=== PATIENT | male | born 1940 | race Caucasian/White ===

== ENCOUNTER → 2016-06-18 | Outpatient (CLI) | payer OTHER, BC ==
[~2016-06-18] MED LIST: ABIR1TAB PO; ASPI81TA28 PO; BUTO10SO; CALC-459 PO; CHOL200010 PO; DENOINJ SC; ENZA1CAP PO; LEUP30IN3 IM; MISCCAP80 PO; MULT-506 PO; OMEG10007 PO; OPTIRAY 320 IV PRN; PARO10TA PO; PRAV20TA PO; Prednisone PO; TRMCR515 TOP; VITA400C15 PO
--- NOTE | 2016-06-18 15:18 | DIAGNOSTIC IMAGING REPORT ---
CHEST CT WITH CONTRAST CT DOSE: HISTORY: Prostate cancer. TECHNIQUE: Multiaxial CT images of the chest were performed following the intravenous administration of contrast. COMPARISON: Chest CT 09/09/2015. FINDINGS: Motion artifact. The central airways are patent. No pneumothorax. No pleural effusions. A few punctate calcified granulomas within the left lower lobe. Calcified left hilar lymph node. No focal lung consolidations or suspicious pulmonary nodules. Significant increase in size in the T2 osteoblastic lesion which now occupies the majority vertebral body. No new osteoblastic metastatic lesions. No mediastinal or hilar lymphadenopathy. The mediastinal vascular structures are within normal limits. IMPRESSION: Increase in size in the T2 osteoblastic metastatic lesion. No new areas of metastatic disease identified within the chest. Electronically signed by: Karan August M.D. 06/18/2016 3:16 PM Dictated Date/Time: 06/18/2016 3:11 PM
--- NOTE | 2016-06-18 15:33 | DIAGNOSTIC IMAGING REPORT ---
ABDOMEN AND PELVIS CT WITH IV AND ORAL CONTRAST CT DOSE: 882.67 mGy.cm HISTORY: Prostate carcinoma CT TECHNIQUE: Multiaxial CT images of the abdomen and pelvis were performed following the use of intravenous and oral contrast. COMPARISON STUDY: 09/09/2015 FINDINGS: Lung bases remain clear. Liver spleen and pancreas are uniform. Gallbladder is negative for distention. Kidneys enhance uniformly. There is minimal cortical scarring of both kidneys. The adrenal glands are normal. Pancreas is uniform throughout. There is atelectatic change of the abdominal and pelvic arterial vasculature. Minimal vince change in the periaortic and iliac regions is stable to slightly improved. Previous maximum vince dimension of 12 mm is now 8 mm. Several additional nodes not appears to measure remains stable. There is no evidence for new interval or progressive adenopathy. Bowel pattern is nonobstructive. Bladder is midline. There has been a prosthetic resection. Inguinal regions appear unremarkable. Osseous structures show mild scattered degenerative change. IMPRESSION: 1. Stable to slightly improved exam. 2. No evidence for new interval or progressive disease. 3. The minimal adenopathy previously described is stable to slightly diminished with a node previously measured 12 mm now 8 mm. Electronically signed by: Pepito Freitas M.D. 06/18/2016 3:32 PM Dictated Date/Time: 06/18/2016 3:23 PM
== END | disposition home or self-care (01) ==
LOC: C.CTS 14:30
PROVIDERS: ATTEND Internal Medicine Hematology & Oncology
DX: C61 Malignant neoplasm of prostate (principal)

== ENCOUNTER → 2016-06-23 | Outpatient (CLI) | payer OTHER, BC ==
[~2016-06-23] MED LIST changes: -OPTIRAY 320 IV PRN
--- NOTE | 2016-06-23 14:53 | DIAGNOSTIC IMAGING REPORT ---
NUCLEAR MEDICINE WHOLE-BODY BONE SCAN CLINICAL HISTORY: PROSTATE CA COMPARISON STUDY: 12/18/2015, CT scan dated 06/18/2016 FINDINGS: The patient was injected with 26.1 mCi of technetium 99m MDP. Three-hour delayed whole body images were acquired. There is increased intensity of the focus of increased activity to T2 level. This corresponds to a blastic lesion on the recent CT scan and is consistent with a blastic metastasis. There is a new focus of increased activity involving the left superior acetabular region. This corresponds to a blastic lesion on the recent CT scan. This is consistent with a metastatic deposit. Increased activity within the right knee is felt to be degenerative IMPRESSION: 1. Evidence of progressive skeletal metastasis. Increased intensity of the T2 lesion. New focus of increased activity involving the left superior acetabular region, corresponding to a blastic lesion on the CT scan dated 06/18/2016 Electronically signed by: Tyson Tabor M.D. 06/23/2016 2:51 PM Dictated Date/Time: 06/23/2016 2:48 PM
== END | disposition home or self-care (01) ==
LOC: C.NUCL 10:23
PROVIDERS: ATTEND Internal Medicine Hematology & Oncology
DX: C61 Malignant neoplasm of prostate (principal); R93.7 Abnormal findings on diagnostic imaging of other parts of musculoskeletal system

== ENCOUNTER → 2016-07-06 | Outpatient (CLI) | payer OTHER, BC ==
[~2016-07-06] MED LIST changes: +GADAVIST IV PRN
--- NOTE | 2016-07-06 13:57 | DIAGNOSTIC IMAGING REPORT ---
THORACIC SPINE MRI WITH AND WITHOUT CONTRAST HISTORY: Prostate carcinoma PROSTATE CA TECHNIQUE: Multiplanar multisequence MRI of the thoracic spine was performed both before and after the intravenous administration of contrast. COMPARISON: None. FINDINGS: Signal characteristics the vertebral bodies indicate persistent decrease in signal of the T2 vertebral body. This consistent with patient's known metastatic positive at that site. No additional areas of bone marrow replacement are identified. Signal characteristics of the thoracic cord are unremarkable. Postcontrast images demonstrated at least a moderate postcontrast enhancement of the T2 vertebral body. There is no evidence for an associated soft tissue component. Transaxial images throughout the entire thoracic region show no evidence of disc herniation or spinal stenosis. There is no associated soft tissue component at T2. There is no evidence for compromise of the spinal canal. Neural foramina are patent bilaterally at all levels. There is a small synovial cyst on the right at the T11-T12 level. Study is negative for disc herniation or spinal stenosis. IMPRESSION: 1. Known blastic metastatic deposit at T2. 2. No evidence for an associated soft tissue component. 3. Moderate degenerative intervertebral disc change with the remainder of the thoracic region unremarkable. Electronically signed by: Pepito Freitas M.D. 07/06/2016 1:56 PM Dictated Date/Time: 07/06/2016 1:51 PM
== END | disposition home or self-care (01) ==
LOC: C.MRI 12:45
PROVIDERS: ATTEND Internal Medicine Hematology & Oncology
DX: C61 Malignant neoplasm of prostate (principal); M51.34 Other intervertebral disc degeneration, thoracic region

== ENCOUNTER → 2016-07-12 | Outpatient (CLI) | payer OTHER, BC ==
[~2016-07-12] MED LIST changes: -GADAVIST IV PRN
--- NOTE | 2016-07-12 09:11 | DIAGNOSTIC IMAGING REPORT ---
RIGHT KNEE 4 OR MORE CLINICAL HISTORY: RIGHT KNEE PAIN Right pain COMPARISON: None. DISCUSSION: Considerable degenerative change medial joint compartment right knee. Moderate degenerative change medial joint compartment left knee. Mild degenerative change patellofemoral joint. Mild reactive osteophytic change throughout. There is no evidence for soft tissue swelling. IMPRESSION: Significant degenerative change primarily the medial joint compartment right knee. Electronically signed by: Pepito Freitas M.D. 07/12/2016 9:10 AM Dictated Date/Time: 07/12/2016 9:09 AM
== END | disposition home or self-care (01) ==
LOC: C.RDSM 14:24
PROVIDERS: ATTEND Internal Medicine
DX: M25.561 Pain in right knee (principal)

== ENCOUNTER → 2016-09-14 | Outpatient (CLI) | payer OTHER, BC ==
[~2016-09-14] MED LIST changes: -ABIR1TAB PO; -Prednisone PO; +TRAM-10 PO
[2016-09-14 13:12] VITALS: BP 110/78; PULSE 71; TEMP 36.9; O2SAT 96
--- NOTE | 2016-09-14 17:11 | Radiation Oncology Follow-Up ---
Radiation Oncology Follow-Up Date of Visit September 14, 2016. 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 Stage: IV Permanent Comment: Rising PSA to 7.5 Status post ultrasound-guided biopsies, clinical stage TIc Biopsy stage TIIc Alden grade 3+3, 4+3, 4+4 and 4+5 initiation of Casodex status post robotic-assisted laparoscopic radical prostatectomy with bilateral lymph node dissection completed 02/01/2013 Stage [id number] Ronal 4+5 Initiation of hormonal suppression with reaction to medication Status post completion of radiation therapy as salvage 07/18/2013 received 7000 cGy Continuous Lupron therapy as well as bicaludimide Continued rise in PSA Bicalutimide stopped Initiation of Xtandi plus bisphosphonate Current regimen of treatment as of 03/13/2016 Zytiga, Lupron, Xgeva, and prednisone 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 Agosto. The patient was treated with salvage radiation to the prostate bed completing on 07/18/2013. He had an initial response with decreasing prostate-specific antigens. However more recently his prostate-specific antigen has been rising. Patient has continued on Lupron therapy as well as Casodex. Recently the Casodex has been stopped and patient was started on Xtandi and Xgeva. Initially his prostate-specific antigen responded melanie at 6.31. It however has continued to rise reaching 14 in February 2016 and again in May and June 2016. Dr. Agosto has indicated he was going to stop the Xtandi and will start Zytiga. The patient has had recent restaging studies. On 06/18/[address] scan of the abdomen and pelvis was performed. This showed minimal vince change in the periaortic and iliac region which was stable or slightly improved. A previously maximal vince dimension of 12 mm had decreased to 8 mm. There was no evidence of interval or progressive adenopathy. There was evidence of a blastic lesion seen in the left supra-acetabular region. CT scan of the chest on 06/18/2016 showed an increase in the size of a T2 osteoblastic metastatic lesion with no new areas identified. This was first identified on a bone scan from 12/18/2015 and based sclerotic bony lesion seen on a CT scan from 2015. A repeat bone scan performed on 06/23/2016 showed evidence of progressive skeletal metastasis. There is increased intensity of a T2 lesion. A new focus of increased activity was noted involving the left superior acetabular region which corresponded to a blastic lesion seen on CT scan from 06/18/2016. A thoracic MRI was performed on 07/06/2016. This showed moderate post contrast enhancement of the T2 vertebral body without evidence of associated soft tissue component. The signal changes were consistent with metastatic disease. The signal characteristics of the thoracic cord were unremarkable with no evidence of spinal stenosis or compression. There were no other thoracic areas of metastatic disease appreciated. In follow-up of the scans with Dr. Agosto and with a specialist in [place] the possibility of radiation to the thoracic spine was discussed with the patient. This was also impacted by the fact that the patients father was diagnosed with and from metastatic prostate cancer developed evidence of metastatic thoracic spine disease to involve the spinal cord. We met with the patient and his to discuss the option of treating the thoracic spine. I indicated that if we were to treat it would be reasonable to consider more aggressive local treatment despite the fact of a second additional site in the left supra-acetabular region. I discussed her for the possibility of a stereotactic treatment consisting of 5 fractions to the T2 vertebral body. We discussed in great detail the use of stereotactic radiation to the thoracic vertebral body. This included a discussion of the potential risks and side effects from this treatment. This discussion included the possibility of irritation or damage to spinal cord based on unknown predisposition that could lead to the possibility of numbness or even in extremely rare situations paralysis. We also talked about potential irritation or damage to the esophagus. A consent form was presented to the patient. These risks as noted above were discussed in detail with the patient. Also noted was the possibility of secondary malignancies in the future. The risks were read by the patient and initialed and the consent form was read signed and witnessed. With the patient s consent we will proceed with CT simulation next week. After treatment planning we will then schedule the patient to start his course of stereotactic treatment. This will happen at the patient and his wifes request after August 06 when she returns from a visit to her daughter who is having medical issues of her own. Patient did complete the EPIC-CP form and received an overall prostate cancer quality of life score of 26 out of 60. He also completed the AUA symptom score receiving a score of 4. Patient is having no pain in either of the 2 sites but does wish to proceed with radiation to the T-spine at this time. (Geovanna Krause PA-C) Interim History He is been doing well over the past month. He did not develop any area of skin irritation over the anterior posterior thorax. We did discuss possibility of developing dysphagia. He did not develop any difficulty with swallowing. He is not developed any discomfort in the thoracic spine or the area of the acetabulum. He noticed some dryness of the throat. He did complete an AUA score sheet and gave a score of 2. He completed expanded prostate cancer index composite and gave a score of one of 12 urinary incontinent symptoms. He gave a score of 0 of 12 in urinary irritation symptoms. He gave a score of 0 of 12 bowel symptoms. He gave a score of 8 of 12 in sexual symptoms. He gave a score of 4 of 12 and hormonal vitality symptoms. His total was 15 of 60. (Geovanna Krause PA-C) Allergies Coded Allergies: Oxycodone (Verified Adverse Reaction, Severe, confusion, 02/01/13) PER DR CARMICHAEL, Per his conversation with patient, reaction to Percocet was confusion, not difficulty breathing. Home Medications Scheduled Aspirin (Aspirin Ec), 81 MG PO DAILY Calcium Carbonate-Cholecalcife (Calcium 600+D 600-800 mg-Unit), 1 TAB PO BID Cholecalciferol (Vitamin D), 1 CAP PO DAILY Denosumab (Xgeva), 120 MG SC MONTHLY Enzalutamide (Xtandi), 160 MG PO DAILY Fish Oil ([place]-3), 1 CAP PO DAILY Leuprolide Acetate (Lupron Depot), 30 MG IM UD Multivitamin (Multivitamin), 1 TAB PO DAILY Paroxetine Hcl (Paxil), 1 TAB PO DAILY Pravastatin (Pravachol ), 20 MG PO DAILY Probiotic Product (Probiotic), 1 CAP PO DAILY Tocopheryl Acet,Dl-Alpha (Vitamin E), 400 INTER.UNIT PO DAILY Scheduled PRN Butorphanol Tartrate Nasal [place] (Stadol Nasal [place]), 1 SPRAY NA DAILY PRN for Pain Triamcinolone Acet (Triamcinolone Acetonide), 1 APPLN TOP BID PRN for Itching Review of Systems Gastrointestinal: Symptoms: WNL Oral: Symptoms: No Problems Respiratory: Symptoms: WNL Urinary: Symptoms: Nocturia Comments: nocturia times 2 Skin: Symptoms: No Problems Additional Notes: He completed a distress management report and answered "no" to all questions. (Geovanna Krause PA-C) Physical Exam Vital Signs Date Time Temp Pulse Resp B/P Pulse Ox O2 Delivery O2 Flow Rate FiO2 09/14/16 13:12 36.9 71 18 110/78 96 Pain: Side: Bilateral Patient Pain Scale: 0 - 10 Initial Pain Intensity: 0.0 Fatigue: None General Appearance: no apparent distress Eyes: normal inspection, EOMI ENT: normal ENT inspection, hearing grossly normal Neck: no adenopathy, thyroid normal Respiratory/Chest: lungs clear, no respiratory distress, no accessory muscle use Cardiovascular: regular rate, rhythm, no gallop, no murmur Skin: warm/dry Lymphatic: no adenopathy (Geovanna Krause PA-C) Laboratory Studies Test 07/29/16 09:34 08/26/16 09:29 White Blood Count 5.11 K/uL (4.8-10.8) 5.32 K/uL (4.8-10.8) Red Blood Count 4.75 M/uL (4.7-6.1) 4.87 M/uL (4.7-6.1) Hemoglobin 14.6 g/dL (14.0-18.0) 15.4 g/dL (14.0-18.0) Hematocrit 41.6 % (42-52) 43.5 % (42-52) Mean Corpuscular Volume 87.6 fL (80-100) 89.3 fL (80-100) Mean Corpuscular Hemoglobin 30.7 pg (25-34) 31.6 pg (25-34) Mean Corpuscular Hemoglobin Concent 35.1 g/dl (32-36) 35.4 g/dl (32-36) Platelet Count 178 K/uL (130-400) 167 K/uL (130-400) Mean Platelet Volume 11.5 fL (7.4-10.4) 11.5 fL (7.4-10.4) Neutrophils (%) (Auto) 54.6 % 49.5 % Lymphocytes (%) (Auto) 32.1 % 30.1 % Monocytes (%) (Auto) 10.2 % 17.7 % Eosinophils (%) (Auto) 2.3 % 1.9 % Basophils (%) (Auto) 0.6 % 0.6 % Neutrophils # (Auto) 2.79 K/uL (1.4-6.5) 2.64 K/uL (1.4-6.5) Lymphocytes # (Auto) 1.64 K/uL (1.2-3.4) 1.60 K/uL (1.2-3.4) Monocytes # (Auto) 0.52 K/uL (0.11-0.59) 0.94 K/uL (0.11-0.59) Eosinophils # (Auto) 0.12 K/uL (0-0.5) 0.10 K/uL (0-0.5) Basophils # (Auto) 0.03 K/uL (0-0.2) 0.03 K/uL (0-0.2) RDW Standard Deviation 41.6 fL (36.4-46.3) 41.3 fL (36.4-46.3) RDW Coefficient of Variation 13.0 % (11.5-14.5) 12.8 % (11.5-14.5) Immature Granulocyte % (Auto) 0.2 % 0.2 % Immature Granulocyte # (Auto) 0.01 K/uL (0.00-0.02) 0.01 K/uL (0.00-0.02) Sodium Level 142 mmol/L (136-145) 140 mmol/L (136-145) Potassium Level 4.1 mmol/L (3.5-5.1) 3.9 mmol/L (3.5-5.1) Chloride Level 109 mmol/L (98-107) 106 mmol/L (98-107) Carbon Dioxide Level 25 mmol/L (21-32) 29 mmol/L (21-32) Anion Gap 8.0 mmol/L (3-11) 5.0 mmol/L (3-11) Blood Urea Nitrogen 14 mg/dl (7-18) 16 mg/dl (7-18) Creatinine 0.84 mg/dl (0.60-1.40) 0.75 mg/dl (0.60-1.40) Est Creatinine Clear Calc Drug Dose 86.0 ml/min 96.3 ml/min Estimated GFR () 100.7 105.5 Estimated GFR (Non- 86.9 91.0 BUN/Creatinine Ratio 16.5 (10-20) 21.7 (10-20) Random Glucose 108 mg/dl (70-99) 94 mg/dl (70-99) Calcium Level 9.0 mg/dl (8.5-10.1) 9.4 mg/dl (8.5-10.1) Total Bilirubin 0.5 mg/dl (0.2-1) 0.7 mg/dl (0.2-1) Aspartate Amino Transferase (AST) 17 U/L (15-37) 15 U/L (15-37) Alanine Aminotransferase (ALT) 28 U/L (12-78) 25 U/L (12-78) Alkaline Phosphatase 37 U/L (45-117) 36 U/L (45-117) Lactate Dehydrogenase 179 U/L (87-241) 176 U/L (87-241) Total Protein 6.7 gm/dl (6.4-8.2) 7.0 gm/dl (6.4-8.2) Albumin 3.7 gm/dl (3.4-5.0) 3.9 gm/dl (3.4-5.0) Globulin 3.0 gm/dl (2.5-4.0) 3.1 gm/dl (2.5-4.0) Albumin/Globulin Ratio 1.2 (0.9-2) 1.3 (0.9-2) Prostate Specific Antigen 12.800 ng/ml (0.000-4.000) 14.400 ng/ml (0.000-4.000) (Geovanna Krause PA-C) Assessment & Plan Plan: He has a follow-up appointment with Dr. Oconnor at [facility] next week. Continue regular follow-up with Dr. Agosto. (Geovanna Krause PA-C) Mr. Sherman is seen today following stereotactic treatment to a metastatic deposit to the T2 vertebral body. He has tolerated that treatment extremely well. He has no side effects related to the treatment. He asked about the possibility of treating the other lesion in the left supra-acetabular region. I reminded the patient that we treated his prostate bed in 2013 which could inhibit our ability to treat the left supra-acetabular region especially in the setting with no pain. I did tell him that if he were to develop symptoms we would certainly review his plan and likely could retreat this area with more complicated treatment planning. I also spoke with them about the possibility of treatment with Xofigo. I explained the rationale and technique of utilizing this treatment. I suggested that he discuss this if interested with Dr. Oconnor at [place] and with Dr. Agosto. Since the patient is being followed closely by his other referring physicians no follow-up appointment was suggested. However the patient understands that we would be happy to see him at any time in the future if requested either by the patient or by his referring physicians. Thank you for allowing us to participate in the care of this patient. This chart was completed in part utilizing [employer] Voice Recognition software. Attempts were made to minimize the grammatical errors, random word insertions, pronoun errors and incomplete sentences. Any formal questions or concerns about the content, text or information contained within the body of this dictation should be directly addressed to the provider for clarification. Otto Garcia MD Department of Radiation Oncology [facility] (Tomas Garcia M.D.) Total Time In Follow-Up I spent 20 minutes speaking to the patient and performed an examination. I spent 15 minutes reviewing information and completing this note. (Geovanna Krause PA-C) Copy To Fabricio Agosto D.O.; Anusha Oconnor M.D.; Rafa Carmichael
== END | disposition home or self-care (01) ==
LOC: C.ONC 13:10
PROVIDERS: ATTEND Physician Assistant Medical
DX: Z08 Encounter for follow-up examination after completed treatment for malignant neoplasm (principal); Z92.3 Personal history of irradiation; Z85.46 Personal history of malignant neoplasm of prostate

== ENCOUNTER → 2016-11-03 | Outpatient (CLI) | payer OTHER, BC ==
[~2016-11-03] MED LIST changes: -TRAM-10 PO
== END | disposition home or self-care (01) ==
LOC: C.MAMM 15:40
PROVIDERS: ATTEND Nurse Practitioner Family
DX: M85.851 Other specified disorders of bone density and structure, right thigh (principal)

== ENCOUNTER → 2016-12-21 | Outpatient (CLI) | payer OTHER, BC ==
--- NOTE | 2016-12-21 13:38 | DIAGNOSTIC IMAGING REPORT ---
BONE SCAN WHOLE BODY CLINICAL HISTORY: Prostate cancer. COMPARISON STUDY: Whole-body bone scan June 23, 2016. TECHNIQUE: 26.445 mCi of technetium 90 9M MDP was injected IV at 9:50 AM on December 21, 2016. 3 hours following injection, flow body imaging was performed in the anterior and posterior projections. FINDINGS: Expected soft tissue and renal activity is present. Uptake within the superior left acetabular lesion has increased since prior exam of June 23, 2016. There has been interval development of marked focal uptake within the lower thoracic spine at approximately the T10 level. This is new since prior exam. Uptake within the T2 vertebral lesion has diminished. There has also been interval development of a small focus of mild uptake within the left upper aspect of the sacrum or lower lumbar spine. Uptake adjacent to the right knee is degenerative. IMPRESSION: Findings consistent with a mixed treatment response. Significant interval decrease in radiotracer uptake within the T2 lesion with interval development of two spinal lesions and slight increase in the left acetabular lesion, as described above. Electronically signed by: Bertin Eisenberg M.D. 12/21/2016 1:37 PM Dictated Date/Time: 12/21/2016 1:32 PM
== END | disposition home or self-care (01) ==
LOC: C.NUCL 09:39
PROVIDERS: ATTEND Nurse Practitioner Family
DX: C61 Malignant neoplasm of prostate (principal)

== ENCOUNTER → 2017-01-19 | Outpatient (CLI) | payer OTHER, BC ==
--- NOTE | 2017-01-19 16:07 | DIAGNOSTIC IMAGING REPORT ---
L HAND MIN 3 VIEWS ROUTINE CLINICAL HISTORY: BILATERAL HAND PAIN M79.89 COMPARISON: None. DISCUSSION: The bones and joint spaces appear intact. There is no evidence of fracture, dislocation or bony disease. There is no evidence for soft tissue swelling. IMPRESSION: Negative study. The above report was generated using voice recognition software. It may contain grammatical, syntax or spelling errors. Electronically signed by: Pepito Freitas M.D. 01/19/2017 4:05 PM Dictated Date/Time: 01/19/2017 4:05 PM
--- NOTE | 2017-01-19 16:08 | DIAGNOSTIC IMAGING REPORT ---
R HAND MIN 3 VIEWS ROUTINE CLINICAL HISTORY: BILATERAL HAND PAIN M79.89 COMPARISON: None. DISCUSSION: The bones and joint spaces appear intact. There is no evidence of fracture, dislocation or bony disease. There is no evidence for soft tissue swelling. IMPRESSION: Negative study. The above report was generated using voice recognition software. It may contain grammatical, syntax or spelling errors. Electronically signed by: Pepito Freitas M.D. 01/19/2017 4:06 PM Dictated Date/Time: 01/19/2017 4:06 PM
== END | disposition home or self-care (01) ==
LOC: C.RAD 15:46
PROVIDERS: ATTEND Family Medicine
DX: M79.89 Other specified soft tissue disorders (principal)

== ENCOUNTER → 2017-01-20 | Outpatient (CLI) | payer OTHER, BC ==
[~2017-01-20] MED LIST changes: +OPTIRAY 320 IV PRN
--- NOTE | 2017-01-20 16:10 | DIAGNOSTIC IMAGING REPORT ---
(CHEST) THORAX WITH CT DOSE: 1161.91 mGycm HISTORY: Prostate carcinoma PROSTATE CANCER TECHNIQUE: Multiaxial CT images of the chest were performed following the intravenous administration of contrast. A dose lowering technique was utilized adhering to the principles of ALARA. COMPARISON: 06/18/2016 FINDINGS: Lungs remain clear. Stable to slightly metastatic deposit right pedicle T10. Evaluation of chest otherwise remains negative. Osteoblastic metastatic deposit right pedicle of T10. No significant hilar or mediastinal adenopathy. Lungs remain clear. IMPRESSION: 1. Slightly progressive bony metastatic change now with an osteoblastic metastatic deposit involving the right pedicle at T10 in addition to the findings previously seen at T2. 2. The chest is otherwise negative. The above report was generated using voice recognition software. It may contain grammatical, syntax or spelling errors. Electronically signed by: Pepito Freitas M.D. 01/20/2017 4:09 PM Dictated Date/Time: 01/20/2017 4:00 PM
--- NOTE | 2017-01-20 16:21 | DIAGNOSTIC IMAGING REPORT ---
ABDOMEN AND PELVIS CT WITH IV AND ORAL CONTRAST CT DOSE: HISTORY: PROSTATE CANCER TECHNIQUE: Multiaxial CT images of the abdomen and pelvis were performed following the use of intravenous and oral contrast. A dose lowering technique was utilized adhering to the principles of ALARA. COMPARISON STUDY: Abdomen and pelvis CT 06/18/2016. FINDINGS: The lung bases are clear. Increase in size in the osteoblastic metastatic lesion within the left acetabulum which now measures 2.9 cm, previous measuring 2.2 cm. The L5 and T10 osteoblastic lesions have also increased in size. No new osteoblastic lesions identified. The liver, gallbladder, adrenal glands, pancreas, and kidneys are unremarkable. Mild fullness within the bilateral renal collecting system without cesar hydronephrosis. Mild urothelial thickening within the bilateral ureters. Subcentimeter retroperitoneal lymph nodes remain stable. Interval development of mild periaortic fat stranding. The bladder is unremarkable. No pelvic lymphadenopathy. Moderate stool within the colon. No bowel wall thickening or obstruction. Normal appendix. IMPRESSION: 1. Slight increase in size in the osteoblastic metastatic lesions as described above. However, no new osteoblastic metastatic lesions identified. 2. Subcentimeter retroperitoneal lymph nodes remain stable. 3. Interval development of mild periaortic fat stranding and mild ureteral wall thickening. This could be due to posttreatment/post radiation changes. An inflammatory process is considered less likely. Electronically signed by: Karan August M.D. 01/20/2017 4:20 PM Dictated Date/Time: 01/20/2017 4:13 PM
== END | disposition home or self-care (01) ==
LOC: C.CTS 14:20
PROVIDERS: ATTEND Internal Medicine Hematology & Oncology
DX: C61 Malignant neoplasm of prostate (principal); C79.51 Secondary malignant neoplasm of bone

== ENCOUNTER → 2017-02-03 | Outpatient (CLI) | payer OTHER, BC ==
[~2017-02-03] MED LIST changes: -OPTIRAY 320 IV PRN
== END | disposition home or self-care (01) ==
LOC: C.NUCL 12:24
PROVIDERS: ATTEND Radiology Radiation Oncology
DX: C61 Malignant neoplasm of prostate (principal); C79.51 Secondary malignant neoplasm of bone

== ENCOUNTER → 2017-03-22 | Outpatient (CLI) | payer OTHER, BC ==
[~2017-03-22] MED LIST changes: +TRAM-10 PO
== END | disposition home or self-care (01) ==
LOC: C.NUCL 12:57
PROVIDERS: ATTEND Radiology Radiation Oncology
DX: C61 Malignant neoplasm of prostate (principal)

== ENCOUNTER → 2017-06-22 | Outpatient (CLI) | payer OTHER, BC | END | disposition home or self-care (01) | LOC: C.NUCL 13:02 | PROVIDERS: ATTEND Radiology Radiation Oncology | DX: C61 Malignant neoplasm of prostate (principal); C79.51 Secondary malignant neoplasm of bone ==

== ENCOUNTER 2017-07-26 08:57 | Inpatient (IN) | payer OTHER, BC ==
[2017-07-26] VITALS (11 sets, daily range): BP systolic 98–117; BP diastolic 52–69; PULSE 51–72; TEMP 36.8–39; O2SAT 94–100; Ht 175.3 cm; Wt 82.8 kg
[~2017-07-26] VITALS: Ht 175.3 cm; Wt 82.8 kg
[2017-07-26] MEDS ORDERED: SODIUM CHLORIDE 0.9% 1000ML 1,000 ML IV ONE (09:17)
[2017-07-26] MEDS ORDERED: VITACAP37 PO (09:34)
[2017-07-26 09:47] LABS: HEMATOCRIT 23.6 % (42-52); HEMOGLOBIN 7.8 g/dL (14.0-18.0); MEAN CELL VOLUME 81.7 fL (80-100); MEAN CORPUSCULAR HGB CONC 33.1 g/dl (32-36); NUCLEATED RED BLOOD CELL ABS 0.04 K/uL (0-0); PLATELET COUNT 152 K/uL (130-400); RED CELL DISTRIBUTION WIDTH CV 21.6 % (11.5-14.5); RED CELL DISTRIBUTION WIDTH SD 62.6 fL (36.4-46.3)
[2017-07-26 09:56] LABS: INR 1.2 (0.9-1.1)
[2017-07-26 10:01] LABS: ALBUMIN 3.2 gm/dl (3.4-5.0); ALT/SGPT 23 U/L (12-78); BLOOD UREA NITROGEN 13 mg/dl (7-18); CARBON DIOXIDE 23 mmol/L (21-32); CREATININE 0.81 mg/dl (0.60-1.40); GLUCOSE 116 mg/dl (70-99); POTASSIUM 3.9 mmol/L (3.5-5.1); SODIUM 131 mmol/L (136-145)
--- NOTE | 2017-07-26 10:03 | EMERGENCY ROOM VISIT NOTE ---
History Report prepared by Angi: Bing Dickson Under the Supervision of: Dr. Nick Howe M.D. First contact with patient: 09:05 Chief Complaint: LETHARGIC Stated Complaint: NO APPETITE, LETHARGIC, DARK URING, STRANGE SMELL Nursing Triage Summary: pt to the ED with c/o no energy and lethargy decreased po intake for several days has been neutropenic has prostate CA takes chemo pills and radiation feels nausea and strange smells History of Present Illness The patient is a 76 year old male who presents to the Emergency Room with complaints of worsening lethargy for the past few days. The patient is currently being treated for prostate cancer with mets to the bone. He is receiving radiation infusions monthly for his cancer. He did not get any radiation this month because he was neutropenic. The patient states that he is not currently undergoing any chemotherapy. Over the past few days he has felt very lethargic. He reports having no energy and no appetite. He has been feeling short of breath. He reports dark urine. states that the patient appears yellowish and pale to her. They called the patient's oncologist this morning and were advised to come to the ED for further evaluation. The patient denies any nausea, vomiting, or diarrhea. Source of History: patient, spouse/significant other Onset: a few days ago Position: other (global) Quality: other (lethargy) Timing: worsening Associated Symptoms: + SOB, + urinary symptoms, No nausea, No vomiting, No diarrhea Note: Pt notes no energy and no appetite. Pt appears pale and yellow per . Review of Systems See HPI for pertinent positives & negatives. A total of 10 systems reviewed and were otherwise negative. Past Medical & Surgical Medical Problems: (1) Anemia (2) Hyperlipidemia (3) Lethargy (4) Prostate cancer (5) Third degree heart block (6) Weakness Family History Cancer Social History Smoking Status: Light Tobacco Smoker Marital Status: Housing Status: lives with significant other Occupation Status: retired Current/Historical Medications Scheduled Aspirin (Aspirin Ec), 81 MG PO DAILY Calcium Carbonate-Cholecalcife (Calcium 600+D 600-800 mg-Unit), 1 TAB PO BID Cholecalciferol (Vitamin D), 2,000 UNITS PO DAILY Denosumab (Xgeva), 120 MG SC MONTHLY Enzalutamide (Xtandi), 120 MG PO DAILY Fish Oil ([place]-3), 1 CAP PO DAILY Leuprolide Acetate (Lupron Depot), 30 MG IM UD Multivitamin (Multivitamin), 1 TAB PO DAILY Paroxetine Hcl (Paxil), 10 MG PO DAILY Pravastatin (Pravachol ), 20 MG PO DAILY Probiotic Product (Probiotic), 1 CAP PO DAILY Vitamin E (E-400), 400 UNITS PO DAILY Scheduled PRN Tramadol (Ultram), 50 MG PO TID PRN for Pain Triamcinolone Acet (Triamcinolone Acetonide), 1 APPLN TOP BID PRN for Itching Allergies Coded Allergies: Oxycodone (Verified Adverse Reaction, Intermediate, confusion, 07/26/17) PER DR CARMICHAEL, Per his conversation with patient, reaction to Percocet was confusion, not difficulty breathing. Physical Exam Vital Signs Date Time Temp Pulse Resp B/P (MAP) Pulse Ox O2 Delivery O2 Flow Rate FiO2 07/26/17 10:10 97 Room Air 07/26/17 09:00 37.2 63 22 122/74 97 Physical Exam GENERAL: Awake, alert, pale-appearing, in no acute distress HENT: Normocephalic, atraumatic. Oropharynx unremarkable. EYES: Normal conjunctiva. Sclera non-icteric. NECK: Supple. No nuchal rigidity. FROM. No JVD. RESPIRATORY: Clear to auscultation. CARDIAC: Regular rate, normal rhythm. Extremities warm and well perfused. Pulses equal. ABDOMEN: Soft, non-distended. No tenderness to palpation. No rebound or guarding. No masses. RECTAL: No masses or blood noted. Heme negative. MUSCULOSKELETAL: Chest examination reveals no tenderness. The back is symmetrical on inspection without obvious abnormality. There is no CVA tenderness to palpation. No joint edema. LOWER EXTREMITIES: Calves are equal size bilaterally and non-tender. No edema. No discoloration. NEURO: Normal sensorium. No sensory or motor deficits noted. SKIN: No rash or jaundice noted. Medical Decision & Procedures ER Provider Diagnostic Interpretation: Radiology results as stated below per my review and radiologist interpretation: CHEST ONE VIEW PORTABLE CLINICAL HISTORY: Sepsis COMPARISON STUDY: 01/02/2013 FINDINGS: The heart is enlarged. There is elevation interstitium consistent with mild congestive failure/fluid overload. There is no focal pulmonary consolidation. There are no pleural effusions.[ IMPRESSION: Cardiomegaly and radiographic evidence of mild congestive failure/fluid overload. Clinical and radiographic follow-up is recommended. Electronically signed by: Tyson Tabor M.D. 07/26/2017 10:20 AM Dictated Date/Time: 07/26/2017 10:20 AM Laboratory Results Test 07/26/17 09:30 07/26/17 09:32 07/26/17 09:37 Schistocytes 1+ Absolute Reticulocyte Count 0.06 10^6/uL (0.02-0.10) Percent Reticulocyte Count 2.0 % (0.5-2.0) Prothrombin Time 12.4 SECONDS (9.0-12.0) Prothromb Time International Ratio 1.2 (0.9-1.1) Activated Partial Thromboplast Time 32.0 SECONDS (21.0-31.0) Partial Thromboplastin Ratio 1.2 Total Creatine Kinase 27 U/L (39-308) Creatine Kinase MB < 0.5 ng/ml (0.5-3.6) Creatine Kinase MB Ratio (0-3.0) Prostate Specific Antigen 32.600 ng/ml (0.000-4.000) Influenza Type A Antigen Neg for Influ A (NEG) Influenza Type B Antigen Neg for Influ B (NEG) Bedside Lactic Acid Venous 2.18 mmol/L (0.90-1.70) Labs reviewed by ED physician. Medications Administered Medications (Trade) Dose Ordered Sig/Bunny Route Start Time Stop Time Status Last Admin Dose Admin Sodium Chloride 1,000 ml @ 999 mls/hr Q1H1M ONCE IV 07/26/17 09:17 07/26/17 10:17 DC 07/26/17 09:40 999 MLS/HR ECG Per My Interpretation Indication: weakness Rate (beats per minute): 54 Rhythm: sinus bradycardia Findings: no ectopy, other (no ST elevations or depressions) ED Course 09: Past medical records reviewed. The patient was evaluated in room B12B. A complete history and physical examination was performed. 0917: NSS 1000 ml @ 999 mls/hr IV 0951: At this time I performed a rectal examination. Please see above for my findings. I discussed the results so far with the patient. I obtained consent for blood at this time. 1007: I reassessed the patient at this time. He is resting comfortably. I discussed the results and treatment plan with the patient and his . I answered all pertaining questions that they had. They expressed understanding and verbalized agreement. 1011: I spoke with KATHRIN Newsome. We discussed the patient's case. The patient will be evaluated by the [facility] for further management. Medical Decision Differential diagnosis: Etiologies such as metabolic, infection, hypo/hyperglycemia, electrolyte abnormalities, cardiac sources, intracerebral event, toxicologic, neurologic, as well as others were entertained. This is a 76-year-old male who presents the emergency department complaining of generalized weakness. Patient is on radiation therapy for his prostate cancer and he was sent in by his oncologist. The patient is anemic and I suspect this is what causing his weakness. He was typed and screened for 2 units of packed red blood cells. I did discuss his case with the hospitalist service who agreed to admit the patient. Patient and are in agreement with the treatment plan. Medication Reconcilliation Current Medication List: was personally reviewed by me Blood Pressure Screening Patient's blood pressure: Normal blood pressure Consults Time Called: 1009 Consulting Physician: Bc Ponce Returned Call: 1011 I spoke with KATHRIN Newsome. We discussed the patient's case. The patient will be evaluated by the [facility] for further management. Impression Primary Impression: Weakness Additional Impression: Anemia Scribe Attestation The scribe's documentation has been prepared under my direction and personally reviewed by me in its entirety. I confirm that the note above accurately reflects all work, treatment, procedures, and medical decision making performed by me. Departure Information Dispostion Being Evaluated By Hospitalist Referrals Julia Terrell D.O. (PCP) Patient Instructions My [facility] Problem Qualifiers Additional Impression: Anemia Anemia type: unspecified type Qualified Codes: D64.9 - Anemia, unspecified
[2017-07-26 10:08] LABS: ALKALINE PHOSPHATASE 55 U/L (45-117); AST/SGOT 20 U/L (15-37); CKMB < 0.5 ng/ml (0.5-3.6); TOTAL PROTEIN 6.5 gm/dl (6.4-8.2)
--- NOTE | 2017-07-26 10:22 | DIAGNOSTIC IMAGING REPORT ---
CHEST ONE VIEW PORTABLE CLINICAL HISTORY: Sepsis COMPARISON STUDY: 01/02/2013 FINDINGS: The heart is enlarged. There is elevation interstitium consistent with mild congestive failure/fluid overload. There is no focal pulmonary consolidation. There are no pleural effusions.[ IMPRESSION: Cardiomegaly and radiographic evidence of mild congestive failure/fluid overload. Clinical and radiographic follow-up is recommended. Electronically signed by: Tyson Tabor M.D. 07/26/2017 10:20 AM Dictated Date/Time: 07/26/2017 10:20 AM
[2017-07-26 10:27] LABS: INFLUENZA B ANTIGEN Neg for Influ B (NEG)
[2017-07-26] MEDS ORDERED: MAGNESIUM HYDROXIDE SUSP 30 ML UDC PO PRN (10:45)
[2017-07-26] MEDS ORDERED: POLYETHYLENE (MIRALAX) 17 GM PACK PO PRN (10:45)
[2017-07-26] MEDS ORDERED: ALUMINUM/MAGNESIUM/SIMETH (MAALOX MAX) 30 ML UDC PO PRN (10:45)
[2017-07-26] MEDS ORDERED: ONDANSETRON INJ 2 MG/ML 2 ML VIAL IV PRN (10:45)
[2017-07-26] MEDS ORDERED: ACETAMINOPHEN 325 MG TAB PO PRN ×2 (10:45→13:00)
--- NOTE | 2017-07-26 11:06 | History and Physical ---
History & Physical Date & Time of Service: Jul 26, 2017 at 10:49 Chief Complaint: No Appetite, Lethargic, Dark Uring, Strange Smell Primary Care Physician: Julia Terrell D.O. History of Present Illness Source: patient, spouse 76 year old gentleman with a history of prostate CA with metastasis to the lumbar spine. He is currently undergoing oral treatment with Lupron, Xtandi, and Xgeva. He is followed by Dr. Romeo and has also been undergoing infusion radiation. He notes he has been neutropenic in the past, but never has required a blood transfusion. Over the last month he has become progressively weaker which really worsened over the last week. He has less energy and feels lethargic. His appetite is poor. He has lost around 25 lbs, but notes he has been trying to lose weight to a goal of 170 lbs. His HGB in February was over 13 and over the last few months it has been gradually dropping. Last week his HGB was 9.5. He called his oncologist today about the weakness and lethargy and was instructed to come to the ED. Routine labs were obtained and his HGB was found to be 7.8. EKG and CXR were with no acute findings. He was given a litter of fluid. Typed for 2 units of PRBC and the hospitalist were consulted for observation. His troponin was also elevated at 0.049 which will need trended. Past Medical/Surgical History Medical Problems: 1. Hyperlipidemia 2. Prostate cancer with metastasis to the lumbar spine 3. Neutropenia 4. Anemia Past Surgical History 1. Prostatectomy 2. Hernia Repair Family History Cancer Social History Smoking Status: Former Smoker Smokeless Tobacco Use: No Alcohol Use: none Drug Use: none Marital Status: Housing status: lives with significant other Occupational Status: retired Immunizations History of Influenza Vaccine: Yes History of Tetanus Vaccine?: Yes History of Pneumococcal: Yes History of Hepatitis B Vaccine: Yes Allergies Coded Allergies: Oxycodone (Verified Adverse Reaction, Intermediate, confusion, 07/26/17) PER DR CARMICHAEL, Per his conversation with patient, reaction to Percocet was confusion, not difficulty breathing. Home Medications Scheduled Aspirin (Aspirin Ec), 81 MG PO DAILY Calcium Carbonate-Cholecalcife (Calcium 600+D 600-800 mg-Unit), 1 TAB PO BID Cholecalciferol (Vitamin D), 2,000 UNITS PO DAILY Denosumab (Xgeva), 120 MG SC MONTHLY Enzalutamide (Xtandi), 120 MG PO DAILY Fish Oil ([place]-3), 1 CAP PO DAILY Leuprolide Acetate (Lupron Depot), 30 MG IM UD Multivitamin (Multivitamin), 1 TAB PO DAILY Paroxetine Hcl (Paxil), 10 MG PO DAILY Pravastatin (Pravachol ), 20 MG PO DAILY Probiotic Product (Probiotic), 1 CAP PO DAILY Vitamin E (E-400), 400 UNITS PO DAILY Scheduled PRN Tramadol (Ultram), 50 MG PO TID PRN for Pain Triamcinolone Acet (Triamcinolone Acetonide), 1 APPLN TOP BID PRN for Itching Review of Systems Constitutional: + weakness, + fatigue Eyes: No worsening of vision, No eye pain, No redness, No discharge, No diplopia, No problem reported ENT: + problem reported (unusual smells) Respiratory: + shortness of breath Cardiovascular: No chest pain, No orthopnea, No PND, No edema, No claudication , No palpitations, No problem reported Abdomen: No pain, No nausea, No vomiting, No diarrhea, No constipation, No GI bleeding, No problem reported Musculoskeletal: + problem reported (general weakness) Genitourinary - Male: No hematuria, No dysuria, No urinary frequency, No urinary urgency, No urinary hesitancy, No urinary retention, No urinary incontinence, No penile discharge, No lesions, No impotence, No problem reported Neurologic: + weakness Psychiatric: + depression symptoms Endocrine: + fatigue, No excessive thirst, No excessive urination, No problem reported Hematologic / Lymphatic: No abnormal bleeding/bruising, No clotting problems, No swollen lymph nodes, No night sweats, No problem reported Integumentary: No rash, No itch, No new/changing skin lesions, No color change , No bleeding, No problem reported Physical Exam Vital Signs Date Time Temp Pulse Resp B/P (MAP) Pulse Ox O2 Delivery O2 Flow Rate FiO2 07/26/17 10:10 97 Room Air 07/26/17 09:00 37.2 63 22 122/74 97 General Appearance: WD/WN, no apparent distress Head: normocephalic, atraumatic Eyes: normal inspection, sclerae normal ENT: hearing grossly normal, pharynx normal Neck: supple, no JVD Respiratory/Chest: chest non-tender, no respiratory distress, no accessory muscle use, + crackles (few faint crackles bibasilarly) Cardiovascular: regular rate, rhythm, no edema, no gallop, no JVD, no murmur Abdomen/GI: normal bowel sounds, non tender, soft, no organomegaly Back: normal inspection, no CVA tenderness, no muscle spasm Extremities/Musculoskelatal: normal inspection, no calf tenderness, normal capillary refill, no pedal edema Neurologic/Psych: no motor/sensory deficits, alert, normal mood/affect, oriented x 3 Skin: normal color, warm/dry, no rash Lymphatic: no adenopathy Diagnostics Laboratory Results Results Past 24 Hours Test 07/26/17 09:30 07/26/17 09:32 07/26/17 09:37 Range/Units White Blood Count 2.80 4.8-10.8 K/uL Red Blood Count 2.89 4.7-6.1 M/uL Hemoglobin 7.8 14.0-18.0 g/dL Hematocrit 23.6 42-52 % Mean Corpuscular Volume 81.7 80-100 fL Mean Corpuscular Hemoglobin 27.0 25-34 pg Mean Corpuscular Hemoglobin Concent 33.1 32-36 g/dl Platelet Count 152 130-400 K/uL RDW Standard Deviation 62.6 36.4-46.3 fL RDW Coefficient of Variation 21.6 11.5-14.5 % Nucleated RBC Absolute Count (auto) 0.04 0-0 K/uL Neutrophils % (Manual) 60.2 % Lymphocytes % (Manual) 13.3 % Monocytes % (Manual) 13.3 % Eosinophils % (Manual) 3.5 % Basophils % (Manual) 0.9 0-2 % Metamyelocytes % 3.5 % Myelocytes % 3.5 % Blast Cells % 1.8 % Nucleated Red Blood Cells % 1.4 % Neutrophils # (Manual) 1.69 1.4-6.5 K/uL Total Absolute Neutrophils 1.69 1.4-6.5 K/uL Lymphocytes # (Manual) 0.37 1.2-3.4 K/uL Total Absolute Lymphocytes 0.37 1.2-3.4 K/uL Monocytes # (Manual) 0.37 0.11-0.59 K/uL Eosinophils # (Manual) 0.10 0-0.5 K/uL Basophils # (Manual) 0.03 0-0.2 K/uL Metamyelocytes # 0.10 0-0 K/uL Myelocytes # 0.10 0-0 K/uL Blast Cells # 0.05 0-0 K/uL Giant Platelets 2+ Poikilocytosis PRESENT Anisocytosis PRESENT Ovalocytes 1+ Schistocytes 1+ Absolute Reticulocyte Count 0.06 0.02-0.10 10^6/uL Percent Reticulocyte Count 2.0 0.5-2.0 % Prothrombin Time 12.4 9.0-12.0 SECONDS Prothromb Time International Ratio 1.2 0.9-1.1 Activated Partial Thromboplast Time 32.0 21.0-31.0 SECONDS Partial Thromboplastin Ratio 1.2 Sodium Level 131 136-145 mmol/L Potassium Level 3.9 3.5-5.1 mmol/L Chloride Level 99 98-107 mmol/L Carbon Dioxide Level 23 21-32 mmol/L Anion Gap 9.0 3-11 mmol/L Blood Urea Nitrogen 13 7-18 mg/dl Creatinine 0.81 0.60-1.40 mg/dl Est Creatinine Clear Calc Drug Dose 80.0 ml/min Estimated GFR () 101.5 Estimated GFR (Non- 87.6 BUN/Creatinine Ratio 16.0 10-20 Random Glucose 116 70-99 mg/dl Calcium Level 8.0 8.5-10.1 mg/dl Total Bilirubin 1.2 0.2-1 mg/dl Aspartate Amino Transf (AST/SGOT) 20 15-37 U/L Alanine Aminotransferase (ALT/SGPT) 23 12-78 U/L Alkaline Phosphatase 55 45-117 U/L Total Creatine Kinase 27 39-308 U/L Creatine Kinase MB < 0.5 0.5-3.6 ng/ml Creatine Kinase MB Ratio 0-3.0 Troponin I 0.049 0-0.045 ng/ml Total Protein 6.5 6.4-8.2 gm/dl Albumin 3.2 3.4-5.0 gm/dl Globulin 3.3 2.5-4.0 gm/dl Albumin/Globulin Ratio 1.0 0.9-2 Prostate Specific Antigen 32.600 0.000-4.000 ng/ml Influenza Type A Antigen Neg for Influ A NEG Influenza Type B Antigen Neg for Influ B NEG Bedside Lactic Acid Venous 2.18 0.90-1.70 mmol/L Microbiology Results 07/26/17 Blood Culture, Received Pending 07/26/17 Blood Culture, Received Pending Diagnostic Radiology CHEST ONE VIEW PORTABLE CLINICAL HISTORY: Sepsis COMPARISON STUDY: 01/02/2013 FINDINGS: The heart is enlarged. There is elevation interstitium consistent with mild congestive failure/fluid overload. There is no focal pulmonary consolidation. There are no pleural effusions.[ IMPRESSION: Cardiomegaly and radiographic evidence of mild congestive failure/fluid overload. Clinical and radiographic follow-up is recommended. EKG nsr with no ST elevations Normal EKG Impression Assessment and Plan 1. Anemia - normocytic, normochromic - likely secondary to cancer treatment. Transfuse two units of PRBC. Trend HH. Denies dark or bloody stools. 2. Prostate CA with mets to lumbar spine - continue Lupron, Xtandi, Xgeva - to bring in. 3. Elevated Troponin - question demand ischemia from anemia - EKG was NST with acute ST changes. Will cycle troponins. 4. General weakness - should improve with PRBC transfusion 5. DVT Prophylaxis - SCD, TEDS, Heparin 6. Full Code 7. ELS one midnight. Advanced Directives Existing Living Will: Yes Existing Power of Vp Platforms: Yes () Resuscitation Status VTE Prophylaxis Will order VTE Prophylaxis: Yes
[2017-07-26] MEDS ORDERED: IV FLUIDS COMPLETED PRN (11:30)
[2017-07-26] MEDS ORDERED: ACETAMINOPHEN 325 MG TAB PO STA (12:49)
[2017-07-26] MEDS: SODIUM CHLORIDE 0.9% 1000ML 1,000 ML IV SCH (15:44)
[2017-07-26] MEDS: HEPARIN SOD 5000 UNIT/0.5 ML CARP SQ SCH (20:51)
[2017-07-27] VITALS (17 sets, daily range): BP systolic 104–129; BP diastolic 50–67; PULSE 43–56; TEMP 36.5–39.2; O2SAT 90–98
[2017-07-27] MEDS: ACETAMINOPHEN 500 MG TAB PO PRN ×2 (00:02→13:51)
[2017-07-27] MEDS: SODIUM CHLORIDE 0.9% 1000ML 1,000 ML IV SCH ×2 (04:18→17:27)
--- NOTE | 2017-07-27 05:40 | Progress Note ---
Progress Note Date of Service Jul 27, 2017. Progress Note Received a page from the nurse around 4am stating that the tele nurse reported that the patient was in 3rd degree heart block. Reviewed previous EKGs from earlier in the day. 3rd degree heart block was confirmed by Dr. Marin in two EKGs from earlier in the day. First EKG was hard to read for me but definitely pt was in 3rd degree heart block on the 2nd EKG done around 1:30pm. Pt has been doing well since admission. Was moved from 4E due to a suspected transfusion reaction. Still lethargic but no acute worsening of his symptoms. He is jaundiced appearing - he states that has been going on for a few days but it's not his baseline. He is conversing with me without difficulty and denies chest pain. When i first saw the patient he was standing to use a urinal without difficulty. Plan will be to move the patient to 2E from 2N, place pacer pads, I have put in a cardiology consult and have advised the nurses to place pacer pads. I have also ordered a magnesium and a repeat CMP for this AM. Resident Involvement: Resident Care Provided Care Provided: Adult Hospital Medicine
[2017-07-27 06:52] LABS: ALBUMIN 2.9 gm/dl (3.4-5.0); CALCIUM 7.9 mg/dl (8.5-10.1); CREATININE 0.67 mg/dl (0.60-1.40); POTASSIUM 3.8 mmol/L (3.5-5.1)
[2017-07-27 07:20] LABS: HEMATOCRIT 23.1 % (42-52); HEMOGLOBIN 7.5 g/dL (14.0-18.0); MEAN CELL VOLUME 81.9 fL (80-100); MEAN CORPUSCULAR HEMOGLOBIN 26.6 pg (25-34); MEAN CORPUSCULAR HGB CONC 32.5 g/dl (32-36); NUCLEATED RED BLOOD CELL ABS 0.02 K/uL (0-0); PLATELET COUNT 109 K/uL (130-400); RED CELL DISTRIBUTION WIDTH CV 21.9 % (11.5-14.5); RED CELL DISTRIBUTION WIDTH SD 64.3 fL (36.4-46.3); WHITE BLOOD COUNT 1.93 K/uL (4.8-10.8)
[2017-07-27] MEDS: HEPARIN SOD 5000 UNIT/0.5 ML CARP SQ SCH ×2 (09:00→20:52)
--- NOTE | 2017-07-27 13:05 | CARDIOLOGY CONSULTATION ---
DATE OF CONSULTATION: 07/27/2017 HISTORY OF PRESENT ILLNESS: The patient is a 76-year-old white male. He presented to the Emergency Department yesterday with complaints of lethargy, fatigue, weakness, decreased appetite, and dyspnea with activities. The patient's past medical history is significant for prostate cancer. He underwent radical prostatectomy at [facility] in 2012. He now has metastatic disease documented in his lumbar spine. He is receiving infusion radiation therapy. He states for the past 3-4 weeks, he began to develop decreased exercise tolerance, fatigue, and dyspnea with activities. These symptoms markedly progressed over the past week. In the Emergency Department, labs were performed and revealed a hemoglobin of 7.8 with hematocrit of 23.6. White blood cell count was 2.80. Platelet count was 152. He was admitted to the telemetry unit. His electrocardiogram in the Emergency Department yesterday revealed sinus rhythm with complete atrioventricular block. A repeat electrocardiogram in the afternoon revealed sinus rhythm with complete heart block. The second electrocardiogram also revealed premature ventricular beats. The patient was admitted to the telemetry unit. He was seen by me this morning in his telemetry unit room. He still complains of malaise, weakness, and fatigue. He has dyspnea while getting out of bed. Over the past few weeks, he has also noted postural lightheadedness. No syncope. He denies any dyspnea lying still in bed. No orthopnea. No PND. No chest pain or other anginal type pains. No palpitations. No abdominal pain or nausea. No peripheral edema. His appetite has been decreased over the past few weeks. He denies any prior history of any heart disease. However, electrocardiogram performed on 01/16/2013 revealed normal sinus rhythm with second-degree atrioventricular block. Type 1 AV block. The patient denies any history himself of any arrhythmias. No history of coronary artery disease, pericardial disease, or heart failure. No history of hypertension or diabetes mellitus. He does have a history of dyslipidemia, treated with pravastatin. The patient lives near the [facility]. He does walk outside in his yard. There are few deer in the area. However, there are large amount of squirrels and rabbits near his home. He denies any tick bites. He denies any skin rashes. No myalgias or arthralgias. At home, he was not experiencing any fevers or chills. He did have a temperature elevation yesterday after he received transfusion of 1 unit packed red blood cells. PAST MEDICAL HISTORY: 1. Metastatic prostate cancer. 2. Dyslipidemia. 3. Known neutropenia and anemia from his cancer treatments. PAST SURGICAL HISTORY: 1. Status post radical prostatectomy. 2. Status post inguinal hernia repair. SOCIAL HISTORY: The patient is and lives with his . He is a retired computer repair engineer. No alcohol use over the past few months. No significant cigarette smoking history. FAMILY HISTORY: He denies any family history of heart disease. MEDICATIONS: At time of admission were aspirin 81 mg daily, calcium carbonate 1 tab b.i.d., vitamin D 2000 units daily, Xgeva 120 mg subcutaneous monthly, Xtandi 120 mg p.o. daily, fish oil 1 capsule daily, Lupron injection 30 mg IM UD, multivitamin 1 daily, Paxil 10 mg daily, pravastatin 20 mg daily, probiotic 1 cap daily, vitamin E 400 units daily, tramadol 50 mg p.o. t.i.d. p.r.n. pain and triamcinolone cream as needed. ALLERGIES AND ADVERSE DRUG REACTIONS: OXYCODONE. THE REACTION WAS CONFUSION. REVIEW OF SYSTEMS: 1. As above. 2. No focal motor weakness. 3. No bleeding complaints. 4. Dark concentrated urine. 5. He denies any tick bites. No skin rashes suggestive of a tick bite. PHYSICAL EXAMINATION: GENERAL: The patient is lying in his bed. No distress. Monitor reviewed. It reveals underlying sinus rhythm. Complete heart block. HEAD: Normal. NECK: Jugular venous pressure approximately 6-7 cm. Carotids 2/2 bilaterally. Normal upstroke. No bruits. EYES: Conjunctivae pale. Anicteric. LUNGS: Normal respiratory effort. Clear. No rales or wheezes. HEART: PMI not palpable. No lifts or heaves. Underlying regular rhythm with occasional premature beat. No S3. No murmur or rub. ABDOMEN: Soft. Nontender. No palpable masses or organomegaly. No bruits. EXTREMITIES: No pretibial edema. No cyanosis or clubbing. SKIN: He does have a pale coloration. NEUROLOGIC: Alert and oriented x3. Motor grossly intact. PSYCHIATRIC: Affect is normal. PULSES: Distal pulses in all extremities palpable. Electrocardiogram July 26 performed at 10:16 revealed sinus rhythm with complete AV block. QRS duration [address] segments and T waves. Electrocardiogram from yesterday at 01:29 p.m. with sinus rhythm with complete heart block. Premature ventricular complexes. Normal ST segments and T waves. Electrocardiogram performed this morning at 05:43 a.m. shows sinus rhythm with high degree atrioventricular block. LABORATORY DATA: Labs today with WBC 1.93, hemoglobin 7.5, hematocrit 23.1, and platelet count 109. INR yesterday 1.2. Metabolic profile today with sodium 136, potassium 3.8, chloride 105, carbon dioxide 22, BUN 14, creatinine 0.67, and random glucose 112. AST 59 and ALT 64. Troponin I yesterday was 0.047. Repeat troponin I is 0.038. Initial troponin I yesterday morning was 0.049. Chest x-ray reviewed by me. Increased pulmonary vasculature. ASSESSMENT: 1. High degree atrioventricular block. In light of the electrocardiogram from 2012, he has intrinsic AV vince conduction disease. In 2013, he had second degree atrioventricular block, Mobitz type 1. Electrocardiogram now with sinus rhythm with high degree atrioventricular block. Cannot exclude occasional conduction of a P-wave. 2. He is hemodynamically stable with the AV block. 3. No anginal type symptoms. No ECG evidence of myocardial ischemia. Normal ST segments and T waves. Troponin I yesterday mildly elevated. He obviously has decreased oxygen supply secondary to his anemia. 4. Pancytopenia. 5. Normal potassium level. 6. He is on no AV vince blocking medications. 7. He does live in the area where he could be exposed to tick bite. Would then have to exclude Lyme disease. PLAN AND RECOMMENDATIONS: 1. Avoid any AV vince blocking medications. 2. Assess for Lyme disease. Lyme titers were ordered by me. 3. Electrophysiology consultation in regards to placement of a dual chamber pacemaker. 4. There was no urgency or emergency to insertion of a pacemaker. He is hemodynamically stable. Also, the patient has neutropenia and thrombocytopenia. Would hold off on a pacemaker placement until his hematologic status is stable. 5. I discussed the patient's case with Dr. Gus Parikh of the [facility]. Thank you for asking us to see this patient in cardiology consultation.
[2017-07-27] MEDS: ENZALUTAMIDE 40 MG CAP PO SCH (13:51)
[2017-07-27] MEDS: PRAVASTATIN SOD 20 MG TAB PO SCH (13:51)
[2017-07-27] MEDS: ASPIRIN 81 MG ECTAB PO SCH (13:52)
[2017-07-27] MEDS: LACTOBACILLUS ACIDOPHILUS (FLORANEX) TAB PO SCH (13:52)
[2017-07-27] MEDS: PAROXETINE 20 MG TAB PO SCH (13:52)
[2017-07-27] MEDS ORDERED: CEFEPIME IV 1,000 MG in SYRINGE 0 ML IV ONE (14:00)
[2017-07-27] MEDS ORDERED: DiphenhydrAMINE HCL 50 MG/ML VIAL IV STA (15:29)
[2017-07-27] MEDS ORDERED: NURSING VERBAL MED ORDER ONE ×2 (15:30)
--- NOTE | 2017-07-27 15:43 | Progress Note ---
Subjective Date of Service: Jul 27, 2017. Subjective Pt evaluation today including: conversation w/ patient, conversation w/ family (), physical exam, lab review, conversation w/ contaminated land consultant, review of inpatient medication list Pain: no pain PO Intake: poor appetite Voiding: no voiding problems patient still very fatigued, febrile in the afternoon reviewed labs, Hb down further to 7.5, now he is neutropenic with fevers still not eating well, no appetite, cannot taste anything appreciate cardiology consult for 3rd degree AV block, will need pacer Lyme screen negative given the fact that he has fevers and neutropenia, doubt true transfusion reaction yesterday discussed that we would give leuko-reduced PRBC Review of Systems Constitutional: + fever, + chills, + weakness, + fatigue Respiratory: + shortness of breath Abdomen: + problem reported (no appetite, no taste) All Other Systems: Reviewed and Negative Medications Current Inpatient Medications Medications (Trade) Dose Ordered Sig/Bunny Route Start Time Stop Time Status Last Admin Dose Admin Al Hydrox/Mg Hydrox/Simethicone (Maalox Max Susp) 15 ml Q4H PRN PO 07/26/17 10:45 08/25/17 10:44 Magnesium Hydroxide (Milk Of Magnesia Susp) 30 ml Q6H PRN PO 07/26/17 10:45 08/25/17 10:44 Polyethylene (Miralax Powder Packet) 17 gm DAILY PRN PO 07/26/17 10:45 08/25/17 10:44 Ondansetron HCl (Zofran Inj) 4 mg Q6H PRN IV 07/26/17 10:45 08/25/17 10:44 Heparin Sodium (Porcine) (Heparin Sq 5000 Unit/0.5ml) 5,000 unit Q12H SQ 07/26/17 21:00 08/25/17 10:44 07/26/17 20:51 5,000 UNIT Aspirin (Ecotrin Tab) 81 mg DAILY PO 07/27/17 08:00 08/26/17 08:59 07/27/17 13:52 81 MG Paroxetine HCl (pAXil TAB) 10 mg DAILY PO 07/27/17 08:00 08/26/17 08:59 07/27/17 13:52 10 MG Pravastatin Sodium (Pravachol Tab) 20 mg DAILY PO 07/27/17 08:00 08/26/17 08:59 07/27/17 13:51 20 MG Tramadol HCl (Ultram Tab) 50 mg TID PRN PO 07/26/17 10:45 08/25/17 10:44 Miscellaneous Information (Order Awaiting Action) 1 ea QS N/A 07/26/17 16:00 08/25/17 15:59 Miscellaneous Information (Order Awaiting Action) 1 ea QS N/A 07/26/17 16:00 08/25/17 15:59 Lactobacillus Acidophilus (Floranex Tab) 1 tab DAILY PO 07/27/17 08:00 08/26/17 08:59 07/27/17 13:52 1 TAB Miscellaneous (Iv Fluids Completed) 1 ea PRN PRN N/A 07/26/17 11:30 07/26/18 11:29 Acetaminophen (Tylenol Tab) 650 mg Q4H PRN PO 07/26/17 13:00 08/25/17 12:59 Sodium Chloride 1,000 ml @ 80 mls/hr [id number] IV 07/26/17 15:15 08/25/17 15:14 07/27/17 04:18 80 MLS/HR Acetaminophen (Tylenol Tab) 1,000 mg Q8 PRN PO 07/26/17 15:15 08/25/17 15:14 07/27/17 13:51 1,000 MG Objective Vital Signs Date Time Temp Pulse Resp B/P (MAP) Pulse Ox O2 Delivery O2 Flow Rate FiO2 07/27/17 15:30 38.0 07/27/17 13:30 39.2 07/27/17 12:00 Room Air 07/27/17 11:49 36.5 52 18 120/64 (82) 96 07/27/17 08:13 36.9 51 18 129/63 (85) 97 07/27/17 08:00 Room Air 07/27/17 05:37 36.5 43 20 95 07/27/17 05:15 36.9 46 20 104/56 (72) 98 Room Air 07/27/17 04:00 Room Air 07/27/17 03:39 36.5 43 20 105/66 (79) 95 Room Air 07/27/17 02:07 37.4 07/27/17 01:48 37.8 07/27/17 00:54 38.2 07/27/17 00:00 Room Air 07/26/17 23:59 39.0 51 20 99/62 (74) 94 Room Air 07/26/17 20:00 Room Air 07/26/17 19:24 37.0 55 16 98/52 (67) 94 Room Air 07/26/17 16:29 37.2 52 14 105/62 (76) 95 Room Air 07/26/17 16:00 Room Air Physical Exam General Appearance: WD/WN, no apparent distress Eyes: normal inspection, EOMI, sclerae normal ENT: normal ENT inspection, hearing grossly normal, pharynx normal Neck: supple, no adenopathy, no JVD, trachea midline Respiratory/Chest: chest non-tender, lungs clear, normal breath sounds, no respiratory distress, no accessory muscle use Cardiovascular: no edema, no gallop, no JVD, no murmur, + bradycardia Abdomen: normal bowel sounds, non tender, soft, no organomegaly Extremities: normal range of motion, non-tender, normal inspection, no pedal edema, no calf tenderness Neurologic/Psychiatric: coal washer II-XII nml as tested, alert, normal mood/affect, oriented x 3, + motor weakness Skin: + jaundice Lymphatic: no adenopathy Laboratory Results Last 24 Hours Test 07/26/17 22:01 07/27/17 05:50 07/27/17 09:43 Troponin I 0.038 ng/ml White Blood Count 1.93 K/uL Red Blood Count 2.82 M/uL Hemoglobin 7.5 g/dL Hematocrit 23.1 % Mean Corpuscular Volume 81.9 fL Mean Corpuscular Hemoglobin 26.6 pg Mean Corpuscular Hemoglobin Concent 32.5 g/dl Platelet Count 109 K/uL RDW Standard Deviation 64.3 fL RDW Coefficient of Variation 21.9 % Nucleated RBC Absolute Count (auto) 0.02 K/uL Neutrophils % (Manual) 47.0 % Lymphocytes % (Manual) 22.0 % Monocytes % (Manual) 16.0 % Eosinophils % (Manual) 3.0 % Basophils % (Manual) 1.0 % Metamyelocytes % 4.0 % Myelocytes % 3.0 % Blast Cells % 4.0 % Nucleated Red Blood Cells % 1.2 % Neutrophils # (Manual) 0.91 K/uL Total Absolute Neutrophils 0.91 K/uL Lymphocytes # (Manual) 0.42 K/uL Total Absolute Lymphocytes 0.42 K/uL Monocytes # (Manual) 0.31 K/uL Eosinophils # (Manual) 0.06 K/uL Basophils # (Manual) 0.02 K/uL Metamyelocytes # 0.08 K/uL Myelocytes # 0.06 K/uL Hyposegmented Neutrophils OCCASIONAL Hypogranular Neutrophils 3+ Blast Cells # 0.08 K/uL Platelet Estimate DECREASED Giant Platelets 2+ Poikilocytosis PRESENT Anisocytosis PRESENT Ovalocytes 1+ Acanthocytes 3+ Sodium Level 136 mmol/L Potassium Level 3.8 mmol/L Chloride Level 105 mmol/L Carbon Dioxide Level 22 mmol/L Anion Gap 9.0 mmol/L Blood Urea Nitrogen 14 mg/dl Creatinine 0.67 mg/dl Est Creatinine Clear Calc Drug Dose 96.8 ml/min Estimated GFR () 109.7 Estimated GFR (Non- 94.7 BUN/Creatinine Ratio 20.1 Random Glucose 112 mg/dl Calcium Level 7.9 mg/dl Magnesium Level 2.4 mg/dl Total Bilirubin 1.3 mg/dl Aspartate Amino Transf (AST/SGOT) 59 U/L Alanine Aminotransferase (ALT/SGPT) 64 U/L Alkaline Phosphatase 92 U/L Total Protein 6.0 gm/dl Albumin 2.9 gm/dl Globulin 3.1 gm/dl Albumin/Globulin Ratio 0.9 Lyme Disease IgG Antibody NEG Lyme Disease IgM Antibody NEG Assessment and Plan 76 yo male with h/o prostate cancer on Lupron, Xtandi and Xgeva, presents with fatigue, dyspnea, weakness - Worsening fatigue and dyspnea likely multifactorial with anemia, effects from chemotherapy, poor nutrition will check echo to r/o heart failure (still pending at this time), examines euvolemic again today (no JVD, no edema, lungs clear) will try again to transfuse today to see if it will improve fatigue - Possible Transfusion reaction: low grade fever after starting PRBC on 07/26 stopped infusion, Tylenol ordered, no clinical signs of anaphylactic reaction sent blood sample to pathology for analysis Hb is 7.5 today, will try again with leuko-reduced PRBC doubt transfusion reaction because he has continued with fevers today, more likely neutropenic fever - Neutropenic fever: start Cefepime empirically blood cultures and urine culture ordered, no pneumonia on CXR yesterday consult Dr. Menon who he sees in the office precautions ordered - 3rd degree AV block, junctional rhythm Lyme negative cardiology consulted for possible pacemaker patient agrees to getting pacer if needed - Prostate cancer with bone mets holding on current treatment for now as we work up fatigue and dyspnea consult Dr. Menon continue tele, transfuse one unit, follow vitals closely
--- NOTE | 2017-07-27 17:03 | Oncology Consultation ---
Oncology/Heme Consultation Date of Consultation: Jul 27, 2017. Attending Physician: Mitul Colby D.O. 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 He is currently receiving Lupron and Xtandi and has received 3 cycles of Xofigo ( [place]-223) over the last 6 months. His treatments keep being delayed by prolonged count recovery, however (each cycle is only supposed to be a month). Over the last few months, and especially in the last week or two, he has felt progressively weaker and more tired. He came to the ER yesterday with these and other complaints, like poor appetite and foul-smelling urine. He was found to be anemic to 7.8 and leukopenic, though labs today are consistent with neutropenia. During a transfusion yesterday, he had a fever to 39C, though he had no other symptoms suggestive of a transfusion reaction. Regardless, his transfusion was stopped. However, since that time, he has spiked multiple subsequent fevers. He has no particular localizing symptoms, aside from urine discoloration. He has no pain but just generally feels weak. Overnight, he was found to be bradycardic and in complete heart block, so he was transferred to the ICU for transcutaneous pacing. He denies any chest pain or palpitations. Family History Cancer Social History Smoking Status: Former Smoker Smokeless Tobacco Use: No Alcohol Use: none Drug Use: none Marital Status: Housing Status: lives with significant other Occupation Status: retired Allergies Coded Allergies: Oxycodone (Verified Adverse Reaction, Intermediate, confusion, 07/26/17) PER DR CARMICHAEL, Per his conversation with patient, reaction to Percocet was confusion, not difficulty breathing. Home Medications Scheduled Aspirin (Aspirin Ec), 81 MG PO DAILY Calcium Carbonate-Cholecalcife (Calcium 600+D 600-800 mg-Unit), 1 TAB PO BID Cholecalciferol (Vitamin D), 2,000 UNITS PO DAILY Denosumab (Xgeva), 120 MG SC MONTHLY Enzalutamide (Xtandi), 120 MG PO DAILY Fish Oil ([place]-3), 1 CAP PO DAILY Leuprolide Acetate (Lupron Depot), 30 MG IM UD Multivitamin (Multivitamin), 1 TAB PO DAILY Paroxetine Hcl (Paxil), 10 MG PO DAILY Pravastatin (Pravachol ), 20 MG PO DAILY Probiotic Product (Probiotic), 1 CAP PO DAILY Vitamin E (E-400), 400 UNITS PO DAILY Scheduled PRN Tramadol (Ultram), 50 MG PO TID PRN for Pain Triamcinolone Acet (Triamcinolone Acetonide), 1 APPLN TOP BID PRN for Itching Current Inpatient Medications Current Inpatient Medications Medications (Trade) Dose Ordered Sig/Bunny Route Start Time Stop Time Status Last Admin Dose Admin Al Hydrox/Mg Hydrox/Simethicone (Maalox Max Susp) 15 ml Q4H PRN PO 07/26/17 10:45 08/25/17 10:44 Magnesium Hydroxide (Milk Of Magnesia Susp) 30 ml Q6H PRN PO 07/26/17 10:45 08/25/17 10:44 Polyethylene (Miralax Powder Packet) 17 gm DAILY PRN PO 07/26/17 10:45 08/25/17 10:44 Ondansetron HCl (Zofran Inj) 4 mg Q6H PRN IV 07/26/17 10:45 08/25/17 10:44 Heparin Sodium (Porcine) (Heparin Sq 5000 Unit/0.5ml) 5,000 unit Q12H SQ 07/26/17 21:00 08/25/17 10:44 07/26/17 20:51 5,000 UNIT Aspirin (Ecotrin Tab) 81 mg DAILY PO 07/27/17 08:00 08/26/17 08:59 07/27/17 13:52 81 MG Paroxetine HCl (pAXil TAB) 10 mg DAILY PO 07/27/17 08:00 08/26/17 08:59 07/27/17 13:52 10 MG Pravastatin Sodium (Pravachol Tab) 20 mg DAILY PO 07/27/17 08:00 08/26/17 08:59 07/27/17 13:51 20 MG Tramadol HCl (Ultram Tab) 50 mg TID PRN PO 07/26/17 10:45 08/25/17 10:44 Miscellaneous Information (Order Awaiting Action) 1 ea QS N/A 07/26/17 16:00 08/25/17 15:59 Miscellaneous Information (Order Awaiting Action) 1 ea QS N/A 07/26/17 16:00 08/25/17 15:59 Lactobacillus Acidophilus (Floranex Tab) 1 tab DAILY PO 07/27/17 08:00 08/26/17 08:59 07/27/17 13:52 1 TAB Miscellaneous (Iv Fluids Completed) 1 ea PRN PRN N/A 07/26/17 11:30 07/26/18 11:29 Acetaminophen (Tylenol Tab) 650 mg Q4H PRN PO 07/26/17 13:00 08/25/17 12:59 Sodium Chloride 1,000 ml @ 80 mls/hr [id number] IV 07/26/17 15:15 08/25/17 15:14 07/27/17 04:18 80 MLS/HR Acetaminophen (Tylenol Tab) 1,000 mg Q8 PRN PO 07/26/17 15:15 08/25/17 15:14 07/27/17 13:51 1,000 MG Cefepime HCl 1000 mg/Syringe 11 ml @ 5.5 mls/min Q12H IV 07/27/17 21:00 07/29/17 20:59 Review of Systems Constitutional: + fever, + weakness, + fatigue ENT: + nasal symptoms (nasal congestion) Respiratory: No cough, No sputum, No shortness of breath Cardiovascular: No chest pain Abdomen: No pain, No diarrhea, No GI bleeding Genitourinary - Male: No hematuria, No dysuria Hematologic / Lymphatic: No abnormal bleeding/bruising Integumentary: No rash Physical Exam Date Time Temp Pulse Resp B/P (MAP) Pulse Ox O2 Delivery O2 Flow Rate FiO2 07/27/17 16:23 36.9 50 26 110/60 98 3.0 07/27/17 16:15 37.1 51 112/58 96 2.0 07/27/17 16:05 37.2 54 26 110/57 90 07/27/17 15:51 37.3 56 30 116/60 93 07/27/17 15:40 38.0 56 22 115/50 07/27/17 15:30 38.0 07/27/17 13:30 39.2 07/27/17 12:00 Room Air 07/27/17 11:49 36.5 52 18 120/64 (82) 96 07/27/17 08:13 36.9 51 18 129/63 (85) 97 07/27/17 08:00 Room Air 07/27/17 05:37 36.5 43 20 95 07/27/17 05:15 36.9 46 20 104/56 (72) 98 Room Air 07/27/17 04:00 Room Air 07/27/17 03:39 36.5 43 20 105/66 (79) 95 Room Air 07/27/17 02:07 37.4 07/27/17 01:48 37.8 07/27/17 00:54 38.2 07/27/17 00:00 Room Air 07/26/17 23:59 39.0 51 20 99/62 (74) 94 Room Air 07/26/17 20:00 Room Air 07/26/17 19:24 37.0 55 16 98/52 (67) 94 Room Air General Appearance: no apparent distress, + pertinent finding (chronically ill- appearing) ENT: pharynx normal Respiratory/Chest: lungs clear Cardiovascular: regular rate, rhythm Abdomen/GI: non tender, soft Extremities/Musculoskelatal: no pedal edema Neurologic/Psych: alert, oriented x 3 Skin: no rash Lymphatic: no adenopathy Laboratory Results Last 24 Hours Test 07/26/17 22:01 07/27/17 05:50 07/27/17 09:43 Troponin I 0.038 ng/ml White Blood Count 1.93 K/uL Red Blood Count 2.82 M/uL Hemoglobin 7.5 g/dL Hematocrit 23.1 % Mean Corpuscular Volume 81.9 fL Mean Corpuscular Hemoglobin 26.6 pg Mean Corpuscular Hemoglobin Concent 32.5 g/dl Platelet Count 109 K/uL RDW Standard Deviation 64.3 fL RDW Coefficient of Variation 21.9 % Nucleated RBC Absolute Count (auto) 0.02 K/uL Neutrophils % (Manual) 47.0 % Lymphocytes % (Manual) 22.0 % Monocytes % (Manual) 16.0 % Eosinophils % (Manual) 3.0 % Basophils % (Manual) 1.0 % Metamyelocytes % 4.0 % Myelocytes % 3.0 % Blast Cells % 4.0 % Nucleated Red Blood Cells % 1.2 % Neutrophils # (Manual) 0.91 K/uL Total Absolute Neutrophils 0.91 K/uL Lymphocytes # (Manual) 0.42 K/uL Total Absolute Lymphocytes 0.42 K/uL Monocytes # (Manual) 0.31 K/uL Eosinophils # (Manual) 0.06 K/uL Basophils # (Manual) 0.02 K/uL Metamyelocytes # 0.08 K/uL Myelocytes # 0.06 K/uL Hyposegmented Neutrophils OCCASIONAL Hypogranular Neutrophils 3+ Blast Cells # 0.08 K/uL Platelet Estimate DECREASED Giant Platelets 2+ Poikilocytosis PRESENT Anisocytosis PRESENT Ovalocytes 1+ Acanthocytes 3+ Sodium Level 136 mmol/L Potassium Level 3.8 mmol/L Chloride Level 105 mmol/L Carbon Dioxide Level 22 mmol/L Anion Gap 9.0 mmol/L Blood Urea Nitrogen 14 mg/dl Creatinine 0.67 mg/dl Est Creatinine Clear Calc Drug Dose 96.8 ml/min Estimated GFR () 109.7 Estimated GFR (Non- 94.7 BUN/Creatinine Ratio 20.1 Random Glucose 112 mg/dl Calcium Level 7.9 mg/dl Magnesium Level 2.4 mg/dl Total Bilirubin 1.3 mg/dl Aspartate Amino Transf (AST/SGOT) 59 U/L Alanine Aminotransferase (ALT/SGPT) 64 U/L Alkaline Phosphatase 92 U/L Total Protein 6.0 gm/dl Albumin 2.9 gm/dl Globulin 3.1 gm/dl Albumin/Globulin Ratio 0.9 Lyme Disease IgG Antibody NEG Lyme Disease IgM Antibody NEG Assessment & Plan Mr. Sherman has febrile neutropenia. He should be started on cefepime and an infectious workup should be performed. His cytopenias are attributable to the Xofigo, which radiates the marrow leading to low counts. I reviewed his case with Dr. Romeo in radiation oncology and we agreed he's done with the Xofigo. For now, aside from the infectious workup, I would recommend supportive care. The fever he had yesterday was most likely not a transfusion reaction, but rather a coincidence. His DANIELE is negative and the rest of the transfusion reaction panel was also negative. He was due to receive a unit of blood today and I suggested they proceed. Our goal would be a hemoglobin above 8.
--- NOTE | 2017-07-27 17:06 | ECHOCARDIOGRAM REPORT ---
*NOTICE TO RECEIVING [employer] This information is strictly Confidential and protected under [place] law. [place] law prohibits you from making any further disclosure of this information unless further disclosure is expressly permitted by the written consent of the person to whom it pertains or is authorized by law. A general authorization for the release of medical or other information is not sufficient for this purpose. Hospital accepts no responsibility if the information is made available to any other person, INCLUDING THE PATIENT. Interpretation Summary * Name: REX GARCIA Study Date: 07/27/2017 06:38 AM BP: 129/63 mmHg * Patient Location: C.2E\S\E210\S\1 HR: 51 * : 1940 (M/d/yyyy) Gender: Male Height: 69 in * Age: 76 yrs Ethnicity: CA Weight: 178 lb * Ordering Physician: Mitul Colby * Referring Physician: Self, Referred * Performed By: Destiny Decker RDCS * * Reason For Study: CHF * BSA: 2.0 m2 * -- Conclusions -- * 1. Normal LV size. Normal LV wall thickness. * 2. Normal LV systolic function. LVEF 55-60 %. No regional wall motion abnormalities. * 3. Mild to moderately dilated RV with normal function. * 4. Mild mitral regurgitation. Mild mitral stenosis. * 5. Mild tricuspid regurgitation. [id number] pulmonary hypertension. Estimated PASP 45-50 mmHg. Dilated IVC estimated RA 15 mmHg. * 6. No prior studies for comparison. Procedure Details * A complete two-dimensional transthoracic echocardiogram was performed (2D, M-mode, Doppler and color flow Doppler). Left Ventricle * The left ventricle is grossly normal size. * There is normal left ventricular wall thickness. * Ejection Fraction = 55-60%. * No regional wall motion abnormalities noted. Right Ventricle * The right ventricle is mild to moderately dilated. * The right ventricular systolic function is normal as assessed by tricuspid annular plane systolic excursion (TAPSE) (normal >1.5 cm). Atria * The left atrium is mildly dilated. * The right atrium is mild to moderately dilated. * No ASD detected; PFO is not assessed. Mitral Valve * The mitral valve is grossly normal. * There is mild mitral stenosis. * There is mild mitral regurgitation. Tricuspid Valve * There is mild tricuspid regurgitation. Aortic Valve * The aortic valve opens well. * The aortic valve is trileaflet. * No hemodynamically significant valvular aortic stenosis. * There is no significant aortic regurgitation. Pulmonic Valve * The pulmonary valve is inadequately visualized, but the Doppler data is adequate for interpretation. * There is no significant pulmonary regurgitation. Great Vessels * The aortic root and proximal ascending aorta are normal sized. Pericardium/Pleural * There is no pericardial effusion. Great Vessels * Dilated inferior vena cava with reduced collapsability with sniff indicates an elevated right atrial pressure of 15 mmHg MMode 2D Measurements and Calculations IVSd 1.4 cm IVSs 1.7 cm LVIDd 5.3 cm LVIDs 3.7 cm LVPWd 1.5 cm LVPWs 1.9 cm IVS/LVPW 0.92 FS 30.0 % EDV(Teich) 133.0 ml ESV(Teich) 57.4 ml EF(Teich) 56.8 % EDV(cubed) 145.6 ml ESV(cubed) 49.9 ml EF(cubed) 65.7 % % IVS thick 22.9 % % LVPW thick 28.8 % LV mass(C)d 321.2 grams LV mass(C)dI 163.4 grams/m\S\2 LV mass(C)s 276.7 grams LV mass(C)sI 140.8 grams/m\S\2 SV(Teich) 75.6 ml SI(Teich) 38.5 ml/m\S\2 SV(cubed) 95.7 ml SI(cubed) 48.7 ml/m\S\2 Ao root diam 3.3 cm Ao root area 8.4 cm\S\2 LA dimension 4.7 cm LA/Ao 1.4 LVAd ap4 33.2 cm\S\2 LVLd ap4 8.9 cm EDV(MOD-sp4) 105.8 ml EDV(sp4-el) 105.4 ml LVAs ap4 18.6 cm\S\2 LVLs ap4 7.2 cm ESV(MOD-sp4) 41.0 ml ESV(sp4-el) 40.9 ml EF(MOD-sp4) 61.2 % EF(sp4-el) 61.2 % LVAd ap2 38.6 cm\S\2 LVLd ap2 9.0 cm EDV(MOD-sp2) 138.0 ml EDV(sp2-el) 140.4 ml LVAs ap2 21.1 cm\S\2 LVLs ap2 7.4 cm ESV(MOD-sp2) 49.2 ml ESV(sp2-el) 51.0 ml EF(MOD-sp2) 64.3 % EF(sp2-el) 63.7 % LVLd %diff 1.5 % EDV(MOD-bp) 120.6 ml LVLs %diff 3.3 % ESV(MOD-bp) 45.5 ml EF(MOD-bp) 62.3 % SV(MOD-sp4) 64.8 ml SI(MOD-sp4) 33.0 ml/m\S\2 SV(MOD-sp2) 88.8 ml SI(MOD-sp2) 45.2 ml/m\S\2 SV(MOD-bp) 75.1 ml SI(MOD-bp) 38.2 ml/m\S\2 SV(sp4-el) 64.5 ml SI(sp4-el) 32.8 ml/m\S\2 SV(sp2-el) 89.4 ml SI(sp2-el) 45.5 ml/m\S\2 Doppler Measurements and Calculations MV E max mehul 114.3 cm/sec MV A max mehul 48.0 cm/sec MV E/A 2.4 MV dec time 0.25 sec Ao V2 max 130.5 cm/sec Ao max PG 6.8 mmHg Ao max PG (full) 2.9 mmHg LV V1 max PG 3.9 mmHg LV V1 max 98.8 cm/sec TR max mehul 260.8 cm/sec
--- NOTE | 2017-07-27 17:50 | Cardiology Consultation ---
Cardiology Consultation Date of Consultation: Jul 27, 2017. Requesting Physician: Tania Reason for Consultation: Heart Block Pt evaluation today including: conversation w/ patient, conversation w/ family , physical exam, chart review, lab review, conversation w/ senior clinical consultant, review of inpatient medication list History of Present Illness The patient is a 76 year old gentleman without a known history of cardiac disease who presented to [facility] with significant fatigue, dyspnea, anorexia and activity intolerance. He has been receiving therapy for metastatic prostate cancer and is known to be anemic. He was being transfused and was noted to have a fever. He was also noted to have complete heart block on an EKG ad transferred to the medical ICU. He has not been aware of any palpitations. He has not had dizziness or pre-syncope. He has not had syncope. His symptoms have been progressive recently. Last year he was much more active and did not have the presenting sx. He has not had chest pain. Past Medical/Surgical History Prostate cancer. Family History Cancer NOn-contributory. Social History Smoking Status: Former Smoker History of Alcohol Use: Yes (OCC) Review of Systems Respiratory: + shortness of breath No recent fevers or chills. All Other Systems: Reviewed and Negative Allergies Coded Allergies: Oxycodone (Verified Adverse Reaction, Intermediate, confusion, 07/26/17) PER DR CARMICHAEL, Per his conversation with patient, reaction to Percocet was confusion, not difficulty breathing. Medications Current Inpatient Medications Medications (Trade) Dose Ordered Sig/Bunny Route Start Time Stop Time Status Last Admin Dose Admin Al Hydrox/Mg Hydrox/Simethicone (Maalox Max Susp) 15 ml Q4H PRN PO 07/26/17 10:45 08/25/17 10:44 Magnesium Hydroxide (Milk Of Magnesia Susp) 30 ml Q6H PRN PO 07/26/17 10:45 08/25/17 10:44 Polyethylene (Miralax Powder Packet) 17 gm DAILY PRN PO 07/26/17 10:45 08/25/17 10:44 Ondansetron HCl (Zofran Inj) 4 mg Q6H PRN IV 07/26/17 10:45 08/25/17 10:44 Heparin Sodium (Porcine) (Heparin Sq 5000 Unit/0.5ml) 5,000 unit Q12H SQ 07/26/17 21:00 08/25/17 10:44 07/26/17 20:51 5,000 UNIT Aspirin (Ecotrin Tab) 81 mg DAILY PO 07/27/17 08:00 08/26/17 08:59 07/27/17 13:52 81 MG Paroxetine HCl (pAXil TAB) 10 mg DAILY PO 07/27/17 08:00 08/26/17 08:59 07/27/17 13:52 10 MG Pravastatin Sodium (Pravachol Tab) 20 mg DAILY PO 07/27/17 08:00 08/26/17 08:59 07/27/17 13:51 20 MG Tramadol HCl (Ultram Tab) 50 mg TID PRN PO 07/26/17 10:45 08/25/17 10:44 Miscellaneous Information (Order Awaiting Action) 1 ea QS N/A 07/26/17 16:00 08/25/17 15:59 Miscellaneous Information (Order Awaiting Action) 1 ea QS N/A 07/26/17 16:00 08/25/17 15:59 Lactobacillus Acidophilus (Floranex Tab) 1 tab DAILY PO 07/27/17 08:00 08/26/17 08:59 07/27/17 13:52 1 TAB Miscellaneous (Iv Fluids Completed) 1 ea PRN PRN N/A 07/26/17 11:30 07/26/18 11:29 Acetaminophen (Tylenol Tab) 650 mg Q4H PRN PO 07/26/17 13:00 08/25/17 12:59 Sodium Chloride 1,000 ml @ 80 mls/hr [id number] IV 07/26/17 15:15 08/25/17 15:14 07/27/17 17:27 80 MLS/HR Acetaminophen (Tylenol Tab) 1,000 mg Q8 PRN PO 07/26/17 15:15 08/25/17 15:14 07/27/17 13:51 1,000 MG Cefepime HCl 1000 mg/Syringe 11 ml @ 5.5 mls/min Q12H IV 07/27/17 21:00 07/29/17 20:59 Physical Exam Vital Signs Past 12 Hours Date Time Temp Pulse Resp B/P (MAP) Pulse Ox O2 Delivery O2 Flow Rate FiO2 07/27/17 16:59 36.9 49 24 105/65 98 2.0 07/27/17 16:23 36.9 50 26 110/60 98 3.0 07/27/17 16:15 37.1 51 112/58 96 2.0 07/27/17 16:05 37.2 54 26 110/57 90 07/27/17 16:00 Room Air 07/27/17 15:51 37.3 56 30 116/60 93 07/27/17 15:40 38.0 56 22 115/50 07/27/17 15:30 38.0 07/27/17 13:30 39.2 07/27/17 12:00 Room Air 07/27/17 11:49 36.5 52 18 120/64 (82) 96 07/27/17 08:13 36.9 51 18 129/63 (85) 97 07/27/17 08:00 Room Air 07/27/17 05:37 36.5 43 20 95 Data Laboratory Results: Last 24 Hours Test 07/26/17 22:01 07/27/17 05:50 07/27/17 09:43 Troponin I 0.038 ng/ml White Blood Count 1.93 K/uL Red Blood Count 2.82 M/uL Hemoglobin 7.5 g/dL Hematocrit 23.1 % Mean Corpuscular Volume 81.9 fL Mean Corpuscular Hemoglobin 26.6 pg Mean Corpuscular Hemoglobin Concent 32.5 g/dl Platelet Count 109 K/uL RDW Standard Deviation 64.3 fL RDW Coefficient of Variation 21.9 % Nucleated RBC Absolute Count (auto) 0.02 K/uL Neutrophils % (Manual) 47.0 % Lymphocytes % (Manual) 22.0 % Monocytes % (Manual) 16.0 % Eosinophils % (Manual) 3.0 % Basophils % (Manual) 1.0 % Metamyelocytes % 4.0 % Myelocytes % 3.0 % Blast Cells % 4.0 % Nucleated Red Blood Cells % 1.2 % Neutrophils # (Manual) 0.91 K/uL Total Absolute Neutrophils 0.91 K/uL Lymphocytes # (Manual) 0.42 K/uL Total Absolute Lymphocytes 0.42 K/uL Monocytes # (Manual) 0.31 K/uL Eosinophils # (Manual) 0.06 K/uL Basophils # (Manual) 0.02 K/uL Metamyelocytes # 0.08 K/uL Myelocytes # 0.06 K/uL Hyposegmented Neutrophils OCCASIONAL Hypogranular Neutrophils 3+ Blast Cells # 0.08 K/uL Platelet Estimate DECREASED Giant Platelets 2+ Poikilocytosis PRESENT Anisocytosis PRESENT Ovalocytes 1+ Acanthocytes 3+ Sodium Level 136 mmol/L Potassium Level 3.8 mmol/L Chloride Level 105 mmol/L Carbon Dioxide Level 22 mmol/L Anion Gap 9.0 mmol/L Blood Urea Nitrogen 14 mg/dl Creatinine 0.67 mg/dl Est Creatinine Clear Calc Drug Dose 96.8 ml/min Estimated GFR () 109.7 Estimated GFR (Non- 94.7 BUN/Creatinine Ratio 20.1 Random Glucose 112 mg/dl Calcium Level 7.9 mg/dl Magnesium Level 2.4 mg/dl Total Bilirubin 1.3 mg/dl Aspartate Amino Transf (AST/SGOT) 59 U/L Alanine Aminotransferase (ALT/SGPT) 64 U/L Alkaline Phosphatase 92 U/L Total Protein 6.0 gm/dl Albumin 2.9 gm/dl Globulin 3.1 gm/dl Albumin/Globulin Ratio 0.9 Lyme Disease IgG Antibody NEG Lyme Disease IgM Antibody NEG Imaging: Echocardiogram reveals preserved LV systolic function. SOme valvular heart disease and pulmonary hypertension with RV enlargement. EKG:Sinus rhythm with 2:1 conduction, complete heart block. Narrow complex rhythm Telemetry reviewed: some conduction with long CT interval Assessment & Plan 1. Complete heart block. This is of unknown duration. Likely weeks to months. He had evidence of significant AV vince disease dating back several years. Lyme titers negative. Not on BB. Unclear if he has any symptoms related to the conduction disease as his condition is complicated by other co-morbidities. In any event, a pacemaker is indicated. I discussed the procedure with the patient and his . He has neutropenia and a possible infection. This will need to be resolved prior to implant unless he has some form of decompensation in which case we would likely place a temporary pacemaker until his neutropenia resolves and any infection is treated. Right know he has a very stable, narrow complex rhythm which can simply be monitored (again, this has likely been present for weeks if not months).
[2017-07-27] MEDS: CEFEPIME IV 1,000 MG in SYRINGE 0 ML IV SCH (20:53)
[2017-07-27] MEDS ORDERED: CEFEPIME IV 1,000 MG in DEXTROSE 5% 100ML 100 ML IV SCH (21:00)
[2017-07-28] VITALS (10 sets, daily range): BP systolic 100–122; BP diastolic 47–63; PULSE 47–58; TEMP 36.9–37.6; O2SAT 90–98
[2017-07-28] MEDS: SODIUM CHLORIDE 0.9% 1000ML 1,000 ML IV SCH ×2 (06:06→15:35)
[2017-07-28 08:07] LABS: HEMATOCRIT 25.3 % (42-52); HEMOGLOBIN 8.3 g/dL (14.0-18.0); MEAN CELL VOLUME 81.6 fL (80-100); MEAN CORPUSCULAR HEMOGLOBIN 26.8 pg (25-34); MEAN CORPUSCULAR HGB CONC 32.8 g/dl (32-36); NUCLEATED RED BLOOD CELL ABS 0.06 K/uL (0-0); PLATELET COUNT 104 K/uL (130-400); RED CELL DISTRIBUTION WIDTH CV 20.9 % (11.5-14.5); RED CELL DISTRIBUTION WIDTH SD 60.7 fL (36.4-46.3); WHITE BLOOD COUNT 2.09 K/uL (4.8-10.8)
[2017-07-28] MEDS: CEFEPIME IV 1,000 MG in SYRINGE 0 ML IV SCH ×2 (08:24→20:42)
[2017-07-28 08:25] LABS: CALCIUM 7.3 mg/dl (8.5-10.1); CREATININE 0.59 mg/dl (0.60-1.40); POTASSIUM 4.1 mmol/L (3.5-5.1)
[2017-07-28] MEDS: PAROXETINE 20 MG TAB PO SCH (08:25)
[2017-07-28] MEDS: ENZALUTAMIDE 40 MG CAP PO SCH (08:26)
[2017-07-28] MEDS: PRAVASTATIN SOD 20 MG TAB PO SCH (08:26)
[2017-07-28] MEDS: ASPIRIN 81 MG ECTAB PO SCH (08:26)
[2017-07-28] MEDS: LACTOBACILLUS ACIDOPHILUS (FLORANEX) TAB PO SCH (08:26)
[2017-07-28] MEDS: HEPARIN SOD 5000 UNIT/0.5 ML CARP SQ SCH ×2 (08:29→20:43)
--- NOTE | 2017-07-28 15:20 | Progress Note ---
Subjective Date of Service: Jul 28, 2017. Subjective Pt evaluation today including: conversation w/ patient, conversation w/ family , physical exam, lab review, conversation w/ informatics consultant, review of inpatient medication list Pain: no pain PO Intake: improved Voiding: no voiding problems patient breathing better today, slightly more energy OOB to a chair today, felt well reviewed labs, Hb up to 8.3, WBC trending up, ANC 1.[address] Parikh, plan for tomorrow Review of Systems Constitutional: + weakness, + fatigue Respiratory: + cough, + dyspnea on exertion Neurologic: + weakness, + balance problems All Other Systems: Reviewed and Negative Medications Current Inpatient Medications Medications (Trade) Dose Ordered Sig/Bunny Route Start Time Stop Time Status Last Admin Dose Admin Al Hydrox/Mg Hydrox/Simethicone (Maalox Max Susp) 15 ml Q4H PRN PO 07/26/17 10:45 08/25/17 10:44 Magnesium Hydroxide (Milk Of Magnesia Susp) 30 ml Q6H PRN PO 07/26/17 10:45 08/25/17 10:44 Polyethylene (Miralax Powder Packet) 17 gm DAILY PRN PO 07/26/17 10:45 08/25/17 10:44 Ondansetron HCl (Zofran Inj) 4 mg Q6H PRN IV 07/26/17 10:45 08/25/17 10:44 Heparin Sodium (Porcine) (Heparin Sq 5000 Unit/0.5ml) 5,000 unit Q12H SQ 07/26/17 21:00 08/25/17 10:44 07/28/17 08:29 5,000 UNIT Aspirin (Ecotrin Tab) 81 mg DAILY PO 07/27/17 08:00 08/26/17 08:59 07/28/17 08:26 81 MG Paroxetine HCl (pAXil TAB) 10 mg DAILY PO 07/27/17 08:00 08/26/17 08:59 07/28/17 08:25 10 MG Pravastatin Sodium (Pravachol Tab) 20 mg DAILY PO 07/27/17 08:00 08/26/17 08:59 07/28/17 08:26 20 MG Tramadol HCl (Ultram Tab) 50 mg TID PRN PO 07/26/17 10:45 08/25/17 10:44 Miscellaneous Information (Order Awaiting Action) 1 ea QS N/A 07/26/17 16:00 08/25/17 15:59 Miscellaneous Information (Order Awaiting Action) 1 ea QS N/A 07/26/17 16:00 08/25/17 15:59 Lactobacillus Acidophilus (Floranex Tab) 1 tab DAILY PO 07/27/17 08:00 08/26/17 08:59 07/28/17 08:26 1 TAB Miscellaneous (Iv Fluids Completed) 1 ea PRN PRN N/A 07/26/17 11:30 07/26/18 11:29 Acetaminophen (Tylenol Tab) 650 mg Q4H PRN PO 07/26/17 13:00 08/25/17 12:59 Sodium Chloride 1,000 ml @ 80 mls/hr [id number] IV 07/26/17 15:15 08/25/17 15:14 07/28/17 06:06 80 MLS/HR Acetaminophen (Tylenol Tab) 1,000 mg Q8 PRN PO 07/26/17 15:15 08/25/17 15:14 07/27/17 13:51 1,000 MG Cefepime HCl 1000 mg/Syringe 11 ml @ 5.5 mls/min Q12H IV 07/27/17 21:00 07/29/17 20:59 07/28/17 08:24 5.5 MLS/MIN Objective Vital Signs Date Time Temp Pulse Resp B/P (MAP) Pulse Ox O2 Delivery O2 Flow Rate FiO2 07/28/17 12:00 92 Room Air 07/28/17 11:59 36.9 58 18 100/58 (72) 96 07/28/17 08:09 37.1 52 18 113/63 (80) 95 07/28/17 08:00 92 Room Air 07/28/17 04:46 37.1 50 24 115/57 (76) 91 Room Air 07/28/17 04:00 91 Room Air 07/28/17 00:00 37.2 47 22 122/47 (72) 92 Room Air 07/28/17 00:00 92 Room Air 07/27/17 20:00 Room Air 07/27/17 19:58 37.7 51 25 114/67 (83) 93 Room Air 07/27/17 16:59 36.9 49 24 105/65 98 2.0 4/4/18 16:23 36.9 50 26 110/60 98 3.0 07/27/17 16:15 37.1 51 112/58 96 2.0 07/27/17 16:05 37.2 54 26 110/57 90 07/27/17 16:00 Room Air 07/27/17 15:51 37.3 56 30 116/60 93 07/27/17 15:40 38.0 56 22 115/50 07/27/17 15:30 38.0 Physical Exam General Appearance: WD/WN, no apparent distress Eyes: normal inspection, EOMI, sclerae normal ENT: normal ENT inspection, hearing grossly normal, pharynx normal Neck: supple, no adenopathy, no JVD, trachea midline Respiratory/Chest: chest non-tender, lungs clear, normal breath sounds, no respiratory distress, no accessory muscle use Cardiovascular: regular rate, rhythm, no edema, no gallop, no JVD, no murmur Abdomen: normal bowel sounds, non tender, soft, no organomegaly Extremities: normal range of motion, non-tender, normal inspection, no pedal edema, no calf tenderness, pelvis stable Neurologic/Psychiatric: size painter II-XII nml as tested, no motor/sensory deficits, alert, normal mood/affect, oriented x 3 Laboratory Results Last 24 Hours Test 07/28/17 07:43 White Blood Count 2.09 K/uL Red Blood Count 3.10 M/uL Hemoglobin 8.3 g/dL Hematocrit 25.3 % Mean Corpuscular Volume 81.6 fL Mean Corpuscular Hemoglobin 26.8 pg Mean Corpuscular Hemoglobin Concent 32.8 g/dl Platelet Count 104 K/uL RDW Standard Deviation 60.7 fL RDW Coefficient of Variation 20.9 % Nucleated RBC Absolute Count (auto) 0.06 K/uL Neutrophils % (Manual) 49.4 % Lymphocytes % (Manual) 20.4 % Monocytes % (Manual) 16.8 % Eosinophils % (Manual) 6.2 % Basophils % (Manual) 0.9 % Metamyelocytes % 2.7 % Myelocytes % 2.7 % Blast Cells % 0.9 % Nucleated Red Blood Cells % 3.0 % Neutrophils # (Manual) 1.03 K/uL Total Absolute Neutrophils 1.03 K/uL Lymphocytes # (Manual) 0.43 K/uL Total Absolute Lymphocytes 0.43 K/uL Monocytes # (Manual) 0.35 K/uL Eosinophils # (Manual) 0.13 K/uL Basophils # (Manual) 0.02 K/uL Metamyelocytes # 0.06 K/uL Myelocytes # 0.06 K/uL Hyposegmented Neutrophils 1+ Hypogranular Neutrophils 2+ Blast Cells # 0.02 K/uL Platelet Estimate DECREASED Large Platelets 2+ Giant Platelets 1+ Poikilocytosis PRESENT Anisocytosis PRESENT Ovalocytes 1+ Echinocytes 2+ Sodium Level 139 mmol/L Potassium Level 4.1 mmol/L Chloride Level 109 mmol/L Carbon Dioxide Level 21 mmol/L Anion Gap 8.0 mmol/L Blood Urea Nitrogen 13 mg/dl Creatinine 0.59 mg/dl Est Creatinine Clear Calc Drug Dose 109.9 ml/min Estimated GFR () 115.6 Estimated GFR (Non- 99.7 BUN/Creatinine Ratio 22.7 Random Glucose 98 mg/dl Calcium Level 7.3 mg/dl Assessment and Plan 76 yo male with h/o prostate cancer on Lupron, Xtandi and Xgeva, presents with fatigue, dyspnea, weakness - Worsening fatigue and dyspnea likely multifactorial with anemia, effects from chemotherapy, poor nutrition echo shows normal EF, examines euvolemic again today (no JVD, no edema, lungs clear) transfused one unit, up to 8.3, feels a little better today - Possible Transfusion reaction: low grade fever after starting PRBC on 07/26 stopped infusion, Tylenol ordered, no clinical signs of anaphylactic reaction sent blood sample to pathology for analysis Hb is 8.3 today after transfusion doubt transfusion reaction, no further fevers - Neutropenic fever: started Cefepime empirically blood cultures - no growth to date Dr. Menon following, appreciate recommendations - 3rd degree AV block, junctional rhythm Lyme negative cardiology consulted for possible pacemaker plan tentatively for tomorrow, NPO after midnight - Prostate cancer with bone mets holding on current treatment for now as we work up fatigue and dyspnea consult Dr. Menon, he says patient is done with Xfigo which causes bone marrow suppression continue tele, attempt pacemaker tomorrow if afebrile and cultures remain negative
--- NOTE | 2017-07-28 15:48 | Cardiology Follow-Up ---
Subjective Date of Service: Jul 28, 2017. Pt evaluation today including: conversation w/ patient, conversation w/ family , physical exam, chart review, lab review, review of studies, review of inpatient medication list, conversation w/ attending History of Present Illness The patient reports feeling well today. He has more energy. He has been ambulatory around the room. He denies significant pain. His appetite is a little better. He denies significant breathing trouble or coughing. Social History Smoking Status: Former Smoker History of Alcohol Use: Yes (OCC) Review of Systems Respiratory: + cough, + dyspnea on exertion No recent fevers or chills. Objective Vital Signs Past 12 Hours Date Time Temp Pulse Resp B/P (MAP) Pulse Ox O2 Delivery O2 Flow Rate FiO2 07/28/17 12:00 92 Room Air 07/28/17 11:59 36.9 58 18 100/58 (72) 96 07/28/17 08:09 37.1 52 18 113/63 (80) 95 07/28/17 08:00 92 Room Air 07/28/17 04:46 37.1 50 24 115/57 (76) 91 Room Air 07/28/17 04:00 91 Room Air Last Recorded Weight-Kilograms: 81.100 Intake & Output 8-Hour Column 07/28/17 07/28/17 07/29/17 15:59 23:59 07:59 Intake Total 1175 ml Output Total 300 ml Balance 875 ml 24-Hour Column 07/29/17 07:59 Intake Total 1175 ml Output Total 300 ml Balance 875 ml Data Laboratory Results: Last 24 Hours Test 07/28/17 07:43 White Blood Count 2.09 K/uL Red Blood Count 3.10 M/uL Hemoglobin 8.3 g/dL Hematocrit 25.3 % Mean Corpuscular Volume 81.6 fL Mean Corpuscular Hemoglobin 26.8 pg Mean Corpuscular Hemoglobin Concent 32.8 g/dl Platelet Count 104 K/uL RDW Standard Deviation 60.7 fL RDW Coefficient of Variation 20.9 % Nucleated RBC Absolute Count (auto) 0.06 K/uL Neutrophils % (Manual) 49.4 % Lymphocytes % (Manual) 20.4 % Monocytes % (Manual) 16.8 % Eosinophils % (Manual) 6.2 % Basophils % (Manual) 0.9 % Metamyelocytes % 2.7 % Myelocytes % 2.7 % Blast Cells % 0.9 % Nucleated Red Blood Cells % 3.0 % Neutrophils # (Manual) 1.03 K/uL Total Absolute Neutrophils 1.03 K/uL Lymphocytes # (Manual) 0.43 K/uL Total Absolute Lymphocytes 0.43 K/uL Monocytes # (Manual) 0.35 K/uL Eosinophils # (Manual) 0.13 K/uL Basophils # (Manual) 0.02 K/uL Metamyelocytes # 0.06 K/uL Myelocytes # 0.06 K/uL Hyposegmented Neutrophils 1+ Hypogranular Neutrophils 2+ Blast Cells # 0.02 K/uL Platelet Estimate DECREASED Large Platelets 2+ Giant Platelets 1+ Poikilocytosis PRESENT Anisocytosis PRESENT Ovalocytes 1+ Echinocytes 2+ Sodium Level 139 mmol/L Potassium Level 4.1 mmol/L Chloride Level 109 mmol/L Carbon Dioxide Level 21 mmol/L Anion Gap 8.0 mmol/L Blood Urea Nitrogen 13 mg/dl Creatinine 0.59 mg/dl Est Creatinine Clear Calc Drug Dose 109.9 ml/min Estimated GFR () 115.6 Estimated GFR (Non- 99.7 BUN/Creatinine Ratio 22.7 Random Glucose 98 mg/dl Calcium Level 7.3 mg/dl Telemetry reviewed: Some very brief runs of an idiopathic ventricular rhythm. Continued heart block Assessment and Plan 1. Complete heart block. Patient continues to have poor conduction. I think a pacemaker is indicated due to the potential for significant bradycardia and asystole. He also likely has some symptoms related to heart block and would feel better. We deferred implant today due to his neutropenia and recent fevers. Will reassess his status tomorrow and plan on implantation if he continues to improve.
[2017-07-29] VITALS (14 sets, daily range): BP systolic 99–138; BP diastolic 57–88; PULSE 48–125; TEMP 36.2–37; O2SAT 92–98
[2017-07-29] MEDS: SODIUM CHLORIDE 0.9% 1000ML 1,000 ML IV SCH (04:07)
[2017-07-29 06:47] LABS: CALCIUM 7.4 mg/dl (8.5-10.1); CREATININE 0.61 mg/dl (0.60-1.40); HEMOGLOBIN 8.7 g/dL (14.0-18.0); MEAN CELL VOLUME 81.5 fL (80-100); MEAN CORPUSCULAR HEMOGLOBIN 27.3 pg (25-34); MEAN CORPUSCULAR HGB CONC 33.5 g/dl (32-36); NUCLEATED RED BLOOD CELL ABS 0.06 K/uL (0-0); PLATELET COUNT 105 K/uL (130-400); POTASSIUM 3.7 mmol/L (3.5-5.1); RED CELL DISTRIBUTION WIDTH SD 61.9 fL (36.4-46.3)
[2017-07-29] MEDS: PAROXETINE 20 MG TAB PO SCH (08:01)
[2017-07-29] MEDS: PRAVASTATIN SOD 20 MG TAB PO SCH (08:01)
[2017-07-29] MEDS: ENZALUTAMIDE 40 MG CAP PO SCH (08:01)
[2017-07-29] MEDS: LACTOBACILLUS ACIDOPHILUS (FLORANEX) TAB PO SCH (08:01)
[2017-07-29] MEDS: HEPARIN SOD 5000 UNIT/0.5 ML CARP SQ SCH ×2 (08:01→20:51)
[2017-07-29] MEDS: ASPIRIN 81 MG ECTAB PO SCH (08:02)
[2017-07-29] MEDS: CEFEPIME IV 1,000 MG in SYRINGE 0 ML IV SCH (08:04)
[2017-07-29] MEDS ORDERED: FENTANYL CITRATE INJ 50 MCG/1 ML 2 ML VIAL ONE (08:27)
[2017-07-29] MEDS ORDERED: BUPIVACAINE 0.5 % 5 MG/1 ML MPF 30ML VIAL ONE (08:27)
[2017-07-29] MEDS ORDERED: LIDOCAINE HCL 1% 20 ML VIAL ONE (08:27)
[2017-07-29] MEDS ORDERED: BACITRACIN 50000 UNIT VIAL ONE (08:27)
[2017-07-29] MEDS ORDERED: MIDAZOLAM HCL 5 MG/ML 1 ML VIAL ONE (08:27)
--- NOTE | 2017-07-29 08:30 | Pre Sedation Assessment ---
Pre Sedation Assessment General Date of Sedation: Jul 29, 2017. Vital Signs Past 12 Hours Date Time Temp Pulse Resp B/P (MAP) Pulse Ox O2 Delivery O2 Flow Rate FiO2 07/29/17 08:21 36.9 48 16 116/57 (76) 98 07/29/17 04:18 37.0 48 17 99/64 (76) 92 Room Air 07/29/17 04:05 92 Room Air 07/29/17 00:12 37.0 56 19 120/74 (89) 94 Room Air 07/29/17 00:10 94 Room Air Pre-Sedation Airway Assessment Smoking Status: Former Smoker Hx of Sleep Apnea: No Hx of difficult intubation: No Short Thick Neck: No Thyro-mental Distance: > 3 Finger Breadths Oral Cavity: WNL Mallampati Classification: Class III ASA Classification: Class III NPO Status Date of Last Intake of Fluids: Jul 29, 2017 Time of Last Intake of Fluids: 0000 Date of Last Intake of Solids: Jul 29, 2017 Time of Last Intake of Solids: 0000 Procedure Planning Contraindications for Sedation: None Current Medications Reviewed: Yes Notes The planned sedation has been discussed with the patient. Informed Consent was obtained. I have identified the patient, determined the appropriateness of sedation and have assessed the patient immediately prior to the procedure. All medicine(s) and interventions are by my order.
--- NOTE | 2017-07-29 09:35 | Cardiology Procedure Brief Nt ---
Preliminary Cardiology Note Procedure Date Jul 29, 2017. Pre-Procedure Diagnosis Heart block Post-Procedure Diagnosis same Procedure(s) Performed implantation of dual chamber [employer]onic pacemaker. Family Coach Kati Admittance Attendant(s) Libbyt Estimated Blood Loss 10cc Medication(s) versed,fentanyl Preliminary Findings Normal function Recommendations Keep wound dry. continue abx Specimens none Complication(s) None Disposition PCU
[2017-07-29] MEDS ORDERED: ACETAMINOPHEN 325 MG TAB PO PRN (09:45)
[2017-07-29] MEDS ORDERED: SODIUM CHLORIDE 0.9% 500ML 500 ML IV SCH (10:30)
[2017-07-29] MEDS: METOPROLOL TARTRATE 1 MG/ML VIAL IV PRN ×2 (11:16→18:40)
[2017-07-29] MEDS: TRAMADOL HCL 50 MG TAB PO PRN (13:05)
[2017-07-29] MEDS ORDERED: NURSING VERBAL MED ORDER ONE (16:15)
--- NOTE | 2017-07-29 16:25 | Radiation Oncology Progress Nt ---
Radiation Oncology Progress Nt Date of Service Date of Service: Jul 29, 2017. Requesting Physician Mitul Colby DO Diagnosis (1) Prostate cancer Rising PSA to 7.5 Status post ultrasound-guided biopsies, clinical stage TIc Biopsy stage TIIc [place] grade 3+3, 4+3, 4+4 and 4+5 initiation of Casodex status post robotic-assisted laparoscopic radical prostatectomy with bilateral lymph node dissection completed 02/01/2013 Stage [id number] [place] 4+5 Initiation of hormonal suppression with reaction to medication Status post completion of radiation therapy as salvage 07/18/2013 received 7000 cGy Continuous Lupron therapy as well as bicaludimide Continued rise in PSA Bicalutimide stopped Initiation of Xtandi plus bisphosphonate Xofigo injection #1 02/03/2017 Current regimen of treatment as of 03/13/2016 Zytiga, Lupron, Xgeva, and prednisone 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 He received 3000 cGy Xofigo injection #2 03/22/2017 Xofigo injection #3 06/22/2017 Last Edited By: Kristopher Romeo on Jul 29, 2017 16: 24 Subjective Pt evaluation today including: conversation w/ patient, conversation w/ family , physical exam, conversation with hospitalist, conversation with inpatient team , chart review, lab review, review of studies, conversation w/ information services consultant (Dr. Ozzie Menon), review of inpatient medication list Mr. Sherman is admitted to the hospital due to cardiac issues and anemia. He remains in the ICU. He was scheduled in the outpatient setting to be seen for potential re-evaluation of Xofigo (Imogene-223) treatment. Objective Vital Signs Date Time Temp Pulse Resp B/P (MAP) Pulse Ox O2 Delivery O2 Flow Rate FiO2 07/29/17 16:00 Room Air 07/29/17 15:39 36.6 89 20 133/88 (103) 93 Room Air 07/29/17 13:43 75 132/87 (102) 07/29/17 12:25 78 20 107/58 (74) 95 07/29/17 12:00 Nasal Cannula 2.0 07/29/17 11:20 121 117/69 (85) 07/29/17 11:16 132 138/83 07/29/17 10:45 70 20 132/81 (98) 96 Nasal Cannula 2.0 07/29/17 10:10 123 124/82 (96) 07/29/17 09:53 36.4 125 20 138/87 (104) 96 Nasal Cannula 2.0 07/29/17 09:40 58 22 140/78 (98) 97 Mask 07/29/17 09:25 57 22 148/76 (100) 97 Mask 07/29/17 08:21 36.9 48 16 116/57 (76) 98 07/29/17 08:00 Room Air 07/29/17 04:18 37.0 48 17 99/64 (76) 92 Room Air 07/29/17 04:05 92 Room Air 07/29/17 00:12 37.0 56 19 120/74 (89) 94 Room Air 07/29/17 00:10 94 Room Air 07/28/17 20:15 Room Air 07/28/17 19:39 37.6 47 27 108/61 (77) 90 Room Air Physical Exam General Appearance: + mild distress, + cachetic Eyes: normal inspection ENT: normal ENT inspection Neck: supple, no adenopathy Respiratory/Chest: chest non-tender Cardiovascular: regular rate, rhythm, no edema, no gallop, no JVD Abdomen: normal bowel sounds, non tender, soft, no organomegaly Neurologic/Psychiatric: alert, oriented x 3 Skin: normal color, warm/dry, no rash Laboratory Results Last 24 Hours Test 07/29/17 06:06 White Blood Count 2.40 K/uL Red Blood Count 3.19 M/uL Hemoglobin 8.7 g/dL Hematocrit 26.0 % Mean Corpuscular Volume 81.5 fL Mean Corpuscular Hemoglobin 27.3 pg Mean Corpuscular Hemoglobin Concent 33.5 g/dl Platelet Count 105 K/uL RDW Standard Deviation 61.9 fL RDW Coefficient of Variation 21.0 % Nucleated RBC Absolute Count (auto) 0.06 K/uL Neutrophils % (Manual) 47.3 % Lymphocytes % (Manual) 14.9 % Monocytes % (Manual) 14.9 % Eosinophils % (Manual) 5.3 % Basophils % (Manual) 2.6 % Metamyelocytes % 1.8 % Myelocytes % 11.4 % Blast Cells % 1.8 % Nucleated Red Blood Cells % 2.4 % Neutrophils # (Manual) 1.14 K/uL Total Absolute Neutrophils 1.14 K/uL Lymphocytes # (Manual) 0.36 K/uL Total Absolute Lymphocytes 0.36 K/uL Monocytes # (Manual) 0.36 K/uL Eosinophils # (Manual) 0.13 K/uL Basophils # (Manual) 0.06 K/uL Metamyelocytes # 0.04 K/uL Myelocytes # 0.27 K/uL Hypogranular Neutrophils 3+ Blast Cells # 0.04 K/uL Platelet Estimate DECREASED Poikilocytosis PRESENT Anisocytosis PRESENT Acanthocytes 3+ Sodium Level 140 mmol/L Potassium Level 3.7 mmol/L Chloride Level 111 mmol/L Carbon Dioxide Level 23 mmol/L Anion Gap 6.0 mmol/L Blood Urea Nitrogen 15 mg/dl Creatinine 0.61 mg/dl Est Creatinine Clear Calc Drug Dose 106.3 ml/min Estimated GFR () 114.0 Estimated GFR (Non- 98.4 BUN/Creatinine Ratio 24.1 Random Glucose 106 mg/dl Calcium Level 7.4 mg/dl Magnesium Level 2.4 mg/dl Assessment and Plan I have spoken to the patient and his . Additionally, I reviewed the case with Dr. Ozzie Menon regarding the further use of Imogene-223 for treatment of his metastatic prostate cancer. We have advised against further treatment with radium 223 given the patient's anemia and persistent issues with blood counts in general. Dr. Menon will continue with systemic management for the patient's castrate resistant metastatic prostate cancer. The patient and his were agreeable to this plan. The patient will follow up with us in the outpatient setting and can be scheduled for an appointment within 1 month after discharge. Please call us with any further questions or concerns.
--- NOTE | 2017-07-29 17:42 | [facility] Operative Report ---
Operative Report Date of Service Jul 29, 2017. Operative Report Procedure performed: Implantation of dual-chamber permanent pacemaker Staff weigher operator: Gus Parikh MD Indication: The patient is a 76-year-old gentleman who presented to [facility] in complete heart block. Patient has been feeling poorly and has exertional symptoms of dyspnea and fatigue. Based on the nature of his conduction disease is felt to be a good candidate for a permanent pacemaker due to symptomatic non reversible AV node dysfunction. Dual-chamber device was selected as the patient is currently in sinus rhythm which to maintain AV synchrony Procedure in detail: The patient was informed of the risks benefits and alternatives to the intended procedure and he wished to proceed. He was taken to the electrophysiology suite in a fasting state. A preoperative antibiotic had been administered. The patient was monitored electrocardiographically throughout today's procedure and conscious sedation was administered per protocol. The left upper pectoral area is prepped and draped in usual sterile fashion. This area was anesthetized using subcutaneous menstruation of a xylocaine solution. An incision was made at this site and carried down to the prepectoralis fascia using sharp dissection. Electrocautery was also employed for dissection as well as for hemostasis. A device pocket was fashioned tissues above the pectoralis muscle. Subsequent to this maneuver the left axillary vein was accessed using modified Seldinger technique. Sheaths were placed over guidewires at this site and used to facilitate passage of the pacing leads to the respective chambers under fluoroscopic guidance. This included right atrial and right ventricular leads. Adequate sensing and threshold parameters were obtained prior to Active fixation of the leads to the endocardial surface. The proximal portion leads were then sutured the prepectoral fascia using nonabsorbable suture. The device pocket was irrigated with antibiotic solution. The leads were then attached to the device. The device and leads were then placed in the pocket and pocket was closed in 3 layers of absorbable suture. Steri-Strips and sterile dressing were applied. The device was tested noninvasively prior to conclusion the procedure. The patient tolerated procedure well there no immediate complications. Equipment used: New pulse generator: Export Manager [employer]. Model number: W 1 DR0 1 serial number [id number] Right atrial lead: Export Manager [employer]. Model number: 4076 serial number [id number] Right ventricular lead: Export Manager [employer]. Model number: 4076 serial number [id number] Measured data: Right atrial lead: P-waves measured 4.9 mV. Pacing threshold was 0.5 volts at 0.1 milliseconds with a pacing impedance of 448 Ohms Right ventricular lead: R-waves measured 4.4 mV pacing threshold was 0.6 volts at 0.4 milliseconds with a pacing impedance of 573 Ohms Impression: Successful implantation of dual-chamber permanent pacemaker I attest to the content of the Intraoperative Record and any orders documented therein. Any exceptions are noted below.
[2017-07-29] MEDS: ACETAMINOPHEN 500 MG TAB PO PRN (18:06)
[2017-07-29] MEDS ORDERED: FUROSEMIDE 40 MG/4 ML VIAL IV STA (18:46)
[2017-07-29] MEDS ORDERED: LORAZEPAM 2 MG/ML 1 ML VIAL IV PRN (19:00)
[2017-07-29 19:33] LABS: NUCLEATED RED BLOOD CELL ABS 0.14 K/uL (0-0)
--- NOTE | 2017-07-29 19:49 | DIAGNOSTIC IMAGING REPORT ---
CHEST ONE VIEW PORTABLE CLINICAL HISTORY: Dyspnea, hypoxia COMPARISON STUDY: 07/26/2017 FINDINGS: The heart is enlarged. There is a left subclavian dual-chamber central venous pacemaker. There is worsening congestive failure. There are moderate bilateral pleural effusions. There are bibasal airspace opacities likely representing compressive atelectasis.[ IMPRESSION: Worsening congestive failure with mild pulmonary edema. Interval development of moderate bilateral pleural effusions. Bibasilar opacities, statistically representing compressive atelectasis Electronically signed by: Tyson Tabor M.D. 07/29/2017 7:47 PM Dictated Date/Time: 07/29/2017 7:46 PM
[2017-07-29 20:12] LABS: HEMATOCRIT 30.3 % (42-52); HEMOGLOBIN 9.8 g/dL (14.0-18.0); MEAN CELL VOLUME 82.1 fL (80-100); MEAN CORPUSCULAR HEMOGLOBIN 26.6 pg (25-34); MEAN CORPUSCULAR HGB CONC 32.3 g/dl (32-36); PLATELET COUNT 152 K/uL (130-400); RED CELL DISTRIBUTION WIDTH SD 62.1 fL (36.4-46.3); WHITE BLOOD COUNT 3.71 K/uL (4.8-10.8)
[2017-07-29 20:22] LABS: CALCIUM 7.9 mg/dl (8.5-10.1); CREATININE 0.77 mg/dl (0.60-1.40); POTASSIUM 4.1 mmol/L (3.5-5.1)
[2017-07-29] MEDS: METOPROLOL TARTRATE 25 MG TAB PO SCH (20:49)
--- NOTE | 2017-07-29 21:09 | Progress Note ---
Subjective Date of Service: Jul 29, 2017. Subjective Pt evaluation today including: conversation w/ patient, physical exam, lab review, conversation w/ treasury consultant, review of inpatient medication list Pain: no pain PO Intake: adequate Voiding: no voiding problems patient feeling better, eating well, had pacer this morning on tele, was having tachycardia in 120's and 130's, was a paced rhythm discussed with Dr. Parikh, he said it was an atrial arrhythmia, recommended beta jose manuel reviewed labs, Hb trending up at 8.7, WBC up to 2.4 later in the evening patient experienced dyspnea, diaphoresis, anxiety reviewed intake, was positive several liters for the admission CXR with pulmonary edema he was tachycardic and hypertensive ordered Lasix 40mg IV now Review of Systems Constitutional: + sweats, + weakness, + fatigue Respiratory: + shortness of breath Neurologic: + weakness Psychiatric: + anxiety All Other Systems: Reviewed and Negative Medications Current Inpatient Medications Medications (Trade) Dose Ordered Sig/Bunny Route Start Time Stop Time Status Last Admin Dose Admin Al Hydrox/Mg Hydrox/Simethicone (Maalox Max Susp) 15 ml Q4H PRN PO 07/26/17 10:45 08/25/17 10:44 Magnesium Hydroxide (Milk Of Magnesia Susp) 30 ml Q6H PRN PO 07/26/17 10:45 08/25/17 10:44 Polyethylene (Miralax Powder Packet) 17 gm DAILY PRN PO 07/26/17 10:45 08/25/17 10:44 Ondansetron HCl (Zofran Inj) 4 mg Q6H PRN IV 07/26/17 10:45 08/25/17 10:44 Heparin Sodium (Porcine) (Heparin Sq 5000 Unit/0.5ml) 5,000 unit Q12H SQ 07/26/17 21:00 08/25/17 10:44 07/29/17 20:51 5,000 UNIT Aspirin (Ecotrin Tab) 81 mg DAILY PO 07/27/17 08:00 08/26/17 08:59 07/28/17 08:26 81 MG Paroxetine HCl (pAXil TAB) 10 mg DAILY PO 07/27/17 08:00 08/26/17 08:59 07/28/17 08:25 10 MG Pravastatin Sodium (Pravachol Tab) 20 mg DAILY PO 07/27/17 08:00 08/26/17 08:59 07/28/17 08:26 20 MG Tramadol HCl (Ultram Tab) 50 mg TID PRN PO 07/26/17 10:45 08/25/17 10:44 07/29/17 13:05 50 MG Miscellaneous Information (Order Awaiting Action) 1 ea QS N/A 07/26/17 16:00 08/25/17 15:59 Miscellaneous Information (Order Awaiting Action) 1 ea QS N/A 07/26/17 16:00 08/25/17 15:59 Lactobacillus Acidophilus (Floranex Tab) 1 tab DAILY PO 07/27/17 08:00 08/26/17 08:59 07/28/17 08:26 1 TAB Miscellaneous (Iv Fluids Completed) 1 ea PRN PRN N/A 07/26/17 11:30 07/26/18 11:29 Acetaminophen (Tylenol Tab) 1,000 mg Q8 PRN PO 07/26/17 15:15 08/25/17 15:14 07/29/17 18:06 1,000 MG Acetaminophen (Tylenol Tab) 650 mg Q4H PRN PO 07/29/17 09:45 08/28/17 09:44 Metoprolol Tartrate (Lopressor Iv) 5 mg Q6H PRN IV 07/29/17 10:45 08/28/17 10:44 07/29/17 18:40 5 MG Metoprolol Tartrate (Lopressor Tab) 25 mg BID PO 07/29/17 21:00 08/28/17 20:59 07/29/17 20:49 25 MG Lorazepam (Ativan Inj) 0.5 mg Q12 PRN IV 07/29/17 19:00 08/28/17 18:59 07/29/17 19:52 0.5 MG Objective Vital Signs Date Time Temp Pulse Resp B/P (MAP) Pulse Ox O2 Delivery O2 Flow Rate FiO2 07/29/17 13:43 75 132/87 (102) 07/29/17 12:25 78 20 107/58 (74) 95 07/29/17 12:00 Nasal Cannula 2.0 07/29/17 11:20 121 117/69 (85) 07/29/17 11:16 132 138/83 07/29/17 10:45 70 20 132/81 (98) 96 Nasal Cannula 2.0 07/29/17 10:10 123 124/82 (96) 07/29/17 09:53 36.4 125 20 138/87 (104) 96 Nasal Cannula 2.0 07/29/17 09:40 58 22 140/78 (98) 97 Mask 07/29/17 09:25 57 22 148/76 (100) 97 Mask 07/29/17 08:21 36.9 48 16 116/57 (76) 98 07/29/17 08:00 Room Air 07/29/17 04:18 37.0 48 17 99/64 (76) 92 Room Air 07/29/17 04:05 92 Room Air 07/29/17 00:12 37.0 56 19 120/74 (89) 94 Room Air 07/29/17 00:10 94 Room Air 07/28/17 20:15 Room Air 07/28/17 19:39 37.6 47 27 108/61 (77) 90 Room Air 07/28/17 16:01 37.0 53 21 110/56 (74) 98 Room Air 07/28/17 16:00 92 Room Air Physical Exam General Appearance: WD/WN, no apparent distress Eyes: normal inspection, EOMI, sclerae normal ENT: normal ENT inspection, hearing grossly normal, pharynx normal Neck: supple, no adenopathy, no JVD, trachea midline Respiratory/Chest: chest non-tender, no respiratory distress, no accessory muscle use, + decreased breath sounds (bases), + rales (bibasilar) Cardiovascular: no edema, no gallop, no JVD, no murmur, + tachycardia Abdomen: normal bowel sounds, non tender, soft, no organomegaly Extremities: normal range of motion, non-tender, normal inspection, no pedal edema, no calf tenderness, pelvis stable Neurologic/Psychiatric: flue tile press operator II-XII nml as tested, no motor/sensory deficits, alert, normal mood/affect, oriented x 3 Skin: normal color, warm/dry, no rash Laboratory Results Last 24 Hours Test 07/29/17 06:06 White Blood Count 2.40 K/uL Red Blood Count 3.19 M/uL Hemoglobin 8.7 g/dL Hematocrit 26.0 % Mean Corpuscular Volume 81.5 fL Mean Corpuscular Hemoglobin 27.3 pg Mean Corpuscular Hemoglobin Concent 33.5 g/dl Platelet Count 105 K/uL RDW Standard Deviation 61.9 fL RDW Coefficient of Variation 21.0 % Nucleated RBC Absolute Count (auto) 0.06 K/uL Neutrophils % (Manual) 47.3 % Lymphocytes % (Manual) 14.9 % Monocytes % (Manual) 14.9 % Eosinophils % (Manual) 5.3 % Basophils % (Manual) 2.6 % Metamyelocytes % 1.8 % Myelocytes % 11.4 % Blast Cells % 1.8 % Nucleated Red Blood Cells % 2.4 % Neutrophils # (Manual) 1.14 K/uL Total Absolute Neutrophils 1.14 K/uL Lymphocytes # (Manual) 0.36 K/uL Total Absolute Lymphocytes 0.36 K/uL Monocytes # (Manual) 0.36 K/uL Eosinophils # (Manual) 0.13 K/uL Basophils # (Manual) 0.06 K/uL Metamyelocytes # 0.04 K/uL Myelocytes # 0.27 K/uL Hypogranular Neutrophils 3+ Blast Cells # 0.04 K/uL Platelet Estimate DECREASED Poikilocytosis PRESENT Anisocytosis PRESENT Acanthocytes 3+ Sodium Level 140 mmol/L Potassium Level 3.7 mmol/L Chloride Level 111 mmol/L Carbon Dioxide Level 23 mmol/L Anion Gap 6.0 mmol/L Blood Urea Nitrogen 15 mg/dl Creatinine 0.61 mg/dl Est Creatinine Clear Calc Drug Dose 106.3 ml/min Estimated GFR () 114.0 Estimated GFR (Non- 98.4 BUN/Creatinine Ratio 24.1 Random Glucose 106 mg/dl Calcium Level 7.4 mg/dl Magnesium Level 2.4 mg/dl Assessment and Plan 76 yo male with h/o prostate cancer on Lupron, Xtandi and Xgeva, presents with fatigue, dyspnea, weakness - Acute hypoxic respiratory failure: hypoxia and increased work of breathing, mild distress CXR with pulmonary edema due to volume overload Lasix 40mg IV x 1, repeat tomorrow AM follow I/Os - Acute diastolic heart failure due to aggressive IV fluids, fluids stopped earlier today will diurese with Lasix and monitor volume status had echo earlier in admission that showed preserved EF - Anemia due to chemotherapy, bone marrow suppression improving after transfusion of one unit up to 8.7 this morning and then 9.8 this afternoon - Neutropenic fever, neutropenia due to chemotherapy: started Cefepime empirically blood cultures - no growth to date WBC up to 3.7, neutropenia resolved no further Xfigo planned - 3rd degree AV block, junctional rhythm Lyme negative pacer placed today - Atrial tachycardia, ectopic rhythm occurred after pacer today, rates in 120-130's did not respond to fluids Lopressor 5mg IV q6 added, responded well with rates in the 70's - Prostate cancer with bone mets holding on current treatment for now as we work up fatigue and dyspnea consult Dr. Menon, he says patient is done with Xfigo which causes bone marrow suppression continue tele, continue diuresis tomorrow, PT/OT consults
[2017-07-30 00:39] VITALS: BP 113/82; PULSE 116; TEMP 36.8; O2SAT 99
[2017-07-30] MEDS: TRAMADOL HCL 50 MG TAB PO PRN (00:53)
[2017-07-30 04:00] VITALS: BP 106/70; PULSE 124; TEMP 37.2; O2SAT 94
[2017-07-30 06:25] LABS: MEAN CORPUSCULAR HGB CONC 33.6 g/dl (32-36); NUCLEATED RED BLOOD CELL ABS 0.06 K/uL (0-0)
[2017-07-30] MEDS: METOPROLOL TARTRATE 1 MG/ML VIAL IV PRN (06:30)
[2017-07-30 06:41] LABS: HEMATOCRIT 28.3 % (42-52); HEMOGLOBIN 9.5 g/dL (14.0-18.0); MEAN CELL VOLUME 80.4 fL (80-100); RED CELL DISTRIBUTION WIDTH CV 21.4 % (11.5-14.5); RED CELL DISTRIBUTION WIDTH SD 61.1 fL (36.4-46.3); WHITE BLOOD COUNT 4.22 K/uL (4.8-10.8)
[2017-07-30 07:05] LABS: PLATELET COUNT 133 K/uL (130-400)
[2017-07-30 07:09] LABS: CALCIUM 7.6 mg/dl (8.5-10.1); CREATININE 0.53 mg/dl (0.60-1.40); POTASSIUM 3.7 mmol/L (3.5-5.1)
--- NOTE | 2017-07-30 07:15 | DIAGNOSTIC IMAGING REPORT ---
CHEST 2 VIEWS ROUTINE CLINICAL HISTORY: 76 years-old Male presenting with EXACT TIME ORDERED Evaluate for pneumothorax and lead placement. TECHNIQUE: PA and lateral views of the chest were obtained. COMPARISON: 07/29/2017. FINDINGS: Left subclavian pacer with leads to the right atrium and right ventricular apex. Atherosclerosis of the aortic arch. Cardiac silhouette moderately enlarged, stable to worsened from prior. Central and bibasilar hazy opacities are slightly decreased from prior. Persistent small moderate bilateral pleural effusions. No pneumothorax. Degenerative changes of the thoracic spine. Upper abdomen normal. IMPRESSION: 1. Slight interval improvement of pulmonary edema in the setting of cardiomegaly and bilateral pleural effusions. Electronically signed by: Kristian Wilkinson M.D. 07/30/2017 7:14 AM Dictated Date/Time: 07/30/2017 7:13 AM
--- NOTE | 2017-07-30 07:47 | Cardiology Follow-Up ---
Subjective Date of Service: Jul 30, 2017. Pt evaluation today including: conversation w/ patient, conversation w/ family , physical exam, chart review, lab review, review of studies, review of inpatient medication list History of Present Illness Patient claims to be breathing better this morning. Over the course of the afternoon the patient became progressively more dyspneic. Evaluation last evening suggested new development of pleural effusions and pulmonary edema. He was given some Lasix with improvement in his breathing. He also had some discomfort at the implant site yesterday afternoon which is now resolved. He is anxious to be more mobile today. Social History Smoking Status: Former Smoker History of Alcohol Use: Yes ([facility]) Review of Systems Respiratory: + shortness of breath No recent fevers or chills. Objective Vital Signs Past 12 Hours Date Time Temp Pulse Resp B/P (MAP) Pulse Ox O2 Delivery O2 Flow Rate FiO2 07/30/17 06:30 135 103/76 07/30/17 04:00 Nasal Cannula 2.0 07/30/17 04:00 37.2 124 31 106/70 (82) 94 07/30/17 00:39 36.8 116 32 113/82 (92) 99 07/30/17 00:00 Nasal Cannula 2.0 07/29/17 20:00 36.2 111 33 130/88 (102) 96 Nasal Cannula 2.0 07/29/17 20:00 96 Nasal Cannula 2.0 Last Recorded Weight-Kilograms: 83.500 Physical Exam The patient is alert and oriented. Mood and affect appeared normal. He answered all questions appropriately. HEENT: Pupils are equal and reactive to light and accommodation. Extraocular movements are intact. The sclerae are anicteric. Neuro: Cranial nerves intact Neck: Patient's neck is supple. He has palpable carotid pulses bilaterally without bruits on auscultation. There is no evidence of jugular venous distention. The thyroid is not enlarged. Lungs: Reduced breath sounds at the bases bilaterally with occasional crackles in the upper [place]. No expiratory wheezing. Chest: No significant ecchymosis at the implant site. No hematoma. Cardiac: Tachycardic. Normal S1 and S2. No murmurs on examination. Pulses: The patient has palpable radial pulses bilaterally that are equal in intensity Extremities: There was no evidence of hypoperfusion. There is no cyanosis or clubbing. Some persistent edema in the left form Skin: I did not appreciate any rashes on examination today. Data Laboratory Results: Last 24 Hours Test 07/29/17 19:15 07/29/17 22:03 07/30/17 06:13 White Blood Count 3.71 K/uL 4.22 K/uL Red Blood Count 3.69 M/uL 3.52 M/uL Hemoglobin 9.8 g/dL 9.5 g/dL Hematocrit 30.3 % 28.3 % Mean Corpuscular Volume 82.1 fL 80.4 fL Mean Corpuscular Hemoglobin 26.6 pg 27.0 pg Mean Corpuscular Hemoglobin Concent 32.3 g/dl 33.6 g/dl Platelet Count 152 K/uL 133 K/uL RDW Standard Deviation 62.1 fL 61.1 fL RDW Coefficient of Variation 21.0 % 21.4 % Nucleated RBC Absolute Count (auto) 0.14 K/uL 0.06 K/uL Neutrophils % (Manual) 53.0 % 62.9 % Lymphocytes % (Manual) 8.7 % 8.8 % Variant Lymphocytes % (manual) 2.6 % Monocytes % (Manual) 20.0 % 16.8 % Eosinophils % (Manual) 1.7 % 0.9 % Basophils % (Manual) 0.9 % 0.9 % Metamyelocytes % 3.5 % 4.4 % Myelocytes % 7.0 % 3.5 % Blast Cells % 2.6 % 1.8 % Nucleated Red Blood Cells % 3.6 % 1.5 % Neutrophils # (Manual) 1.97 K/uL 2.65 K/uL Total Absolute Neutrophils 1.97 K/uL 2.65 K/uL Lymphocytes # (Manual) 0.32 K/uL 0.37 K/uL Absolute Variant Lymphocytes 0.10 K/uL Total Absolute Lymphocytes 0.42 K/uL 0.37 K/uL Monocytes # (Manual) 0.74 K/uL 0.71 K/uL Eosinophils # (Manual) 0.06 K/uL 0.04 K/uL Basophils # (Manual) 0.03 K/uL 0.04 K/uL Metamyelocytes # 0.13 K/uL 0.19 K/uL Myelocytes # 0.26 K/uL 0.15 K/uL Hypogranular Neutrophils 3+ 2+ Blast Cells # 0.10 K/uL 0.08 K/uL Poikilocytosis PRESENT Anisocytosis PRESENT PRESENT Ovalocytes 2+ 2+ Acanthocytes 3+ 3+ Schistocytes 2+ Sodium Level 137 mmol/L 137 mmol/L Potassium Level 4.1 mmol/L 3.7 mmol/L Chloride Level 108 mmol/L 106 mmol/L Carbon Dioxide Level 23 mmol/L 23 mmol/L Anion Gap 6.0 mmol/L 8.0 mmol/L Blood Urea Nitrogen 15 mg/dl 14 mg/dl Creatinine 0.77 mg/dl 0.53 mg/dl Est Creatinine Clear Calc Drug Dose 84.2 ml/min 122.3 ml/min Estimated GFR () 103.6 120.8 Estimated GFR (Non- 89.4 104.2 BUN/Creatinine Ratio 19.3 27.0 Random Glucose 167 mg/dl 124 mg/dl Calcium Level 7.9 mg/dl 7.6 mg/dl Troponin I 0.076 ng/ml 0.493 ng/ml Urine Color YELLOW Urine Appearance CLEAR Urine pH 5.0 Urine Specific [place] 1.011 Urine Protein NEG Urine Glucose (UA) NEG Urine Ketones NEG Urine Occult Blood NEG Urine Nitrite NEG Urine Bilirubin NEG Urine Urobilinogen NEG Urine Leukocyte Esterase NEG Platelet Estimate DECREASED Imaging: Chest x-ray obtained this morning reveals bilateral pleural effusions an element of pulmonary vascular congestion. Normal lead position. No pneumothorax. Telemetry reviewed: Patient cycling between normal sinus rhythm and what appears to be an ectopic atrial tachycardia Device interrogation: I performed a full pacemaker interrogation which revealed normal function of both the atrial and ventricular leads. Assessment and Plan 1. Complete heart block. Resolved. Status post dual-chamber pacemaker implant yesterday. 2. Tachycardia: Initially was unclear whether the patient had a sinus tachycardia. However throughout the course of the afternoon it was obvious on telemetry that he cycles between 2 different atrial rhythms. The fast rhythm appears to be an ectopic atrial tachycardia. Less likely an atypical flutter. Beta-blockade was initiated last night in the hopes of controlling this arrhythmia. If that is unsuccessful we could consider antiarrhythmic medications or even reprogramming his device so that the ventricular rate never exceeded a certain level. 3. Acute decompensated diastolic heart failure: Think this is the most likely explanation for the patient's pulmonary vascular congestion. This may be related to several factors including judicious volume administration over the course of the last few days, his tachycardia and hypertension. He appeared to have good effect from his diuretics yesterday and is scheduled for more today. 4. Elevated troponin: Patient has mildly elevated cardiac biomarkers in the setting of acute diastolic heart failure. I doubt that this represents an acute coronary event. Would not pursue any ischemic evaluation at this point given his current situation and comorbidities.
[2017-07-30] MEDS: FUROSEMIDE INJ 40 MG in SYRINGE 0 ML IV SCH (07:54)
[2017-07-30 07:55] VITALS: BP 93/69; PULSE 123; TEMP 36.6; O2SAT 95
[2017-07-30] MEDS: LACTOBACILLUS ACIDOPHILUS (FLORANEX) TAB PO SCH (07:55)
[2017-07-30] MEDS: METOPROLOL TARTRATE 25 MG TAB PO SCH ×2 (07:55→19:22)
[2017-07-30] MEDS: PRAVASTATIN SOD 20 MG TAB PO SCH (07:55)
[2017-07-30] MEDS: PAROXETINE 20 MG TAB PO SCH (07:56)
[2017-07-30] MEDS: ASPIRIN 81 MG ECTAB PO SCH (07:57)
[2017-07-30] MEDS: HEPARIN SOD 5000 UNIT/0.5 ML CARP SQ SCH ×2 (07:57→19:24)
[2017-07-30] MEDS: ENZALUTAMIDE 40 MG CAP PO SCH (07:58)
[2017-07-30] MEDS ORDERED: OPTIRAY 320 IV PRN (08:45)
--- NOTE | 2017-07-30 09:17 | DIAGNOSTIC IMAGING REPORT ---
(CHEST FOR PE) ANGIO WITH CLINICAL HISTORY: 76 years-old Male presenting with ^Tachycardia, dyspnea, clinical concern for pulmonary embolus. TECHNIQUE: Multidetector CT angiography of the chest was performed after administration of intravenous contrast. 3-D volumetric and/or maximum intensity projection (MIP) images were subsequently reconstructed for review. IV contrast: 81 mL of Optiray 320. A dose lowering technique was used consistent with the principles of ALARA (as low as reasonably achievable). COMPARISON: 01/20/2017. CT DOSE (mGy.cm): The estimated cumulative dose is 465.76 mGy.cm. FINDINGS: Fitting Room Operator topogram: Left subclavian 2-lead pacer. Cardiomegaly. Bilateral pleural effusions. Pulmonary vasculature: The study is adequate for assessment of the pulmonary vascular tree. No filling defect within the pulmonary arteries to suggest embolus. Main pulmonary artery is not enlarged. No flattening of the interventricular septum. No intracardiac filling defect. Reflux of contrast into the IVC and hepatic veins. Remaining chest: On soft tissue windows, subcutaneous and soft tissue emphysema noted at the left subclavian pacer site consistent with recent placement. Surrounding mild edema, likely expected postprocedural findings. Normal thyroid. Mild body wall edema. No axillary, supraclavicular, hilar, or mediastinal lymphadenopathy. Atherosclerosis of the aorta. Normal heart size. Coronary artery calcification. Pacer leads to the right atrial appendage and right ventricular apex. Small pericardial effusion. Moderate to large bilateral pleural effusions Upper abdomen normal. On lung windows, extensive bibasilar dependent consolidation and volume loss. No other focal infiltrate or nodule. Mild interlobular septal thickening. Central airways patent. On bone windows, degenerative changes of the spine. Exaggerated thoracic kyphosis without a focal compression deformity. Multifocal levels of abnormal sclerosis consistent with known metastatic disease. IMPRESSION: 1. No evidence of pulmonary embolus. 2. Moderate bilateral pleural effusions with extensive passive atelectasis. 3. No cesar pulmonary edema. Mild volume overload. 4. Small pericardial effusion. 5. Postprocedural findings of left subclavian 2-lead pacer. Electronically signed by: Kristian Wilkinson M.D. 07/30/2017 9:16 AM Dictated Date/Time: 07/30/2017 9:08 AM
[2017-07-30] MEDS: FLUTICASONE PROPIONATE NA SPR 16 GM BTL SCH ×2 (10:02→19:23)
[2017-07-30 11:46] VITALS: BP 91/62; PULSE 120; TEMP 36.9; O2SAT 94
[2017-07-30] MEDS ORDERED: FUROSEMIDE INJ 40 MG in SYRINGE 0 ML IV ONE (12:45)
--- NOTE | 2017-07-30 12:50 | Progress Note ---
Subjective Date of Service: Jul 30, 2017. Subjective Pt evaluation today including: conversation w/ patient, conversation w/ family , physical exam, lab review, conversation w/ library sales consultant, review of inpatient medication list Pain: no pain PO Intake: poor appetite this morning Voiding: no voiding problems discussed dyspnea last night, said he got better with the Lasix, made a lot of urine still short of breath this morning, not as bad sitting up in chair, says he does not want to be in bed again, glad to have mobility no cough, no fever reviewed labs, hb 9.5, WBC normal, troponin 0.49 never had chest pain CXR this AM shows pulmonary edema, moderate effusions discussed importance of ruling out PE given his tachyarrhythmia CTA chest negative for PE, again, showed effusions and pulmonary edema Review of Systems Constitutional: + weakness, + fatigue Respiratory: + shortness of breath, + dyspnea on exertion Cardiac: + edema Abdomen: + nausea, + problem reported (poor appetite) Psychiatric: + depression symptoms, + anxiety All Other Systems: Reviewed and Negative Medications Current Inpatient Medications Medications (Trade) Dose Ordered Sig/Bunny Route Start Time Stop Time Status Last Admin Dose Admin Al Hydrox/Mg Hydrox/Simethicone (Maalox Max Susp) 15 ml Q4H PRN PO 07/26/17 10:45 08/25/17 10:44 Magnesium Hydroxide (Milk Of Magnesia Susp) 30 ml Q6H PRN PO 07/26/17 10:45 08/25/17 10:44 Polyethylene (Miralax Powder Packet) 17 gm DAILY PRN PO 07/26/17 10:45 08/25/17 10:44 Ondansetron HCl (Zofran Inj) 4 mg Q6H PRN IV 07/26/17 10:45 08/25/17 10:44 07/30/17 07:40 4 MG Heparin Sodium (Porcine) (Heparin Sq 5000 Unit/0.5ml) 5,000 unit Q12H SQ 07/26/17 21:00 08/25/17 10:44 07/30/17 07:57 5,000 UNIT Aspirin (Ecotrin Tab) 81 mg DAILY PO 07/27/17 08:00 08/26/17 08:59 07/30/17 07:57 81 MG Paroxetine HCl (pAXil TAB) 10 mg DAILY PO 07/27/17 08:00 08/26/17 08:59 07/30/17 07:56 10 MG Pravastatin Sodium (Pravachol Tab) 20 mg DAILY PO 07/27/17 08:00 08/26/17 08:59 07/30/17 07:55 20 MG Tramadol HCl (Ultram Tab) 50 mg TID PRN PO 07/26/17 10:45 08/25/17 10:44 07/30/17 00:53 50 MG Miscellaneous Information (Order Awaiting Action) 1 ea QS N/A 07/26/17 16:00 08/25/17 15:59 Miscellaneous Information (Order Awaiting Action) 1 ea QS N/A 07/26/17 16:00 08/25/17 15:59 Lactobacillus Acidophilus (Floranex Tab) 1 tab DAILY PO 07/27/17 08:00 08/26/17 08:59 07/30/17 07:55 1 TAB Miscellaneous (Iv Fluids Completed) 1 ea PRN PRN N/A 07/26/17 11:30 07/26/18 11:29 Acetaminophen (Tylenol Tab) 1,000 mg Q8 PRN PO 07/26/17 15:15 08/25/17 15:14 07/29/17 18:06 1,000 MG Acetaminophen (Tylenol Tab) 650 mg Q4H PRN PO 07/29/17 09:45 08/28/17 09:44 Metoprolol Tartrate (Lopressor Iv) 5 mg Q6H PRN IV 07/29/17 10:45 08/28/17 10:44 07/30/17 06:30 5 MG Metoprolol Tartrate (Lopressor Tab) 25 mg BID PO 07/29/17 21:00 08/28/17 20:59 07/30/17 07:55 25 MG Lorazepam (Ativan Inj) 0.5 mg Q12 PRN IV 07/29/17 19:00 08/28/17 18:59 07/29/17 19:52 0.5 MG Furosemide 40 mg/ Syringe 4 ml @ 4 mls/min QAM IV 07/30/17 09:00 08/29/17 08:59 07/30/17 07:54 4 MLS/MIN Fluticasone Propionate (Flonase Nasal [place]) 2 sprays BID NA 07/30/17 09:00 08/29/17 08:59 07/30/17 10:02 2 SPRAYS Ioversol (Optiray 320) 100 ml UD PRN IV 07/30/17 08:45 08/03/17 08:44 Objective Vital Signs Date Time Temp Pulse Resp B/P (MAP) Pulse Ox O2 Delivery O2 Flow Rate FiO2 07/30/17 12:00 Room Air 07/30/17 11:46 36.9 120 23 91/62 (72) 94 Room Air 07/30/17 08:00 Room Air 07/30/17 07:55 36.6 123 20 93/69 (77) 95 Room Air 07/30/17 06:30 135 103/76 07/30/17 04:00 Nasal Cannula 2.0 07/30/17 04:00 37.2 124 31 106/70 (82) 94 07/30/17 00:39 36.8 116 32 113/82 (92) 99 07/30/17 00:00 Nasal Cannula 2.0 07/29/17 20:00 36.2 111 33 130/88 (102) 96 Nasal Cannula 2.0 07/29/17 20:00 96 Nasal Cannula 2.0 07/29/17 18:40 36.8 31 92 Room Air 07/29/17 18:40 130 171/105 07/29/17 16:00 Room Air 07/29/17 15:39 36.6 89 20 133/88 (103) 93 Room Air 07/29/17 13:43 75 132/87 (102) Physical Exam General Appearance: WD/WN, + mild distress Eyes: normal inspection, EOMI, sclerae normal ENT: normal ENT inspection, hearing grossly normal, pharynx normal Neck: supple, no adenopathy, no JVD, trachea midline Respiratory/Chest: chest non-tender, no respiratory distress, no accessory muscle use, + decreased breath sounds (bases), + rales (bibasilar) Cardiovascular: no gallop, no JVD, no murmur, + tachycardia Abdomen: normal bowel sounds, non tender, soft, no organomegaly Extremities: normal range of motion, non-tender, normal inspection, no calf tenderness, pelvis stable, + pedal edema (1+ bilaterally) Neurologic/Psychiatric: security escort II-XII nml as tested, no motor/sensory deficits, alert, oriented x 3, + depressed affect Skin: normal color, warm/dry, no rash Laboratory Results Last 24 Hours Test 07/29/17 19:15 07/29/17 22:03 07/30/17 06:13 White Blood Count 3.71 K/uL 4.22 K/uL Red Blood Count 3.69 M/uL 3.52 M/uL Hemoglobin 9.8 g/dL 9.5 g/dL Hematocrit 30.3 % 28.3 % Mean Corpuscular Volume 82.1 fL 80.4 fL Mean Corpuscular Hemoglobin 26.6 pg 27.0 pg Mean Corpuscular Hemoglobin Concent 32.3 g/dl 33.6 g/dl Platelet Count 152 K/uL 133 K/uL RDW Standard Deviation 62.1 fL 61.1 fL RDW Coefficient of Variation 21.0 % 21.4 % Nucleated RBC Absolute Count (auto) 0.14 K/uL 0.06 K/uL Neutrophils % (Manual) 53.0 % 62.9 % Lymphocytes % (Manual) 8.7 % 8.8 % Variant Lymphocytes % (manual) 2.6 % Monocytes % (Manual) 20.0 % 16.8 % Eosinophils % (Manual) 1.7 % 0.9 % Basophils % (Manual) 0.9 % 0.9 % Metamyelocytes % 3.5 % 4.4 % Myelocytes % 7.0 % 3.5 % Blast Cells % 2.6 % 1.8 % Nucleated Red Blood Cells % 3.6 % 1.5 % Neutrophils # (Manual) 1.97 K/uL 2.65 K/uL Total Absolute Neutrophils 1.97 K/uL 2.65 K/uL Lymphocytes # (Manual) 0.32 K/uL 0.37 K/uL Absolute Variant Lymphocytes 0.10 K/uL Total Absolute Lymphocytes 0.42 K/uL 0.37 K/uL Monocytes # (Manual) 0.74 K/uL 0.71 K/uL Eosinophils # (Manual) 0.06 K/uL 0.04 K/uL Basophils # (Manual) 0.03 K/uL 0.04 K/uL Metamyelocytes # 0.13 K/uL 0.19 K/uL Myelocytes # 0.26 K/uL 0.15 K/uL Hypogranular Neutrophils 3+ 2+ Blast Cells # 0.10 K/uL 0.08 K/uL Poikilocytosis PRESENT Anisocytosis PRESENT PRESENT Ovalocytes 2+ 2+ Acanthocytes 3+ 3+ Schistocytes 2+ Sodium Level 137 mmol/L 137 mmol/L Potassium Level 4.1 mmol/L 3.7 mmol/L Chloride Level 108 mmol/L 106 mmol/L Carbon Dioxide Level 23 mmol/L 23 mmol/L Anion Gap 6.0 mmol/L 8.0 mmol/L Blood Urea Nitrogen 15 mg/dl 14 mg/dl Creatinine 0.77 mg/dl 0.53 mg/dl Est Creatinine Clear Calc Drug Dose 84.2 ml/min 122.3 ml/min Estimated GFR () 103.6 120.8 Estimated GFR (Non- 89.4 104.2 BUN/Creatinine Ratio 19.3 27.0 Random Glucose 167 mg/dl 124 mg/dl Calcium Level 7.9 mg/dl 7.6 mg/dl Troponin I 0.076 ng/ml 0.493 ng/ml Urine Color YELLOW Urine Appearance CLEAR Urine pH 5.0 Urine Specific [place] 1.011 Urine Protein NEG Urine Glucose (UA) NEG Urine Ketones NEG Urine Occult Blood NEG Urine Nitrite NEG Urine Bilirubin NEG Urine Urobilinogen NEG Urine Leukocyte Esterase NEG Platelet Estimate DECREASED Assessment and Plan 76 yo male with h/o prostate cancer on Lupron, Xtandi and Xgeva, presents with fatigue, dyspnea, weakness - Acute hypoxic respiratory failure: hypoxia and increased work of breathing, mild distress CXR with pulmonary edema due to volume overload responding well to Lasix, received 40mg this AM, will give another dose at 1400 follow I/Os CTA chest today, ruled out PE, showed effusions and edema only - Acute diastolic heart failure due to aggressive IV fluids, fluids stopped on 07/29 in the afternoon diurese with Lasix and monitor volume status, improving had echo earlier in admission that showed preserved EF - Anemia due to chemotherapy, bone marrow suppression improving after transfusion of one unit Hb up to 9.5 - Neutropenic fever, neutropenia due to chemotherapy: started Cefepime empirically blood cultures - no growth to date WBC up to 4.2, neutropenia resolved no further Xfigo planned will stop Cefepime as cultures negative - 3rd degree AV block, junctional rhythm Lyme negative pacer placed 07/29 - Atrial tachycardia, ectopic rhythm occurred after pacer today, rates in 120-130's metoprolol 25mg BID started, Lopressor 5mg IV as needed, still not responding Dr. Parikh considering anti-arrhythmic medications - Prostate cancer with bone mets holding on current treatment for now as we work up fatigue and dyspnea consult Dr. Menon, he says patient is done with Xfigo which causes bone marrow suppression continue tele, continue diuresis, PT/OT consults
[2017-07-30 15:40] VITALS: BP 88/63; PULSE 125; TEMP 36.8; O2SAT 96
[2017-07-30 19:18] VITALS: BP 82/55; PULSE 123; TEMP 37.5; O2SAT 90
[2017-07-31] VITALS (7 sets, daily range): BP systolic 92–119; BP diastolic 53–76; PULSE 75–125; TEMP 36.7–37.3; O2SAT 91–97
[2017-07-31] MEDS: FLUTICASONE PROPIONATE NA SPR 16 GM BTL SCH ×2 (07:57→21:17)
[2017-07-31] MEDS: FUROSEMIDE INJ 40 MG in SYRINGE 0 ML IV SCH (07:57)
[2017-07-31] MEDS: PAROXETINE 20 MG TAB PO SCH (07:57)
[2017-07-31] MEDS: PRAVASTATIN SOD 20 MG TAB PO SCH (07:57)
[2017-07-31] MEDS: ENZALUTAMIDE 40 MG CAP PO SCH (07:58)
[2017-07-31] MEDS: LACTOBACILLUS ACIDOPHILUS (FLORANEX) TAB PO SCH (07:58)
[2017-07-31] MEDS: ASPIRIN 81 MG ECTAB PO SCH (07:58)
[2017-07-31] MEDS: METOPROLOL TARTRATE 25 MG TAB PO SCH (08:00)
[2017-07-31] MEDS: HEPARIN SOD 5000 UNIT/0.5 ML CARP SQ SCH ×2 (08:02→21:20)
[2017-07-31 09:23] LABS: MEAN CORPUSCULAR HGB CONC 32.8 g/dl (32-36); NUCLEATED RED BLOOD CELL ABS 0.06 K/uL (0-0)
[2017-07-31 09:48] LABS: CALCIUM 7.8 mg/dl (8.5-10.1); CREATININE 0.79 mg/dl (0.60-1.40); POTASSIUM 3.3 mmol/L (3.5-5.1)
[2017-07-31 09:50] LABS: HEMATOCRIT 29.3 % (42-52); HEMOGLOBIN 9.6 g/dL (14.0-18.0); MEAN CELL VOLUME 81.8 fL (80-100); MEAN CORPUSCULAR HEMOGLOBIN 26.8 pg (25-34); RED CELL DISTRIBUTION WIDTH CV 21.2 % (11.5-14.5); RED CELL DISTRIBUTION WIDTH SD 62.5 fL (36.4-46.3); WHITE BLOOD COUNT 3.34 K/uL (4.8-10.8)
[2017-07-31 10:00] LABS: PLATELET COUNT 115 K/uL (130-400)
[2017-07-31] MEDS ORDERED: AMIODARONE IV BOLUS / DRIP IV STA (11:36)
[2017-07-31] MEDS ORDERED: 0.2 MICRON FILTER SET 1 EA IV SCH (12:00)
[2017-07-31] MEDS ORDERED: AMIODARONE / D5W 100 ML IV ONE (12:00)
[2017-07-31] MEDS ORDERED: AMIODARONE / D5W 200 ML IV SCH (12:15)
--- NOTE | 2017-07-31 15:45 | Progress Note ---
Subjective Date of Service: Jul 31, 2017. Subjective Pt evaluation today including: conversation w/ patient, conversation w/ family , physical exam, lab review, conversation w/ database consultant, review of inpatient medication list Pain: no pain PO Intake: adequate Voiding: no voiding problems patient feeling light headed this AM, BP low at one point at 85 systolic, came up later in the morning, patient stayed in bed left arm with infiltrate, looks same as yesterday still with tachycardia on the monitor, overnight had a few episodes of bradycardia, was in flutter discussed with Dr. Parikh over the phone, he recommended Amiodarone drip, stop Lopressor he will interrogate pacer tomorrow, come up with plan reviewed labs, WBC 3.3, Hb 9.6, Cr is 0.79, K low at 3.4 updated at the bedside Review of Systems Constitutional: + weakness, + fatigue Respiratory: + shortness of breath, + dyspnea on exertion All Other Systems: Reviewed and Negative Medications Current Inpatient Medications Medications (Trade) Dose Ordered Sig/Bunny Route Start Time Stop Time Status Last Admin Dose Admin Al Hydrox/Mg Hydrox/Simethicone (Maalox Max Susp) 15 ml Q4H PRN PO 07/26/17 10:45 08/25/17 10:44 Magnesium Hydroxide (Milk Of Magnesia Susp) 30 ml Q6H PRN PO 07/26/17 10:45 08/25/17 10:44 Polyethylene (Miralax Powder Packet) 17 gm DAILY PRN PO 07/26/17 10:45 08/25/17 10:44 Ondansetron HCl (Zofran Inj) 4 mg Q6H PRN IV 07/26/17 10:45 08/25/17 10:44 07/30/17 07:40 4 MG Heparin Sodium (Porcine) (Heparin Sq 5000 Unit/0.5ml) 5,000 unit Q12H SQ 07/26/17 21:00 08/25/17 10:44 07/31/17 08:02 5,000 UNIT Aspirin (Ecotrin Tab) 81 mg DAILY PO 07/27/17 08:00 08/26/17 08:59 07/31/17 07:58 81 MG Paroxetine HCl (pAXil TAB) 10 mg DAILY PO 07/27/17 08:00 08/26/17 08:59 07/31/17 07:57 10 MG Pravastatin Sodium (Pravachol Tab) 20 mg DAILY PO 07/27/17 08:00 08/26/17 08:59 07/31/17 07:57 20 MG Tramadol HCl (Ultram Tab) 50 mg TID PRN PO 07/26/17 10:45 08/25/17 10:44 07/30/17 00:53 50 MG Miscellaneous Information (Order Awaiting Action) 1 ea QS N/A 07/26/17 16:00 08/25/17 15:59 Miscellaneous Information (Order Awaiting Action) 1 ea QS N/A 07/26/17 16:00 08/25/17 15:59 Lactobacillus Acidophilus (Floranex Tab) 1 tab DAILY PO 07/27/17 08:00 08/26/17 08:59 07/31/17 07:58 1 TAB Miscellaneous (Iv Fluids Completed) 1 ea PRN PRN N/A 07/26/17 11:30 07/26/18 11:29 Acetaminophen (Tylenol Tab) 1,000 mg Q8 PRN PO 07/26/17 15:15 08/25/17 15:14 07/29/17 18:06 1,000 MG Acetaminophen (Tylenol Tab) 650 mg Q4H PRN PO 07/29/17 09:45 08/28/17 09:44 07/31/17 08:34 650 MG Lorazepam (Ativan Inj) 0.5 mg Q12 PRN IV 07/29/17 19:00 08/28/17 18:59 07/29/17 19:52 0.5 MG Furosemide 40 mg/ Syringe 4 ml @ 4 mls/min QAM IV 07/30/17 09:00 08/29/17 08:59 07/31/17 07:57 4 MLS/MIN Fluticasone Propionate (Flonase Nasal [place]) 2 sprays BID NA 07/30/17 09:00 08/29/17 08:59 07/31/17 07:57 2 SPRAYS Ioversol (Optiray 320) 100 ml UD PRN IV 07/30/17 08:45 08/03/17 08:44 Potassium Chloride (Klor-Con Tab) 20 meq BID PO 07/31/17 21:00 08/30/17 20:59 Amiodarone HCL/ Dextrose 200 ml @ 33.3 mls/hr Q6H1M IV 07/31/17 12:15 07/31/17 18:15 07/31/17 11:53 33.3 MLS/HR Amiodarone HCL/ Dextrose 200 ml @ 16.7 mls/hr [id number] IV 07/31/17 18:15 08/30/17 18:14 Objective Vital Signs Date Time Temp Pulse Resp B/P (MAP) Pulse Ox O2 Delivery O2 Flow Rate FiO2 07/31/17 12:00 Room Air 07/31/17 11:43 37.2 119 25 94/66 (75) 93 Room Air 07/31/17 08:00 119/76 (90) 07/31/17 08:00 Room Air 07/31/17 07:52 37.3 112 21 92/63 (73) 91 07/31/17 04:18 36.8 124 21 93/69 (77) 92 Nasal Cannula 2.0 07/31/17 04:00 Room Air 07/31/17 00:14 36.7 125 22 93/56 (68) 92 Room Air 07/31/17 00:00 Room Air 07/30/17 20:00 Room Air 07/30/17 19:18 37.5 123 24 82/55 (64) 90 Room Air 07/30/17 16:00 Room Air 07/30/17 15:40 36.8 125 27 88/63 (71) 96 Room Air Physical Exam General Appearance: WD/WN, no apparent distress Eyes: normal inspection, EOMI, sclerae normal ENT: normal ENT inspection, hearing grossly normal, pharynx normal Neck: supple, no adenopathy, no JVD, trachea midline Respiratory/Chest: chest non-tender, no respiratory distress, no accessory muscle use, + decreased breath sounds (bases), + rales (bibasilar) Cardiovascular: no gallop, no JVD, no murmur, + tachycardia Abdomen: normal bowel sounds, non tender, soft, no organomegaly Extremities: normal range of motion, non-tender, normal inspection, no calf tenderness, + pedal edema (trace) Neurologic/Psychiatric: associate professor of musicology II-XII nml as tested, alert, normal mood/affect, oriented x 3, + motor weakness Skin: normal color, warm/dry, no rash, + pertinent finding (left arm infiltrate at previous IV site, no erythema, not painful) Laboratory Results Last 24 Hours Test 07/31/17 09:11 White Blood Count 3.34 K/uL Red Blood Count 3.58 M/uL Hemoglobin 9.6 g/dL Hematocrit 29.3 % Mean Corpuscular Volume 81.8 fL Mean Corpuscular Hemoglobin 26.8 pg Mean Corpuscular Hemoglobin Concent 32.8 g/dl Platelet Count 115 K/uL RDW Standard Deviation 62.5 fL RDW Coefficient of Variation 21.2 % Nucleated RBC Absolute Count (auto) 0.06 K/uL Neutrophils % (Manual) 61.3 % Lymphocytes % (Manual) 10.3 % Monocytes % (Manual) 11.2 % Eosinophils % (Manual) 3.4 % Basophils % (Manual) 1.7 % Metamyelocytes % 0.9 % Myelocytes % 10.3 % Blast Cells % 0.9 % Nucleated Red Blood Cells % 1.7 % Neutrophils # (Manual) 2.05 K/uL Total Absolute Neutrophils 2.05 K/uL Lymphocytes # (Manual) 0.34 K/uL Total Absolute Lymphocytes 0.34 K/uL Monocytes # (Manual) 0.37 K/uL Eosinophils # (Manual) 0.11 K/uL Basophils # (Manual) 0.06 K/uL Metamyelocytes # 0.03 K/uL Myelocytes # 0.34 K/uL Hypogranular Neutrophils 2+ Blast Cells # 0.03 K/uL Platelet Estimate DECREASED Ovalocytes 2+ Acanthocytes 2+ Sodium Level 133 mmol/L Potassium Level 3.3 mmol/L Chloride Level 99 mmol/L Carbon Dioxide Level 25 mmol/L Anion Gap 10.0 mmol/L Blood Urea Nitrogen 18 mg/dl Creatinine 0.79 mg/dl Est Creatinine Clear Calc Drug Dose 82.1 ml/min Estimated GFR () 102.5 Estimated GFR (Non- 88.5 BUN/Creatinine Ratio 22.1 Random Glucose 167 mg/dl Calcium Level 7.8 mg/dl Assessment and Plan 76 yo male with h/o prostate cancer on Lupron, Xtandi and Xgeva, presents with fatigue, dyspnea, weakness - Acute hypoxic respiratory failure: hypoxia and increased work of breathing, mild distress CXR with pulmonary edema on 07/29 due to volume overload responding well to Lasix, will continue 40mg IV qAM follow I/Os, -1300cc past two days CTA chest, ruled out PE, showed effusions and edema only - Acute diastolic heart failure due to aggressive IV fluids, fluids stopped on 07/29 in the afternoon diurese with Lasix and monitor volume status, improving had echo earlier in admission that showed preserved EF - Anemia due to chemotherapy, bone marrow suppression improving after transfusion of one unit Hb up to 9.6 - Neutropenic fever, neutropenia due to chemotherapy: started Cefepime empirically, stopped after 48 hours blood cultures - no growth to date WBC up to 3.3, neutropenia resolved no further Xfigo planned will stop Cefepime as cultures negative - 3rd degree AV block, junctional rhythm Lyme negative pacer placed 07/29 - Atrial tachycardia, ectopic rhythm occurred after pacer today, rates in 120-130's metoprolol 25mg BID started, Lopressor 5mg IV as needed BP low and still with tachycardia will start amiodarone drip today Dr. Parikh will see tomorrow and give further instructions, interrogate pacer - Prostate cancer with bone mets consult Dr. Menon, he says patient is done with Xfigo which causes bone marrow suppression continue tele, continue diuresis, PT/OT consults follow up Dr. Parikh recommendations
[2017-07-31] MEDS: AMIODARONE / D5W 200 ML IV SCH (17:53)
[2017-07-31] MEDS: POTASSIUM CHLORIDE 20 MEQ TABCR PO SCH (21:17)
[2017-08-01] VITALS (8 sets, daily range): BP systolic 101–128; BP diastolic 51–76; PULSE 78–119; TEMP 36.4–37.5; O2SAT 92–98
[2017-08-01] MEDS: AMIODARONE / D5W 200 ML IV SCH (05:35)
[2017-08-01 06:33] LABS: NUCLEATED RED BLOOD CELL ABS 0.02 K/uL (0-0)
[2017-08-01 06:43] LABS: HEMATOCRIT 29.4 % (42-52); HEMOGLOBIN 9.7 g/dL (14.0-18.0); MEAN CELL VOLUME 81.4 fL (80-100); MEAN CORPUSCULAR HEMOGLOBIN 26.9 pg (25-34); RED CELL DISTRIBUTION WIDTH CV 21.4 % (11.5-14.5); RED CELL DISTRIBUTION WIDTH SD 62.1 fL (36.4-46.3); WHITE BLOOD COUNT 3.37 K/uL (4.8-10.8)
[2017-08-01 07:00] LABS: BASO % 0.3 %; BASO ABS # 0.01 K/uL (0-0.2); EOS % 3.6 %; EOS ABS # 0.12 K/uL (0-0.5); IG# 0.18 K/uL (0.00-0.02); LYMPH % 30.6 %; LYMPH ABS # 1.03 K/uL (1.2-3.4); MONO % 7.1 %; MONO ABS # 0.24 K/uL (0.11-0.59); NEUT % 53.1 %; NEUT ABS # 1.79 K/uL (1.4-6.5); PLATELET COUNT 98 K/uL (130-400)
[2017-08-01 07:04] LABS: CREATININE 0.6 mg/dl (0.60-1.40)
[2017-08-01 07:05] LABS: CALCIUM 8.1 mg/dl (8.5-10.1); POTASSIUM 3.7 mmol/L (3.5-5.1)
[2017-08-01] MEDS: LACTOBACILLUS ACIDOPHILUS (FLORANEX) TAB PO SCH (08:35)
[2017-08-01] MEDS: FUROSEMIDE INJ 40 MG in SYRINGE 0 ML IV SCH (08:35)
[2017-08-01] MEDS: ASPIRIN 81 MG ECTAB PO SCH (08:35)
[2017-08-01] MEDS: FLUTICASONE PROPIONATE NA SPR 16 GM BTL SCH (08:38)
[2017-08-01] MEDS: PRAVASTATIN SOD 20 MG TAB PO SCH (08:40)
[2017-08-01] MEDS: POTASSIUM CHLORIDE 20 MEQ TABCR PO SCH (08:40)
[2017-08-01] MEDS: ENZALUTAMIDE 40 MG CAP PO SCH (08:40)
[2017-08-01] MEDS: PAROXETINE 20 MG TAB PO SCH (08:41)
[2017-08-01] MEDS: HEPARIN SOD 5000 UNIT/0.5 ML CARP SQ SCH (08:44)
--- NOTE | 2017-08-01 09:40 | Cardiology Follow-Up ---
Subjective Date of Service: Aug 01, 2017. Pt evaluation today including: conversation w/ patient, conversation w/ family , physical exam, chart review, lab review, review of studies, review of inpatient medication list History of Present Illness Patient claims to be breathing better this morning. Over the course of the afternoon the patient became progressively more dyspneic. Evaluation last evening suggested new development of pleural effusions and pulmonary edema. He was given some Lasix with improvement in his breathing. He also had some discomfort at the implant site yesterday afternoon which is now resolved. He is anxious to be more mobile today. Social History Smoking Status: Former Smoker History of Alcohol Use: Yes (OCC) Review of Systems Respiratory: + shortness of breath, + dyspnea on exertion Cardiac: + edema No recent fevers or chills. Objective Vital Signs Past 12 Hours Date Time Temp Pulse Resp B/P (MAP) Pulse Ox O2 Delivery O2 Flow Rate FiO2 08/01/17 08:30 Room Air 08/01/17 07:57 36.5 119 20 106/74 (85) 97 Room Air 08/01/17 04:01 37.2 86 18 110/64 (79) 92 Room Air 08/01/17 04:00 92 Room Air 08/01/17 00:10 37.5 78 18 101/51 (68) 92 08/01/17 00:00 92 Room Air Last Recorded Weight-Kilograms: 82.800 Physical Exam The patient is alert and oriented. Mood and affect appeared normal. He answered all questions appropriately. HEENT: Pupils are equal and reactive to light and accommodation. Extraocular movements are intact. The sclerae are anicteric. Neuro: Cranial nerves intact Neck: Patient's neck is supple. He has palpable carotid pulses bilaterally without bruits on auscultation. There is no evidence of jugular venous distention. The thyroid is not enlarged. Lungs: Reduced breath sounds at the bases bilaterally with occasional crackles in the upper [place]. No expiratory wheezing. Chest: No significant ecchymosis at the implant site. No hematoma. Cardiac: Tachycardic. Normal S1 and S2. No murmurs on examination. Pulses: The patient has palpable radial pulses bilaterally that are equal in intensity Extremities: There was no evidence of hypoperfusion. There is no cyanosis or clubbing. Some persistent edema in the left form Skin: I did not appreciate any rashes on examination today. Data Laboratory Results: Last 24 Hours Test 08/01/17 06:11 White Blood Count 3.37 K/uL Red Blood Count 3.61 M/uL Hemoglobin 9.7 g/dL Hematocrit 29.4 % Mean Corpuscular Volume 81.4 fL Mean Corpuscular Hemoglobin 26.9 pg Mean Corpuscular Hemoglobin Concent 33.0 g/dl Platelet Count 98 K/uL Neutrophils (%) (Auto) 53.1 % Lymphocytes (%) (Auto) 30.6 % Monocytes (%) (Auto) 7.1 % Eosinophils (%) (Auto) 3.6 % Basophils (%) (Auto) 0.3 % Neutrophils # (Auto) 1.79 K/uL Lymphocytes # (Auto) 1.03 K/uL Monocytes # (Auto) 0.24 K/uL Eosinophils # (Auto) 0.12 K/uL Basophils # (Auto) 0.01 K/uL RDW Standard Deviation 62.1 fL RDW Coefficient of Variation 21.4 % Immature Granulocyte % (Auto) 5.3 % Immature Granulocyte # (Auto) 0.18 K/uL Nucleated RBC Absolute Count (auto) 0.02 K/uL Nucleated Red Blood Cells % 0.7 % Hypogranular Neutrophils 3+ Platelet Estimate DECREASED Large Platelets 2+ Giant Platelets 1+ Polychromasia 1+ Ovalocytes 2+ Acanthocytes 3+ Sodium Level 134 mmol/L Potassium Level 3.7 mmol/L Chloride Level 100 mmol/L Carbon Dioxide Level 26 mmol/L Anion Gap 8.0 mmol/L Blood Urea Nitrogen 16 mg/dl Creatinine 0.60 mg/dl Est Creatinine Clear Calc Drug Dose 108.0 ml/min Estimated GFR () 114.8 Estimated GFR (Non- 99.1 BUN/Creatinine Ratio 25.9 Random Glucose 119 mg/dl Calcium Level 8.1 mg/dl Imaging: EKG: Telemetry reviewed: Assessment and Plan 1. Complete heart block. Resolved. Status post dual-chamber pacemaker implant Tuesday. 2. Tachycardia: Continue cycle between what appears to be a sinus rhythm and an atrial tachycardia. There was also an episode of atrial flutter 2 nights ago. Beta-blockers did not seem to have any immediate affecting the was an element of hypotension yesterday. This medication was stopped in favor of amiodarone. Most of the yesterday his heart rate was normal. This morning he does oscillating again. I think we can transition him to oral amiodarone. I would advocate 400 mg twice daily for 1 week and then 200 mg daily afterward.. 3. Acute decompensated diastolic heart failure: Symptomatic Mili improved. He has affected a mild diuresis. He still likely requires some more diuresis. Hopefully will be more ambulatory today and we can evaluate his breathing. 4. Atrial flutter: His telemetry did suggests atrial flutter 2 nights ago. The episode itself was fairly extended. He has not been symptomatic. I think we can continue to monitor for more flutter on his pacemaker. Hopefully with initiation of amiodarone we will not have a recurrence.
[2017-08-01] MEDS ORDERED: AMIODARONE 200 MG TAB PO ONE (12:30)
--- NOTE | 2017-08-01 16:10 | Discharge Summary ---
Discharge Summary Date of Service Aug 01, 2017. Discharge Summary Admission Date: Jul 27, 2017 at 08:55 Immunizations: Have You Had Influenza Vaccine: Yes History of Tetanus Vaccine?: Yes History of Pneumococcal: Yes History of Hepatitis B Vaccine: Yes Hospital Course 1. Complete heart block. Resolved. Status post dual-chamber pacemaker implant Tuesday. 2. Tachycardia: Continue cycle between what appears to be a sinus rhythm and an atrial tachycardia. There was also an episode of atrial flutter 2 nights ago. Beta-blockers did not seem to have any immediate affecting the was an element of hypotension yesterday. This medication was stopped in favor of amiodarone. Most of the yesterday his heart rate was normal. This morning he does oscillating again. I think we can transition him to oral amiodarone. I would advocate 400 mg twice daily for 1 week and then 200 mg daily afterward.. 3. Acute decompensated diastolic heart failure: Symptomatic Mili improved. He has affected a mild diuresis. He still likely requires some more diuresis. Hopefully will be more ambulatory today and we can evaluate his breathing. 4. Atrial flutter: His telemetry did suggests atrial flutter 2 nights ago. The episode itself was fairly extended. He has not been symptomatic. I think we can continue to monitor for more flutter on his pacemaker. Hopefully with initiation of amiodarone we will not have a recurrence. This includes examination of the patient, discharge planning, medication reconciliation, and communication with other providers. Discharge Instructions Please refer to the electronic Patient Visit Report (Discharge Instructions) for additional information.
[2017-08-01] MEDS ORDERED: CRD200 PO ×2 (16:17)
[2017-08-01] MEDS ORDERED: POTA1CAP2 PO (16:17)
[2017-08-01] MEDS ORDERED: BUME1TAB PO (16:17)
--- NOTE | 2017-08-01 16:20 | Discharge Instructions ---
Discharge Instructions Date of Service Aug 01, 2017. Admission Reason for Admission: Anemia, Lethargy, Weakness Discharge Discharge Diagnosis / Problem: Congestive heart failure Discharge Goals Goal(s): Decrease discomfort, Improve function Activity Recommendations Activity Limitations: resume your previous activity . Instructions / Follow-Up Instructions / Follow-Up Followup with PCP in 1-2 weeks Recheck BMP in about one week to assess potassium level Follow up with cardiology in 1-2 weeks. Current Hospital Diet Patient's current hospital diet: Regular Diet Discharge Diet Recommended Diet: Regular Diet Pending Studies Studies pending at discharge: no Medical Emergencies . Who to Call and When: Medical Emergencies: If at any time you feel your situation is an emergency, please call 911 immediately. . Non-Emergent Contact Non-Emergency issues call your: Primary Care Provider Call Non-Emergent contact if: you have any medication questions (if you become short of breath) . . "Provider Documentation" section prepared by Hong Madera. .
[2017-08-01] MEDS ORDERED: AMIODARONE 200 MG TAB PO SCH (21:00)
== END 2017-08-01 17:17 | disposition home or self-care (01) | DRG 242 ==
LOC: C.EDB 08:59 → C.4E 10:44 → ENRESERV 11:01 → CANBEDREQ 12:06 → ENRESERV 12:32 → C.MED 13:01 → C.2E 07-27 05:32 → OBSVTOIN 07-27 08:55
PROVIDERS: ADMIT Internal Medicine; ATTEND Internal Medicine Sports Medicine
PROC: 0JH606Z Insertion of Pacemaker, Dual Chamber into Chest Subcutaneous Tissue and Fascia, Open Approach (ICD-10-PCS; principal; 2017-07-29 07:47)
PROC: 02HK3JZ Insertion of Pacemaker Lead into Right Ventricle, Percutaneous Approach (ICD-10-PCS; principal; 2017-07-29 07:47)
PROC: 02H63JZ Insertion of Pacemaker Lead into Right Atrium, Percutaneous Approach (ICD-10-PCS; principal; 2017-07-29 07:47)
DX: I44.2 Atrioventricular block, complete (principal); D61.810 Antineoplastic chemotherapy induced pancytopenia; J96.01 Acute respiratory failure with hypoxia; I50.31 Acute diastolic (congestive) heart failure; C79.51 Secondary malignant neoplasm of bone; R17 Unspecified jaundice; C61 Malignant neoplasm of prostate; D64.81 Anemia due to antineoplastic chemotherapy; D70.1 Agranulocytosis secondary to cancer chemotherapy; T45.1X5A Adverse effect of antineoplastic and immunosuppressive drugs, initial encounter; R79.89 Other specified abnormal findings of blood chemistry; I47.1 Supraventricular tachycardia; I49.8 Other specified cardiac arrhythmias; E78.5 Hyperlipidemia, unspecified; Z87.891 Personal history of nicotine dependence; Z79.82 Long term (current) use of aspirin; Z79.899 Other long term (current) drug therapy; Z88.5 Allergy status to narcotic agent

== ENCOUNTER 2017-08-03 06:58 | Inpatient (IN) | payer OTHER, BC ==
[~2017-08-03] VITALS: Ht 175.3 cm; Wt 76.5 kg
[~2017-08-03 06:58] MED LIST changes: +BUME1TAB PO; -BUTO10SO; +CRD200 PO; +POTA1CAP2 PO; -VITA400C15 PO; +VITACAP37 PO
[2017-08-03] MEDS ORDERED: SODIUM CHLORIDE 0.9% 500ML 500 ML IV STA (07:19)
[2017-08-03 07:40] LABS: MEAN CORPUSCULAR HGB CONC 32.7 g/dl (32-36); NUCLEATED RED BLOOD CELL ABS 0.04 K/uL (0-0)
--- NOTE | 2017-08-03 07:42 | DIAGNOSTIC IMAGING REPORT ---
CHEST ONE VIEW PORTABLE CLINICAL HISTORY: 76 years-old Male presenting with EVALUATE RESPIRATORY DISTRESS.DYSPNEA. TECHNIQUE: Portable upright AP view of the chest was obtained. COMPARISON: 07/30/2017. FINDINGS: Left subclavian pacer with leads to the right atrium and right ventricular apex. Cardiac silhouette moderately enlarged, unchanged. Pulmonary vascular prominence unchanged. Hazy bibasilar opacities fairly stable from prior exam. Dense left retrocardiac opacity persists. Small bilateral pleural effusions. Degenerative changes of the thoracic spine. Upper abdomen normal. IMPRESSION: 1. Findings are not significantly changed from the prior exam. 2. Dense retrocardiac consolidation may represent significant left lower lobe atelectasis. 3. Cardiomegaly with evidence of volume overload. 4. Suspected mild pulmonary edema versus aspiration. 5. Persistent bilateral small pleural effusions. Electronically signed by: Kristian Wilkinson M.D. 08/03/2017 7:41 AM Dictated Date/Time: 08/03/2017 7:38 AM
[2017-08-03 07:48] LABS: HEMATOCRIT 30.9 % (42-52); HEMOGLOBIN 10.1 g/dL (14.0-18.0); MEAN CELL VOLUME 80.5 fL (80-100); MEAN CORPUSCULAR HEMOGLOBIN 26.3 pg (25-34); RED CELL DISTRIBUTION WIDTH CV 21.7 % (11.5-14.5); RED CELL DISTRIBUTION WIDTH SD 62.4 fL (36.4-46.3); WHITE BLOOD COUNT 4.71 K/uL (4.8-10.8)
[2017-08-03 07:50] LABS: INR 1.1 (0.9-1.1); PTT PATIENT 29.4 SECONDS (21.0-31.0)
[2017-08-03] MEDS ORDERED: OPTIRAY 320 IV PRN (08:00)
[2017-08-03 08:05] LABS: PLATELET COUNT 123 K/uL (130-400)
[2017-08-03 08:06] LABS: BASO % 0.2 %; BASO ABS # 0.01 K/uL (0-0.2); EOS % 1.1 %; EOS ABS # 0.05 K/uL (0-0.5); IG# 0.37 K/uL (0.00-0.02); LYMPH % 20.2 %; LYMPH ABS # 0.95 K/uL (1.2-3.4); MONO % 7.9 %; MONO ABS # 0.37 K/uL (0.11-0.59); NEUT % 62.7 %; NEUT ABS # 2.96 K/uL (1.4-6.5)
[2017-08-03 08:11] LABS: ALBUMIN 2.5 gm/dl (3.4-5.0); ALKALINE PHOSPHATASE 73 U/L (45-117); ALT/SGPT 30 U/L (12-78); BLOOD UREA NITROGEN 15 mg/dl (7-18); CARBON DIOXIDE 25 mmol/L (21-32); GLUCOSE 133 mg/dl (70-99); SODIUM 130 mmol/L (136-145); TOTAL PROTEIN 6.4 gm/dl (6.4-8.2)
[2017-08-03 08:52] LABS: POTASSIUM 3.2 mmol/L (3.5-5.1)
--- NOTE | 2017-08-03 09:00 | DIAGNOSTIC IMAGING REPORT ---
CT ANGIOGRAM OF THE CHEST CLINICAL HISTORY: Dyspnea. Reported history of recent pacemaker implantation. COMPARISON STUDY: Chest CT scans dated 07/30/2017 and 09/09/2015. Chest x-ray dated 08/03/2017. TECHNIQUE: Following the IV administration of 93 cc of Optiray 320, CT angiogram of the chest was performed from the upper abdomen to the thoracic inlet utilizing the pulmonary embolus protocol. Images are reviewed in the axial, sagittal, and coronal planes. 3-D MIPS images are created and assessed. IV contrast was administered without complication. A dose lowering technique was utilized adhering to the principles of ALARA. CT DOSE: 623.05 mGy.cm FINDINGS: Thyroid: Imaged portions of the thyroid gland are normal in size and attenuation. Thoracic aorta: The thoracic aorta is normal in caliber and demonstrates standard 3-vessel arch anatomy. No dissection is seen. Pulmonary vasculature: The main pulmonary arteries are dilated suggesting pulmonary artery hypertension. There are no filling defects identified in main, lobar, or segmental pulmonary branches to suggest pulmonary embolus. Heart: A 2-lead cardiac pacemaker is present in the left chest wall. Leads terminate in the right atrial appendage and the right ventricle. The heart is enlarged and there is a small pericardial effusion. Lungs and pleural spaces: There are moderate pleural effusions with associated atelectasis. Mild intralobular septal thickening is noted. No airspace consolidation is seen typical for pneumonia. Mediastinum: There is no mediastinal lymphadenopathy. Katie: Clear. Axillae: There is no axillary lymphadenopathy. Upper abdomen: Reflux of contrast into the IVC and hepatic veins suggests cardiac dysfunction. The liver appears enlarged and steatotic. Numerous calcified splenic granulomas are identified. Skeletal structures: The skeletal structures are osteopenic. There is a large sclerotic lesion is identified involving the posterior body and right pedicle of T10. There is near complete sclerosis of the T2 vertebral body, with sclerotic lesions also seen involving the superior body and posterior elements of T3. Soft tissues: There is significant soft tissue edema and subcutaneous fluid identified within the left anterior chest wall. This extends from the lower neck to the upper abdomen. Small foci subcutaneous gas are noted. No organized fluid collection is suggested. IMPRESSION: 1. There is no evidence of pulmonary embolus in the main, lobar, or segmental pulmonary arteries. 2. Cardiomegaly and cardiac pacemaker as above. Findings suggest congestive failure. This was better characterized by x-ray. 3. Moderate pleural effusions with associated atelectasis. 4. There is significant soft tissue edema and fluid seen involving the left chest wall as above. This is likely related to pacemaker implantation. Correlate clinically for evidence of superimposed cellulitis. 5. 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 6. Additional findings as above. Electronically signed by: Xander Knott M.D. 08/03/2017 8:58 AM Dictated Date/Time: 08/03/2017 8:47 AM
[2017-08-03] MEDS ORDERED: CEFTRIAXONE SOD INJ 1 GM ADDVIAL IV STA (09:04)
[2017-08-03] MEDS ORDERED: FUROSEMIDE INJ 40 MG in SYRINGE 0 ML IV ONE (10:33)
[2017-08-03] MEDS ORDERED: MAGNESIUM HYDROXIDE SUSP 30 ML UDC PO PRN (10:45)
[2017-08-03] MEDS ORDERED: ALUMINUM/MAGNESIUM/SIMETH (MAALOX MAX) 30 ML UDC PO PRN (10:45)
[2017-08-03] MEDS ORDERED: TRAMADOL HCL 50 MG TAB PO PRN (10:45)
[2017-08-03] MEDS ORDERED: POTASSIUM CHLORIDE 20 MEQ TABCR PO ONE (10:45)
[2017-08-03] MEDS ORDERED: ONDANSETRON INJ 2 MG/ML 2 ML VIAL IV PRN (10:45)
[2017-08-03] MEDS ORDERED: VANCOMYCIN CONSULT ACTIVE PRN (11:15)
--- NOTE | 2017-08-03 11:19 | History and Physical ---
History & Physical Date & Time of Service: Aug 03, 2017 at 10:48 Chief Complaint: Difficulty Breathing Primary Care Physician: Julia Terrell D.O. History of Present Illness Source: patient, spouse, clinic records, hospital records This is a 76 y/o male with a history of metastatic prostate cancer, pancytopenia due to chemo, HLD, and anxiety/depression who was admitted to [facility] last week with complete heart block s/p pacemaker who presented to the ED on with shortness of breath, dyspnea on exertion and weight gain. The patient was just discharged from [facility] 2 days ago following placement of a pacemaker due to complete heart block. During this visit he had developed acute diastolic CHF as well as atrial flutter and atrial tachycardia. He was discharged on amiodarone and Bumex. The patient presents today with worsening shortness of breath and dyspnea on exertion. He also notes that his normal weight is 172 lb and he was at 175 lb this morning. He does not report much significant diuresis with his home Bumex. The patient also admits to PND and orthopnea. He notes intermittent palpitations. Yesterday he was initially feel better, but today he is more weak and fatigued. The patient reports a non-productive cough but denies wheezing. The patient denies fevers, chills, sweats, chest pain, claudication, wheezing, nausea, vomiting, abdominal pain, dysuria, hematuria, urinary retention, paralysis, weakness, numbness and tingling. Past Medical/Surgical History Medical Problems: (1) Anemia (2) Congestive heart failure (3) Hyperlipidemia (4) Lethargy (5) Pleural effusion (6) Prostate cancer (7) Third degree heart block s/p pacemaker (8) Weakness Anxiety/depression Family History Cancer (prostate) FATHER Stroke Social History Smoking Status: Former Smoker (quit 1984) Smokeless Tobacco Use: No Alcohol Use: occasionally (rare, no ETOH in last several months) Drug Use: none Marital Status: Housing status: lives with significant other Occupational Status: retired Immunizations History of Influenza Vaccine: Yes History of Tetanus Vaccine?: Yes History of Pneumococcal: Yes History of Hepatitis B Vaccine: Yes Allergies Coded Allergies: Oxycodone (Verified Adverse Reaction, Intermediate, confusion, 08/03/17) PER DR CARMICHAEL, Per his conversation with patient, reaction to Percocet was confusion, not difficulty breathing. Home Medications Scheduled Amiodarone HCl (Amiodarone HCl), 400 MG PO BID Amiodarone HCl (Amiodarone HCl), 200 MG PO DAILY Aspirin (Aspirin Ec), 81 MG PO DAILY Bumetanide (Bumex), 1 TAB PO DAILY Calcium Carbonate-Cholecalcife (Calcium 600+D 600-800 mg-Unit), 1 TAB PO BID Cholecalciferol (Vitamin D), 2,000 UNITS PO DAILY Enzalutamide (Xtandi), 120 MG PO DAILY Fish Oil ([place]-3), 1 CAP PO DAILY Leuprolide Acetate (Lupron Depot), 30 MG IM UD Multivitamin (Multivitamin), 1 TAB PO DAILY Paroxetine Hcl (Paxil), 10 MG PO DAILY Potassium Chloride (Potassium Chloride Er), 1 CAP PO DAILY Pravastatin (Pravachol ), 20 MG PO DAILY Probiotic Product (Probiotic), 1 CAP PO DAILY Vitamin E (E-400), 400 UNITS PO DAILY Scheduled PRN Tramadol (Ultram), 50 MG PO TID PRN for Pain Triamcinolone Acet (Triamcinolone Acetonide), 1 APPLN TOP BID PRN for Itching Review of Systems Constitutional: +Weak and fatigued. No fever, No chills, No sweats Eyes: No worsening of vision, No eye pain, No diplopia ENT: No hearing loss, No nasal symptoms, No trouble swallowing Respiratory: +SOB, MONZON, non-productive cough. No wheezing Cardiovascular: +Orthopnea, PND, palpitations. Weight gain. No chest pain, No claudication Abdomen: No pain, No nausea, No vomiting Musculoskeletal: No joint pain, No muscle pain, No swelling Genitourinary - Male: No dysuria, No urinary retention, No hematuria Neurologic: No paralysis, No weakness, No numbness/tingling Integumentary: No rash, No itch, No color change Physical Exam Vital Signs Date Time Temp Pulse Resp B/P (MAP) Pulse Ox O2 Delivery O2 Flow Rate FiO2 08/03/17 09:03 97 28 91 08/03/17 09:01 85/65 08/03/17 08:58 99 26 96 08/03/17 08:53 98 24 96 08/03/17 08:48 109 30 95 08/03/17 08:33 91 24 08/03/17 08:31 113/75 08/03/17 08:28 101 27 96 08/03/17 08:23 119 22 90 08/03/17 08:18 103 23 95 08/03/17 08:13 105 24 94 08/03/17 08:08 102 29 96 08/03/17 08:03 97 25 97 08/03/17 08:01 104/64 08/03/17 07:58 95 24 97 08/03/17 07:54 92 Room Air 08/03/17 07:53 101 25 96 08/03/17 07:48 121 26 96 08/03/17 07:43 123 23 96 08/03/17 07:38 121 21 106/78 97 08/03/17 07:33 104 25 96 08/03/17 07:32 92 Room Air 08/03/17 07:32 96 Nasal Cannula 2.0 08/03/17 07:28 121 23 08/03/17 07:23 121 24 96 08/03/17 07:18 121 25 97 08/03/17 07:16 121 08/03/17 06:59 36.5 123 18 143/80 92 Room Air General appearance: Well-developed, well-nourished, no apparent distress Head: Normocephalic, atraumatic Eyes: Normal inspection, PERRL, EOMI ENT: Normal ENT inspection, hearing grossly normal, pharynx normal Neck: Supple, no JVD, trachea midline Respiratory/Chest: +Incision from pacemaker implantation healing, covered in Steri Strips. Absent lung sounds in bases bilaterally. Lungs clear to auscultation, no respiratory distress Cardiovascular: +Tachycardic. Regular rhythm, no gallop, no murmur Abdomen/GI: Normal bowel sounds, non-tender, soft Extremities/Musculoskeletal: +2+ pitting edema in ankles b/l. Erythema and palpable cord in left forearm where IV site had infiltrated, erythema/edema in right hand where another IV site had infiltrated. No calf tenderness Neurological/Psych: Alert, normal mood/affect, oriented x 3 Skin: Normal color, warm/dry, no rash Diagnostics Laboratory Results Results Past 24 Hours Test 08/03/17 07:30 08/03/17 08:21 08/03/17 08:30 Range/Units White Blood Count 4.71 4.8-10.8 K/uL Red Blood Count 3.84 4.7-6.1 M/uL Hemoglobin 10.1 14.0-18.0 g/dL Hematocrit 30.9 42-52 % Mean Corpuscular Volume 80.5 80-100 fL Mean Corpuscular Hemoglobin 26.3 25-34 pg Mean Corpuscular Hemoglobin Concent 32.7 32-36 g/dl Platelet Count 123 130-400 K/uL Neutrophils (%) (Auto) 62.7 % Lymphocytes (%) (Auto) 20.2 % Monocytes (%) (Auto) 7.9 % Eosinophils (%) (Auto) 1.1 % Basophils (%) (Auto) 0.2 % Neutrophils # (Auto) 2.96 1.4-6.5 K/uL Lymphocytes # (Auto) 0.95 1.2-3.4 K/uL Monocytes # (Auto) 0.37 0.11-0.59 K/uL Eosinophils # (Auto) 0.05 0-0.5 K/uL Basophils # (Auto) 0.01 0-0.2 K/uL RDW Standard Deviation 62.4 36.4-46.3 fL RDW Coefficient of Variation 21.7 11.5-14.5 % Immature Granulocyte % (Auto) 7.9 % Immature Granulocyte # (Auto) 0.37 0.00-0.02 K/uL Nucleated RBC Absolute Count (auto) 0.04 0-0 K/uL Nucleated Red Blood Cells % 0.9 % Hypogranular Neutrophils 1+ Platelet Estimate NORMAL Ovalocytes 1+ Echinocytes 2+ Acanthocytes 2+ Schistocytes 1+ Prothrombin Time 12.0 9.0-12.0 SECONDS Prothromb Time International Ratio 1.1 0.9-1.1 Activated Partial Thromboplast Time 29.4 21.0-31.0 SECONDS Partial Thromboplastin Ratio 1.1 Sodium Level 130 136-145 mmol/L Potassium Level 3.2 3.5-5.1 mmol/L Chloride Level 96 98-107 mmol/L Carbon Dioxide Level 25 21-32 mmol/L Anion Gap 9.0 3-11 mmol/L Blood Urea Nitrogen 15 7-18 mg/dl Creatinine 0.80 0.60-1.40 mg/dl Est Creatinine Clear Calc Drug Dose 81.0 ml/min Estimated GFR () 102.0 Estimated GFR (Non- 88.0 BUN/Creatinine Ratio 18.3 10-20 Random Glucose 133 70-99 mg/dl Calcium Level 8.0 8.5-10.1 mg/dl Total Bilirubin 1.7 0.2-1 mg/dl Aspartate Amino Transf (AST/SGOT) 16 15-37 U/L Alanine Aminotransferase (ALT/SGPT) 30 12-78 U/L Alkaline Phosphatase 73 45-117 U/L Troponin I < 0.015 0-0.045 ng/ml Pro-B-Type Natriuretic Peptide 7942 0-900 pg/ml Total Protein 6.4 6.4-8.2 gm/dl Albumin 2.5 3.4-5.0 gm/dl Globulin 3.9 2.5-4.0 gm/dl Albumin/Globulin Ratio 0.6 0.9-2 Chemistry Specimen Hemolysis Urine Color ORANGE Urine Appearance CLEAR CLEAR Urine pH 5.5 4.5-7.5 Urine Specific [place] 1.010 1.000-1.030 Urine Protein NEG NEG Urine Glucose (UA) NEG NEG Urine Ketones NEG NEG Urine Occult Blood NEG NEG Urine Nitrite NEG NEG Urine Bilirubin NEG NEG Urine Urobilinogen NEG NEG Urine Leukocyte Esterase NEG NEG Diagnostic Radiology Reviewed the following studies and agree with interpretation as follows: CHEST ONE VIEW PORTABLE CLINICAL HISTORY: 76 years-old Male presenting with EVALUATE RESPIRATORY DISTRESS.DYSPNEA. TECHNIQUE: Portable upright AP view of the chest was obtained. COMPARISON: 07/30/2017. FINDINGS: Left subclavian pacer with leads to the right atrium and right ventricular apex. Cardiac silhouette moderately enlarged, unchanged. Pulmonary vascular prominence unchanged. Hazy bibasilar opacities fairly stable from prior exam. Dense left retrocardiac opacity persists. Small bilateral pleural effusions. Degenerative changes of the thoracic spine. Upper abdomen normal. IMPRESSION: 1. Findings are not significantly changed from the prior exam. 2. Dense retrocardiac consolidation may represent significant left lower lobe atelectasis. 3. Cardiomegaly with evidence of volume overload. 4. Suspected mild pulmonary edema versus aspiration. 5. Persistent bilateral small pleural effusions. CT ANGIOGRAM OF THE CHEST CLINICAL HISTORY: Dyspnea. Reported history of recent pacemaker implantation. COMPARISON STUDY: Chest CT scans dated 07/30/2017 and 09/09/2015. Chest x-ray dated 08/03/2017. TECHNIQUE: Following the IV administration of 93 cc of Optiray 320, CT angiogram of the chest was performed from the upper abdomen to the thoracic inlet utilizing the pulmonary embolus protocol. Images are reviewed in the axial, sagittal, and coronal planes. 3-D MIPS images are created and assessed. IV contrast was administered without complication. A dose lowering technique was utilized adhering to the principles of ALARA. CT DOSE: 623.05 mGy.cm FINDINGS: Thyroid: Imaged portions of the thyroid gland are normal in size and attenuation. Thoracic aorta: The thoracic aorta is normal in caliber and demonstrates standard 3-vessel arch anatomy. No dissection is seen. Pulmonary vasculature: The main pulmonary arteries are dilated suggesting pulmonary artery hypertension. There are no filling defects identified in main, lobar, or segmental pulmonary branches to suggest pulmonary embolus. Heart: A 2-lead cardiac pacemaker is present in the left chest wall. Leads terminate in the right atrial appendage and the right ventricle. The heart is enlarged and there is a small pericardial effusion. Lungs and pleural spaces: There are moderate pleural effusions with associated atelectasis. Mild intralobular septal thickening is noted. No airspace consolidation is seen typical for pneumonia. Mediastinum: There is no mediastinal lymphadenopathy. Katie: Clear. Axillae: There is no axillary lymphadenopathy. Upper abdomen: Reflux of contrast into the IVC and hepatic veins suggests cardiac dysfunction. The liver appears enlarged and steatotic. Numerous calcified splenic granulomas are identified. Skeletal structures: The skeletal structures are osteopenic. There is a large sclerotic lesion is identified involving the posterior body and right pedicle of T10. There is near complete sclerosis of the T2 vertebral body, with sclerotic lesions also seen involving the superior body and posterior elements of T3. Soft tissues: There is significant soft tissue edema and subcutaneous fluid identified within the left anterior chest wall. This extends from the lower neck to the upper abdomen. Small foci subcutaneous gas are noted. No organized fluid collection is suggested. IMPRESSION: 1. There is no evidence of pulmonary embolus in the main, lobar, or segmental pulmonary arteries. 2. Cardiomegaly and cardiac pacemaker as above. Findings suggest congestive failure. This was better characterized by x-ray. 3. Moderate pleural effusions with associated atelectasis. 4. There is significant soft tissue edema and fluid seen involving the left chest wall as above. This is likely related to pacemaker implantation. Correlate clinically for evidence of superimposed cellulitis. 5. 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 6. Additional findings as above. EKG Reviewed EKG and agree with interpretation as follows: 121 bpm, ventricular paced rhythm, prolonged QTc 593 110 bpm, ventricular paced rhythm, prolonged QTc 603 Impression Assessment and Plan 76 y/o male with a history of metastatic prostate cancer, pancytopenia due to chemo, HLD, and anxiety/depression who was admitted to [facility] last week with complete heart block s/p pacemaker who presented to the ED on 08/03 with shortness of breath, dyspnea on exertion and weight gain. Pt tachycardic on arrival, otherwise VSS. CXR with evidence fluid overload and bilateral pleural effusions. CTA chest negative fro PE, does show moderate bilateral pleural effusions. Osteoblastic metastasis stable from previous. Potassium 3.2. BNP 7942. Acute on chronic diastolic heart failure -Admit to telemetry -Daily weights, strict I's & O's -Lasix 40 mg IV qd -Hold home Bumex -Low sodium diet -Echocardiogram 07/27/17 showed EF 55-60%. No WMA. Mild to moderate dilated RV. Mild mitral and tricuspid regurg. Mild to moderate pulmonary HTN with PASP 45 -50 mmHg. -Consult cardiology, appreciate recs Moderate bilateral pleural effusions secondary to CHF vs malignancy -Consult thoracic surgery for possible diagnostic/therapeutic thoracentesis Complete heart block s/p pacemaker, atrial tachycardia, recent a-flutter -Pacemaker interrogated, periods of atrial tach -Continue ASA, amiodarone 400 mg PO BID for now. Pt was to decrease to 200 mg PO qd on 08/05 -Prolonged QTc noted, caution with amiodarone. Ok to continue for now per cardio Superficial thrombosis LUE, possible cellulitis right hand--received 1 dose Rocephin in ED -Venous Doppler ultrasound LUE to r/u DVT -Vancomycin IV and cefazolin 1 gm IV q8h -Warm compresses to LUE Hypokalemia -Potassium 3.2 on admission -KCl 40 mEq PO x 1, check magnesium -Continue home KCl 10 mEq PO qd Metastatic prostate cancer with h/o radiation--stable -Continue Xtandi 120 mg PO qd, will bring in -Lupron injections q 4 months -Xgeva stopped per Pancytopenia due to chemo drugs--improving HLD -Continue pravastatin 20 mg PO qd Anxiety/depression -Continue Paxil 10 mg PO qd DVT prophylaxis -Enoxaparin 40 mg SC q24h -KALIE Guidry Code Status -Level I, FULL RESUSCITATION STATUS I personally interviewed and examined the patient. I agree with history of present illness and physical exam mentioned above, I also performed my own history taking and examination. Past medical history and review of system has been obtained by myself I reviewed all pertinent labs and studies Reviewed current medications I discussed and formulated of the assessment and plan mentioned above. Please refer to the Summary mentioned below. 76-year-old man with history of metastatic prostate cancer, chemotherapy complicated by pancytopenia, dyslipidemia and anxiety. Patient was found to have a complete heart block about 1 week ago status post pacemaker placement.. Patient was discharged home and noticed that he is gaining weight slowly and getting progressively short of breath. Presented to the ED with severe shortness of breath found to have large pleural effusion. Status post thoracocentesis 1 L was removed appears to be transudate has a protein of 1.9, serum protein 6.4 , fluid protein/serum protein ratio is less than 0.5 LDH and fluid is 63, ordered LDH and serum to confirm. PH was more than 7.4 which is an indication that it is a transudate and not empyema and also glucose was elevated. Patient received 40 mg of Lasix IV, will check labs in a.m. and continue diuresis as needed, will check I and O's. [employer]dn[employer] consult appreciated. Pacemaker was recalibrated to maximum heart rate of 150. General Appearance: Appears to be in mild distress Eyes: normal Sclerae, extraocular muscle intact ENT: hearing grossly normal Neck: supple Respiratory/Chest: Decreased air entry bilaterally especially on the right side with decreased chest wall expansion. Cardiovascular: regular rate, tachycardia rhythm, no murmur Abdomen: non tender, soft, no masses Extremities: no edema musculoskeletal: no significant swelling or inflammation in any joint Neurologic/Psychiatric: Awake alert oriented times place and person moves all extremities sensation intact cranial nerves II-12 appear to be intact Skin: normal color, warm/dry, no rash Brittney Acosta MD, [facility] Res[facility] Status VTE Prophylaxis Will order VTE Prophylaxis: Yes
[2017-08-03 11:26] VITALS: O2SAT 97; Ht 175.3 cm; Wt 76.5 kg
[2017-08-03] MEDS ORDERED: IV FLUIDS COMPLETED PRN (11:30)
[2017-08-03] MEDS ORDERED: FUROSEMIDE 40 MG/4 ML VIAL ONE (12:36)
[2017-08-03] MEDS ORDERED: POTASSIUM CHLORIDE 10 MEQ TABCR ONE (12:36)
[2017-08-03 13:15] VITALS: BP 131/83; PULSE 115; TEMP 36.5; O2SAT 93
[2017-08-03] MEDS ORDERED: VANCOMYCIN IV 2,000 MG in SODIUM CHLORIDE 0.9% 500ML 500 ML IV ONE (14:00)
[2017-08-03] MEDS ORDERED: LIDOCAINE HCL 1% 20 ML VIAL ONE (14:11)
--- NOTE | 2017-08-03 14:18 | Pharmacy Progress Note ---
Pharmacy Abx Initial Consult Date of Service Aug 03, 2017. Pharmacy Dosing Scope Date of Consult: 08/03/17 Consultation requested by: HANG Bonilla [facility]acy is consulted to initiate vancomycin IV dosing therapy, order appropriate labs and adjust drug dose/frequency. Subjective The patient is a 76 year old male admitted on Aug 03, 2017 at 10:57. Objective Height (Feet): 5 Height (Inches): 9.00 Weight (Kilograms): 83.600 Vital Signs (Past 12Hrs) Vital Signs Past 12 Hours Date Time Temp Pulse Resp B/P (MAP) Pulse Ox O2 Delivery O2 Flow Rate FiO2 08/03/17 13:15 36.5 115 22 131/83 (99) 93 Oxymask 3.0 08/03/17 13:15 93 Oxymask 3.0 08/03/17 12:44 36.3 115 25 115/70 96 08/03/17 12:18 115 25 96 08/03/17 11:48 101 22 97 08/03/17 11:43 116 20 92 08/03/17 11:31 115/70 08/03/17 11:26 97 Partial Rebreather 2.0 08/03/17 11:13 107 28 95 08/03/17 11:08 115 29 97 08/03/17 11:01 123/94 08/03/17 10:54 91 08/03/17 10:39 112/72 08/03/17 10:38 94 25 95 08/03/17 10:31 94/73 08/03/17 10:08 100 19 95 08/03/17 10:01 109/76 08/03/17 09:38 115 26 95 08/03/17 09:32 116/77 08/03/17 09:14 111/66 08/03/17 09:08 110 27 96 08/03/17 09:03 97 28 91 08/03/17 09:01 85/65 08/03/17 08:58 99 26 96 08/03/17 08:53 98 24 96 08/03/17 08:48 109 30 95 08/03/17 08:33 91 24 08/03/17 08:31 113/75 08/03/17 08:28 101 27 96 08/03/17 08:23 119 22 90 08/03/17 08:18 103 23 95 08/03/17 08:13 105 24 94 08/03/17 08:08 102 29 96 08/03/17 08:03 97 25 97 08/03/17 08:01 104/64 08/03/17 07:58 95 24 97 08/03/17 07:54 92 Room Air 08/03/17 07:53 101 25 96 08/03/17 07:48 121 26 96 08/03/17 07:43 123 23 96 08/03/17 07:38 121 21 106/78 97 08/03/17 07:33 104 25 96 08/03/17 07:32 92 Room Air 08/03/17 07:32 96 Nasal Cannula 2.0 08/03/17 07:28 121 23 08/03/17 07:23 121 24 96 08/03/17 07:18 121 25 97 08/03/17 07:16 121 08/03/17 06:59 36.5 123 18 143/80 92 Room Air Lab Results (24Hrs) Laboratory Tests (24 Hours) Test 08/03/17 07:30 White Blood Count 4.71 K/uL (4.8-10.8) L Red Blood Count 3.84 M/uL (4.7-6.1) L Hemoglobin 10.1 g/dL (14.0-18.0) L Hematocrit 30.9 % (42-52) L Mean Corpuscular Volume 80.5 fL (80-100) Mean Corpuscular Hemoglobin 26.3 pg (25-34) Mean Corpuscular Hemoglobin Concent 32.7 g/dl (32-36) Platelet Count 123 K/uL (130-400) L Neutrophils (%) (Auto) 62.7 % Lymphocytes (%) (Auto) 20.2 % Monocytes (%) (Auto) 7.9 % Eosinophils (%) (Auto) 1.1 % Basophils (%) (Auto) 0.2 % Neutrophils # (Auto) 2.96 K/uL (1.4-6.5) Lymphocytes # (Auto) 0.95 K/uL (1.2-3.4) L Monocytes # (Auto) 0.37 K/uL (0.11-0.59) Eosinophils # (Auto) 0.05 K/uL (0-0.5) Basophils # (Auto) 0.01 K/uL (0-0.2) Risk Factors for Resistance * Hospitalization for 48 hours or more within the past 90 days * Immunocompromised (chemotherapy) Assessment & Plan Assessment 76 year old male admitted for acute on chronic diastolic heart failure and possible R hand cellulitis. He does not have a documented history of MDROs but has risk factors, as noted above. Hospitalist service has ordered both Ancef and vancomycin for the R hand cellulitis. I checked with Rosita Ivy on this and they are both what the attending has requested to order. I'm not used to seeing Ancef ordered along w / vanc for this indication but it would provide some additional gram negative coverage, just not pseudomonas. Will plan to follow patient daily. Plan Vancomycin IV * Est PK parameters: Vd 0.7 L/kg, Reyes 0.072, t1/2 9.6 hrs * Loading dose: 2000 mg (25 mg/kg) * Maintenance dose: 1250 mg IV (15 mg/kg) every 12 hours * Goal trough level for cellulitis, with risk factors for MRSA : 15 to 20 mcg/mL * Trough level ordered for 08/05/17 prior to the 5th dose Ancef * Not dosed by pharmacy but appropriate Pharmacy will continue to follow and will adjust dose/frequency as necessary. Thank you.
--- NOTE | 2017-08-03 14:19 | EMERGENCY ROOM VISIT NOTE ---
History Report prepared by Angi: Jarad Armendariz Under the Supervision of: Dr. Jer Palomo D.O. First contact with patient: 07:06 Chief Complaint: RESPIRATORY PROBLEMS Stated Complaint: DIFFICULTY BREATHING History of Present Illness The patient is a 76 year old male who presents to the Emergency Room with complaints of constant shortness of breath beginning a few days ago. He also complains of a cough which began yesterday. The patient has a history prostate cancer for which he was previously receiving radiation treatments (stopped due to him becoming neutropenic with each treatment). He was admitted to the ICU earlier this week and was discharged two days ago. He had a ([employer]) pacemaker placed for heart block at this time. The patient does not use supplemental oxygen at home. He states that he has had some difficulty breathing ever since returning home. He states that he was on supplemental oxygen while in the ICU. The patient's breathing is worsened with exertion. His oxygen saturation was found to be 92% on room air today. He states that there was found to be questionable fluid on his lungs while in the ICU. Pt denies headache, runny nose, chest pain, nausea, vomiting, diarrhea, pain with urination, and melena. Source of History: patient Onset: A few days ago Quality: other (shortness of breath) Timing: constant Modifying Factors (Worsening): exertion Associated Symptoms: + cough, No fevers, No headache, No chest pain, No nausea, No vomiting, No melena, No diarrhea, No urinary symptoms Review of Systems See HPI for pertinent positives & negatives. A total of 10 systems reviewed and were otherwise negative. Past Medical & Surgical Medical Problems: (1) Anemia (2) Congestive heart failure (3) Hyperlipidemia (4) Lethargy (5) Pleural effusion (6) Prostate cancer (7) Third degree heart block (8) Weakness Family History Cancer Social History Smoking Status: Former Smoker Drug Use: none Marital Status: Housing Status: lives with significant other Occupation Status: retired Current/Historical Medications Scheduled Amiodarone HCl (Amiodarone HCl), 400 MG PO BID Amiodarone HCl (Amiodarone HCl), 200 MG PO DAILY Aspirin (Aspirin Ec), 81 MG PO DAILY Bumetanide (Bumex), 1 TAB PO DAILY Calcium Carbonate-Cholecalcife (Calcium 600+D 600-800 mg-Unit), 1 TAB PO BID Cholecalciferol (Vitamin D), 2,000 UNITS PO DAILY Enzalutamide (Xtandi), 120 MG PO DAILY Fish Oil ([place]-3), 1 CAP PO DAILY Leuprolide Acetate (Lupron Depot), 30 MG IM UD Multivitamin (Multivitamin), 1 TAB PO DAILY Paroxetine Hcl (Paxil), 10 MG PO DAILY Potassium Chloride (Potassium Chloride Er), 1 CAP PO DAILY Pravastatin (Pravachol ), 20 MG PO DAILY Probiotic Product (Probiotic), 1 CAP PO DAILY Vitamin E (E-400), 400 UNITS PO DAILY Scheduled PRN Tramadol (Ultram), 50 MG PO TID PRN for Pain Triamcinolone Acet (Triamcinolone Acetonide), 1 APPLN TOP BID PRN for Itching Allergies Coded Allergies: Oxycodone (Verified Adverse Reaction, Intermediate, confusion, 08/03/17) PER DR CARMICHAEL, Per his conversation with patient, reaction to Percocet was confusion, not difficulty breathing. Physical Exam Vital Signs Date Time Temp Pulse Resp B/P (MAP) Pulse Ox O2 Delivery O2 Flow Rate FiO2 08/03/17 10:54 91 08/03/17 10:39 112/72 08/03/17 10:38 94 25 95 08/03/17 10:31 94/73 08/03/17 10:08 100 19 95 08/03/17 10:01 109/76 08/03/17 09:38 115 26 95 08/03/17 09:32 116/77 08/03/17 09:14 111/66 08/03/17 09:08 110 27 96 08/03/17 09:03 97 28 91 08/03/17 09:01 85/65 08/03/17 08:58 99 26 96 08/03/17 08:53 98 24 96 08/03/17 08:48 109 30 95 08/03/17 08:33 91 24 08/03/17 08:31 113/75 08/03/17 08:28 101 27 96 08/03/17 08:23 119 22 90 08/03/17 08:18 103 23 95 08/03/17 08:13 105 24 94 08/03/17 08:08 102 29 96 08/03/17 08:03 97 25 97 08/03/17 08:01 104/64 08/03/17 07:58 95 24 97 08/03/17 07:54 92 Room Air 08/03/17 07:53 101 25 96 08/03/17 07:48 121 26 96 08/03/17 07:43 123 23 96 08/03/17 07:38 121 21 106/78 97 08/03/17 07:33 104 25 96 08/03/17 07:32 92 Room Air 08/03/17 07:32 96 Nasal Cannula 2.0 08/03/17 07:28 121 23 08/03/17 07:23 121 24 96 08/03/17 07:18 121 25 97 08/03/17 07:16 121 08/03/17 06:59 36.5 123 18 143/80 92 Room Air Physical Exam GENERAL: Sitting up in bed, ill-appearing, moderate distress, talking in full sentences, on nasal canula. EYE EXAM: normal conjunctiva. OROPHARYNX: no exudate, no erythema, lips, buccal mucosa, and tongue normal and mucous membranes are moist NECK: supple, no nuchal rigidity, no adenopathy, non-tender. No JVD. LUNGS: Course at the bilateral bases. HEART: Tachycardic rate. No murmurs, S1 normal and S2 normal CHEST: Pacemaker pocket in left upper chest wall with bruising. Steri-strips in place. No surrounding induration/drainage/discharge. ABDOMEN: abdomen soft, non-tender, normo-active bowel sounds, no masses, no rebound or guarding. SKIN: no rashes and no bruising UPPER EXTREMITIES: Left forearm on the palmar surface with small amount of erythema and tenderness to palpation. Appears to have old IV sticks with bruising. LOWER EXTREMITIES: Calves are equal bilaterally. NEURO EXAM: Normal sensorium, cranial nerves II-XII grossly intact, normal speech, no gross weakness of arms, no gross weakness of legs. Medical Decision & Procedures ER Provider Diagnostic Interpretation: Radiology results as stated below per my review and the radiologist's interpretation: CT ANGIOGRAM OF THE CHEST FINDINGS: Thyroid: Imaged portions of the thyroid gland are normal in size and attenuation. Thoracic aorta: The thoracic aorta is normal in caliber and demonstrates standard 3-vessel arch anatomy. No dissection is seen. Pulmonary vasculature: The main pulmonary arteries are dilated suggesting pulmonary artery hypertension. There are no filling defects identified in main, lobar, or segmental pulmonary branches to suggest pulmonary embolus. Heart: A 2-lead cardiac pacemaker is present in the left chest wall. Leads terminate in the right atrial appendage and the right ventricle. The heart is enlarged and there is a small pericardial effusion. Lungs and pleural spaces: There are moderate pleural effusions with associated atelectasis. Mild intralobular septal thickening is noted. No airspace consolidation is seen typical for pneumonia. Mediastinum: There is no mediastinal lymphadenopathy. Katie: Clear. Axillae: There is no axillary lymphadenopathy. Upper abdomen: Reflux of contrast into the IVC and hepatic veins suggests cardiac dysfunction. The liver appears enlarged and steatotic. Numerous calcified splenic granulomas are identified. Skeletal structures: The skeletal structures are osteopenic. There is a large sclerotic lesion is identified involving the posterior body and right pedicle of T10. There is near complete sclerosis of the T2 vertebral body, with sclerotic lesions also seen involving the superior body and posterior elements of T3. Soft tissues: There is significant soft tissue edema and subcutaneous fluid identified within the left anterior chest wall. This extends from the lower neck to the upper abdomen. Small foci subcutaneous gas are noted. No organized fluid collection is suggested. IMPRESSION: 1. There is no evidence of pulmonary embolus in the main, lobar, or segmental pulmonary arteries. 2. Cardiomegaly and cardiac pacemaker as above. Findings suggest congestive failure. This was better characterized by x-ray. 3. Moderate pleural effusions with associated atelectasis. 4. There is significant soft tissue edema and fluid seen involving the left chest wall as above. This is likely related to pacemaker implantation. Correlate clinically for evidence of superimposed cellulitis. 5. 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 6. Additional findings as above. Electronically signed by: Xander Knott M.D. 08/03/2017 8:58 AM CHEST ONE VIEW PORTABLE FINDINGS: Left subclavian pacer with leads to the right atrium and right ventricular apex. Cardiac silhouette moderately enlarged, unchanged. Pulmonary vascular prominence unchanged. Hazy bibasilar opacities fairly stable from prior exam. Dense left retrocardiac opacity persists. Small bilateral pleural effusions. Degenerative changes of the thoracic spine. Upper abdomen normal. IMPRESSION: 1. Findings are not significantly changed from the prior exam. 2. Dense retrocardiac consolidation may represent significant left lower lobe atelectasis. 3. Cardiomegaly with evidence of volume overload. 4. Suspected mild pulmonary edema versus aspiration. 5. Persistent bilateral small pleural effusions. Electronically signed by: Kristian Wilkinson M.D. 08/03/2017 7:41 AM Laboratory Results 08/03/17 07:30 Red Blood Count 3.84, Mean Corpuscular Volume 80.5, Mean Corpuscular Hemoglobin 26.3, Mean Corpuscular Hemoglobin Concent 32.7, Neutrophils (%) (Auto) 62.7, Lymphocytes (%) (Auto) 20.2, Monocytes (%) (Auto) 7.9, Eosinophils (%) (Auto) 1.1, Basophils (%) (Auto) 0.2, Neutrophils # (Auto) 2.96, Lymphocytes # (Auto) 0.95, Monocytes # (Auto) 0.37, Eosinophils # (Auto) 0.05, Basophils # (Auto) 0.01 08/03/17 07:30 08/03/17 08:21 Test 08/03/17 07:30 08/03/17 08:21 08/03/17 08:30 White Blood Count 4.71 K/uL (4.8-10.8) Red Blood Count 3.84 M/uL (4.7-6.1) Hemoglobin 10.1 g/dL (14.0-18.0) Hematocrit 30.9 % (42-52) Mean Corpuscular Volume 80.5 fL (80-100) Mean Corpuscular Hemoglobin 26.3 pg (25-34) Mean Corpuscular Hemoglobin Concent 32.7 g/dl (32-36) Platelet Count 123 K/uL (130-400) Neutrophils (%) (Auto) 62.7 % Lymphocytes (%) (Auto) 20.2 % Monocytes (%) (Auto) 7.9 % Eosinophils (%) (Auto) 1.1 % Basophils (%) (Auto) 0.2 % Neutrophils # (Auto) 2.96 K/uL (1.4-6.5) Lymphocytes # (Auto) 0.95 K/uL (1.2-3.4) Monocytes # (Auto) 0.37 K/uL (0.11-0.59) Eosinophils # (Auto) 0.05 K/uL (0-0.5) Basophils # (Auto) 0.01 K/uL (0-0.2) RDW Standard Deviation 62.4 fL (36.4-46.3) RDW Coefficient of Variation 21.7 % (11.5-14.5) Immature Granulocyte % (Auto) 7.9 % Immature Granulocyte # (Auto) 0.37 K/uL (0.00-0.02) Nucleated RBC Absolute Count (auto) 0.04 K/uL (0-0) Nucleated Red Blood Cells % 0.9 % Hypogranular Neutrophils 1+ Platelet Estimate NORMAL Ovalocytes 1+ Echinocytes 2+ Acanthocytes 2+ Schistocytes 1+ Prothrombin Time 12.0 SECONDS (9.0-12.0) Prothromb Time International Ratio 1.1 (0.9-1.1) Activated Partial Thromboplast Time 29.4 SECONDS (21.0-31.0) Partial Thromboplastin Ratio 1.1 Anion Gap 9.0 mmol/L (3-11) Est Creatinine Clear Calc Drug Dose 81.0 ml/min Estimated GFR () 102.0 Estimated GFR (Non- 88.0 BUN/Creatinine Ratio 18.3 (10-20) Calcium Level 8.0 mg/dl (8.5-10.1) Total Bilirubin 1.7 mg/dl (0.2-1) Alanine Aminotransferase (ALT/SGPT) 30 U/L (12-78) Alkaline Phosphatase 73 U/L (45-117) Troponin I < 0.015 ng/ml (0-0.045) Pro-B-Type Natriuretic Peptide 7942 pg/ml (0-900) Total Protein 6.4 gm/dl (6.4-8.2) Albumin 2.5 gm/dl (3.4-5.0) Globulin 3.9 gm/dl (2.5-4.0) Albumin/Globulin Ratio 0.6 (0.9-2) Magnesium Level 2.1 mg/dl (1.8-2.4) Aspartate Amino Transf (AST/SGOT) 16 U/L (15-37) Chemistry Specimen Hemolysis Urine Color ORANGE Urine Appearance CLEAR (CLEAR) Urine pH 5.5 (4.5-7.5) Urine Specific [place] 1.010 (1.000-1.030) Urine Protein NEG (NEG) Urine Glucose (UA) NEG (NEG) Urine Ketones NEG (NEG) Urine Occult Blood NEG (NEG) Urine Nitrite NEG (NEG) Urine Bilirubin NEG (NEG) Urine Urobilinogen NEG (NEG) Urine Leukocyte Esterase NEG (NEG) Laboratory results per my review. Medications Administered Medications (Trade) Dose Ordered Sig/Bunny Route Start Time Stop Time Status Last Admin Dose Admin Sodium Chloride 500 ml @ 999 mls/hr Q31M STAT IV 08/03/17 07:19 08/03/17 07:49 DC 08/03/17 07:49 999 MLS/HR Ceftriaxone Sodium (Rocephin Inj) 1 gm NOW STAT IV 08/03/17 09:04 08/03/17 09:06 DC 08/03/17 09:57 1 GM ECG Per My Interpretation Indication: SOB/dyspnea Rate (beats per minute): 110 Rhythm: other (Ventricular paced) Findings: LBBB, left axis deviation Comparison ECG Date: July 29, 2017 Change: no significant change ED Course ED COURSE: Vital signs were reviewed and showed tachycardia. The patients medical record was reviewed The above diagnostic studies were performed and reviewed. ED treatments and interventions as stated above. 0710: The patient was evaluated in room A12B. A complete history and physical examination was performed. 0719: Ordered Sodium Chloride 500 ml @ 999 mls/hr IV. 0745: I checked in on the patient. He has had IV's established and is having his pacemaker interrogated. 0808: I reassessed the patient. His heart rate is fluctuating between 90's and 110's. He is doing well. 0901: Cardiology is evaluating the patient. 0904: Ordered Rocephin Inj 1 gm IV. 0913: Upon reevaluation, the patient is resting comfortably. Dr. Parikh has interrogated the patient's pacemaker. He states that the patient appears to have been in intermittent atrial tachycardia. I discussed my findings with the patient and he understands and agrees with the treatment plan. Based on the patients age, coexisting illnesses, exam and lab findings the decision to treat as an inpatient was made. The patient remained stable while under my care. The patient will be evaluated for further management. Medical Decision Differential diagnoses includes but is not limited to pneumonia, bronchitis, COPD/Asthma exacerbation, pneumothorax, pulmonary embolism, congestive heart failure, acute coronary syndrome. Patient is a 76-year-old male who presents the ER for shortness of breath and diffuse weakness. He was just recently discharged from the hospital with pacemaker as he was diagnosed with complete heart block. Labs were remarkable for a mild anemia. Sodium slightly low at 130. Creatinine normal. Troponin was negative. BNP was elevated at 8000. UA was negative. CT of the chest does show large bilateral pleural effusions. Pacemaker was interrogated and did show an atrial tachycardia which was intermittent but fairly persistent. He was evaluated by cardiology at bedside. They did decrease the rate to 115 of the pacemaker. I did give him a dose of Rocephin as he does have erythema on bilateral hands which I favor is likely secondary to recent IVs. With his shortness of breath and need for diuresis both myself and cardiology preferred observation overnight. We discussed with the patient internal medicine. Medication Reconcilliation Current Medication List: was personally reviewed by me Blood Pressure Screening Patient's blood pressure: Normal blood pressure Blood pressure disposition: Did not require urgent referral Consults Time Called: 08 Consulting Physician: Dr. Parikh - Cardiology Returned Call: [phone] I reviewed the patient's case with Dr. Parikh. He will come see the patient in the ED. Additional Consults: Time Called: 904 Consulted Physician: Dr. Farfan - [facility] [place] Hospitalist Returned Call: [phone] Additional Comments: I reviewed the patient's case with Dr. Farfan. [facility] will evaluate the patient for further management. Impression Primary Impression: Atrial tachycardia Additional Impressions: CHF (congestive heart failure) Hypokalemia Anemia Scribe Attestation The scribe's documentation has been prepared under my direction and personally reviewed by me in its entirety. I confirm that the note above accurately reflects all work, treatment, procedures, and medical decision making performed by me. Departure Information Dispostion Being Evaluated By Hospitalist Referrals Julia Terrell D.O. (PCP) Patient Instructions My [facility] Problem Qualifiers Additional Impressions: CHF (congestive heart failure) Heart failure type: unspecified Heart failure chronicity: unspecified Qualified Codes: I50.9 - Heart failure, unspecified
[2017-08-03] MEDS: ENOXAPARIN 40 MG/0.4 ML SYR SC SCH (14:35)
[2017-08-03] MEDS: CEFAZOLIN IV 1,000 MG in SYRINGE 0 ML IV SCH ×2 (14:35→21:21)
--- NOTE | 2017-08-03 14:52 | DIAGNOSTIC IMAGING REPORT ---
CHEST ONE VIEW PORTABLE CLINICAL HISTORY: 76 years-old Male presenting with thoracentesis. TECHNIQUE: Portable upright AP view of the chest was obtained. COMPARISON: 08/03/2017 at 7:22 AM. FINDINGS: The patient is [place] rotated. Left subclavian pacer with leads to the right atrium and right ventricular apex. Atherosclerosis of aortic arch. Cardiac silhouette enlarged, unchanged. Improved aeration of the right lung base with resolution of right pleural effusion. However, decreased aeration of the left lung base noted. Moderate layering left pleural effusion suspected. No large pneumothorax. Degenerative changes of the thoracic spine. IMPRESSION: 1. Improved aeration of the right lung base with resolution of pleural fluid. No pneumothorax. 2. Moderate left pleural effusion and basilar consolidation, possibly atelectasis. Electronically signed by: Kristian Wilkinson M.D. 08/03/2017 2:50 PM Dictated Date/Time: 08/03/2017 2:49 PM
--- NOTE | 2017-08-03 15:07 | Cardiology Consultation ---
Cardiology Consultation Date of Consultation: Aug 03, 2017. Requesting Physician: Dewey Reason for Consultation: dyspnea Pt evaluation today including: conversation w/ patient, conversation w/ family , physical exam, chart review, lab review, review of studies, review of inpatient medication list, conversation w/ attending History of Present Illness The patient is a 76 year old gentleman who was recently discharged from [facility] with heart block and pulmonary edema. He was feeling well at home for a day but began experiencing progressive dyspnea over the last 12 hours. This morning he was very short of breath and came to the ER. He has been compliant with his medications. No over chest pain. No dizziness. No syncope. Some exertional intolerance this morning. He has not noticed any palpitations or tachycardia. He has had a poor appetite. Past Medical/Surgical History Prostate cancer, metastatic complete heart block atrial tachycardia Nephrolithiasis HLP Past surgical history: Prostatectomy inguinal hernia repair Dual chamber [employer] pacemaker Family History Cancer (prostate) FATHER Stroke NOn-contributory Social History Smoking Status: Former Smoker History of Alcohol Use: Yes (OCC WINE ) Retired /senior infrastructure engineer. Lives with his locally Review of Systems Respiratory: + shortness of breath, + dyspnea on exertion Cardiac: + edema Per HPI. No recent fevers. All Other Systems: Reviewed and Negative Allergies Coded Allergies: Oxycodone (Verified Adverse Reaction, Intermediate, confusion, 08/03/17) PER DR CARMICHAEL, Per his conversation with patient, reaction to Percocet was confusion, not difficulty breathing. Medications Current Inpatient Medications Medications (Trade) Dose Ordered Sig/Bunny Route Start Time Stop Time Status Last Admin Dose Admin Ioversol (Optiray 320) 100 ml UD PRN IV 08/03/17 08:00 08/07/17 07:59 Enoxaparin Sodium (Lovenox Inj) 40 mg Q24H SC 08/03/17 14:00 09/02/17 13:59 08/03/17 14:35 40 MG Acetaminophen (Tylenol Tab) 650 mg Q4H PRN PO 08/03/17 10:45 09/02/17 10:44 Al Hydrox/Mg Hydrox/Simethicone (Maalox Max Susp) 15 ml Q4H PRN PO 08/03/17 10:45 09/02/17 10:44 Magnesium Hydroxide (Milk Of Magnesia Susp) 30 ml Q12H PRN PO 08/03/17 10:45 09/02/17 10:44 Ondansetron HCl (Zofran Inj) 4 mg Q6H PRN IV 08/03/17 10:45 09/02/17 10:44 08/03/17 14:54 4 MG Polyethylene (Miralax Powder Packet) 17 gm DAILY PRN PO 08/03/17 10:45 09/02/17 10:44 Amiodarone HCl (Cordarone Tab) 400 mg BID PO 08/03/17 21:00 09/02/17 20:59 Aspirin (Ecotrin Tab) 81 mg DAILY PO 08/04/17 09:00 09/03/17 08:59 Paroxetine HCl (pAXil TAB) 10 mg DAILY PO 08/04/17 09:00 09/03/17 08:59 Pravastatin Sodium (Pravachol Tab) 20 mg DAILY PO 08/04/17 09:00 09/03/17 08:59 Tramadol HCl (Ultram Tab) 50 mg TID PRN PO 08/03/17 10:45 09/02/17 10:44 Miscellaneous Information (Order Awaiting Action) 1 ea QS N/A 08/03/17 14:00 09/02/17 13:59 Potassium Chloride (Klor-Con M10) 10 meq DAILY PO 08/04/17 09:00 09/03/17 08:59 Furosemide 40 mg/ Syringe 4 ml @ 4 mls/min DAILY IV 08/04/17 09:00 09/03/17 08:59 Vancomycin HCl 2000 mg/Sodium Chloride 540 ml @ 200 mls/hr 1400 ONCE IV 08/03/17 14:00 08/03/17 16:41 08/03/17 14:34 200 MLS/HR Miscellaneous Information (Consult) 1 ea UD PRN N/A 08/03/17 11:15 09/02/17 11:14 Cefazolin Sodium 1000 mg/Syringe 7.5 ml @ 2.5 mls/min Q8H IV 08/03/17 14:00 08/13/17 13:59 08/03/17 14:35 2.5 MLS/MIN Miscellaneous (Iv Fluids Completed) 1 ea PRN PRN N/A 08/03/17 11:30 08/03/18 11:29 Vancomycin HCl 1250 mg/Sodium Chloride 275 ml @ 125 mls/hr Q12H IV 08/04/17 02:00 08/13/17 23:59 Physical Exam Vital Signs Past 12 Hours Date Time Temp Pulse Resp B/P (MAP) Pulse Ox O2 Delivery O2 Flow Rate FiO2 08/03/17 13:15 36.5 115 22 131/83 (99) 93 Oxymask 3.0 08/03/17 13:15 93 Oxymask 3.0 08/03/17 12:44 36.3 115 25 115/70 96 08/03/17 12:18 115 25 96 08/03/17 11:48 101 22 97 08/03/17 11:43 116 20 92 08/03/17 11:31 115/70 08/03/17 11:26 97 Partial Rebreather 2.0 08/03/17 11:13 107 28 95 08/03/17 11:08 115 29 97 08/03/17 11:01 123/94 08/03/17 10:54 91 08/03/17 10:39 112/72 08/03/17 10:38 94 25 95 08/03/17 10:31 94/73 08/03/17 10:08 100 19 95 08/03/17 10:01 109/76 08/03/17 09:38 115 26 95 08/03/17 09:32 116/77 08/03/17 09:14 111/66 08/03/17 09:08 110 27 96 08/03/17 09:03 97 28 91 08/03/17 09:01 85/65 08/03/17 08:58 99 26 96 08/03/17 08:53 98 24 96 08/03/17 08:48 109 30 95 08/03/17 08:33 91 24 08/03/17 08:31 113/75 08/03/17 08:28 101 27 96 08/03/17 08:23 119 22 90 08/03/17 08:18 103 23 95 08/03/17 08:13 105 24 94 08/03/17 08:08 102 29 96 08/03/17 08:03 97 25 97 08/03/17 08:01 104/64 08/03/17 07:58 95 24 97 08/03/17 07:54 92 Room Air 08/03/17 07:53 101 25 96 08/03/17 07:48 121 26 96 08/03/17 07:43 123 23 96 08/03/17 07:38 121 21 106/78 97 08/03/17 07:33 104 25 96 08/03/17 07:32 92 Room Air 08/03/17 07:32 96 Nasal Cannula 2.0 08/03/17 07:28 121 23 08/03/17 07:23 121 24 96 08/03/17 07:18 121 25 97 08/03/17 07:16 121 08/03/17 06:59 36.5 123 18 143/80 92 Room Air The patient is alert and oriented. Mood and affect appeared normal. He answered all questions appropriately. HEENT: Pupils are equal and reactive to light and accommodation. Extraocular movements are intact. The sclerae are anicteric. Neuro: Cranial nerves intact Neck: Patient's neck is supple. He has palpable carotid pulses bilaterally without bruits on auscultation. There is no evidence of jugular venous distention. The thyroid is not enlarged. Lungs: Clear to auscultation bilaterally. He has good air movement without use of accessory muscles. No rales wheezes or rhonchi. Cardiac: Heart demonstrates a regular rate and rhythm. Normal S1 and S2. No murmurs on examination. Chest: Pacemaker implant site healing well. No significant erythema. No ecchymosis or hematoma Pulses: The patient has palpable radial pulses bilaterally that are equal in intensity Extremities: There was no evidence of hypoperfusion. There is no cyanosis or clubbing. Some edema involving the left forearm. Skin: Erythema of the right hand Data Laboratory Results: Last 24 Hours Test 08/03/17 07:30 08/03/17 08:21 08/03/17 08:30 08/03/17 14:15 White Blood Count 4.71 K/uL Red Blood Count 3.84 M/uL Hemoglobin 10.1 g/dL Hematocrit 30.9 % Mean Corpuscular Volume 80.5 fL Mean Corpuscular Hemoglobin 26.3 pg Mean Corpuscular Hemoglobin Concent 32.7 g/dl Platelet Count 123 K/uL Neutrophils (%) (Auto) 62.7 % Lymphocytes (%) (Auto) 20.2 % Monocytes (%) (Auto) 7.9 % Eosinophils (%) (Auto) 1.1 % Basophils (%) (Auto) 0.2 % Neutrophils # (Auto) 2.96 K/uL Lymphocytes # (Auto) 0.95 K/uL Monocytes # (Auto) 0.37 K/uL Eosinophils # (Auto) 0.05 K/uL Basophils # (Auto) 0.01 K/uL RDW Standard Deviation 62.4 fL RDW Coefficient of Variation 21.7 % Immature Granulocyte % (Auto) 7.9 % Immature Granulocyte # (Auto) 0.37 K/uL Nucleated RBC Absolute Count (auto) 0.04 K/uL Nucleated Red Blood Cells % 0.9 % Hypogranular Neutrophils 1+ Platelet Estimate NORMAL Ovalocytes 1+ Echinocytes 2+ Acanthocytes 2+ Schistocytes 1+ Prothrombin Time 12.0 SECONDS Prothromb Time International Ratio 1.1 Activated Partial Thromboplast Time 29.4 SECONDS Partial Thromboplastin Ratio 1.1 Sodium Level 130 mmol/L Potassium Level mmol/L 3.2 mmol/L Chloride Level 96 mmol/L Carbon Dioxide Level 25 mmol/L Anion Gap 9.0 mmol/L Blood Urea Nitrogen 15 mg/dl Creatinine 0.80 mg/dl Est Creatinine Clear Calc Drug Dose 81.0 ml/min Estimated GFR () 102.0 Estimated GFR (Non- 88.0 BUN/Creatinine Ratio 18.3 Random Glucose 133 mg/dl Calcium Level 8.0 mg/dl Total Bilirubin 1.7 mg/dl Aspartate Amino Transf (AST/SGOT) U/L 16 U/L Alanine Aminotransferase (ALT/SGPT) 30 U/L Alkaline Phosphatase 73 U/L Troponin I < 0.015 ng/ml Pro-B-Type Natriuretic Peptide 7942 pg/ml Total Protein 6.4 gm/dl Albumin 2.5 gm/dl Globulin 3.9 gm/dl Albumin/Globulin Ratio 0.6 Magnesium Level 2.1 mg/dl Chemistry Specimen Hemolysis Urine Color ORANGE Urine Appearance CLEAR Urine pH 5.5 Urine Specific [place] 1.010 Urine Protein NEG Urine Glucose (UA) NEG Urine Ketones NEG Urine Occult Blood NEG Urine Nitrite NEG Urine Bilirubin NEG Urine Urobilinogen NEG Urine Leukocyte Esterase NEG Pleural Fluid pH 7.49 Imaging: Chest x ray demonstrated pleural effusions. CT chest demonstrated pleural effusions. No PE EKG:atrial tachycardia competing with sinus rhythm. Paced ventricular rhythm Device interrogation reveals normal device function. Mostly high atrial rates since implant. Assessment & Plan Acute decompensated diastolic heart failure: He had preserved LV function at the time of his last admission. He was sent home on a diuretic regimen which may have been inadequate. This may have been exacerbated by his persistent tachycardia. He will require additional diuresis. 2. Tachycardia: Atrial tachycardia. paroxysmal. Will continue amiodarone for now. Can monitor efficacy through his device. Maximum tracking rate changed to 115 BPM today. 3. Heart block. Normally-functioning dual chamber pacemaker.
[2017-08-03 15:35] LABS: PLEURAL FLUID TOTAL PROTEIN 1.9 g/dl
[2017-08-03 16:08] VITALS: BP 99/62; PULSE 82; TEMP 37.2; O2SAT 97
--- NOTE | 2017-08-03 16:30 | SURGICAL CONSULTATION ---
DATE OF CONSULTATION: 08/03/2017 REASON FOR CONSULTATION: Bilateral pleural effusions. 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 He did present this morning back to the Emergency Room with extreme shortness of breath, dyspnea on exertion, weight gain, and was found to have large pleural effusions. I was asked to see him as he has not responded well to diuretics alone. He is on amiodarone and Bumex for his atrial flutter and atrial tachycardia spur. He has also reported significant weight gain with significant lower extremity swelling. He is quite weak and "dizzy." I was asked to see him for these pleural effusions. He is on supplemental oxygen and is complaining of shortness of breath at rest. PAST MEDICAL HISTORY: 1. Metastatic prostate carcinoma. 2. Recent third-degree heart block. 3. Hyperlipidemia. 4. Anemia. 5. Episodes of congestive heart failure. 6. History of nephrolithiasis. PAST SURGICAL HISTORY: 1. Insertion of left infraclavicular pacemaker. 2. Robot-assisted laparoscopic radical prostatectomy with prior lymph node dissection in 2012. 3. Inguinal herniorrhaphy. MEDICATIONS: 1. Bumex: 2. Amiodarone. 3. Aspirin. 4. Xtandi. 5. Paxil. 6. Potassium supplements. 7. Pravachol. 8. Ultram. 9. Vitamin E. ALLERGIES: OXYCODONE. 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 Lived all over the [place] and went to primary school and college in [place], [place]. His parents are both of descent. He lives with his current and for 30 years. They retired here about 3-4 years ago from [facility] [facility] [employer]. He does not smoke cigarettes. He quit in 1984. Smoked for about 20 years. He does not really drink alcohol. FAMILY MEDICAL HISTORY: The patient's father from carcinoma of the prostate. His also suffered a stroke. His 2 children are healthy. He has no grandchildren. REVIEW OF SYSTEMS: The patient has become much more weakened and fatigued. He denies productive cough or fevers. He has had no chills or night sweats. He denies any worsening of his vision, but he does wear hearing aids and has very poor hearing. However, his states this is unchanged. He has had weight gain and with edema of his lower legs. He has had shortness of breath, dyspnea on exertion. His cough has not been productive of sputum. He has orthopnea. He has noted some palpitations. Denies chest pain per se. He has had no nausea or vomiting or diarrhea. He states his urinary output has not really gone up with the Bumex. He has had several areas on both upper extremities which are erythematous and tender, which he attributes to "I am putting my dose of IVs." It looks like he may have mild phlebitis. Neurologically, he has no obvious focal deficits other than his decreased hearing. He has trace to 1+ edema of his lower legs but no joint effusions now. PHYSICAL EXAMINATION: GENERAL: This is a 5 feet 9 inches, 184 pound male who is awake, alert, and oriented. HEENT: His sclerae appeared to be mildly icteric. Pupils are equally, round, reactive, and small. His oral mucosa is moist. Tongue is midline. He has no nasolabial flattening. NECK: He has no obvious supraclavicular or cervical lymphadenopathy but he does have some mild neck vein distention at 30 degrees. LUNGS: He has decreased breath sounds upon auscultation of both lungs. HEART: He has got some mild swelling under his left infraclavicular pacemaker; this would be extracted less than a week after its insertion. Incision appears to be intact. He has a regular rhythm of his heart about 110-115 beats per minute. He has no real rub. ABDOMEN: Soft, nontender. He has had trace edema of the lower legs with no joint effusions. NEUROLOGIC: He is awake, alert, and oriented. He has no skin breakdown. ASSESSMENT AND PLAN: I reviewed his bilateral large homogenous effusions. I had a long talk with the patient and his . I believe that a thoracentesis would be helpful from both a diagnostic and therapeutic standpoint. We will offer that to him under ultrasound guidance today. DARWIN
[2017-08-03 16:33] VITALS: O2SAT 97
--- NOTE | 2017-08-03 16:49 | OPERATIVE REPORT ---
DATE OF OPERATION: 08/03/2017 PREOPERATIVE DIAGNOSIS: Large bilateral homogenous effusions. POSTOPERATIVE DIAGNOSIS: Same. PROCEDURE PERFORMED: Right ultrasound-guided thoracentesis. SURGEON: Dex Cash MD CO-SURGEON: KAVYA Carrillo ANESTHESIA: Local. SPECIFICS OF PROCEDURE: The patient was seen at the bedside after a long discussion with the patient and his . They are agreeable. Appropriate consent had been signed. We used an ultrasound to find a window, it was a bit lateral to the midclavicular line posteriorly. The patient was prepped and draped in usual sterile fashion. After appropriate timeout had been called, a skin wheal was raised with a 25 gauge needle, 1% Xylocaine. A large bore needle was used to enter the pleural cavity. We had no bleeding whatsoever. He tolerated it well. We drained out 1100 mL of a serous yellow fluid. He tolerated it well. PROCEDURE: The patient was sat in the upright position. After the ultrasound had been used to find a spot, this was prepped and draped in usual sterile fashion. A 25-gauge needle, 1% Xylocaine were used to anesthetize the skin and subcutaneous tissues. A larger needle was used to anesthetize the intercostal muscles and pleura and then a guidewire was inserted through the needle and free flowing fluid was obtained. A dilator was slid over the guidewire to enlarge the insertion site and removed. Triple lumen catheter was slid into 17 cm and a total of 1100 mL of a yellowish fluid was drained. pH was 7.55 on the i-STAT. The patient tolerated it quite well. After draining off 1100 mL to a point where he had no more fluid, a chest x-ray showed no fluid on the right side. He tolerated it quite well. The fluid was sent to the lab. I attest to the content of the Intraoperative Record and any orders documented therein. Any exception s are noted below.
--- NOTE | 2017-08-03 18:40 | DIAGNOSTIC IMAGING REPORT ---
L VENOUS DOPPLER UPR EXT UNIL HISTORY: 76 years-old Male assess for DVT vs superficial thrombosis acute swelling of the left upper extremity COMPARISON: None available TECHNIQUE: Duplex venous Doppler of the left upper extremity was obtained assessing grayscale appearance, color and spectral flow FINDINGS: Limited view of the subclavian vein due to presence of pacer leads. Occlusive thrombus is noted within the cephalic vein extending from the proximal to distal forearm. No sonographic evidence of deep venous thrombosis within the left upper extremity. IMPRESSION: 1. No sonographic evidence of deep venous thrombosis. 2. Occlusive thrombus involves the cephalic vein. The above report was generated using voice recognition software. It may contain grammatical, syntax or spelling errors. Electronically signed by: Shadi Rondon M.D. 08/03/2017 6:39 PM Dictated Date/Time: 08/03/2017 6:36 PM
[2017-08-03 19:26] VITALS: BP 115/73; PULSE 87; TEMP 36.9; O2SAT 98
[2017-08-03] MEDS: AMIODARONE 200 MG TAB PO SCH (21:18)
[2017-08-03 23:54] VITALS: BP 101/60; PULSE 115; TEMP 36.8; O2SAT 94
[2017-08-04] VITALS (9 sets, daily range): BP systolic 94–114; BP diastolic 62–76; PULSE 83–115; TEMP 36.7–38.1; O2SAT 92–98
[2017-08-04] MEDS: VANCOMYCIN IV 1,250 MG in SODIUM CHLORIDE 0.9% 250ML 250 ML IV SCH ×2 (02:16→14:16)
[2017-08-04] MEDS: CEFAZOLIN IV 1,000 MG in SYRINGE 0 ML IV SCH ×3 (06:18→21:13)
[2017-08-04 06:40] LABS: MEAN CORPUSCULAR HGB CONC 32.5 g/dl (32-36); NUCLEATED RED BLOOD CELL ABS 0.04 K/uL (0-0)
[2017-08-04 06:47] LABS: HEMATOCRIT 26.5 % (42-52); HEMOGLOBIN 8.6 g/dL (14.0-18.0); MEAN CELL VOLUME 80.8 fL (80-100); MEAN CORPUSCULAR HEMOGLOBIN 26.2 pg (25-34); RED CELL DISTRIBUTION WIDTH CV 22.2 % (11.5-14.5); RED CELL DISTRIBUTION WIDTH SD 64.4 fL (36.4-46.3); WHITE BLOOD COUNT 3.93 K/uL (4.8-10.8)
--- NOTE | 2017-08-04 07:02 | DIAGNOSTIC IMAGING REPORT ---
CHEST ONE VIEW PORTABLE HISTORY: 76 years-old Male effusion follow-up study in a patient with pleural effusion COMPARISON: Chest radiograph 08/03/2017, CTA chest 08/03/2017 TECHNIQUE: Portable AP view of the chest FINDINGS: Cardiac silhouette is enlarged, unchanged. Left subclavian pacer appears stable. There is no pneumothorax. Small bilateral pleural effusions with bibasilar opacities redemonstrated, mildly worsened on the right. Pulmonary vascular congestion with interstitial coarsening. The degree of pulmonary edema appears slightly progressed from comparison chest radiograph. Bones of the chest appear grossly intact. 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 IMPRESSION: 1. Cardiomegaly with mild pulmonary edema. 2. Small bilateral pleural effusions with bibasilar opacities, progressive within the right lung base suggesting compressive atelectasis. The above report was generated using voice recognition software. It may contain grammatical, syntax or spelling errors. Electronically signed by: Shadi Rondon M.D. 08/04/2017 7:00 AM Dictated Date/Time: 08/04/2017 6:57 AM
[2017-08-04 07:10] LABS: CALCIUM 7.5 mg/dl (8.5-10.1); CREATININE 0.59 mg/dl (0.60-1.40); POTASSIUM 3.5 mmol/L (3.5-5.1)
[2017-08-04 07:29] LABS: PLATELET COUNT 115 K/uL (130-400)
--- NOTE | 2017-08-04 08:57 | DIAGNOSTIC IMAGING REPORT ---
SINGLE VIEW CHEST CLINICAL HISTORY: Status post thoracentesis. FINDINGS: An AP, portable, upright chest radiograph is compared to study performed earlier the same day 08/04/2017 and correlated with chest CT dated 08/03/2017. The examination is degraded by portable technique and patient rotation. A 2-lead cardiac pacemaker is unchanged in position. The heart is enlarged and there is atherosclerotic calcification of the thoracic aorta. There is pulmonary vascular congestion and mild interstitial edema. There are layering pleural effusions with bibasilar consolidation. No pneumothorax is seen. The skeletal structures are osteopenic. Degenerative changes noted throughout the thoracic spine. IMPRESSION: 1. No pneumothorax is identified post procedure 2. Cardiomegaly and cardiac pacemaker with evidence of congestive failure. 3. There are small pleural effusions with bibasilar consolidation. The left pleural effusion appears decreased in size from earlier today. Electronically signed by: Xander Knott M.D. 08/04/2017 8:56 AM Dictated Date/Time: 08/04/2017 8:54 AM
[2017-08-04] MEDS ORDERED: POTASSIUM CHLORIDE 10 MEQ TABCR PO SCH (09:00)
[2017-08-04] MEDS ORDERED: FUROSEMIDE INJ 40 MG in SYRINGE 0 ML IV SCH (09:00)
--- NOTE | 2017-08-04 09:25 | ECHOCARDIOGRAM REPORT ---
*NOTICE TO RECEIVING LIBERTARIAN AGENCY This information is strictly Confidential and protected under [place] law. [place] law prohibits you from making any further disclosure of this information unless further disclosure is expressly permitted by the written consent of the person to whom it pertains or is authorized by law. A general authorization for the release of medical or other information is not sufficient for this purpose. Hospital accepts no responsibility if the information is made available to any other person, INCLUDING THE PATIENT. Interpretation Summary * Name: REX GARCIA Study Date: 08/04/2017 07:13 AM BP: 100/68 mmHg * Patient Location: C.2T\S\E222\S\1 HR: 96 * : 1940 (M/d/yyy) Gender: Male Height: 69 in * Age: 76 yrs Ethnicity: CA Weight: 184 lb * Ordering Physician: Gus Parikh * Referring Physician: Self, Referred * Performed By: Anna Camargo, [facility] * * Reason For Study: LV FUNCTION * BSA: 2.0 m2 * -- Conclusions -- * Limited study to evaluate LV systolic function * Borderline normal LV systolic function * Ejection fraction 50% * Septal akinesis * Large pleural effusion * Trace pericardial effusion Procedure Details * Limited views were obtained. * Limited study to evaluate LV systolic function MMode 2D Measurements and Calculations IVSd 1.5 cm IVSs 2.0 cm LVIDd 4.9 cm LVIDs 3.6 cm LVPWd 1.2 cm LVPWs 1.3 cm IVS/LVPW 1.3 FS 27.2 % EDV(Teich) 114.2 ml ESV(Teich) 53.9 ml EF(Teich) 52.8 % EDV(cubed) 119.5 ml ESV(cubed) 46.1 ml EF(cubed) 61.4 % % IVS thick 33.0 % % LVPW thick 7.9 % LV mass(C)d 273.6 grams LV mass(C)dI 137.2 grams/m\S\2 LV mass(C)s 236.8 grams LV mass(C)sI 118.8 grams/m\S\2 SV(Teich) 60.3 ml SI(Teich) 30.3 ml/m\S\2 SV(cubed) 73.4 ml SI(cubed) 36.8 ml/m\S\2 Ao root diam 3.5 cm Ao root area 9.4 cm\S\2 LA dimension 3.8 cm LA/Ao 1.1 LVOT diam 2.0 cm LVOT area 3.2 cm\S\2
--- NOTE | 2017-08-04 09:40 | OPERATIVE REPORT ---
DATE OF OPERATION: 08/04/2017 PREOPERATIVE DIAGNOSIS: Left pleural effusion. POSTOPERATIVE DIAGNOSIS: Left pleural effusion. PROCEDURE: Left thoracentesis under ultrasound guidance. SURGEON: Dex Cash MD CUTTER OPERATOR TILE: KAVYA Coombs (MrMichelle Coombs was present for the entirety of the case.) ANESTHESIA: Local. SPECIFICS OF PROCEDURE: This is a 76-year-old male who has a few different issues, one being congestive heart failure. He underwent a thoracentesis for 1100 mL on the right yesterday and has been greatly improved. He had a pacemaker placed a week ago and Dr. Gus Parikh is still fine-tuning that. I had a long talk with the patient and his and explained to them that the x-ray today and yesterday looked much better after thoracentesis, although there is a little bit of fluid on the right which has been reaccumulating today. I told he still has significant amount of fluid on the left. After a long discussion, they tolerated it so well and he felt so much better. He asked if we would do a left thoracentesis. We agreed. I discussed this with Dr. Parikh. DESCRIPTION OF PROCEDURE: The patient was sitting upright. Ultrasound was used to sonya the space in the left chest a bit lateral to the midclavicular line. He was prepped and draped in usual sterile fashion. Appropriate timeout had been called. A 25-gauge needle and 1% Xylocaine used to raise a skin wheal and a large bore needle was used to anesthetize the deeper muscle layers and the pleura. When we got free-flowing fluid back, the syringe was removed, a guidewire was inserted through the needle, and the needle removed. A dilator was slid over the guidewire and then removed. Triple lumen catheter was slid over the guidewire and then the guidewire was removed. 1100 mL of a yellow-nassar fluid was drained. This looked similar in appearance to yesterday's fluid which was a transudate, probably related to his heart failure. He tolerated it well, had some mild coughing at the conclusion. It appeared we did drain him dry. Chest x-ray is pending. The catheter was removed. An antimicrobial dressing was placed. He tolerated it well. I attest to the content of the Intraoperative Record and any orders documented therein. Any exception s are noted below.
[2017-08-04] MEDS: AMIODARONE 200 MG TAB PO SCH ×2 (09:57→21:04)
[2017-08-04] MEDS: PRAVASTATIN SOD 20 MG TAB PO SCH (09:58)
[2017-08-04] MEDS: ASPIRIN 81 MG ECTAB PO SCH (09:58)
[2017-08-04] MEDS: PAROXETINE 20 MG TAB PO SCH (09:59)
[2017-08-04] MEDS: ENZALUTAMIDE 40 MG CAP PO SCH (09:59)
--- NOTE | 2017-08-04 13:34 | Hospitalist Progress Note ---
Hospitalist Progress Note Date of Service Aug 04, 2017. (Rosita Ivy ., AMADOUC) Subjective Pt evaluation today including: conversation w/ patient, physical exam, chart review, lab review, review of studies, review of inpatient medication list Pain: None PO Intake: Tolerating PO diet Voiding: no voiding problems The patient reports feeling fatigued and was sleeping on my arrival this afternoon. The patient otherwise reports feeling well. He denies any shortness of breath currently. He denies cough and wheezing and chest pain. He had a thoracentesis of the right side yesterday after admission and thoracentesis of the left side this morning. He tolerated these procedures well. The patient denies fevers, chills, sweats, chest pain, palpitations, claudication, cough, wheezing, shortness of breath, nausea, vomiting, abdominal pain, dysuria, hematuria, urinary retention, paralysis, weakness, numbness and tingling. Additional Comments: See HPI for pertinent positives and negatives. All other systems reviewed and negative. (Rosita Ivy ., AMADOUC) Objective Vital Signs Date Time Temp Pulse Resp B/P (MAP) Pulse Ox O2 Delivery O2 Flow Rate FiO2 08/04/17 12:00 94 Room Air 08/04/17 11:39 36.7 85 18 114/76 (89) 98 08/04/17 08:00 93 Room Air 08/04/17 07:29 37.2 115 22 94/62 (73) 92 Room Air 08/04/17 05:16 37.3 97 19 100/68 (79) 94 Room Air 08/04/17 04:02 Room Air 08/04/17 00:00 Room Air 08/03/17 23:54 36.8 115 20 101/60 (74) 94 Room Air 08/03/17 20:01 Oxymask 2.0 08/03/17 19:26 36.9 87 22 115/73 (87) 98 Oxymask 2.0 08/03/17 16:33 97 Oxymask 15.0 08/03/17 16:08 37.2 82 18 99/62 (74) 97 Oxymask 3.0 08/03/17 13:15 36.5 115 22 131/83 (99) 93 Oxymask 3.0 08/03/17 13:15 93 Oxymask 3.0 (Rosita Ivy .AMADOUC) Physical Exam Notes: General appearance: Well-developed, well-nourished, no apparent distress Head: Normocephalic, atraumatic Eyes: Normal inspection, PERRL, EOMI ENT: Normal ENT inspection, hearing grossly normal, pharynx normal Neck: Supple, no JVD, trachea midline Respiratory/Chest: +Incision from pacemaker implantation healing, covered in Steri Strips. Decreased lung sounds in bases bilaterally. Lungs clear to auscultation, no respiratory distress Cardiovascular: Regular rate and rhythm, no gallop, no murmur Abdomen/GI: Normal bowel sounds, non-tender, soft Extremities/Musculoskeletal: +1+ pitting edema in ankles b/l. Erythema and palpable cord in left forearm, improved. Erythema and edema right hand improved. No calf tenderness Neurological/Psych: Alert, normal mood/affect, oriented x 3 Skin: Normal color, warm/dry, no rash (Rosita Ivy .KAVYA-C) Laboratory Results Last 24 Hours Test 08/03/17 14:15 08/03/17 19:08 08/04/17 06:11 08/04/17 08:30 Pleural Fluid Source RIGHT LUNG LEFT LUNG Pleural Fluid Color PALE YELLOW PALE YELLOW Pleural Fluid Appearance CLEAR CLEAR Pleural Fluid WBC 27 /uL 57 /uL Pleural Fluid RBC < 3000 /uL < 3000 /uL Pleural Fluid pH 7.49 7.47 Pleural Fluid Polynuclear WBCs % 11.1 % 39.6 % Pleural Fluid Mononuclear WBCs % 88.9 % 60.4 % Pleural Fluid Total Protein 1.9 g/dl 2.0 g/dl Pleural Fluid LDH 63 IU 61 IU Pleural Fluid Glucose 123 mg/dl 111 mg/dl Pleural Fluid Amylase 8 U/L 7 U/L Lactate Dehydrogenase 166 U/L White Blood Count 3.93 K/uL Red Blood Count 3.28 M/uL Hemoglobin 8.6 g/dL Hematocrit 26.5 % Mean Corpuscular Volume 80.8 fL Mean Corpuscular Hemoglobin 26.2 pg Mean Corpuscular Hemoglobin Concent 32.5 g/dl RDW Standard Deviation 64.4 fL RDW Coefficient of Variation 22.2 % Platelet Count 115 K/uL Nucleated RBC Absolute Count (auto) 0.04 K/uL Nucleated Red Blood Cells % 1.0 % Sodium Level 134 mmol/L Potassium Level 3.5 mmol/L Chloride Level 102 mmol/L Carbon Dioxide Level 27 mmol/L Anion Gap 5.0 mmol/L Blood Urea Nitrogen 14 mg/dl Creatinine 0.59 mg/dl Est Creatinine Clear Calc Drug Dose 109.9 ml/min Estimated GFR () 115.6 Estimated GFR (Non- 99.7 BUN/Creatinine Ratio 24.4 Random Glucose 105 mg/dl Calcium Level 7.5 mg/dl Magnesium Level 2.4 mg/dl (Rosita Ivy, LYNN) Diagnostic Results Reviewed the following studies and agree with interpretation as follows: L VENOUS DOPPLER UPR EXT UNIL HISTORY: 76 years-old Male assess for DVT vs superficial thrombosis acute swelling of the left upper extremity COMPARISON: None available TECHNIQUE: Duplex venous Doppler of the left upper extremity was obtained assessing grayscale appearance, color and spectral flow FINDINGS: Limited view of the subclavian vein due to presence of pacer leads. Occlusive thrombus is noted within the cephalic vein extending from the proximal to distal forearm. No sonographic evidence of deep venous thrombosis within the left upper extremity. IMPRESSION: 1. No sonographic evidence of deep venous thrombosis. 2. Occlusive thrombus involves the cephalic vein. CHEST ONE VIEW PORTABLE HISTORY: 76 years-old Male effusion follow-up study in a patient with pleural effusion COMPARISON: Chest radiograph 08/03/2017, CTA chest 08/03/2017 TECHNIQUE: Portable AP view of the chest FINDINGS: Cardiac silhouette is enlarged, unchanged. Left subclavian pacer appears stable. There is no pneumothorax. Small bilateral pleural effusions with bibasilar opacities redemonstrated, mildly worsened on the right. Pulmonary vascular congestion with interstitial coarsening. The degree of pulmonary edema appears slightly progressed from comparison chest radiograph. Bones of the chest appear grossly intact. 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 IMPRESSION: 1. Cardiomegaly with mild pulmonary edema. 2. Small bilateral pleural effusions with bibasilar opacities, progressive within the right lung base suggesting compressive atelectasis. [~ rep ct add3]] SINGLE VIEW CHEST CLINICAL HISTORY: Status post thoracentesis. FINDINGS: An AP, portable, upright chest radiograph is compared to study performed earlier the same day 08/04/2017 and correlated with chest CT dated 08/03/2017. The examination is degraded by portable technique and patient rotation. A 2-lead cardiac pacemaker is unchanged in position. The heart is enlarged and there is atherosclerotic calcification of the thoracic aorta. There is pulmonary vascular congestion and mild interstitial edema. There are layering pleural effusions with bibasilar consolidation. No pneumothorax is seen. The skeletal structures are osteopenic. Degenerative changes noted throughout the thoracic spine. IMPRESSION: 1. No pneumothorax is identified post procedure 2. Cardiomegaly and cardiac pacemaker with evidence of congestive failure. 3. There are small pleural effusions with bibasilar consolidation. The left pleural effusion appears decreased in size from earlier today. Limited echocardiogram: Interpretation Summary * Name: REX GARCIA Study Date: 08/04/2017 07:13 AM BP: 100/68 mmHg * Patient Location: .2T\S\E222\S\1 HR: 96 * : 1940 (M/d/yyyy) Gender: Male Height: 69 in * Age: 76 yrs Ethnicity: [place] Weight: 184 lb * Ordering Physician: Gus Parikh * Referring Physician: Self, Referred * Performed By: Anna Camargo, [facility] * * Reason For Study: LV FUNCTION * BSA: 2.0 m2 * -- Conclusions -- * Limited study to evaluate LV systolic function * Borderline normal LV systolic function * Ejection fraction 50% * Septal akinesis * Large pleural effusion * Trace pericardial effusion Procedure Details * Limited views were obtained. * Limited study to evaluate LV systolic function (Rosita Ivy ., LYNN) Assessment and Plan 76 y/o male with a history of metastatic prostate cancer, pancytopenia due to chemo, HLD, and anxiety/depression who was admitted to [facility] last week with complete heart block s/p pacemaker who presented to the ED on 08/03 with shortness of breath, dyspnea on exertion and weight gain. Pt tachycardic on arrival, otherwise VSS. CXR with evidence fluid overload and bilateral pleural effusions. CTA chest negative fro PE, does show moderate bilateral pleural effusions. Osteoblastic metastasis stable from previous. Potassium 3.2. BNP 7942. Acute on chronic diastolic heart failure--ongoing -Admit to telemetry. No acute events overnight. Pt in paced rhythm with HR 80s -115 -Daily weights, strict I's & O's -UO 725 cc, net balance -425 cc on 08/03 -Lasix 40 mg IV qd. Hold off on more aggressive diuresis due to low normal BP -Hold home Bumex -Low sodium diet -Last echocardiogram 07/27/17 showed EF 55-60%. No WMA. Mild to moderate dilated RV. Mild mitral and tricuspid regurg. Mild to moderate pulmonary HTN with PASP 45-50 mmHg. -Repeat limited echo shows EF 50%. Septal akinesis. Large pleural effusion. Trace pericardial effusion. -Consult cardiology, appreciate recs: Continue diuresis. Repeat limited echo cardiogram. Continue amiodarone for now. Change maximum tracking rate of pacer to 115 bpm. Moderate bilateral pleural effusions secondary to CHF vs malignancy--improving -Consult thoracic surgery, appreciate recs: Thoracentesis of left side today, pleural fluid sent to lab -S/p thoracentesis of right side on 08/03, drained 1100 cc pale yellow fluid -S/p thoracentesis of left side 08/04, drained another 1100 cc, fluid appears similar to right side -Pleural fluid cultures, pathology pending. Appears to be transudative, likely due to CHF rather than malignancy -Repeat CXR after left thoracentesis consistent with CHF. Small pleural effusions w/bibasilar consolidation. The left pleural effusion appears decreased in size from earlier CXR today. Complete heart block s/p pacemaker, atrial tachycardia, recent a-flutter--stable -Pacemaker interrogated, periods of atrial tach -Continue ASA, amiodarone 400 mg PO BID for now. Pt was to decrease to 200 mg PO qd on 08/05 -Prolonged QTc improved, down to 569 Superficial thrombosis LUE, possible cellulitis right hand--improving -Venous Doppler ultrasound LUE negative for DVT, shows occlusive thrombus involving the cephalic vein -D/c vancomycin -Cefazolin 1 gm IV q8h -Warm compresses to LUE Hypokalemia--resolved -Potassium 3.5 on 08/04, up from 3.2 -Magnesium WNL -Continue home KCl 10 mEq PO qd Metastatic prostate cancer with h/o radiation--stable -Continue Xtandi 120 mg PO qd, will bring in -Lupron injections q 4 months -Xgeva stopped per Pancytopenia due to chemo drugs--stable HLD -Continue pravastatin 20 mg PO qd Anxiety/depression -Continue Paxil 10 mg PO qd DVT prophylaxis -Enoxaparin 40 mg SC q24h -KALIE muhammad and [place] Code Status -Level I, FULL RESUSCITATION STATUS (Rosita Ivy PA-C) I personally interviewed and examined the patient. I agree with history of present illness and physical exam mentioned above, I also performed my own history taking and examination. Past medical history and review of system has been obtained by myself I reviewed all pertinent labs and studies Reviewed current medications I discussed and formulated of the assessment and plan mentioned above. Please refer to the Summary mentioned below. 76-year-old man with history of metastatic prostate cancer, chemotherapy complicated by pancytopenia, dyslipidemia and anxiety. Patient was found to have a complete heart block about 1 week ago status post pacemaker placement.. Patient was discharged home and noticed that he is gaining weight slowly and getting progressively short of breath. Presented to the ED with severe shortness of breath found to have large pleural effusion. Status post thoracocentesis 1100cc was removed appears to be transudate has a protein of 1.9, serum protein 6.4 , fluid protein/serum protein ratio is less than 0.5 LDH and fluid is 63, ordered LDH and serum to confirm. PH was more than 7.4 which is an indication that it is a transudate and not empyema and also glucose was elevated. Patient received 40 mg of Lasix IV, will check labs in a.m. and continue diuresis as needed, will check I and O's. Restaurant Line Cook consult appreciated. Pacemaker was recalibrated to maximum heart rate of 115. Status post contralateral thoracocentesis with 1100 cc removed. Patient feels much better Currently not in acute distress General Appearance: Appears to be not in distress Eyes: normal Sclerae, extraocular muscle intact ENT: hearing grossly normal Neck: supple Respiratory/Chest: Better air entry bilaterally /scattered rhonchi Cardiovascular: regular rate, tachycardia rhythm, no murmur Abdomen: non tender, soft, no masses Extremities: no edema musculoskeletal: no significant swelling or inflammation in any joint Neurologic/Psychiatric: Awake alert oriented times place and person moves all extremities sensation intact cranial nerves II-12 appear to be intact Skin: normal color, warm/dry, no rash Brittney Acosta MD, [facility] (Brittney Elliott MD)
[2017-08-04] MEDS: ENOXAPARIN 40 MG/0.4 ML SYR SC SCH (14:17)
--- NOTE | 2017-08-04 15:09 | Surgery Consultation ---
Consultation Date of Service Aug 04, 2017. Chief Complaint Superficial phlebitis cephalic vein left arm History of Present Illness The patient is a 76 year old male who was found to have thrombosis of the left forearm cephalic vein. He is sleeping at present. states he had IV's in both arms and that his right hand is also warm to touch Vitals Vital Signs Past 12 Hours Date Time Temp Pulse Resp B/P (MAP) Pulse Ox O2 Delivery O2 Flow Rate FiO2 08/04/17 12:00 94 Room Air 08/04/17 11:39 36.7 85 18 114/76 (89) 98 08/04/17 08:00 93 Room Air 08/04/17 07:29 37.2 115 22 94/62 (73) 92 Room Air 08/04/17 05:16 37.3 97 19 100/68 (79) 94 Room Air 08/04/17 04:02 Room Air Allergies Coded Allergies: Oxycodone (Verified Adverse Reaction, Intermediate, confusion, 08/03/17) PER DR CARMICHAEL, Per his conversation with patient, reaction to Percocet was confusion, not difficulty breathing. Home Medications Scheduled Amiodarone HCl (Amiodarone HCl), 400 MG PO BID Amiodarone HCl (Amiodarone HCl), 200 MG PO DAILY Aspirin (Aspirin Ec), 81 MG PO DAILY Bumetanide (Bumex), 1 TAB PO DAILY Calcium Carbonate-Cholecalcife (Calcium 600+D 600-800 mg-Unit), 1 TAB PO BID Cholecalciferol (Vitamin D), 2,000 UNITS PO DAILY Enzalutamide (Xtandi), 120 MG PO DAILY Fish Oil (Partridge-3), 1 CAP PO DAILY Leuprolide Acetate (Lupron Depot), 30 MG IM UD Multivitamin (Multivitamin), 1 TAB PO DAILY Paroxetine Hcl (Paxil), 10 MG PO DAILY Potassium Chloride (Potassium Chloride Er), 1 CAP PO DAILY Pravastatin (Pravachol ), 20 MG PO DAILY Probiotic Product (Probiotic), 1 CAP PO DAILY Vitamin E (E-400), 400 UNITS PO DAILY Scheduled PRN Tramadol (Ultram), 50 MG PO TID PRN for Pain Triamcinolone Acet (Triamcinolone Acetonide), 1 APPLN TOP BID PRN for Itching Problem List Medical Problems: (1) Anemia (2) Congestive heart failure (3) Hyperlipidemia (4) Lethargy (5) Pleural effusion (6) Prostate cancer (7) Third degree heart block (8) Weakness Surgical / Medical History Hx Cardiac Surgery: Yes (PACEMAKER ) Hx Abdominal Surgery: Yes (HERNIA ) Hx Cancer Surgery: Yes (prostate) Hx Thoracic Surgery: No Hx Orthopedic: No Hx Urinary Tract Surgery: Yes (prostate romoved 2013) HX Other Surgery: No Family History Cancer (prostate) FATHER Stroke Social History Smoking Status: Former Smoker Hx Tobacco Use In Past Year?: Yes (Cigars) Hx Alcohol Use - Type & Amnt: Yes (OCC WINE ) Hx Substance Use -Type & Amnt: No Review of Systems Additional Comments: not obtainable Physical Exam Peripheral Pulses: Brachial Pulses: normal on the left, normal on the right Radial Pulse: normal on the left, normal on the right Extremities: Upper Right: no cyanosis, no edema, no varicosities, no palpable cord, no clubbing, no ulcers, no mottling, pertinent finding (erythema of right dorsum of hand) Upper Left: no cyanosis, no varicosities, no palpable cord, no clubbing, no ulcers, no mottling, edema, pertinent finding (left forearm edematous with erythema along the cephalic vein with warmth) Assessment and Plan Imp; Superficial phlebitis both upper extremities Plan: Would treat with warm compresses and anti inflammatories. Thank you very much for letting me participate in the care of this patient. Please call if needed.
--- NOTE | 2017-08-04 19:46 | Cardiology Follow-Up ---
Subjective Date of Service: Aug 04, 2017. Pt evaluation today including: conversation w/ patient, conversation w/ family , physical exam, chart review, lab review, review of studies, conversation w/ information security consultant, review of inpatient medication list History of Present Illness This afternoon he reports feeling better. His breathing is "good". He has been minimally ambulatory but mostly up in a chair. No chest pain. He is concerned about being tired and fatigued. Social History Smoking Status: Former Smoker History of Alcohol Use: Yes (OCC WINE ) Review of Systems Respiratory: + shortness of breath, + dyspnea on exertion Cardiac: + edema Per HPI. No recent fevers. Objective Vital Signs Past 12 Hours Date Time Temp Pulse Resp B/P (MAP) Pulse Ox O2 Delivery O2 Flow Rate FiO2 08/04/17 16:11 36.9 108 20 102/66 (78) 98 Room Air 08/04/17 16:08 94 Room Air 08/04/17 12:00 94 Room Air 08/04/17 11:39 36.7 85 18 114/76 (89) 98 08/04/17 08:00 93 Room Air Last Recorded Weight-Kilograms: 84.000 Intake & Output 8-Hour Column 08/04/17 08/05/17 08/05/17 16:00 00:00 08:00 Intake Total 370 ml Output Total 300 ml Balance 70 ml 24-Hour Column 08/05/17 08:00 Intake Total 370 ml Output Total 300 ml Balance 70 ml Physical Exam Peripheral Pulses: Radial Pulse: normal on the left, normal on the right Chest: Pacemaker site C/D/I. No erythema Lungs: Crackles in the bases bilaterally. Ext: Notable lower extremity edema. Rt hand with erythema and mild swelling. Ecchymosis of the left forearm. Data Laboratory Results: Last 24 Hours Test 08/04/17 06:11 08/04/17 08:30 White Blood Count 3.93 K/uL Red Blood Count 3.28 M/uL Hemoglobin 8.6 g/dL Hematocrit 26.5 % Mean Corpuscular Volume 80.8 fL Mean Corpuscular Hemoglobin 26.2 pg Mean Corpuscular Hemoglobin Concent 32.5 g/dl RDW Standard Deviation 64.4 fL RDW Coefficient of Variation 22.2 % Platelet Count 115 K/uL Nucleated RBC Absolute Count (auto) 0.04 K/uL Nucleated Red Blood Cells % 1.0 % Sodium Level 134 mmol/L Potassium Level 3.5 mmol/L Chloride Level 102 mmol/L Carbon Dioxide Level 27 mmol/L Anion Gap 5.0 mmol/L Blood Urea Nitrogen 14 mg/dl Creatinine 0.59 mg/dl Est Creatinine Clear Calc Drug Dose 109.9 ml/min Estimated GFR () 115.6 Estimated GFR (Non- 99.7 BUN/Creatinine Ratio 24.4 Random Glucose 105 mg/dl Calcium Level 7.5 mg/dl Magnesium Level 2.4 mg/dl Pleural Fluid Source LEFT LUNG Pleural Fluid Color PALE YELLOW Pleural Fluid Appearance CLEAR Pleural Fluid WBC 57 /uL Pleural Fluid RBC < 3000 /uL Pleural Fluid pH 7.47 Pleural Fluid Polynuclear WBCs % 39.6 % Pleural Fluid Mononuclear WBCs % 60.4 % Pleural Fluid Total Protein 2.0 g/dl Pleural Fluid LDH 61 IU Pleural Fluid Glucose 111 mg/dl Pleural Fluid Amylase 7 U/L Telemetry reviewed: Long periods of normal sinus with some sustained episodes of AT Limited echocardiogram revealed septal akinesis with some element of reduced LV function and dyssynchrony Assessment and Plan Acute decompensated diastolic heart failure: He feels much better after his thoracentesis. He had only a mild diuresis on his current lasix regimen. i think he will need a more aggressive diuresis. His LV function is likely compromised by his pacemaker and his tachycardia. 2. Tachycardia: Atrial tachycardia. paroxysmal. Will continue amiodarone for now. Can monitor efficacy through his device. Maximum tracking rate changed to 115 BPM today. If he has not had significant improvement in a couple of days I think we can stop the amiodarone and simply re-program his device. Another option would be catheter-based therapy (ie ablation) 3. Heart block. Normally-functioning dual chamber pacemaker.
[2017-08-04] MEDS: FUROSEMIDE INJ 40 MG in SYRINGE 0 ML IV SCH (21:03)
[2017-08-04] MEDS: POTASSIUM CHLORIDE 10 MEQ TABCR PO SCH (21:04)
[2017-08-05 04:37] VITALS: BP 105/63; PULSE 116; TEMP 36.9; O2SAT 93
[2017-08-05] MEDS: CEFAZOLIN IV 1,000 MG in SYRINGE 0 ML IV SCH ×3 (06:10→20:59)
--- NOTE | 2017-08-05 07:15 | DIAGNOSTIC IMAGING REPORT ---
CHEST ONE VIEW PORTABLE HISTORY: 76 years-old Male effusion follow-up study in a patient with pleural effusion COMPARISON: Chest radiograph 08/04/2017 TECHNIQUE: Portable AP view of the chest FINDINGS: Cardiac silhouette is again mildly enlarged. Left subclavian pacer appears unchanged. There is no pneumothorax. Small bilateral pleural effusions with bibasilar consolidative opacities are redemonstrated, slightly worsened on the left from comparison. Mild pulmonary vascular congestion with linear subsegmental right perihilar opacity compatible with atelectasis. Size of the pleural effusions appear unchanged. Bones of the chest appear grossly intact. Degenerative changes are seen within the spine. IMPRESSION: 1. Cardiomegaly with mild pulmonary vascular congestion. 2. Small bilateral pleural effusions persist with bibasilar consolidative opacities, slightly progressed on the left. The above report was generated using voice recognition software. It may contain grammatical, syntax or spelling errors. Electronically signed by: Shadi Rondon M.D. 08/05/2017 7:14 AM Dictated Date/Time: 08/05/2017 7:12 AM
[2017-08-05 07:29] VITALS: BP 102/70; PULSE 115; TEMP 36.7; O2SAT 98
[2017-08-05 07:31] LABS: MEAN CORPUSCULAR HGB CONC 32.3 g/dl (32-36); NUCLEATED RED BLOOD CELL ABS 0.03 K/uL (0-0)
[2017-08-05 08:00] LABS: HEMATOCRIT 26.9 % (42-52); HEMOGLOBIN 8.7 g/dL (14.0-18.0); MEAN CELL VOLUME 80.3 fL (80-100); RED CELL DISTRIBUTION WIDTH CV 21.8 % (11.5-14.5); RED CELL DISTRIBUTION WIDTH SD 63.2 fL (36.4-46.3); WHITE BLOOD COUNT 3.21 K/uL (4.8-10.8)
[2017-08-05 08:04] LABS: CALCIUM 7.5 mg/dl (8.5-10.1); CREATININE 0.74 mg/dl (0.60-1.40); POTASSIUM 3.5 mmol/L (3.5-5.1)
[2017-08-05 08:10] LABS: PLATELET COUNT 107 K/uL (130-400)
[2017-08-05] MEDS: ASPIRIN 81 MG ECTAB PO SCH (08:15)
[2017-08-05] MEDS: PRAVASTATIN SOD 20 MG TAB PO SCH (08:15)
[2017-08-05] MEDS: POTASSIUM CHLORIDE 10 MEQ TABCR PO SCH ×2 (08:16→20:59)
[2017-08-05] MEDS: PAROXETINE 20 MG TAB PO SCH (08:16)
[2017-08-05] MEDS: FUROSEMIDE INJ 40 MG in SYRINGE 0 ML IV SCH ×2 (08:16→16:46)
[2017-08-05] MEDS: ENZALUTAMIDE 40 MG CAP PO SCH (08:17)
--- NOTE | 2017-08-05 08:58 | Hospitalist Progress Note ---
Hospitalist Progress Note Date of Service Aug 05, 2017. (Mariajose Campos PA-C) Subjective Pt evaluation today including: conversation w/ patient, conversation w/ family , physical exam, chart review, lab review, review of studies Pain: None PO Intake: Good Voiding: no voiding problems The patient was seen and examined this morning. Pt reports doing well today. He denies any issues with breathing, cough, sputum production, or sob with exertion. He reports this is significantly improved compared to previously when he was readmitted only a day ago. He is reporting some shoulder pain with the recent pacemaker insertion, feeling mostly sore. He also notes his bowels have not moved in about 4 days, so is drinking some miralax. At home he usually uses metamucil on a daily basis. His is present at bedside. Together the patient and his tell the story of how he started injections for prostate cancer and how he became neutropenic. He essentially was "completely healthy" prior to prostate cancer diagnosis. They are also planning on going to [facility] on August 27, and are hoping that his medical issues are resolved so they can go on this trip. Constitutional: No fever, No chills, No sweats ENT: No nasal symptoms, No sore throat Respiratory: + see HPI, No cough, No sputum, No wheezing, No shortness of breath Cardiovascular: No chest pain, No palpitations Abdomen: + constipation, No pain, No nausea, No vomiting, No diarrhea Musculoskeletal: No muscle pain, No swelling Male : No dysuria Neurologic: No weakness, No numbness/tingling Psychiatric: No depression symptoms, No anxiety (Mariajose Campos PA -C) Objective Vital Signs Date Time Temp Pulse Resp B/P (MAP) Pulse Ox O2 Delivery O2 Flow Rate FiO2 08/05/17 07:29 36.7 115 20 102/70 (81) 98 Room Air 08/05/17 04:37 36.9 116 21 105/63 (77) 93 Room Air 08/05/17 04:01 Room Air 08/05/17 00:01 Room Air 08/04/17 23:57 38.1 114 20 102/65 (77) 95 Room Air 08/04/17 20:00 Room Air 08/04/17 19:30 37.5 83 20 108/69 (82) 96 Room Air 08/04/17 16:11 36.9 108 20 102/66 (78) 98 Room Air 08/04/17 16:08 94 Room Air 08/04/17 12:00 94 Room Air 08/04/17 11:39 36.7 85 18 114/76 (89) 98 (Mariajose Campos PA-C) Physical Exam General Appearance: WD/WN, no apparent distress Eyes: PERRL, EOMI ENT: hearing grossly normal, pharynx normal Neck: supple, no JVD Respiratory/Chest: no respiratory distress, no accessory muscle use, + crackles (Bilateral bases, worse on the LLL compared to the Right), + pertinent finding (incision points from bilateral thoracentesis healing well.) Cardiovascular: regular rate, rhythm, no murmur, + pertinent finding ( pacemaker insertion site left chest wall with minor surrounding ecchymosis. ) Abdomen: normal bowel sounds, non tender, soft Extremities: non-tender, no pedal edema, no calf tenderness Neurologic/Psychiatric: alert, normal mood/affect, oriented x 3 Skin: normal color, warm/dry (Mariajose Campos, KAVYA-C) Laboratory Results Last 24 Hours Test 08/05/17 07:00 White Blood Count 3.21 K/uL Red Blood Count 3.35 M/uL Hemoglobin 8.7 g/dL Hematocrit 26.9 % Mean Corpuscular Volume 80.3 fL Mean Corpuscular Hemoglobin 26.0 pg Mean Corpuscular Hemoglobin Concent 32.3 g/dl RDW Standard Deviation 63.2 fL RDW Coefficient of Variation 21.8 % Platelet Count 107 K/uL Nucleated RBC Absolute Count (auto) 0.03 K/uL Nucleated Red Blood Cells % 0.9 % Platelet Estimate DECREASED Sodium Level 133 mmol/L Potassium Level 3.5 mmol/L Chloride Level 100 mmol/L Carbon Dioxide Level 28 mmol/L Anion Gap 6.0 mmol/L Blood Urea Nitrogen 15 mg/dl Creatinine 0.74 mg/dl Est Creatinine Clear Calc Drug Dose 87.6 ml/min Estimated GFR () 105.3 Estimated GFR (Non- 90.9 BUN/Creatinine Ratio 20.8 Random Glucose 102 mg/dl Calcium Level 7.5 mg/dl Magnesium Level 2.3 mg/dl (Mariajose Campos PA-C) Assessment and Plan 76 y/o male with a history of metastatic prostate cancer, pancytopenia due to chemo, HLD, and anxiety/depression who was admitted to [facility] last week with complete heart block s/p pacemaker who presented to the ED on 08/03 with shortness of breath, dyspnea on exertion and weight gain. Pt tachycardic on arrival, otherwise VSS. CXR with evidence fluid overload and bilateral pleural effusions. CTA chest negative fro PE, does show moderate bilateral pleural effusions. Osteoblastic metastasis stable from previous. Potassium 3.2. BNP 7942. Acute on chronic diastolic heart failure--ongoing - Daily weights, strict I's & O's ( - 1.4 L at this point), heart healthy diet/ low na+ - Cardiology on board : Continue diuresis, hold home Bumex, limited Echo shows EF 50%. Septal akinesis. Large pleural effusion. Trace pericardial effusion. Continue amiodarone 200 mg QAM, lasix 40 mg IV daily - may need adjustments based on the HR in 110s consistently and borderline low BP Change maximum tracking rate of pacer to 115 bpm. Moderate bilateral pleural effusions secondary to CHF -improving - Thoracic surgery- on board, appreciate recs: s/p thoracentesis on 08/04: out 1.1 L transudative fluid on R &L - Follow fluid studies, repeat Cxr as needed Complete heart block s/p pacemaker, atrial tachycardia, recent a-flutter--stable -Pacemaker interrogated, periods of atrial tach -Continue ASA, amiodarone 200 mg PO daily (reduced starting today -08/05) -Prolonged QTc improved, down to 569 Superficial thrombosis LUE, -improving - erythema with question of initial cellulitis is greatly resolved, likely from repetitive IV site insertion attempts per pt. - Venous Doppler ultrasound LUE negative for DVT, shows occlusive thrombus involving the cephalic vein - Cefazolin 1 gm IV q8h - Warm compresses to LUE Hypokalemia--resolved - Follow prp, continue home KCl 10 mEq PO qd Metastatic prostate cancer with h/o radiation--stable -Continue Xtandi 120 mg PO qd (nonformulary so brought in from home) -Lupron injections q 4 months -Xgeva stopped per Pancytopenia due to chemo drugs--stable HLD -Continue pravastatin 20 mg PO qd Anxiety/depression -Continue Paxil 10 mg PO qd DVT ppx: lovenox, teds, scds Code Status: Full Disposition: From home, possible dc in 1-2 days Time spent including chart review, face to face w/ patient, discussion with consultants, involved 61 minutes. (Mariajose Campos PA-C) I personally interviewed and examined the patient. I agree with history of present illness and physical exam mentioned above, I also performed my own history taking and examination. Past medical history and review of system has been obtained by myself I reviewed all pertinent labs and studies Reviewed current medications I discussed and formulated of the assessment and plan mentioned above. Please refer to the Summary mentioned below. 76-year-old man with history of metastatic prostate cancer, chemotherapy complicated by pancytopenia, dyslipidemia and anxiety. Patient was found to have a complete heart block about 1 week ago status post pacemaker placement.. Patient was discharged home and noticed that he is gaining weight slowly and getting progressively short of breath. Presented to the ED with severe shortness of breath found to have large pleural effusion. Status post thoracocentesis 1100cc was removed appears to be transudate has a protein of 1.9, serum protein 6.4 , fluid protein/serum protein ratio is less than 0.5 LDH and fluid is 63, ordered LDH and serum to confirm. PH was more than 7.4 which is an indication that it is a transudate and not empyema and also glucose was elevated. Patient received 40 mg of Lasix IV, will check labs in a.m. and continue diuresis as needed, will check I and O's. [facility] consult appreciated. Pacemaker was recalibrated to maximum heart rate of 115. Status post contralateral thoracocentesis with 1100 cc removed. Patient feels much better Currently not in acute distress continue aggressive diuresis with lasix 40mg IV BID, eventually will switch to oral General Appearance: Appears to be not in distress Eyes: normal Sclerae, extraocular muscle intact ENT: hearing grossly normal Neck: supple Respiratory/Chest: Better air entry bilaterally /scattered rhonchi Cardiovascular: regular rate, tachycardia rhythm, no murmur Abdomen: non tender, soft, no masses Extremities: no edema musculoskeletal: no significant swelling or inflammation in any joint Neurologic/Psychiatric: Awake alert oriented times place and person moves all extremities sensation intact cranial nerves II-12 appear to be intact Skin: normal color, warm/dry, no rash Brittney Acosta MD, [facility] hospitalist group (Brittney Elliott MD)
[2017-08-05] MEDS ORDERED: AMIODARONE 200 MG TAB PO SCH (09:00)
[2017-08-05] MEDS: POLYETHYLENE (MIRALAX) 17 GM PACK PO PRN (09:53)
[2017-08-05 11:02] VITALS: BP 92/62; PULSE 115; TEMP 36.6; O2SAT 98
--- NOTE | 2017-08-05 12:13 | SURGERY PROGRESS NOTE ---
DATE: 08/05/2017 Mr. Sherman is up walking in his room today. He is much improved from a pulmonary standpoint since we performed thoracentesis yesterday. His x-ray shows a bit more fluid in the left than the right, but that is minor and I would not be offering him any type of intervention at this point for this transudative effusion, which is bilateral. Cytology on the right is negative for carcinoma, which is no surprise. The thoracentesis sites bilaterally are clean. I removed all dressings. His lungs sound very good without wheezing or rales. He does have mildly decreased breath sounds at both bases. I discussed this case with Dr. Parikh. There are still changes being made with the pacemaker as well as his medications. He "does not feel right." At any rate, I think that he looks good from a pleural effusion standpoint.
[2017-08-05] MEDS: ENOXAPARIN 40 MG/0.4 ML SYR SC SCH (13:04)
[2017-08-05] MEDS ORDERED: VANCOMYCIN TROUGH ONE (13:30)
[2017-08-05 15:50] VITALS: BP 108/72; PULSE 75; TEMP 36.9; O2SAT 98
[2017-08-05] MEDS: ACETAMINOPHEN 325 MG TAB PO PRN (16:45)
--- NOTE | 2017-08-05 17:49 | Cardiology Follow-Up ---
Subjective Date of Service: Aug 05, 2017. Pt evaluation today including: conversation w/ patient, conversation w/ family , physical exam, chart review, lab review, review of studies, review of inpatient medication list History of Present Illness He is feeling better. He still has some fatigue. He was ambulatory around the entire floor today with little dyspnea. Social History Smoking Status: Former Smoker History of Alcohol Use: Yes (OCC WINE ) Review of Systems Respiratory: + see HPI, No cough, No sputum, No wheezing, No shortness of breath Cardiac: No chest pain, No palpitations Per HPI. No recent fevers. Objective Vital Signs Past 12 Hours Date Time Temp Pulse Resp B/P (MAP) Pulse Ox O2 Delivery O2 Flow Rate FiO2 08/05/17 16:00 Room Air 08/05/17 15:50 36.9 75 20 108/72 (84) 98 Room Air 08/05/17 12:00 Room Air 08/05/17 11:02 36.6 115 20 92/62 (72) 98 Room Air 08/05/17 08:00 Room Air 08/05/17 08:00 Room Air 08/05/17 07:29 36.7 115 20 102/70 (81) 98 Room Air Last Recorded Weight-Kilograms: 82.600 Intake & Output 8-Hour Column 08/05/17 08/06/17 08/06/17 16:00 00:00 08:00 Intake Total 400 ml Output Total 650 ml Balance -250 ml 24-Hour Column 08/06/17 08:00 Intake Total 400 ml Output Total 650 ml Balance -250 ml Physical Exam Peripheral Pulses: Radial Pulse: normal on the left, normal on the right Chest: Pacemaker site C/D/I. No erythema Lungs: Crackles in the bases bilaterally. Ext: Notable lower extremity edema. Rt hand with erythema and mild swelling. Ecchymosis of the left forearm.Left hand and left arm are swollen. Data Laboratory Results: Last 24 Hours Test 08/05/17 07:00 White Blood Count 3.21 K/uL Red Blood Count 3.35 M/uL Hemoglobin 8.7 g/dL Hematocrit 26.9 % Mean Corpuscular Volume 80.3 fL Mean Corpuscular Hemoglobin 26.0 pg Mean Corpuscular Hemoglobin Concent 32.3 g/dl RDW Standard Deviation 63.2 fL RDW Coefficient of Variation 21.8 % Platelet Count 107 K/uL Nucleated RBC Absolute Count (auto) 0.03 K/uL Nucleated Red Blood Cells % 0.9 % Platelet Estimate DECREASED Sodium Level 133 mmol/L Potassium Level 3.5 mmol/L Chloride Level 100 mmol/L Carbon Dioxide Level 28 mmol/L Anion Gap 6.0 mmol/L Blood Urea Nitrogen 15 mg/dl Creatinine 0.74 mg/dl Est Creatinine Clear Calc Drug Dose 87.6 ml/min Estimated GFR () 105.3 Estimated GFR (Non- 90.9 BUN/Creatinine Ratio 20.8 Random Glucose 102 mg/dl Calcium Level 7.5 mg/dl Magnesium Level 2.3 mg/dl Imaging: CXR demonstrated some element of pulmonary vascular congestion. Telemetry reviewed: Alternated between sinus rhythm and EAT. Assessment and Plan Acute decompensated diastolic heart failure: Overall improving. He continues to diurese well. Will eventually need to switch to an oral regimen whcih will provide an element of diuresis when he goes home. 2. Tachycardia: Seems to be an ectopic atrial tachycardia, but reprogramming of his device makes me concerned that this is a form of PMT. I increased his PVARP with initial improvement in his rates. Will continue to monitor on telemetry. Stop amiodarone. 3. Heart block. Normally-functioning dual chamber pacemaker.
[2017-08-05 19:53] VITALS: BP 98/57; PULSE 86; TEMP 37; O2SAT 96
[2017-08-05 23:45] VITALS: BP 97/58; PULSE 71; TEMP 37.1; O2SAT 96
[2017-08-06 03:50] VITALS: BP 102/60; PULSE 75; TEMP 37.2; O2SAT 97
[2017-08-06] MEDS: CEFAZOLIN IV 1,000 MG in SYRINGE 0 ML IV SCH ×3 (06:37→21:30)
[2017-08-06 06:59] LABS: NUCLEATED RED BLOOD CELL ABS 0.02 K/uL (0-0)
[2017-08-06 07:31] LABS: CALCIUM 7.7 mg/dl (8.5-10.1); CREATININE 0.63 mg/dl (0.60-1.40); POTASSIUM 3.3 mmol/L (3.5-5.1)
[2017-08-06 07:41] VITALS: BP 102/69; PULSE 77; TEMP 37.1; O2SAT 98
[2017-08-06 08:06] LABS: HEMATOCRIT 26.6 % (42-52); HEMOGLOBIN 8.5 g/dL (14.0-18.0); MEAN CELL VOLUME 80.1 fL (80-100); MEAN CORPUSCULAR HEMOGLOBIN 25.6 pg (25-34); PLATELET COUNT 115 K/uL (130-400); RED CELL DISTRIBUTION WIDTH CV 21.8 % (11.5-14.5); RED CELL DISTRIBUTION WIDTH SD 62.2 fL (36.4-46.3); WHITE BLOOD COUNT 2.63 K/uL (4.8-10.8)
--- NOTE | 2017-08-06 08:24 | DIAGNOSTIC IMAGING REPORT ---
CHEST ONE VIEW PORTABLE CLINICAL HISTORY: pleural effusions COMPARISON STUDY: 08/05/2017 FINDINGS: The heart remains enlarged. There is a left subclavian dual-chamber central venous pacemaker present. There is a persistent small right pleural effusion with associated right basilar airspace opacities likely atelectatic. There is improving aeration of the left lower lobe. There is no overt failure.[ IMPRESSION: 1. Persistent cardiomegaly 2. Persistent small right pleural effusion with right basal airspace opacities likely atelectatic 3. Improving aeration of the left lung base Electronically signed by: Tyson Tabor M.D. 08/06/2017 8:22 AM Dictated Date/Time: 08/06/2017 8:20 AM
[2017-08-06] MEDS: ACETAMINOPHEN 325 MG TAB PO PRN (08:43)
[2017-08-06] MEDS: FUROSEMIDE INJ 40 MG in SYRINGE 0 ML IV SCH ×2 (08:44→17:41)
[2017-08-06] MEDS: ASPIRIN 81 MG ECTAB PO SCH (08:46)
[2017-08-06] MEDS: POTASSIUM CHLORIDE 10 MEQ TABCR PO SCH ×2 (08:47→21:28)
[2017-08-06] MEDS: PAROXETINE 20 MG TAB PO SCH (08:49)
[2017-08-06] MEDS: ENZALUTAMIDE 40 MG CAP PO SCH (08:51)
[2017-08-06] MEDS ORDERED: POTASSIUM CHLORIDE 20 MEQ TABCR PO ONE (09:36)
[2017-08-06] MEDS ORDERED: PAROXETINE 20 MG TAB PO ONE (09:45)
--- NOTE | 2017-08-06 09:50 | SURGERY PROGRESS NOTE ---
DATE: 08/06/2017 Mr. Sherman was seen with his today. He walked a great deal yesterday. He feels better today. He is on room air. His x-ray actually looks a bit better to me. He has less atelectasis. I see very little in the way of any fluid accumulation. We will continue to follow along and hopefully this fluid will not reaccumulate.
[2017-08-06] MEDS: PRAVASTATIN SOD 20 MG TAB PO SCH (10:17)
[2017-08-06] MEDS: POLYETHYLENE (MIRALAX) 17 GM PACK PO PRN (10:18)
[2017-08-06] MEDS ORDERED: PARO30TA6 PO (11:00)
[2017-08-06 12:31] VITALS: BP 121/74; PULSE 78; TEMP 36.6; O2SAT 98
--- NOTE | 2017-08-06 13:07 | Progress Note ---
Subjective Date of Service: Aug 06, 2017. Subjective Patient reports feeling well. He is ambulating with no discomfort. Problem List Medical Problems: (1) Anemia Status: Acute (2) Atrial tachycardia Status: Acute (3) CHF (congestive heart failure) Status: Acute (4) Hypokalemia Status: Acute Review of Systems Constitutional: No fever, No chills Eyes: No worsening of vision Respiratory: No cough Cardiac: No chest pain Abdomen: No pain Musculoskeletal: No joint pain Neurologic: No memory loss Psychiatric: No depression symptoms Endo: No fatigue Skin: No itch All Other Systems: Reviewed and Negative Objective Vital Signs Date Time Temp Pulse Resp B/P (MAP) Pulse Ox O2 Delivery O2 Flow Rate FiO2 08/06/17 12:31 36.6 78 20 121/74 (90) 98 Room Air 08/06/17 08:00 Room Air 08/06/17 08:00 Room Air 08/06/17 07:41 37.1 77 20 102/69 (80) 98 Room Air 08/06/17 04:00 Room Air 08/06/17 03:50 37.2 75 18 102/60 (74) 97 Room Air 08/06/17 00:00 Room Air 08/05/17 23:45 37.1 71 18 97/58 (71) 96 Room Air 08/05/17 20:00 Room Air 08/05/17 19:53 37.0 86 20 98/57 (71) 96 Room Air 08/05/17 16:00 Room Air 08/05/17 15:50 36.9 75 20 108/72 (84) 98 Room Air Physical Exam Comments: General Appearance: WD/WN, no apparent distress Eyes: PERRL, EOMI ENT: hearing grossly normal, pharynx normal Neck: supple, no JVD Respiratory/Chest: no respiratory distress, no accessory muscle use, + crackles (Bilateral bases, worse on the LLL compared to the Right), + pertinent finding (incision points from bilateral thoracentesis healing well.) Cardiovascular: regular rate, rhythm, no murmur, + pertinent finding ( pacemaker insertion site left chest wall with minor surrounding ecchymosis. ) Abdomen: normal bowel sounds, non tender, soft Extremities: non-tender, no pedal edema, no calf tenderness Neurologic/Psychiatric: alert, normal mood/affect, oriented x 3 Skin: normal color, warm/dry Laboratory Results Last 24 Hours Test 08/06/17 06:33 White Blood Count 2.63 K/uL Red Blood Count 3.32 M/uL Hemoglobin 8.5 g/dL Hematocrit 26.6 % Mean Corpuscular Volume 80.1 fL Mean Corpuscular Hemoglobin 25.6 pg Mean Corpuscular Hemoglobin Concent 33.0 g/dl RDW Standard Deviation 62.2 fL RDW Coefficient of Variation 21.8 % Platelet Count 115 K/uL Nucleated RBC Absolute Count (auto) 0.02 K/uL Nucleated Red Blood Cells % 0.8 % Platelet Estimate DECREASED Sodium Level 134 mmol/L Potassium Level 3.3 mmol/L Chloride Level 99 mmol/L Carbon Dioxide Level 28 mmol/L Anion Gap 7.0 mmol/L Blood Urea Nitrogen 14 mg/dl Creatinine 0.63 mg/dl Est Creatinine Clear Calc Drug Dose 102.9 ml/min Estimated GFR () 112.5 Estimated GFR (Non- 97.1 BUN/Creatinine Ratio 21.8 Random Glucose 98 mg/dl Calcium Level 7.7 mg/dl Magnesium Level 2.4 mg/dl Assessment and Plan 76 y/o male with a history of metastatic prostate cancer, pancytopenia due to chemo, HLD, and anxiety/depression who was admitted to [facility] last week with complete heart block s/p pacemaker who presented to the ED on 08/03 with shortness of breath, dyspnea on exertion and weight gain. Pt tachycardic on arrival, otherwise VSS. CXR with evidence fluid overload and bilateral pleural effusions. CTA chest negative fro PE, does show moderate bilateral pleural effusions. Osteoblastic metastasis stable from previous. Potassium 3.2. BNP 7942. Acute on chronic diastolic heart failure--ongoing Improved - Daily weights, strict I's & O's), heart healthy diet/low na+ - Cardiology on board : Continue diuresis, hold home Bumex, limited Echo shows EF 50%. Septal akinesis. Large pleural effusion. Trace pericardial effusion. Continue amiodarone 200 mg QAM, lasix 40 mg IV daily - may need adjustments based on the HR in 110s consistently and borderline low BP Change maximum tracking rate of pacer to 115 bpm. will contnue to IV diures as patient is tolerating this and no bump from creatinine. Also patient has some edema in lower extremities Moderate bilateral pleural effusions secondary to CHF -improving - Thoracic surgery- on board, appreciate recs: s/p thoracentesis on 08/04: out 1.1 L transudative fluid on R &L - Follow fluid studies, repeat Cxr as needed Complete heart block s/p pacemaker, atrial tachycardia, recent a-flutter--stable -Pacemaker interrogated, periods of atrial tach -Continue ASA, amiodarone 200 mg PO daily (reduced starting today -08/05) -Prolonged QTc improved, down to 569 Superficial thrombosis LUE, -improving - erythema with question of initial cellulitis is greatly resolved, likely from repetitive IV site insertion attempts per pt. - Venous Doppler ultrasound LUE negative for DVT, shows occlusive thrombus involving the cephalic vein - Cefazolin 1 gm IV q8h - Warm compresses to LUE Anemia: has been 8 for past 3 Days Likely from cancer tx Hypokalemia-- - Follow prp, replaced today. Metastatic prostate cancer with h/o radiation--stable -Continue Xtandi 120 mg PO qd (nonformulary so brought in from home) -Lupron injections q 4 months -Xgeva stopped per Pancytopenia due to chemo drugs--stable HLD -Continue pravastatin 20 mg PO qd Anxiety/depression -Continue Paxil 10 mg PO qd DVT ppx: lovenox, teds, scds Code Status: Full Disposition: From home, possible dc in 1-2 days
[2017-08-06] MEDS ORDERED: NURSING VERBAL MED ORDER ONE (14:45)
[2017-08-06] MEDS: ENOXAPARIN 40 MG/0.4 ML SYR SC SCH (14:54)
[2017-08-06 15:31] VITALS: BP 101/64; PULSE 78; TEMP 36.8; O2SAT 95
[2017-08-06 19:29] VITALS: BP 108/57; PULSE 84; TEMP 37.1; O2SAT 95
[2017-08-06] MEDS: POTASSIUM CHLORIDE 20 MEQ TABCR PO SCH (21:00)
[2017-08-07] VITALS (7 sets, daily range): BP systolic 101–129; BP diastolic 63–80; PULSE 74–99; TEMP 36.5–37.3; O2SAT 95–100
[2017-08-07] MEDS: CEFAZOLIN IV 1,000 MG in SYRINGE 0 ML IV SCH ×3 (06:06→21:07)
[2017-08-07 07:53] LABS: HEMATOCRIT 26.5 % (42-52); HEMOGLOBIN 8.8 g/dL (14.0-18.0); MEAN CORPUSCULAR HEMOGLOBIN 26.9 pg (25-34); MEAN CORPUSCULAR HGB CONC 33.2 g/dl (32-36); NUCLEATED RED BLOOD CELL ABS 0.03 K/uL (0-0); PLATELET COUNT 154 K/uL (130-400); RED CELL DISTRIBUTION WIDTH SD 63.4 fL (36.4-46.3); WHITE BLOOD COUNT 2.54 K/uL (4.8-10.8)
[2017-08-07 08:09] LABS: CALCIUM 8.1 mg/dl (8.5-10.1); CREATININE 0.68 mg/dl (0.60-1.40); POTASSIUM 4.2 mmol/L (3.5-5.1)
[2017-08-07] MEDS: POTASSIUM CHLORIDE 10 MEQ TABCR PO SCH ×2 (09:00→21:07)
[2017-08-07] MEDS: FUROSEMIDE INJ 40 MG in SYRINGE 0 ML IV SCH ×2 (09:27→17:36)
[2017-08-07] MEDS: POTASSIUM CHLORIDE 20 MEQ TABCR PO SCH ×2 (09:27→21:00)
[2017-08-07] MEDS: ASPIRIN 81 MG ECTAB PO SCH (09:28)
[2017-08-07] MEDS: PAROXETINE 20 MG TAB PO SCH (09:28)
[2017-08-07] MEDS: PRAVASTATIN SOD 20 MG TAB PO SCH (09:29)
[2017-08-07] MEDS: ENZALUTAMIDE 40 MG CAP PO SCH (09:29)
--- NOTE | 2017-08-07 11:21 | SURGERY PROGRESS NOTE ---
DATE: 08/07/2017 SUBJECTIVE: Mr. Sherman was seen today. He has been ambulating in the hallway. He feels better. His x-ray yesterday looked quite good. His aeration in both bases actually sounds good today. He has 100% saturation on room air. His heart rate has been down; it has been down in the 70s and 80s and I think this correlates with him feeling better. I will check chest x-rays in a week or so to make sure he is not reaccumulating fluid.
[2017-08-07] MEDS: ENOXAPARIN 40 MG/0.4 ML SYR SC SCH (15:12)
--- NOTE | 2017-08-07 22:13 | Progress Note ---
Subjective Date of Service: Aug 07, 2017. Subjective Pt evaluation today including: conversation w/ patient, physical exam Patient has no complaints today. Denies shortness of breath, chest pain. Problem List Medical Problems: (1) Anemia Status: Acute (2) Atrial tachycardia Status: Acute (3) CHF (congestive heart failure) Status: Acute (4) Hypokalemia Status: Acute Review of Systems Constitutional: No fever Eyes: No worsening of vision ENT: No hearing loss Respiratory: No cough Cardiac: No chest pain Abdomen: No pain Neurologic: No memory loss Psychiatric: No depression symptoms Endo: No fatigue Skin: No rash All Other Systems: Reviewed and Negative Medications Current Inpatient Medications Medications (Trade) Dose Ordered Sig/Bunny Route Start Time Stop Time Status Last Admin Dose Admin Enoxaparin Sodium (Lovenox Inj) 40 mg Q24H SC 08/03/17 14:00 09/02/17 13:59 08/07/17 15:12 40 MG Acetaminophen (Tylenol Tab) 650 mg Q4H PRN PO 08/03/17 10:45 09/02/17 10:44 08/06/17 08:43 650 MG Al Hydrox/Mg Hydrox/Simethicone (Maalox Max Susp) 15 ml Q4H PRN PO 08/03/17 10:45 09/02/17 10:44 Magnesium Hydroxide (Milk Of Magnesia Susp) 30 ml Q12H PRN PO 08/03/17 10:45 09/02/17 10:44 08/06/17 10:18 30 ML Ondansetron HCl (Zofran Inj) 4 mg Q6H PRN IV 08/03/17 10:45 09/02/17 10:44 08/03/17 14:54 4 MG Polyethylene (Miralax Powder Packet) 17 gm DAILY PRN PO 08/03/17 10:45 09/02/17 10:44 08/06/17 10:18 17 GM Aspirin (Ecotrin Tab) 81 mg DAILY PO 08/04/17 09:00 09/03/17 08:59 08/07/17 09:28 81 MG Pravastatin Sodium (Pravachol Tab) 20 mg DAILY PO 08/04/17 09:00 09/03/17 08:59 08/07/17 09:29 20 MG Tramadol HCl (Ultram Tab) 50 mg TID PRN PO 08/03/17 10:45 09/02/17 10:44 Cefazolin Sodium 1000 mg/Syringe 7.5 ml @ 2.5 mls/min Q8H IV 08/03/17 14:00 08/13/17 13:59 08/07/17 21:07 2.5 MLS/MIN Miscellaneous (Iv Fluids Completed) 1 ea PRN PRN N/A 08/03/17 11:30 08/03/18 11:29 Furosemide 40 mg/ Syringe 4 ml @ 4 mls/min BID17 IV 08/04/17 21:00 09/03/17 20:59 08/07/17 17:36 4 MLS/MIN Potassium Chloride (Klor-Con Tab) 40 meq BID PO 08/06/17 21:00 09/03/17 08:59 08/07/17 09:27 40 MEQ Paroxetine HCl (pAXil TAB) 30 mg DAILY PO 08/07/17 09:00 09/03/17 08:59 08/07/17 09:28 30 MG Potassium Chloride (Klor-Con M10) 40 meq BID PO 08/06/17 21:00 09/05/17 20:59 08/07/17 21:07 40 MEQ Objective Vital Signs Date Time Temp Pulse Resp B/P (MAP) Pulse Ox O2 Delivery O2 Flow Rate FiO2 08/07/17 20:00 Room Air 08/07/17 19:09 36.8 99 20 129/75 (93) 99 Room Air 08/07/17 16:00 36.9 78 20 127/75 (92) 98 Room Air 08/07/17 16:00 Room Air 08/07/17 12:00 Room Air 08/07/17 10:55 37.1 78 20 122/77 (92) 99 Room Air 08/07/17 08:15 36.5 82 20 126/80 (95) 100 Room Air 08/07/17 08:00 Room Air 08/07/17 04:00 Room Air 08/07/17 03:53 37.1 75 18 103/65 (78) 96 Room Air 08/07/17 00:04 37.3 79 18 101/63 (76) 95 Room Air 08/07/17 00:00 Room Air Physical Exam Comments: General Appearance: WD/WN, no apparent distress Eyes: PERRL, EOMI ENT: hearing grossly normal, pharynx normal Neck: supple, no JVD Respiratory/Chest: no respiratory distress, no accessory muscle use, lungs are clear, + pertinent finding (incision points from bilateral thoracentesis healing well.) Cardiovascular: regular rate, rhythm, no murmur, + pertinent finding ( pacemaker insertion site left chest wall with minor surrounding ecchymosis. ) Abdomen: normal bowel sounds, non tender, soft Extremities: non-tender, no pedal edema, no calf tenderness Neurologic/Psychiatric: alert, normal mood/affect, oriented x 3 Skin: normal color, warm/dry Laboratory Results Last 24 Hours Test 08/07/17 06:58 White Blood Count 2.54 K/uL Red Blood Count 3.27 M/uL Hemoglobin 8.8 g/dL Hematocrit 26.5 % Mean Corpuscular Volume 81.0 fL Mean Corpuscular Hemoglobin 26.9 pg Mean Corpuscular Hemoglobin Concent 33.2 g/dl RDW Standard Deviation 63.4 fL RDW Coefficient of Variation 22.0 % Platelet Count 154 K/uL Nucleated RBC Absolute Count (auto) 0.03 K/uL Nucleated Red Blood Cells % 1.3 % Sodium Level 135 mmol/L Potassium Level 4.2 mmol/L Chloride Level 101 mmol/L Carbon Dioxide Level 29 mmol/L Anion Gap 6.0 mmol/L Blood Urea Nitrogen 13 mg/dl Creatinine 0.68 mg/dl Est Creatinine Clear Calc Drug Dose 95.4 ml/min Estimated GFR () 109.0 Estimated GFR (Non- 94.1 BUN/Creatinine Ratio 18.6 Random Glucose 102 mg/dl Calcium Level 8.1 mg/dl Assessment and Plan 76 y/o male with a history of metastatic prostate cancer, pancytopenia due to chemo, HLD, and anxiety/depression who was admitted to [facility] last week with complete heart block s/p pacemaker who presented to the ED on 08/03 with shortness of breath, dyspnea on exertion and weight gain. Pt tachycardic on arrival, otherwise VSS. CXR with evidence fluid overload and bilateral pleural effusions. CTA chest negative fro PE, does show moderate bilateral pleural effusions. Osteoblastic metastasis stable from previous. Potassium 3.2. BNP 7942. Acute on chronic diastolic heart failure--ongoing Improved - Daily weights, strict I's & O's (Neg 5 liters), heart healthy diet/low na+ - Cardiology on board : Continue diuresis, hold home Bumex, limited Echo shows EF 50%. Septal akinesis. Large pleural effusion. Trace pericardial effusion. Continue amiodarone 200 mg QAM, lasix 40 mg IV daily - may need adjustments based on the HR in 110s consistently and borderline low BP Change maximum tracking rate of pacer to 115 bpm. will continue to IV diurese as patient is tolerating this and no bump from creatinine. Also patient has some edema in lower extremities May consider switching to PO once patient is close to discharge Moderate bilateral pleural effusions secondary to CHF -improving - Thoracic surgery- on board, appreciate recs: s/p thoracentesis on 08/04: out 1.1 L transudative fluid on R &L - C-X-RAY is clear. Complete heart block s/p pacemaker, atrial tachycardia, recent a-flutter--stable -Pacemaker interrogated, periods of atrial tach -Continue ASA, amiodarone 200 mg PO daily (reduced starting today -08/05) -Prolonged QTc improved, down to 569 Superficial thrombosis LUE, -improving - erythema with question of initial cellulitis is greatly resolved, likely from repetitive IV site insertion attempts per pt. - Venous Doppler ultrasound LUE negative for DVT, shows occlusive thrombus involving the cephalic vein - Cefazolin 1 gm IV q8h - Warm compresses to LUE Anemia: has been 8 for past 3 Days Likely from cancer tx Hypokalemia--resolved - Follow prp, continue home KCl 10 mEq PO qd Metastatic prostate cancer with h/o radiation--stable -Continue Xtandi 120 mg PO qd (nonformulary so brought in from home) -Lupron injections q 4 months -Xgeva stopped per Pancytopenia due to chemo drugs--stable HLD -Continue pravastatin 20 mg PO qd Anxiety/depression -Continue Paxil 10 mg PO qd DVT ppx: lovenox, teds, scds Code Status: Full Disposition: From home, possible dc in 1-2 days Continued [facility] stay due to: other (diuresing) Discharge planning: home
[2017-08-08 03:50] VITALS: BP 109/61; PULSE 72; TEMP 36.7; O2SAT 96
[2017-08-08] MEDS: CEFAZOLIN IV 1,000 MG in SYRINGE 0 ML IV SCH (05:51)
[2017-08-08 06:20] LABS: MEAN CORPUSCULAR HGB CONC 32.9 g/dl (32-36); NUCLEATED RED BLOOD CELL ABS 0.02 K/uL (0-0)
[2017-08-08 06:30] LABS: HEMATOCRIT 25.8 % (42-52); HEMOGLOBIN 8.5 g/dL (14.0-18.0); MEAN CELL VOLUME 79.6 fL (80-100); MEAN CORPUSCULAR HEMOGLOBIN 26.2 pg (25-34); RED CELL DISTRIBUTION WIDTH CV 22.6 % (11.5-14.5); RED CELL DISTRIBUTION WIDTH SD 64.4 fL (36.4-46.3); WHITE BLOOD COUNT 2.63 K/uL (4.8-10.8)
[2017-08-08 06:54] LABS: PLATELET COUNT 157 K/uL (130-400)
[2017-08-08 06:56] LABS: CALCIUM 8.5 mg/dl (8.5-10.1); CREATININE 0.68 mg/dl (0.60-1.40); POTASSIUM 4.5 mmol/L (3.5-5.1)
[2017-08-08] MEDS: POTASSIUM CHLORIDE 10 MEQ TABCR PO SCH (08:48)
[2017-08-08] MEDS: POTASSIUM CHLORIDE 20 MEQ TABCR PO SCH (08:48)
[2017-08-08] MEDS: ENZALUTAMIDE 40 MG CAP PO SCH (08:49)
[2017-08-08] MEDS: ASPIRIN 81 MG ECTAB PO SCH (08:49)
[2017-08-08] MEDS: PAROXETINE 20 MG TAB PO SCH (08:50)
[2017-08-08] MEDS: PRAVASTATIN SOD 20 MG TAB PO SCH (08:51)
[2017-08-08] MEDS ORDERED: BUMETANIDE 1 MG TAB PO SCH (09:00)
--- NOTE | 2017-08-08 09:08 | Cardiology Follow-Up ---
Subjective Date of Service: Aug 08, 2017. Pt evaluation today including: conversation w/ patient, physical exam, chart review, lab review, review of studies, review of inpatient medication list History of Present Illness This morning patient claims feeling well. He is somewhat fatigued and a little discourage did his prolonged hospitalization. However he has been ambulatory in report strength improving. He denies significant dyspnea. He had no orthopnea. Social History Smoking Status: Former Smoker History of Alcohol Use: Yes (OCC WINE ) Review of Systems Respiratory: No cough Cardiac: No chest pain Per HPI. No recent fevers. Objective Vital Signs Past 12 Hours Date Time Temp Pulse Resp B/P (MAP) Pulse Ox O2 Delivery O2 Flow Rate FiO2 08/08/17 04:00 Room Air 08/08/17 03:50 36.7 72 17 109/61 (77) 96 Room Air 08/08/17 00:00 Room Air 08/07/17 23:08 36.9 74 18 108/67 (81) 96 Room Air Last Recorded Weight-Kilograms: 76.500 Physical Exam Peripheral Pulses: Radial Pulse: normal on the left, normal on the right The patient is alert and oriented. Mood and affect appeared normal. He answered all questions appropriately. HEENT: Pupils are equal and reactive to light and accommodation. Extraocular movements are intact. The sclerae are anicteric. Neuro: Cranial nerves intact Neck: Patient's neck is supple. He has palpable carotid pulses bilaterally without bruits on auscultation. There is no evidence of jugular venous distention. The thyroid is not enlarged. Lungs: Clear to auscultation bilaterally. He has good air movement without use of accessory muscles. No rales wheezes or rhonchi. Chest: Pacemaker implant site well healed without erythema or hematoma. Steri- Strips intact Cardiac: Heart demonstrates a regular rate and rhythm with occasional ectopy. Normal S1 and S2. No murmurs on examination. Pulses: The patient has palpable radial pulses bilaterally that are equal in intensity Extremities: There was no evidence of hypoperfusion. Mild erythema on the left forearm. Swelling in the left extremity improved Data Laboratory Results: Last 24 Hours Test 08/08/17 05:32 White Blood Count 2.63 K/uL Red Blood Count 3.24 M/uL Hemoglobin 8.5 g/dL Hematocrit 25.8 % Mean Corpuscular Volume 79.6 fL Mean Corpuscular Hemoglobin 26.2 pg Mean Corpuscular Hemoglobin Concent 32.9 g/dl RDW Standard Deviation 64.4 fL RDW Coefficient of Variation 22.6 % Platelet Count 157 K/uL Nucleated RBC Absolute Count (auto) 0.02 K/uL Nucleated Red Blood Cells % 0.9 % Platelet Estimate NORMAL Sodium Level 134 mmol/L Potassium Level 4.5 mmol/L Chloride Level 101 mmol/L Carbon Dioxide Level 26 mmol/L Anion Gap 7.0 mmol/L Blood Urea Nitrogen 13 mg/dl Creatinine 0.68 mg/dl Est Creatinine Clear Calc Drug Dose 95.4 ml/min Estimated GFR () 109.0 Estimated GFR (Non- 94.1 BUN/Creatinine Ratio 19.3 Random Glucose 98 mg/dl Calcium Level 8.5 mg/dl Telemetry reviewed: Sinus rhythm with 100 percent ventricular paced Assessment and Plan 1.Acute decompensated diastolic heart failure: He has had good diuresis over the course of the weekend. I think it is reasonable to switch him to an oral regimen of 1 milligram Bumex daily. His electrolytes and renal function appeared to be stable. I think a lot of his decompensation was related to the high ventricular rates. 2. Tachycardia: In retrospect this may have been a lot of PMT. No indication for amiodarone. This was discontinued last week. His device was reprogrammed with a longer PVARP. This seems to have rectify the situation. 3. Heart block. Normally-functioning dual chamber pacemaker. At this point the patient can resume showering.
[2017-08-08 09:10] VITALS: BP 138/83; PULSE 82; TEMP 36.4; O2SAT 100
--- NOTE | 2017-08-08 09:56 | DIAGNOSTIC IMAGING REPORT ---
CHEST 2 VIEWS ROUTINE CLINICAL HISTORY: effusion dyspnea COMPARISON STUDY: 08/06/2017 FINDINGS: Slightly progressive right basilar atelectatic change possibly combined with a trace amount of right basilar pleural fluid. Left lung remains clear. Stable components of emphysematous change. No evidence for pneumothorax. IMPRESSION: Slightly progressive right basilar atelectatic and or pleural effusion-type change. Study is otherwise stable. The above report was generated using voice recognition software. It may contain grammatical, syntax or spelling errors. Electronically signed by: Pepito Freitas M.D. 08/08/2017 9:55 AM Dictated Date/Time: 08/08/2017 9:53 AM
[2017-08-08] MEDS ORDERED: CEPH500C PO (11:13)
[2017-08-08 11:14] VITALS: BP 108/67; PULSE 79; TEMP 37.3; O2SAT 94
--- NOTE | 2017-08-08 11:21 | Discharge Instructions ---
Discharge Instructions Date of Service Aug 08, 2017. Admission Reason for Admission: Acute diastolic Heart Failure,Pleural Effusion Discharge Discharge Diagnosis / Problem: Acute diastolic heart failure, Pleural effusions Discharge Goals Goal(s): Decrease discomfort, Improve function Activity Recommendations Activity Limitations: per Instructions/Follow-up section Lifting Limitations: none Exercise/Sports Limitations: as tolerated May Resume Sexual Activity: when tolerated Shower/Bathe: no limitations Driving or Machine Use: no limitations refer to discharge instructions from last visit about pacemaker, no reaching above head or reaching behind back with left arm until cleared by cardiology . Instructions / Follow-Up Instructions / Follow-Up Medications - BUMEX: continue 1mg daily - KEFLEX: take for 7 more days for mild cellulitis, sites of infiltration from IV sites - AMIODARONE: stop this medications, Dr. Parikh feels it is no longer indicated Acute diastolic heart failure and pleural effusions removed nearly 6 liters of fluid during hospitalization will continue to control volume status with Bumex please follow up closely with Dr. Parikh at the end of the month please weigh yourself daily in the morning after you urinate, prior to eating breakfast if you gain more than 3 pounds from today's weight (weigh yourself when you get home) then you should call Dr. Terrell or Dr. Parikh's office for instructions FOLLOW UP - call for appointment with Dr. Terrell in 5-7 days from today, need to be seen for hospital follow up - keep appointments with Dr. Menon and Dr. Parikh for the end of the month Call your Primary Care doctor if any of the following symptoms or problems start or get worse: * Shortness of breath or difficulty breathing * Wake up at night short of breath * Chest pain * Cough * Swelling of your hands, feet, or legs * More fatigued or tired with your normal activity * Palpitations - sudden fast heart beats WEIGHT * Weigh yourself every morning after using the bathroom. * Use the same scale. * Wear the same amount of clothing. * Write your weight down on a chart. * Call your Primary Care doctor if you gain more than 2-3 pounds in 1-2 days. MEDICATIONS * Use this discharge instruction sheet for medication instructions. * Take your medications at the time your doctor ordered. * Do not skip a dose of your medicines. * If you miss a dose of medicine, take it as soon as possible, but DO NOT DOUBLE A DOSE. * Read your medicine information when you get home. * Know all of the side effects of your medicine. If in doubt, ask your pharmacist * Call your Primary Care doctor's office if you have any side effects. * Be sure all of your doctors know what medicine and herbs you take (including cold, flu, and herbal medicine). Take the following with you to your follow-up doctor appointments: * Weight Chart * Medication List * List of questions Do not drink excessive alcohol, beer or wine. Current Hospital Diet Patient's current hospital diet: AHA Diet (Heart Healthy), Low Sodium Diet (2gm Na) Discharge Diet Recommended Diet: Low Sodium Diet (2gm Na) Pending Studies Studies pending at discharge: no Medical Emergencies . Who to Call and When: Call 911 or go to the Emergency Room if: * If at any time you feel your situation is an emergency * You have tightness or pain in your chest that does not go away with rest or Nitroglycerin * You are very short of breath even with rest . Non-Emergent Contact Non-Emergency issues call your: Primary Care Provider, [employer] Call Non-Emergent contact if: you have any medication questions . . "Provider Documentation" section prepared by Mitul Colby. .
[2017-08-08 11:38] VITALS: BP 138/83; PULSE 82; TEMP 36.4; O2SAT 100
--- NOTE | 2017-08-09 07:40 | Discharge Summary ---
Discharge Summary Date of Service Aug 10, 2017. 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 Pancytopenia Immunizations: Have You Had Influenza Vaccine: Yes History of Tetanus Vaccine?: Yes History of Pneumococcal: Yes History of Hepatitis B Vaccine: Yes Procedures: Right US guided thoracentesis, 08/03 Left US guided thoracentesis, 08/04 Consultations: Thoracic surgery Cardiology Medication Reconciliation New Medications: Cephalexin Monohydrate (Keflex) 500 Mg Cap 1 CAP PO BID for 7 Days, #14 CAP Continued Medications: Aspirin (Aspirin Ec) 81 Mg Tab 81 MG PO DAILY Bumetanide (Bumex) 1 Mg Tab 1 TAB PO DAILY for 90 Days, #90 TAB 1 Refill Calcium Carbonate-Cholecalcife (Calcium 600+D 600-800 mg-Unit) 1 Tab Tab 1 TAB PO BID Cholecalciferol (Vitamin D) 2,000 Unit Cap 2000 UNITS PO DAILY Enzalutamide (Xtandi) 40 Mg Cap 120 MG PO DAILY Fish Oil (Enterprise-3) 1 Ea Cap 1 CAP PO DAILY, CAP Leuprolide Acetate (Lupron Depot) 30 Mg Kit 30 MG IM UD Next dose will be given on 09/2016 per pt Multivitamin (Multivitamin) Tab 1 TAB PO DAILY, TAB Paroxetine Hcl (Paroxetine Hcl) 30 Mg Tab 30 MG PO DAILY Potassium Chloride (Potassium Chloride Er) 10 Meq Cap 1 CAP PO DAILY for 90 Days, #90 CAP 1 Refill Pravastatin (Pravachol ) 20 Mg Tab 20 MG PO DAILY, 0 Refills Probiotic Product (Probiotic) 1 Cap Cap 1 CAP PO DAILY Tramadol (Ultram) 50 Mg Tab 50 MG PO TID PRN for Pain Triamcinolone Acet (Triamcinolone Acetonide) 45 Appln/15 Gm Cr 1 APPLN TOP BID PRN for Itching for 30 Days, #30 GM Vitamin E (E-400) 400 Unit Cap 400 UNITS PO DAILY Discontinued Medications: Amiodarone HCl (Amiodarone HCl) 200 Mg Tab 400 MG PO BID, #13 TAB 0 Refills Take twice a day at 9 pm and 9 am. Amiodarone HCl (Amiodarone HCl) 200 Mg Tab 200 MG PO DAILY for 30 Days, #30 TAB 0 Refills Take after completng 400 mg dose Discharge Exam Patient feeling great on the day of discharge, breathing well, ambulating in the halls, diuresing well. Rates stable on tele monitor, paced. Discussed with holly Lim for discharge from his perspective. Discussed followed up with Dr. Menon and Dr. Parikh. Reviewed importance of daily weights, contacting PCP or Dr. Parikh if gaining more than 3 pounds. All questions answered, updated patient's at the bedside. Review of Systems: Constitutional: + weakness, + fatigue, No fever, No chills, No sweats, No weight loss, No problem reported Eyes: No worsening of vision, No eye pain, No redness, No discharge, No diplopia, No problem reported ENT: No hearing loss, No unusual epistaxis, No nasal symptoms, No sore throat, No tinnitus, No dental problems, No trouble swallowing, No problem reported Respiratory: + dyspnea on exertion (mild), No cough, No sputum, No wheezing , No shortness of breath, No dyspnea at rest, No hemoptysis, No problem reported Cardiovascular: No chest pain, No orthopnea, No PND, No edema, No claudication, No palpitations, No problem reported Abdomen: No pain, No nausea, No vomiting, No diarrhea, No constipation, No GI bleeding, No problem reported Musculoskeletal: No joint pain, No muscle pain, No swelling, No calf pain, No problem reported Genitourinary - Male: No hematuria, No dysuria, No urinary frequency, No urinary urgency Neurologic: + weakness, No memory loss, No paralysis, No numbness/tingling, No vertigo, No balance problems, No problem reported Psychiatric: No depression symptoms, No anhedonism, No anxiety, No insomnia , No substance abuse, No problem reported Endocrine: No fatigue, No excessive thirst, No excessive urination, No problem reported Hematologic / Lymphatic: No abnormal bleeding/bruising, No clotting problems , No swollen lymph nodes, No night sweats, No problem reported Integumentary: No rash, No itch, No new/changing skin lesions, No color change, No bleeding, No problem reported Physical Exam: General Appearance: WD/WN, no apparent distress Eyes: normal inspection, EOMI, sclerae normal ENT: normal ENT inspection, hearing grossly normal, pharynx normal Neck: supple, no adenopathy, no JVD, trachea midline Respiratory/Chest: chest non-tender, lungs clear, no respiratory distress, no accessory muscle use, + decreased breath sounds (bases) Cardiovascular: regular rate, rhythm, no edema, no gallop, no JVD, no murmur , normal peripheral pulses Abdomen / GI: normal bowel sounds, non tender, soft, no organomegaly Extremities: normal inspection, no calf tenderness, normal capillary refill , no pedal edema, normal range of motion, pelvis stable Neurologic/Psychiatric: neon electrician II-XII nml as tested, no motor/sensory deficits , alert, normal mood/affect, normal reflexes, oriented x 3 Skin: normal color, warm/dry, no rash Hospital Course a76 y/o male with a history of metastatic prostate cancer, pancytopenia due to chemo, HLD, and anxiety/depression who was admitted to [facility] last week with complete heart block s/p pacemaker who presented to the ED on 08/03 with shortness of breath, dyspnea on exertion and weight gain. Pt tachycardic on arrival, otherwise VSS. CXR with evidence fluid overload and bilateral pleural effusions. CTA chest negative fro PE, does show moderate bilateral pleural effusions. Osteoblastic metastasis stable from previous. Potassium 3.2. BNP 7942. Acute on chronic diastolic heart failure-- resolved on day of discharge negative 5.5 liters on the admission including diuresis and thoracentesis continue to monitor weights every morning at home will continue on Bumex 1mg daily, potassium supplementation breathing room air, 100% saturations, no edema in lower extremities no pulmonary edema on CXR, still with small pleural effusions Moderate bilateral pleural effusions secondary to CHF -improving - Thoracic surgery- on board, appreciate recs: s/p thoracentesis on 08/04: out 1.1 L transudative fluid on R &L - again, CXR shows small effusions, significantly reduced since discharge Complete heart block s/p pacemaker, atrial tachycardia, thought to be due to PMT - per cardiology, the tachycardia was fixed with a longer PVARP - rates in 70's -Continue ASA - amiodarone discontinued per cardiology Superficial thrombosis LUE, -improving - erythema with question of initial cellulitis is greatly resolved, likely from repetitive IV site insertion attempts per pt. - Venous Doppler ultrasound LUE negative for DVT, shows occlusive thrombus involving the cephalic vein - Cefazolin 1 gm IV q8h, will d/c on Keflex for 7 more days as skin is still erythematous - Warm compresses to LUE Anemia: has been 8 for several days Likely from cancer tx Hypokalemia--resolved - continue home KCl 10 mEq PO qd Metastatic prostate cancer with h/o radiation--stable -Continue Xtandi 120 mg PO qd (nonformulary so brought in from home) -Lupron injections q 4 months -Xgeva stopped per - will follow up with Dr. Menon at the end of the month Pancytopenia due to chemo drugs--stable HLD -Continue pravastatin 20 mg PO qd Anxiety/depression -Continue Paxil 10 mg PO qd DVT ppx: lovenox, teds, scds Code Status: Full Total Time Spent: Greater than 30 minutes This includes examination of the patient, discharge planning, medication reconciliation, and communication with other providers. Discharge Instructions Please refer to the electronic Patient Visit Report (Discharge Instructions) for additional information. Follow-Up Dr. Terrell in one week Dr. Menon in two weeks Dr. Parikh in two weeks Additional Copies To Julia Terrell D.O.; Gus Parikh MD; Ozzie Menon MD
== END 2017-08-08 13:50 | disposition home or self-care (01) | DRG 291 ==
LOC: C.EDB 06:59 → C.2T 10:57 → EDBEDREQ 11:08 → ENRESERV 11:58 → OBSVTOIN 08-04 12:56
PROVIDERS: ADMIT Internal Medicine; ATTEND Internal Medicine
PROC: 0B9N3ZZ Drainage of Right Pleura, Percutaneous Approach (ICD-10-PCS; principal; 2017-08-03)
PROC: 0B9P3ZZ Drainage of Left Pleura, Percutaneous Approach (ICD-10-PCS; principal; 2017-08-03)
PROC: 0B9P3ZZ Drainage of Left Pleura, Percutaneous Approach (ICD-10-PCS; 2017-08-04)
DX: I50.33 Acute on chronic diastolic (congestive) heart failure (principal); D61.810 Antineoplastic chemotherapy induced pancytopenia; I44.2 Atrioventricular block, complete; J91.0 Malignant pleural effusion; I82.612 Acute embolism and thrombosis of superficial veins of left upper extremity; L03.114 Cellulitis of left upper limb; I47.1 Supraventricular tachycardia; I48.92 Unspecified atrial flutter; C79.51 Secondary malignant neoplasm of bone; C61 Malignant neoplasm of prostate; E78.5 Hyperlipidemia, unspecified; F41.9 Anxiety disorder, unspecified; F32.9 Major depressive disorder, single episode, unspecified; Z80.42 Family history of malignant neoplasm of prostate; Z82.3 Family history of stroke; Z88.5 Allergy status to narcotic agent; Z79.82 Long term (current) use of aspirin; E87.6 Hypokalemia; Z87.891 Personal history of nicotine dependence

== ENCOUNTER → 2017-08-16 | Outpatient (CLI) | payer OTHER, BC ==
[~2017-08-16] MED LIST changes: +CEPH500C PO; -CRD200 PO; -DENOINJ SC; -PARO10TA PO; +PARO30TA6 PO
--- NOTE | 2017-08-16 08:41 | DIAGNOSTIC IMAGING REPORT ---
CHEST 2 VIEWS ROUTINE CLINICAL HISTORY: Cough. Pleural effusion. Recent pacemaker insertion. COMPARISON STUDY: Chest CT August 03, 2017 and chest radiograph August 08, 2017. FINDINGS: A dual lead left pacemaker is in place. No pneumothorax is noted. Trace bilateral pleural effusions have decreased in size since exam of August 08, 2017. There is no evidence for pulmonary edema. Cardiomediastinal silhouette is stable. IMPRESSION: 1. Trace bilateral pleural effusions, decreased in size since previous exam. 2. No evidence for pulmonary edema. Electronically signed by: Bertin Eisenberg M.D. 08/16/2017 8:39 AM Dictated Date/Time: 08/16/2017 8:38 AM
== END | disposition home or self-care (01) ==
LOC: C.RAD 08:10
PROVIDERS: ATTEND Surgery
DX: J90 Pleural effusion, not elsewhere classified (principal)

== ENCOUNTER → 2017-09-06 | Outpatient (CLI) | payer OTHER, BC ==
[~2017-09-06] MED LIST changes: -CEPH500C PO
--- NOTE | 2017-09-06 11:38 | DIAGNOSTIC IMAGING REPORT ---
ULTRASOUND LEFT UPPER EXTREMITY VENOUS CLINICAL HISTORY: Left arm pain and swelling. COMPARISON STUDY: Left upper extremity venous ultrasound dated 08/03/2017. TECHNIQUE: Real-time, grayscale, and color Doppler sonography of the deep veins of the left upper extremity is performed. Compression and augmentation were utilized. FINDINGS: There is occlusive deep venous thrombosis and alignment within one of two paired left axillary veins. The left internal jugular and brachial veins are patent and normally compressible. A catheter or pacemaker lead is present the left subclavian vein. The subclavian vein appears patent however, there may be nonocclusive thrombus. The visualized radial and ulnar veins are patent. Occlusive superficial venous thrombus is seen within the basilic vein and within superficial vessels in the forearm. The cephalic vein appears patent. IMPRESSION: 1. There is occlusive deep venous thrombosis identified within one of two paired left axillary veins. 2. There is occlusive superficial venous thrombus is seen within the basilic vein and within the superficial veins in the form. 3. A catheter or pacemaker lead is present within the left subclavian vein. Some flow is identified; however, it may also contain nonocclusive thrombus. Electronically signed by: Xander Knott M.D. 09/06/2017 11:36 AM Dictated Date/Time: 09/06/2017 11:33 AM
== END | disposition home or self-care (01) ==
LOC: C.ULTRBC 10:52
PROVIDERS: ATTEND Internal Medicine Hematology & Oncology
DX: M79.602 Pain in left arm (principal); C61 Malignant neoplasm of prostate; I82.622 Acute embolism and thrombosis of deep veins of left upper extremity

== ENCOUNTER → 2017-09-09 | Outpatient (CLI) | payer OTHER, BC ==
[~2017-09-09] MED LIST changes: +OPTIRAY 320 IV PRN
--- NOTE | 2017-09-09 11:34 | DIAGNOSTIC IMAGING REPORT ---
CHEST CT WITH CONTRAST CT DOSE: 655.17 mGy.cm HISTORY: Subsequent treatment strategy. Follow-up exam in a patient with history of metastatic prostate cancer PROSTATE CA, RESTAGING OF METS TECHNIQUE: Multiaxial CT images of the chest were performed following the intravenous administration of contrast. A dose lowering technique was utilized adhering to the principles of ALARA. COMPARISON: CT abdomen and pelvis of same day, CTA of the chest 08/03/2017 FINDINGS: Homogeneous thyroid. No pathologic adenopathy about the chest identified. Calcified hilar lymph nodes on the left compatible with prior granulomatous disease. Mild soft tissue stranding about the superior left axilla has decreased from prior study and is likely related to prior left pectoral pacer placement. Moderate multichamber cardiac enlargement with coronary arterial calcifications. Thoracic aorta is normal in course and caliber without aneurysm or dissection. The opacified pulmonary arterial tree is also unremarkable. Left subclavian pacer device is noted with leads overlying the right atrium and right ventricle. There is a moderate sized pericardial effusion measuring up to 1.2 cm posteriorly. Moderate left and small right pleural effusions, decreased in size on the right from comparison. Dependent bibasilar consolidative opacities suggest compressive atelectasis. There is no pneumothorax or overt pulmonary edema. Calcified granulomata about the left lower lobe. There are no suspicious pulmonary nodules or masses identified. The central airways appear patent. Calcified granulomata about the spleen. No acute process of the imaged upper abdomen. Sclerotic metastasis are redemonstrated with near complete sclerosis of the T2 vertebral body. Sclerotic lesion involving the superior vertebral body and posterior elements at T3 appears unchanged. Mixed lytic and sclerotic large lesion at T10 extending into the right pedicle also appears unchanged. Mild sclerosis involving the inferior right aspect of the T12 vertebral body favor degenerative changes as stable. No new metastatic lesions identified. IMPRESSION: 1. Moderate left and small right pleural effusions with bibasilar atelectasis. 2. Cardiomegaly with moderate sized pericardial effusion. 3. Unchanged skeletal metastasis as above. 4. Left pectoral subclavian pacer device again noted with decreased soft tissue edema about the chest wall. 5. Additional findings as above. Electronically signed by: Shadi Rondon M.D. 09/09/2017 11:33 AM Dictated Date/Time: 09/09/2017 11:23 AM
--- NOTE | 2017-09-09 11:35 | DIAGNOSTIC IMAGING REPORT ---
ABD/PELVIS IV CONTRAST ONLY CLINICAL HISTORY: 76 years-old Male presenting with PROSTATE CA, RESTAGING OF METS. TECHNIQUE: Multidetector CT of the abdomen and pelvis was performed after the administration of intravenous contrast. IV contrast: 93 mL of Optiray 320. A dose lowering technique was used consistent with the principles of ALARA (as low as reasonably achievable). COMPARISON: 01/20/2017. CT DOSE (mGy.cm): The estimated cumulative dose is 655.[address] chest. FINDINGS: [employer]ing [employer] topogram: Left subclavian pacer with leads to the right atrium and right ventricular apex. Cardiomegaly. Left basilar opacity. Lung bases: Dependent consolidation volume loss in the lower lobes, greater on the left. Multichamber enlargement of the heart. Coronary artery calcification. Moderate pericardial effusion with suggestion of pericardial enhancement, which is new from prior. Moderate bilateral pleural effusions greater on the left. These are also new from prior. Liver: Normal morphology. No liver lesion. Patent hepatic vasculature. Biliary: No intrahepatic or extrahepatic biliary ductal dilatation. Gallbladder contains gallstones. Pancreas: Normal. Spleen: Punctate calcifications in the splenic parenchyma suggest prior granulomatous infection. Adrenal glands: Normal. Kidneys and ureters: Mild right pelvocaliectasis and moderate left pelvocaliectasis. Left renal collecting system dilatation has worsened from prior exam. Dilatation on the right is stable from prior. No perinephric fat stranding. Slight delayed perfusion of the left kidney relative to the right, which is new from prior. Urothelial thickening bilaterally though greater on the right. Periureteral fat stranding is also greater on the right. No nephrolithiasis or ureteral calculus. There is minimal if any inflammatory change surrounding the ureters in the distal portions, similar to prior exam. Bladder: Circumferential bladder wall thickening allowing for underdistention. Pelvic organs: Postsurgical changes of prostatectomy. Bowel: Mild stool burden throughout normal caliber colon. The appendix is normal. No bowel obstruction. Peritoneal cavity: No free fluid or intraperitoneal gas. Lymph nodes: No discrete enlarged lymph nodes. Vague retroperitoneal infiltration at the sites of prior prominent periaortic and aortocaval lymph nodes. The largest though ill-defined node is at the level of the left renal pelvis and measures 6 mm in the short axis (series 7 image 154). Vasculature: Atherosclerosis of the normal caliber abdominal aorta. IVC patent. Abdominal wall: Normal. Musculoskeletal: Previously noted sclerotic lesion in the left anterior ilium unchanged. The lesion in L5 is unchanged. Additional sclerotic lesion in T10, slightly increased in size and extent now involving the posterior elements no new sites of disease. Densely sclerotic lesion in the right ilium is unchanged and likely a bone island or other benign etiology. Degenerative changes of the spine and sacrum. IMPRESSION: 1. Slight interval increase in size of the sclerotic lesion in T10 concerning for progression of blastic metastases. Additional sclerotic lesions unchanged. No new lesion. 2. Decreased prominence of subcentimeter ill-defined retroperitoneal lymphadenopathy. 3. Interval development of moderate pericardial effusion with suggestion of pericarditis. 4. Interval development of moderate bilateral pleural effusions with passive atelectasis. 5. Interval development of moderate left hydronephrosis without evidence of an obstructing calculus or mass. This may imply stricture. Dedicated CT urogram could be considered for further evaluation. 6. Urothelial thickening and periureteral inflammatory change at the proximal ureters is similar to the prior exam and may represent posttreatment change. Correlate with urinalysis to exclude infection, which is considered less likely given the chronicity. 7. Postsurgical changes of prostatectomy. Electronically signed by: Kristian Wilkinson M.D. 09/09/2017 11:34 AM Dictated Date/Time: 09/09/2017 11:21 AM
== END | disposition home or self-care (01) ==
LOC: C.CTS 10:37
PROVIDERS: ATTEND Internal Medicine Hematology & Oncology
DX: C61 Malignant neoplasm of prostate (principal); I31.3 Pericardial effusion (noninflammatory); J90 Pleural effusion, not elsewhere classified; N13.30 Unspecified hydronephrosis; Z90.79 Acquired absence of other genital organ(s)

== ENCOUNTER 2017-09-14 10:41 | Inpatient (IN) | payer OTHER, BC ==
[~2017-09-14] VITALS: Ht 175.3 cm; Wt 73.8 kg
[~2017-09-14 10:41] MED LIST changes: -OPTIRAY 320 IV PRN
[2017-09-14] MEDS ORDERED: RIVA1.5T PO (11:20)
--- NOTE | 2017-09-14 11:21 | EMERGENCY ROOM VISIT NOTE ---
History Report prepared by Angi: Cameron Wallace Under the Supervision of: Dr. Brendan Ingram M.D. First contact with patient: 11:00 Chief Complaint: REFERRED BY DOCTOR Stated Complaint: SENT BY [facility]ER [facility]ENTER History of Present Illness The patient is a 76 year old white male with a past medical history of anemia, CHF, HLD, pleural effusion, prostates cancer, third degree heart block, pacemaker who presents to the ED with a cc of constant fluid around his heart beginning earlier today. Pt states he had a staging CT scan today and was told he had fluid around his heart. Positive shortness of breath upon exertion and dry cough. Negative chest pain, swelling in his legs, abdominal pain, urinary symptoms, trouble defecating, vomiting blood, blood in stool, bleeding, coughing up blood. Pt no longer receives IV treatment for his cancer, but he is still taking oral treatment. Source of History: patient Onset: earlier today Quality: other (fluid around his heart) Timing: constant Associated Symptoms: + cough (dry), + SOB (on exertion), No chest pain, No abdominal pain, No urinary symptoms Note: Denies: trouble defecating, vomiting blood, blood in stool, bleeding, coughing up blood. Review of Systems See HPI for pertinent positives and negatives. A total of ten systems were reviewed and were otherwise negative. Past Medical & Surgical Medical Problems: (1) Anemia (2) Congestive heart failure (3) Hyperlipidemia (4) Lethargy (5) Pleural effusion (6) Prostate cancer (7) Third degree heart block (8) Weakness Family History Cancer (prostate) FATHER Stroke Social History Smoking Status: Former Smoker Drug Use: none Marital Status: Housing Status: lives with significant other Occupation Status: retired Current/Historical Medications Scheduled Aspirin (Aspirin Ec), 81 MG PO DAILY Calcium Carbonate-Cholecalcife (Calcium 600+D 600-800 mg-Unit), 1 TAB PO BID Cholecalciferol (Vitamin D), 2,000 UNITS PO DAILY Enzalutamide (Xtandi), 120 MG PO DAILY Fish Oil ([place]-3), 1 CAP PO DAILY Leuprolide Acetate (Lupron Depot), 30 MG IM UD Multivitamin (Multivitamin), 1 TAB PO DAILY Paroxetine Hcl (Paroxetine Hcl), 30 MG PO DAILY Pravastatin (Pravachol ), 20 MG PO DAILY Probiotic Product (Probiotic), 1 CAP PO DAILY Rivaroxaban (Xarelto), 15 MG PO BID Vitamin E (E-400), 400 UNITS PO DAILY Scheduled PRN Tramadol (Ultram), 50 MG PO TID PRN for Pain Triamcinolone Acet (Triamcinolone Acetonide), 1 APPLN TOP BID PRN for Itching Allergies Coded Allergies: Oxycodone (Verified Adverse Reaction, Intermediate, confusion, 09/01/17) PER DR CARMICHAEL, Per his conversation with patient, reaction to Percocet was confusion, not difficulty breathing. Physical Exam Vital Signs Date Time Temp Pulse Resp B/P (MAP) Pulse Ox O2 Delivery O2 Flow Rate FiO2 09/14/17 16:30 73 27 139/65 96 Room Air 09/14/17 15:00 96 23 122/74 93 Room Air 09/14/17 14:41 Room Air 09/14/17 14:02 73 22 120/66 95 Room Air 09/14/17 12:28 73 16 121/70 93 Room Air 09/14/17 11:38 68 09/14/17 11:07 93 Room Air 09/14/17 10:43 36.9 66 18 124/67 98 Room Air Physical Exam GENERAL: Awake, alert, well-appearing, NAD HENT: Normocephalic, atraumatic. EYES: Normal conjunctiva. Sclera non-icteric. PERRL. No anisocoria. NECK: Supple. No nuchal rigidity. FROM. RESPIRATORY: Diminished breath sounds bilaterally, no rhonchi, wheezing, crackles CARDIAC: RRR, no MRG ABDOMEN: Soft, NTND, BS+ MSK: No chest wall TTP, no LE edema. Device in left chest with ecchymosis over the device area. NEURO: GCS 15, CN 2-12 intact, moves all 4s on command SKIN: No rash. Jaundice noted. Medical Decision & Procedures ER Provider Diagnostic Interpretation: Radiology results as stated below per my review and radiologist interpretation: CHEST ONE VIEW PORTABLE HISTORY: 76 years-old Male EVALUATE RESPIRATORY DISTRESS.DYSPNEA acute respiratory distress COMPARISON: Chest radiograph 08/16/2017, chest CT 09/09/2017 TECHNIQUE: Portable AP view of the chest FINDINGS: Cardiac silhouette is mildly enlarged. Left subclavian pacer appears unchanged. Mild pulmonary vascular congestion without overt pulmonary edema. Trace right and small left pleural effusions with bibasilar consolidation. Degenerative changes of the shoulders and spine. IMPRESSION: 1. Cardiomegaly with mild pulmonary vascular congestion. 2. Small left and trace right pleural effusions with bibasilar consolidation suggesting atelectasis or pneumonia. The above report was generated using voice recognition software. It may contain grammatical, syntax or spelling errors. Electronically signed by: Shadi Rondon M.D. 09/14/2017 11:32 AM Dictated Date/Time: 09/14/2017 11:31 AM Pre-Hospital CHEST CT WITH CONTRAST CT DOSE: 655.17 mGy.cm HISTORY: Subsequent treatment strategy. Follow-up exam in a patient with history of metastatic prostate cancer PROSTATE CA, RESTAGING OF METS TECHNIQUE: Multiaxial CT images of the chest were performed following the intravenous administration of contrast. A dose lowering technique was utilized adhering to the principles of ALARA. COMPARISON: CT abdomen and pelvis of same day, CTA of the chest 08/03/2017 FINDINGS: Homogeneous thyroid. No pathologic adenopathy about the chest identified. Calcified hilar lymph nodes on the left compatible with prior granulomatous disease. Mild soft tissue stranding about the superior left axilla has decreased from prior study and is likely related to prior left pectoral pacer placement. Moderate multichamber cardiac enlargement with coronary arterial calcifications. Thoracic aorta is normal in course and caliber without aneurysm or dissection. The opacified pulmonary arterial tree is also unremarkable. Left subclavian pacer device is noted with leads overlying the right atrium and right ventricle. There is a moderate sized pericardial effusion measuring up to 1.2 cm posteriorly. Moderate left and small right pleural effusions, decreased in size on the right from comparison. Dependent bibasilar consolidative opacities suggest compressive atelectasis. There is no pneumothorax or overt pulmonary edema. Calcified granulomata about the left lower lobe. There are no suspicious pulmonary nodules or masses identified. The central airways appear patent. Calcified granulomata about the spleen. No acute process of the imaged upper abdomen. Sclerotic metastasis are redemonstrated with near complete sclerosis of the T2 vertebral body. Sclerotic lesion involving the superior vertebral body and posterior elements at T3 appears unchanged. Mixed lytic and sclerotic large lesion at T10 extending into the right pedicle also appears unchanged. Mild sclerosis involving the inferior right aspect of the T12 vertebral body favor degenerative changes as stable. No new metastatic lesions identified. IMPRESSION: 1. Moderate left and small right pleural effusions with bibasilar atelectasis. 2. Cardiomegaly with moderate sized pericardial effusion. 3. Unchanged skeletal metastasis as above. 4. Left pectoral subclavian pacer device again noted with decreased soft tissue edema about the chest wall. 5. Additional findings as above. Electronically signed by: Shadi Rondon M.D. 09/09/2017 11:33 AM Dictated Date/Time: 09/09/2017 11:23 AM Pre-Hospital ABD/PELVIS IV CONTRAST ONLY CLINICAL HISTORY: 76 years-old Male presenting with PROSTATE CA, RESTAGING OF METS. TECHNIQUE: Multidetector CT of the abdomen and pelvis was performed after the administration of intravenous contrast. IV contrast: 93 mL of Optiray 320. A dose lowering technique was used consistent with the principles of ALARA (as low as reasonably achievable). COMPARISON: 01/20/2017. CT DOSE (mGy.cm): The estimated cumulative dose is 655.[address] chest. FINDINGS: [employer] topogram: Left subclavian pacer with leads to the right atrium and right ventricular apex. Cardiomegaly. Left basilar opacity. Lung bases: Dependent consolidation volume loss in the lower lobes, greater on the left. Multichamber enlargement of the heart. Coronary artery calcification. Moderate pericardial effusion with suggestion of pericardial enhancement, which is new from prior. Moderate bilateral pleural effusions greater on the left. These are also new from prior. Liver: Normal morphology. No liver lesion. Patent hepatic vasculature. Biliary: No intrahepatic or extrahepatic biliary ductal dilatation. Gallbladder contains gallstones. Pancreas: Normal. Spleen: Punctate calcifications in the splenic parenchyma suggest prior granulomatous infection. Adrenal glands: Normal. Kidneys and ureters: Mild right pelvocaliectasis and moderate left pelvocaliectasis. Left renal collecting system dilatation has worsened from prior exam. Dilatation on the right is stable from prior. No perinephric fat stranding. Slight delayed perfusion of the left kidney relative to the right, which is new from prior. Urothelial thickening bilaterally though greater on the right. Periureteral fat stranding is also greater on the right. No nephrolithiasis or ureteral calculus. There is minimal if any inflammatory change surrounding the ureters in the distal portions, similar to prior exam. Bladder: Circumferential bladder wall thickening allowing for underdistention. Pelvic organs: Postsurgical changes of prostatectomy. Bowel: Mild stool burden throughout normal caliber colon. The appendix is normal. No bowel obstruction. Peritoneal cavity: No free fluid or intraperitoneal gas. Lymph nodes: No discrete enlarged lymph nodes. Vague retroperitoneal infiltration at the sites of prior prominent periaortic and aortocaval lymph nodes. The largest though ill-defined node is at the level of the left renal pelvis and measures 6 mm in the short axis (series 7 image 154). Vasculature: Atherosclerosis of the normal caliber abdominal aorta. IVC patent. Abdominal wall: Normal. Musculoskeletal: Previously noted sclerotic lesion in the left anterior ilium unchanged. The lesion in L5 is unchanged. Additional sclerotic lesion in T10, slightly increased in size and extent now involving the posterior elements no new sites of disease. Densely sclerotic lesion in the right ilium is unchanged and likely a bone island or other benign etiology. Degenerative changes of the spine and sacrum. IMPRESSION: 1. Slight interval increase in size of the sclerotic lesion in T10 concerning for progression of blastic metastases. Additional sclerotic lesions unchanged. No new lesion. 2. Decreased prominence of subcentimeter ill-defined retroperitoneal lymphadenopathy. 3. Interval development of moderate pericardial effusion with suggestion of pericarditis. 4. Interval development of moderate bilateral pleural effusions with passive atelectasis. 5. Interval development of moderate left hydronephrosis without evidence of an obstructing calculus or mass. This may imply stricture. Dedicated CT urogram could be considered for further evaluation. 6. Urothelial thickening and periureteral inflammatory change at the proximal ureters is similar to the prior exam and may represent posttreatment change. Correlate with urinalysis to exclude infection, which is considered less likely given the chronicity. 7. Postsurgical changes of prostatectomy. Electronically signed by: Kristian Wilkinson M.D. 09/09/2017 11:34 AM Dictated Date/Time: 09/09/2017 11:21 AM Laboratory Results 09/14/17 12:57 Red Blood Count 3.16, Mean Corpuscular Volume 78.8, Mean Corpuscular Hemoglobin 25.3, Mean Corpuscular Hemoglobin Concent 32.1, Neutrophils (%) (Auto) 40.3, Lymphocytes (%) (Auto) 40.2, Monocytes (%) (Auto) 5.5, Eosinophils (%) (Auto) 6.5, Basophils (%) (Auto) 1.5, Neutrophils # (Auto) 0.80, Lymphocytes # (Auto) 0.80, Monocytes # (Auto) 0.11, Eosinophils # (Auto) 0.13, Basophils # (Auto) 0.03 09/14/17 12:57 Test 09/14/17 12:57 09/14/17 14:10 White Blood Count 1.99 K/uL (4.8-10.8) Red Blood Count 3.16 M/uL (4.7-6.1) Hemoglobin 8.0 g/dL (14.0-18.0) Hematocrit 24.9 % (42-52) Mean Corpuscular Volume 78.8 fL (80-100) Mean Corpuscular Hemoglobin 25.3 pg (25-34) Mean Corpuscular Hemoglobin Concent 32.1 g/dl (32-36) Platelet Count 176 K/uL (130-400) Neutrophils (%) (Auto) 40.3 % Lymphocytes (%) (Auto) 40.2 % Monocytes (%) (Auto) 5.5 % Eosinophils (%) (Auto) 6.5 % Basophils (%) (Auto) 1.5 % Neutrophils # (Auto) 0.80 K/uL (1.4-6.5) Lymphocytes # (Auto) 0.80 K/uL (1.2-3.4) Monocytes # (Auto) 0.11 K/uL (0.11-0.59) Eosinophils # (Auto) 0.13 K/uL (0-0.5) Basophils # (Auto) 0.03 K/uL (0-0.2) RDW Standard Deviation 60.4 fL (36.4-46.3) RDW Coefficient of Variation 21.5 % (11.5-14.5) Immature Granulocyte % (Auto) 6.0 % Immature Granulocyte # (Auto) 0.12 K/uL (0.00-0.02) Polychromasia 1+ Anisocytosis PRESENT Ovalocytes 1+ Acanthocytes 1+ Prothrombin Time 13.3 SECONDS (9.0-12.0) Prothromb Time International Ratio 1.3 (0.9-1.1) Activated Partial Thromboplast Time 40.1 SECONDS (21.0-31.0) Partial Thromboplastin Ratio 1.5 Anion Gap 6.0 mmol/L (3-11) Est Creatinine Clear Calc Drug Dose 102.9 ml/min Estimated GFR () 112.5 Estimated GFR (Non- 97.1 BUN/Creatinine Ratio 24.0 (10-20) Calcium Level 8.4 mg/dl (8.5-10.1) Total Bilirubin 1.2 mg/dl (0.2-1) Aspartate Amino Transf (AST/SGOT) 15 U/L (15-37) Alanine Aminotransferase (ALT/SGPT) 12 U/L (12-78) Alkaline Phosphatase 62 U/L (45-117) Troponin I < 0.015 ng/ml (0-0.045) Pro-B-Type Natriuretic Peptide 1156 pg/ml (0-900) Total Protein 6.5 gm/dl (6.4-8.2) Albumin 3.0 gm/dl (3.4-5.0) Globulin 3.5 gm/dl (2.5-4.0) Albumin/Globulin Ratio 0.9 (0.9-2) Urine Color DK YELLOW Urine Appearance CLEAR (CLEAR) Urine pH 5.5 (4.5-7.5) Urine Specific Frederic 1.017 (1.000-1.030) Urine Protein NEG (NEG) Urine Glucose (UA) NEG (NEG) Urine Ketones NEG (NEG) Urine Occult Blood NEG (NEG) Urine Nitrite NEG (NEG) Urine Bilirubin NEG (NEG) Urine Urobilinogen NEG (NEG) Urine Leukocyte Esterase TRACE (NEG) Urine WBC (Auto) 1-5 /hpf (0-5) Urine RBC (Auto) 0-4 /hpf (0-4) Urine Hyaline Casts (Auto) 0 /lpf (0-5) Urine Epithelial Cells (Auto) 0-5 /lpf (0-5) Urine Bacteria (Auto) NEG (NEG) Laboratory results reviewed by me ECG Per My Interpretation Indication: other (hx of a pacemaker) Rate (beats per minute): 75 Rhythm: other (ventriculary paced) Findings: Q waves (Lateral and inferior), RBBB, left axis deviation, other ( [place]. Wide QRS. ) Comparison ECG Date: 08/05/17 Change: Bigeminy is new. ED Course 1109: The patient was evaluated in room C10. A complete history and physical exam was performed. 1324: Upon reexamination, the patient was resting. I discussed the test results and treatment plan with him. The patient will be evaluated for further management. 1428: I discussed the patient's case with Dr. Harmon, [facility] Hospitalist. The patient will be evaluated for further management and care. 1434: I discussed the patient's case with Dr. Parikh, Cardiology. He is aware of the patient's hospitalist evaluation and will evaluate the patient. 1442: I reevaluated the patient and updated him of his remaining test results. I also discussed the consults that were made. He verbalizes agreement with the treatment plan and will be evaluated for further care. Medical Decision Nursing notes reviewed. Ancillary studies and prior records reviewed. The patient is a 76 year old white male with a past medical history of anemia, CHF, HLD, pleural effusion, prostates cancer, third degree heart block, pacemaker who presents to the ED with a cc of constant fluid around his heart beginning earlier today. Differential diagnosis: Etiologies such as infections, reactive airway disease, pneumonia, pneumothorax , COPD, CHF, cardiac ischemia, pulmonary embolism, musculoskeletal, gastrointestinal, as well as others were entertained. Patient was seen and evaluated at the bedside. I did receive a phone call from the patient's primary oncologist. Patient did have a CT of the abdomen pelvis. Patient did have a noted pericardial effusion for which the patient was sent in for further treatment and evaluation. Patient does have a history of upper extremity DVT and is on a no added. Patient has been taking oral chemotherapy but no IV irradiation recently. This is been secondary to low blood counts the patient has required transfusions in the past. Patient does complain of some exertional dyspnea. Patient does not complain of any infectious symptoms exception of a nonproductive cough. Patient did have blood work completed along with EKG, troponin, BNP, chest x- ray. Patient CT findings were noted.\ Patient's blood work did show some leukopenia and neutropenia. Patient's ANC was greater than 500 patient was without fever. Chronic anemia. Patient has normal platelet count. Patient did have mild elevation BNP. Troponin was not elevated. I did relay these findings with the on-call hospitalist and stated the patient had a new develop pericardial effusion and the patient is on a NOAC and O and he should continue to be observed and likely will need a formal echocardiogram completed. Patient has had stable vital signs I do not believe that he has temporal physiology at this time. The thoracic surgeon was notified by the oncologist. I did speak with the on-call truckload checker make them aware also. Of note the patient did have a recent pacemaker placement by cardiology as well. Patient was admitted by the medicine service. Medication Reconcilliation Current Medication List: was personally reviewed by me Blood Pressure Screening Patient's blood pressure: Normal blood pressure Blood pressure disposition: Did not require urgent referral Consults Time Called: 1425 Consulting Physician: Dr. Harmon, [facility] Hospitalist Returned Call: 1422 I discussed the patient's case with Dr. Harmon, [facility] Hospitalist. The patient will be evaluated for further management and care. Additional Consults: Time Called: 1426 Consulted Physician: Dr. Parikh, Cardiology Returned Call: 1436 Additional Comments: I discussed the patient's case with Dr. Parikh, Cardiology. He is aware of the patient's hospitalist evaluation and will evaluate the patient. Impression Primary Impression: Pericardial effusion Additional Impressions: SOB (shortness of breath) Leukopenia Anemia Scribe Attestation The scribe's documentation has been prepared under my direction and personally reviewed by me in its entirety. I confirm that the note above accurately reflects all work, treatment, procedures, and medical decision making performed by me. Departure Information Dispostion Being Evaluated By Hospitalist Referrals Julia Terrell D.O. (PCP) Patient Instructions My [facility] Problem Qualifiers Additional Impressions: Leukopenia Leukopenia type: neutropenia Neutropenia type: secondary to cancer chemotherapy Qualified Codes: D70.1 - Agranulocytosis secondary to cancer chemotherapy; T45.1X5A - Adverse effect of antineoplastic and immunosuppressive drugs, initial encounter Anemia Anemia type: unspecified type Qualified Codes: D64.9 - Anemia, unspecified
--- NOTE | 2017-09-14 11:34 | DIAGNOSTIC IMAGING REPORT ---
CHEST ONE VIEW PORTABLE HISTORY: 76 years-old Male EVALUATE RESPIRATORY DISTRESS.DYSPNEA acute respiratory distress COMPARISON: Chest radiograph 08/16/2017, chest CT 09/09/2017 TECHNIQUE: Portable AP view of the chest FINDINGS: Cardiac silhouette is mildly enlarged. Left subclavian pacer appears unchanged. Mild pulmonary vascular congestion without overt pulmonary edema. Trace right and small left pleural effusions with bibasilar consolidation. Degenerative changes of the shoulders and spine. IMPRESSION: 1. Cardiomegaly with mild pulmonary vascular congestion. 2. Small left and trace right pleural effusions with bibasilar consolidation suggesting atelectasis or pneumonia. The above report was generated using voice recognition software. It may contain grammatical, syntax or spelling errors. Electronically signed by: Shadi Rondon M.D. 09/14/2017 11:32 AM Dictated Date/Time: 09/14/2017 11:31 AM
[2017-09-14 13:31] LABS: INR 1.3 (0.9-1.1); PTT PATIENT 40.1 SECONDS (21.0-31.0)
[2017-09-14 13:45] LABS: ALKALINE PHOSPHATASE 62 U/L (45-117); ALT/SGPT 12 U/L (12-78); AST/SGOT 15 U/L (15-37); BLOOD UREA NITROGEN 15 mg/dl (7-18); CALCIUM 8.4 mg/dl (8.5-10.1); CARBON DIOXIDE 27 mmol/L (21-32); CREATININE 0.63 mg/dl (0.60-1.40); GLUCOSE 93 mg/dl (70-99); POTASSIUM 4.1 mmol/L (3.5-5.1); SODIUM 135 mmol/L (136-145); TOTAL PROTEIN 6.5 gm/dl (6.4-8.2)
[2017-09-14 13:50] LABS: HEMATOCRIT 24.9 % (42-52); MEAN CELL VOLUME 78.8 fL (80-100); MEAN CORPUSCULAR HEMOGLOBIN 25.3 pg (25-34); MEAN CORPUSCULAR HGB CONC 32.1 g/dl (32-36); PLATELET COUNT 176 K/uL (130-400); RED CELL DISTRIBUTION WIDTH CV 21.5 % (11.5-14.5); RED CELL DISTRIBUTION WIDTH SD 60.4 fL (36.4-46.3); WHITE BLOOD COUNT 1.99 K/uL (4.8-10.8)
[2017-09-14 14:01] LABS: BASO % 1.5 %; BASO ABS # 0.03 K/uL (0-0.2); EOS % 6.5 %; EOS ABS # 0.13 K/uL (0-0.5); IG# 0.12 K/uL (0.00-0.02); LYMPH % 40.2 %; MONO % 5.5 %; MONO ABS # 0.11 K/uL (0.11-0.59); NEUT % 40.3 %
[2017-09-14 14:41] VITALS: Ht 175.3 cm; Wt 73.8 kg
[2017-09-14] MEDS ORDERED: TRIAMCINOLONE ACET 0.5% CR 15 GM TUBE EXT PRN (14:45)
[2017-09-14] MEDS ORDERED: ACETAMINOPHEN 325 MG TAB PO PRN (14:45)
[2017-09-14] MEDS ORDERED: POLYETHYLENE (MIRALAX) 17 GM PACK PO PRN (14:45)
[2017-09-14] MEDS ORDERED: TRAMADOL HCL 50 MG TAB PO PRN (14:45)
[2017-09-14] MEDS ORDERED: ONDANSETRON INJ 2 MG/ML 2 ML VIAL IV PRN (14:45)
[2017-09-14] MEDS ORDERED: BUMETANIDE SOLN 1 MG/4 ML VIAL IV ONE (15:45)
[2017-09-14] MEDS ORDERED: FUROSEMIDE INJ 40 MG in SYRINGE 0 ML IV ONE (15:50)
--- NOTE | 2017-09-14 16:00 | History and Physical ---
History & Physical Date & Time of Service: September 14, 2017 at 14:35 Chief Complaint: Sent By [facility] Primary Care Physician: Julia Terrell D.O. 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 He presents with is Gema, from routine cancer clinic appointment where he was sent by Dr. Menon with concerns of pericardial effusion, but also with continued neutropenia s/p chemotherapy which he last received at the end of May. He currently is taking enzalutamide but feels this isn't working for him anymore. He has a desire to participate in an experimental study in [place] where radioisotopes are injected over 6 sessions for treatment, but states now his counts would be too low. The patient notes he has been in his normal state of health, but has waxing and waning fatigue, as well as shortness of breath at rest and exertional dyspnea. It has been slightly worse in the past 3 days. He also c/o orthopnea now, he does not wear any supplemental O2 at baseline. He walks without assistance. He denies any chest pain, tightness, heaviness, palpitation, or pain with deep breaths. He admits to an occasional cough when he is laying supine and has his head up slightly, but that this is nonproductive and denies this is related to GERD. He does note some abdominal fullness/bloating which has recently worsened. His normal weight is 170 lbs and is currently 173.4 per ER weight. He also has noticed slight swelling in his legs. PRo- BNP 1156, Na = 135 WBC =1.99, Hgb= 8.0, Hct= 24.9, Plt= 176, Absolute Neut =0.80 INR 1.3 Past Medical/Surgical History Medical Problems: (1) Anemia (2) Congestive heart failure (3) Hyperlipidemia (4) Lethargy (5) Pleural effusion (6) Prostate cancer (7) Third degree heart block (8) Weakness Pericardial effusion Family History Cancer (prostate) FATHER Stroke Social History Smoking Status: Former Smoker Smokeless Tobacco Use: No Alcohol Use: none Drug Use: none Marital Status: Housing status: lives with family, lives with significant other Occupational Status: retired Immunizations History of Influenza Vaccine: Yes History of Tetanus Vaccine?: Yes History of Pneumococcal: Yes History of Hepatitis B Vaccine: Yes Allergies Coded Allergies: Oxycodone (Verified Adverse Reaction, Intermediate, confusion, 09/01/17) PER DR CARMICHAEL, Per his conversation with patient, reaction to Percocet was confusion, not difficulty breathing. Home Medications Scheduled Aspirin (Aspirin Ec), 81 MG PO DAILY Calcium Carbonate-Cholecalcife (Calcium 600+D 600-800 mg-Unit), 1 TAB PO BID Cholecalciferol (Vitamin D), 2,000 UNITS PO DAILY Enzalutamide (Xtandi), 120 MG PO DAILY Fish Oil ([place]-3), 1 CAP PO DAILY Leuprolide Acetate (Lupron Depot), 30 MG IM UD Multivitamin (Multivitamin), 1 TAB PO DAILY Paroxetine Hcl (Paroxetine Hcl), 30 MG PO DAILY Pravastatin (Pravachol ), 20 MG PO DAILY Probiotic Product (Probiotic), 1 CAP PO DAILY Rivaroxaban (Xarelto), 15 MG PO BID Vitamin E (E-400), 400 UNITS PO DAILY Scheduled PRN Tramadol (Ultram), 50 MG PO TID PRN for Pain Triamcinolone Acet (Triamcinolone Acetonide), 1 APPLN TOP BID PRN for Itching Review of Systems Constitutional: No fever, sweats or chills Eyes: No diplopia, no worsening or blurred vision ENT: normal hearing, no trouble swallowing Respiratory: See HPI. Cardiovascular: No chest pain, tightness or palpitations Abdomen: No pain, nausea, vomiting, diarrhea or constipation Musculoskeletal: No joint pain, calf pain. + swelling Neurologic: No weakness, numbness/tingling, or balance problems Psychiatric: + hx anxiety or depression Skin: No rash or itch Physical Exam Vital Signs Date Time Temp Pulse Resp B/P (MAP) Pulse Ox O2 Delivery O2 Flow Rate FiO2 09/14/17 14:02 73 22 120/66 95 Room Air 09/14/17 12:28 73 16 121/70 93 Room Air 09/14/17 11:38 68 09/14/17 11:07 93 Room Air 09/14/17 10:43 36.9 66 18 124/67 98 Room Air General: awake, alert, no apparent distress Head: Normocephalic, atraumatic ENT: PERRL, EOMI, no pharyngeal exudate, mucous membranes moist Chest: On room air, + Absent breath sounds over the left base up to [place], absent breath sounds over the R base. No other adventitious breath sounds Cardiac: + heart block and paced, no murmur, no JVD, normal peripheral pulses, good capillary refill Abdominal: NABS x 4 quadrants, +mildly distended + tympany with percussion, soft , nontender to palpation, no rebound, guarding or tenderness Extremities: Normal inspection, + 1 pitting BLE edema no erythema, calfs nontender to palpation Psych: Normal mood and affect, slight humming/mouth breathing when pt is not leading the conversation Skin:+ full body calero Neuro: AAO x 3, strength intact bilaterally and related 5/5, no motor deficits, speech is clear, no peripheral sensory deficits Diagnostics Laboratory Results Results Past 24 Hours Test 09/14/17 12:57 09/14/17 14:10 Range/Units White Blood Count 1.99 4.8-10.8 K/uL Red Blood Count 3.16 4.7-6.1 M/uL Hemoglobin 8.0 14.0-18.0 g/dL Hematocrit 24.9 42-52 % Mean Corpuscular Volume 78.8 80-100 fL Mean Corpuscular Hemoglobin 25.3 25-34 pg Mean Corpuscular Hemoglobin Concent 32.1 32-36 g/dl Platelet Count 176 130-400 K/uL Neutrophils (%) (Auto) 40.3 % Lymphocytes (%) (Auto) 40.2 % Monocytes (%) (Auto) 5.5 % Eosinophils (%) (Auto) 6.5 % Basophils (%) (Auto) 1.5 % Neutrophils # (Auto) 0.80 1.4-6.5 K/uL Lymphocytes # (Auto) 0.80 1.2-3.4 K/uL Monocytes # (Auto) 0.11 0.11-0.59 K/uL Eosinophils # (Auto) 0.13 0-0.5 K/uL Basophils # (Auto) 0.03 0-0.2 K/uL RDW Standard Deviation 60.4 36.4-46.3 fL RDW Coefficient of Variation 21.5 11.5-14.5 % Immature Granulocyte % (Auto) 6.0 % Immature Granulocyte # (Auto) 0.12 0.00-0.02 K/uL Polychromasia 1+ Anisocytosis PRESENT Ovalocytes 1+ Acanthocytes 1+ Prothrombin Time 13.3 9.0-12.0 SECONDS Prothromb Time International Ratio 1.3 0.9-1.1 Activated Partial Thromboplast Time 40.1 21.0-31.0 SECONDS Partial Thromboplastin Ratio 1.5 Sodium Level 135 136-145 mmol/L Potassium Level 4.1 3.5-5.1 mmol/L Chloride Level 103 98-107 mmol/L Carbon Dioxide Level 27 21-32 mmol/L Anion Gap 6.0 3-11 mmol/L Blood Urea Nitrogen 15 7-18 mg/dl Creatinine 0.63 0.60-1.40 mg/dl Est Creatinine Clear Calc Drug Dose 102.9 ml/min Estimated GFR () 112.5 Estimated GFR (Non- 97.1 BUN/Creatinine Ratio 24.0 10-20 Random Glucose 93 70-99 mg/dl Calcium Level 8.4 8.5-10.1 mg/dl Total Bilirubin 1.2 0.2-1 mg/dl Aspartate Amino Transf (AST/SGOT) 15 15-37 U/L Alanine Aminotransferase (ALT/SGPT) 12 12-78 U/L Alkaline Phosphatase 62 45-117 U/L Troponin I < 0.015 0-0.045 ng/ml Pro-B-Type Natriuretic Peptide 1156 0-900 pg/ml Total Protein 6.5 6.4-8.2 gm/dl Albumin 3.0 3.4-5.0 gm/dl Globulin 3.5 2.5-4.0 gm/dl Albumin/Globulin Ratio 0.9 0.9-2 Diagnostic Radiology CHEST ONE VIEW PORTABLE HISTORY: 76 years-old Male EVALUATE RESPIRATORY DISTRESS.DYSPNEA acute respiratory distress COMPARISON: Chest radiograph 08/16/2017, chest CT 09/09/2017 TECHNIQUE: Portable AP view of the chest FINDINGS: Cardiac silhouette is mildly enlarged. Left subclavian pacer appears unchanged. Mild pulmonary vascular congestion without overt pulmonary edema. Trace right and small left pleural effusions with bibasilar consolidation. Degenerative changes of the shoulders and spine. IMPRESSION: 1. Cardiomegaly with mild pulmonary vascular congestion. 2. Small left and trace right pleural effusions with bibasilar consolidation suggesting atelectasis or pneumonia. The above report was generated using voice recognition software. It may contain grammatical, syntax or spelling errors. Electronically signed by: Shadi Rondon M.D. 09/14/2017 11:32 AM Dictated Date/Time: 09/14/2017 11:31 AM The status of this report is Signed. 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 He presents with is Gema, from routine cancer clinic appointment where he was sent by Dr. Menon with concerns of pericardial effusion, Pericardial effusion Acute on chronic diastolic heart failure -admit to telemetry - Cardiology consulted for pericardial effusion management - Pt reports not taking home bumex which was listed on last discharge summary from July - Discussed with Dr. Parikh and he had been taken off this in the clinic as outpt - Will give 1 mg Bumex now since he responded well to this during last admission - watch closely for hemodynamic stability in the setting of diuresis as he may be preload dependent. - Check 2d echo - he did have a trace pericardial effusion upon his last limited echocardiogram which was completed on 08/04/17 -His effusion may be more chronic in nature. - Daily weights, strict I's & O's - heart healthy diet/low na+ Moderate bilateral pleural effusions secondary to CHF -improving - Thoracic surgery consulted for possible thoracentesis Hx Pacemaker mediated tachycardia Complete heart block s/p pacemaker, atrial tachycardia - stable -Pacemaker interrogated, periods of atrial tach being caused by the device last admission - it was reprogrammed -Continue ASA Hx DVT - Hold xarelto in the setting of possible thoracentesis needed. 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 Last dose was this morning. Metastatic prostate cancer with h/o radiation--stable -Continue Xtandi 120 mg PO qd (nonformulary so brought in from home) -Lupron injections q 4 months -Xgeva stopped per HLD -Continue pravastatin 20 mg PO qd Anxiety/depression -Continue Paxil 10 mg PO qd DVT ppx: Ambulatory, teds, scds- hold chemical anticoagulation in anticipation of thoracentesis procedure, resume xarelto if not indicated. Code Status: Full Disposition: From home, lives with Resuscitation Status VTE Prophylaxis Will order VTE Prophylaxis: Yes Reason for no VTE drug order: Contraindicated Reviewed: Pt Seen/Exam by Me History Pt with SOB with exertion. His biggest concern is fatigue. His prior thoracentesis was 3 weeks ago. Blood transfusion 1.5 weeks ago. He was started on xarelto for L UE DVT 1 week ago and states that this has worked very well. He was prior with much swelling in his L UE and this is mostly resolved. Tolerating PO without issue. Denies chest pain. Agree with HPI/ROS as noted by PA. General Appearance: WD/WN, no apparent distress Eye Exam: bilateral eye normal inspection, bilateral eye other (nml sclera) Respiratory: no respiratory distress, decreased breath sounds Cardiovascular: normal peripheral pulses, regular rate, rhythm Gastrointestinal: non tender, soft, distended (mild) Extremities: non-tender, pedal edema (minimal) Neurologic/Psychiatric: alert, normal mood/affect, oriented x 3 Skin Characteristics: normal color, warm/dry Assessment/Plan Agree with plan as outlined above Pericardial effusion with hx of same recently Follows with Dr. Parikh ECHO pending Transfusion 1 week ago, Hb at 8 now, monitor Prior thoracentesis [address] Cash Prostate ca with erin mets
--- NOTE | 2017-09-14 17:05 | ECHOCARDIOGRAM REPORT ---
*NOTICE TO RECEIVING [employer] This information is strictly Confidential and protected under [place] law. [place] law prohibits you from making any further disclosure of this information unless further disclosure is expressly permitted by the written consent of the person to whom it pertains or is authorized by law. A general authorization for the release of medical or other information is not sufficient for this purpose. Hospital accepts no responsibility if the information is made available to any other person, INCLUDING THE PATIENT. Interpretation Summary * Name: REX GARCIA Study Date: 09/14/2017 03:55 PM BP: 122/74 mmHg * Patient Location: .[facility]\S\E222\S\1 HR: 72 * : 1940 (M/d/yyyy) Gender: Male Height: 69 in * Age: 76 yrs Ethnicity: [place] Weight: 173 lb * Ordering Physician: Mariajose Campos * Referring Physician: Ozzie Menon * Performed By: Destiny Decker RDCS * * Reason For Study: PERICARDIAL EFFUSION * BSA: 1.9 m2 * -- Conclusions -- * The left ventricle is borderline dilated. * Left ventricular systolic function is normal. * The left atrium is severely dilated. * The right atrium is moderately dilated. * There is mild mitral regurgitation. * Right ventricular systolic pressure is elevated at 30-40mmHg. * Small pericardial effusion. * No echo evidence of cardiac tamponade * Compared to an echocardiogram from 08/04/2017, there is minimal difference. Procedure Details * A contrast injection of Definity was performed to improve assessment of LV function. * Contrast was injected into an intravenous site in the right arm. * One vial of Definity ultrasound contrast was diluted in normal saline to a total volume of 10 ml. A total of '2' ml of solution was administered during imaging. * Lot # [id number] of Definity utilized for procedure. * Expiration date AUG 11. Left Ventricle * The left ventricle is borderline dilated. * There is normal left ventricular wall thickness. * Left ventricular systolic function is normal. * Ejection Fraction = 50-55%. * Apical wall motion abnormality may reflect pacemaker activation. Right Ventricle * The right ventricle is grossly normal size. Atria * The left atrium is severely dilated. * The right atrium is moderately dilated. Mitral Valve * The mitral valve is grossly normal. * There is mild mitral regurgitation. Tricuspid Valve * The tricuspid valve is not well visualized, but is grossly normal. * There is mild tricuspid regurgitation. * Right ventricular systolic pressure is elevated at 30-40mmHg. Aortic Valve * The aortic valve is normal in structure and function. * No hemodynamically significant valvular aortic stenosis. * There is no significant aortic regurgitation. Pulmonic Valve * The pulmonic valve is not well seen, but is grossly normal. Pericardium/Pleural * Small pericardial effusion. * No echo evidence of cardiac tamponade Great Vessels * Normal inferior vena cava diameter and respiratory variation suggests normal central venous pressure. MMode 2D Measurements and Calculations IVSd 1.1 cm IVSs 1.7 cm LVIDd 5.4 cm LVIDs 3.9 cm LVPWd 1.2 cm LVPWs 1.5 cm IVS/LVPW 0.89 FS 28.0 % EDV(Teich) 138.6 ml ESV(Teich) 64.2 ml EF(Teich) 53.7 % EDV(cubed) 153.6 ml ESV(cubed) 57.4 ml EF(cubed) 62.6 % % IVS thick 56.6 % % LVPW thick 17.4 % LV mass(C)d 251.8 grams LV mass(C)dI 129.6 grams/m\S\2 LV mass(C)s 242.4 grams LV mass(C)sI 124.8 grams/m\S\2 SV(Teich) 74.4 ml SI(Teich) 38.3 ml/m\S\2 SV(cubed) 96.2 ml SI(cubed) 49.5 ml/m\S\2 Ao root diam 3.7 cm Ao root area 10.5 cm\S\2 LA dimension 5.3 cm LA/Ao 1.4 LVAd ap4 26.3 cm\S\2 LVLd ap4 8.4 cm EDV(MOD-sp4) 69.2 ml EDV(sp4-el) 69.7 ml LVAs ap4 16.3 cm\S\2 LVLs ap4 6.7 cm ESV(MOD-sp4) 33.9 ml ESV(sp4-el) 34.0 ml EF(MOD-sp4) 51.0 % EF(sp4-el) 51.2 % LVAd ap2 33.9 cm\S\2 LVLd ap2 8.6 cm EDV(MOD-sp2) 108.5 ml EDV(sp2-el) 113.6 ml LVAs ap2 23.0 cm\S\2 LVLs ap2 8.2 cm ESV(MOD-sp2) 53.4 ml ESV(sp2-el) 54.6 ml EF(MOD-sp2) 50.8 % EF(sp2-el) 51.9 % LVLd %diff 2.5 % EDV(MOD-bp) 86.6 ml LVLs %diff 19.0 % ESV(MOD-bp) 46.0 ml EF(MOD-bp) 46.8 % SV(MOD-sp4) 35.3 ml SI(MOD-sp4) 18.2 ml/m\S\2 SV(MOD-sp2) 55.1 ml SI(MOD-sp2) 28.4 ml/m\S\2 SV(MOD-bp) 40.6 ml SI(MOD-bp) 20.9 ml/m\S\2 SV(sp4-el) 35.7 ml SI(sp4-el) 18.4 ml/m\S\2 SV(sp2-el) 59.0 ml SI(sp2-el) 30.4 ml/m\S\2 Doppler Measurements and Calculations MV E max mehul 131.1 cm/sec MV dec time 0.19 sec Ao V2 max 185.1 cm/sec Ao max PG 13.7 mmHg Ao max PG (full) 6.8 mmHg LV V1 max PG 6.9 mmHg LV V1 max 131.7 cm/sec TR max mehul 266.9 cm/sec
--- NOTE | 2017-09-14 18:26 | Cardiology Consultation ---
Cardiology Consultation Date of Consultation: September 14, 2017. Requesting Physician: Beth Reason for Consultation: Dyspnea, pericardial effusion Pt evaluation today including: conversation w/ patient, conversation w/ family , physical exam, chart review, lab review, review of studies, review of inpatient medication list, conversation w/ attending History of Present Illness The patient is a 76 year old gentleman with a history of metastatic prostate cancer. He was admitted in mid-July with anemia and neutropenia and discovered to have complete heart block. He struggled with some element of heart failure at that time. Lately he has been doing well. he states that he has good days and bad with respec to energy, exercise tolerance and dyspnea. Recently he has had more dyspnea. He was noted on a recent CT scan to have a pericardial effusion and sent to the ER for evaluation. Past Medical/Surgical History Prostate cancer Heart block Family History Cancer (prostate) FATHER Stroke Non-contributory Social History Smoking Status: Former Smoker History of Alcohol Use: Yes (occassional wine) Retired Review of Systems Respiratory: + shortness of breath, + dyspnea on exertion Cardiac: + edema Per HPI All Other Systems: Reviewed and Negative Allergies Coded Allergies: Oxycodone (Verified Adverse Reaction, Intermediate, confusion, 09/01/17) PER DR CARMICHAEL, Per his conversation with patient, reaction to Percocet was confusion, not difficulty breathing. Medications Current Inpatient Medications Medications (Trade) Dose Ordered Sig/Bunny Route Start Time Stop Time Status Last Admin Dose Admin Acetaminophen (Tylenol Tab) 650 mg Q4H PRN PO 09/14/17 14:45 10/14/17 14:44 Polyethylene (Miralax Powder Packet) 17 gm DAILY PRN PO 09/14/17 14:45 10/14/17 14:44 Ondansetron HCl (Zofran Inj) 4 mg Q6H PRN IV 09/14/17 14:45 10/14/17 14:44 Heparin Sodium (Porcine) (Heparin Sq 5000 Unit/0.5ml) 5,000 unit Q12H SQ 09/14/17 21:00 10/14/17 14:44 Aspirin (Ecotrin Tab) 81 mg DAILY PO 09/15/17 09:00 10/15/17 08:59 Fish Oil ([place]-3 (Purified Fish Oil) Cap) 1 gm DAILY PO 09/15/17 09:00 10/15/17 08:59 Multivitamins (Multivitamin Tab) 1 tab DAILY PO 09/15/17 09:00 10/15/17 08:59 Pravastatin Sodium (Pravachol Tab) 20 mg DAILY PO 09/15/17 09:00 10/15/17 08:59 Tramadol HCl (Ultram Tab) 50 mg TID PRN PO 09/14/17 14:45 10/14/17 14:44 Triamcinolone Acetonide (Kenalog 0.5% Crm) 1 appln BID PRN EXT 09/14/17 14:45 10/14/17 14:44 [id number] Acetate (Vitamin E Cap) 400 interunit DAILY PO 09/15/17 09:00 10/15/17 08:59 Calcium/Vitamin D (Caltrate Plus Tab) 1 tab BID PO 09/14/17 21:00 10/14/17 20:59 Cholecalciferol (Vitamin D Tab) 2,000 inter.unit DAILY PO 09/15/17 09:00 10/15/17 08:59 Non-Formulary Medication (Enzalutamide (Xtandi)) 120 mg DAILY PO 09/15/17 09:00 10/15/17 08:59 UNV Paroxetine HCl (pAXil) 30 mg DAILY PO 09/15/17 09:00 10/15/17 08:59 Physical Exam Vital Signs Past 12 Hours Date Time Temp Pulse Resp B/P (MAP) Pulse Ox O2 Delivery O2 Flow Rate FiO2 09/14/17 17:54 74 26 134/70 95 09/14/17 16:30 73 27 139/65 96 Room Air 09/14/17 15:00 96 23 122/74 93 Room Air 09/14/17 14:41 Room Air 09/14/17 14:02 73 22 120/66 95 Room Air 09/14/17 12:28 73 16 121/70 93 Room Air 09/14/17 11:38 68 09/14/17 11:07 93 Room Air 09/14/17 10:43 36.9 66 18 124/67 98 Room Air The patient is alert and oriented. Mood and affect appeared normal. He answered all questions appropriately. HEENT: Pupils are equal and reactive to light and accommodation. Extraocular movements are intact. The sclerae are anicteric. Neuro: Cranial nerves intact Neck: Patient's neck is supple. He has palpable carotid pulses bilaterally without bruits on auscultation. There is no evidence of jugular venous distention. The thyroid is not enlarged. Lungs: Clear to auscultation bilaterally with reduced breath sounds at the bases of left worse than right. He has good air movement without use of accessory muscles. No rales wheezes or rhonchi. Cardiac: Heart demonstrates a regular rate and rhythm. Normal S1 and S2. No murmurs on examination. Pulses: The patient has palpable radial pulses bilaterally that are equal in intensity Extremities: There was no evidence of hypoperfusion. There is no cyanosis or clubbing. There is mild peripheral edema. Skin: I did not appreciate any rashes on examination today. Data Laboratory Results: Last 24 Hours Test 09/14/17 12:57 09/14/17 14:10 White Blood Count 1.99 K/uL Red Blood Count 3.16 M/uL Hemoglobin 8.0 g/dL Hematocrit 24.9 % Mean Corpuscular Volume 78.8 fL Mean Corpuscular Hemoglobin 25.3 pg Mean Corpuscular Hemoglobin Concent 32.1 g/dl Platelet Count 176 K/uL Neutrophils (%) (Auto) 40.3 % Lymphocytes (%) (Auto) 40.2 % Monocytes (%) (Auto) 5.5 % Eosinophils (%) (Auto) 6.5 % Basophils (%) (Auto) 1.5 % Neutrophils # (Auto) 0.80 K/uL Lymphocytes # (Auto) 0.80 K/uL Monocytes # (Auto) 0.11 K/uL Eosinophils # (Auto) 0.13 K/uL Basophils # (Auto) 0.03 K/uL RDW Standard Deviation 60.4 fL RDW Coefficient of Variation 21.5 % Immature Granulocyte % (Auto) 6.0 % Immature Granulocyte # (Auto) 0.12 K/uL Polychromasia 1+ Anisocytosis PRESENT Ovalocytes 1+ Acanthocytes 1+ Prothrombin Time 13.3 SECONDS Prothromb Time International Ratio 1.3 Activated Partial Thromboplast Time 40.1 SECONDS Partial Thromboplastin Ratio 1.5 Sodium Level 135 mmol/L Potassium Level 4.1 mmol/L Chloride Level 103 mmol/L Carbon Dioxide Level 27 mmol/L Anion Gap 6.0 mmol/L Blood Urea Nitrogen 15 mg/dl Creatinine 0.63 mg/dl Est Creatinine Clear Calc Drug Dose 102.9 ml/min Estimated GFR () 112.5 Estimated GFR (Non- 97.1 BUN/Creatinine Ratio 24.0 Random Glucose 93 mg/dl Calcium Level 8.4 mg/dl Total Bilirubin 1.2 mg/dl Aspartate Amino Transf (AST/SGOT) 15 U/L Alanine Aminotransferase (ALT/SGPT) 12 U/L Alkaline Phosphatase 62 U/L Troponin I < 0.015 ng/ml Pro-B-Type Natriuretic Peptide 1156 pg/ml Total Protein 6.5 gm/dl Albumin 3.0 gm/dl Globulin 3.5 gm/dl Albumin/Globulin Ratio 0.9 Urine Color DK YELLOW Urine Appearance CLEAR Urine pH 5.5 Urine Specific [place] 1.017 Urine Protein NEG Urine Glucose (UA) NEG Urine Ketones NEG Urine Occult Blood NEG Urine Nitrite NEG Urine Bilirubin NEG Urine Urobilinogen NEG Urine Leukocyte Esterase TRACE Urine WBC (Auto) 1-5 /hpf Urine RBC (Auto) 0-4 /hpf Urine Hyaline Casts (Auto) 0 /lpf Urine Epithelial Cells (Auto) 0-5 /lpf Urine Bacteria (Auto) NEG Imaging: CT chest with pleural and pericardial effusions. EK% AV pacing Echocardiogram 09/14/2017: Normal LV function. Moderate MR. Small pericardial effusion. Assessment & Plan 1. Pericardial effusion: Small on echo. Not changed much from an echocardiogram from 08/04/2017. No evidence of hemodynamic compromise. Unclear if this is related to diastolic dysfunction or his malignancy, No need for drainage currently. 2. Dyspnea: Multifactorial. Will try mild diuresis. May need daily Bumex. 3. Normally-functioning dual chamber pacemaker.
[2017-09-14] MEDS: CALCIUM 600MG + VIT D 400 IU TAB PO SCH (20:49)
[2017-09-14] MEDS ORDERED: HEPARIN SOD 5000 UNIT/0.5 ML CARP SQ SCH (21:00)
--- NOTE | 2017-09-14 21:23 | SURGICAL CONSULTATION ---
DATE OF CONSULTATION: 09/14/2017 REASON FOR CONSULTATION: Pericardium pleural effusions. 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 He had large bilateral pleural effusions. On 08/03/2017, I performed a thoracentesis and drained 1100 mL from his right chest. The patient greatly improved. In the following day on 08/04/2017, I performed a left thoracentesis for another 1100 mL of fluid. This was a transudate, it was not malignant. It is important to note this patient has a history of prostate carcinoma with bony metastases. He was evaluated today by Dr. Ozzie Menon in the cancer center, and the patient was found to have a pericardial effusion. He also had some mild chest discomfort. I was asked to evaluate him from a thoracic surgery standpoint. I saw him in the Emergency Room with Dr. Gus Parikh. He was noted to have complete heart block when he was admitted in July and has had a pacemaker placed. I saw him back in the office a couple of weeks ago, and he looked really good. He states that he is feeling a bit more short of breath according to him and his , and he does have this problem with fullness in his chest. PAST MEDICAL HISTORY: 1. Metastatic prostate carcinoma. 2. Complete heart block. 3. Bilateral pleural effusions. 4. History of smoking. PAST SURGICAL HISTORY: 1. Insertion of a left infraclavicular pacemaker. 2. Bilateral thoracentesis. FAMILY MEDICAL HISTORY: The patient's father had prostate carcinoma also. He also had a cerebrovascular accident. SOCIAL HISTORY: The patient lives with his . He lived in [facility] for many years and has retired here. He is not an active smoker. He does occasionally have a glass of wine. He is independent of activities of daily living. REVIEW OF SYSTEMS: The patient is short of breath and has dyspnea on exertion which his feels is much more pronounced over the last 2 weeks, and the patient is willing to admit. He does complain of some chest discomfort, which is new for him. He has also had some peripheral edema, which is a bit more although is still mild. He denies palpitations. His pacemaker site is healed up nicely. He denies feeling short of breath like he did before we tapped him last month. He has been eating regularly. He has had no GI or complaints. He has had no auditory or visual complaints. He has had no wound breakdown. He denies dysuria. PHYSICAL EXAMINATION: GENERAL: This is a well-developed and well-nourished male who appears younger than his stated age of 76. He stands 5 feet 9 inches tall and weighs 174 pounds. The patient is conversant and pleasant. HEENT: He wears glasses. His extraocular movements are intact. Pupils are equal, round, and reactive. His sclerae are pale but anicteric. He has no nasolabial flattening. Oral mucosa is moist. Tongue is midline. NECK: Supple. He has no supraclavicular or cervical lymphadenopathy, neck vein distention, thyromegaly, or carotid bruits. RESPIRATORY: He is moving air well. He has mildly decreased breath sounds in both bases. CARDIOVASCULAR: His pacemaker site is clean. He has a regular rate and rhythm. His heart appears to be paced at about 70 beats per minute. I detect no real murmur. GASTROINTESTINAL: His abdomen is soft and nontender. He has no ascites. He has no hepatomegaly. EXTREMITIES: I really do not detect any much in the way of edema in his lower legs. He has palpable pulses. NEUROLOGIC: He is awake, alert, and oriented. He has no joint effusions. ASSESSMENT AND PLAN: Pericardial effusion. I discussed this with Dr. Parikh. I am not very impressed with the amount of fluid on the CT scan, although it is definitely different than it was last month. Dr. Parikh will perform an echocardiogram. He has no evidence of pericardial tamponade. All in all, I think he looks quite good. I may offer him a left thoracentesis. We had a long discussion about this today. We are going to hold his Xarelto, and I will get an x-ray in the morning. Thank you very much for asking me to see this very nice patient.
[2017-09-15] VITALS (9 sets, daily range): BP systolic 105–115; BP diastolic 42–71; PULSE 62–77; TEMP 37–38.9; O2SAT 91–96
[2017-09-15 06:06] LABS: HEMATOCRIT 25.5 % (42-52); HEMOGLOBIN 8.2 g/dL (14.0-18.0); MEAN CELL VOLUME 77.3 fL (80-100); MEAN CORPUSCULAR HEMOGLOBIN 24.8 pg (25-34); MEAN CORPUSCULAR HGB CONC 32.2 g/dl (32-36); NUCLEATED RED BLOOD CELL ABS 0.02 K/uL (0-0); PLATELET COUNT 172 K/uL (130-400); RED CELL DISTRIBUTION WIDTH CV 21.5 % (11.5-14.5); RED CELL DISTRIBUTION WIDTH SD 60.5 fL (36.4-46.3); WHITE BLOOD COUNT 1.94 K/uL (4.8-10.8)
[2017-09-15 06:37] LABS: CALCIUM 8.1 mg/dl (8.5-10.1); CREATININE 0.66 mg/dl (0.60-1.40); POTASSIUM 4.2 mmol/L (3.5-5.1)
--- NOTE | 2017-09-15 07:34 | DIAGNOSTIC IMAGING REPORT ---
CHEST ONE VIEW PORTABLE CLINICAL HISTORY: 76 years-old Male presenting with assess pleural effusion. TECHNIQUE: Portable upright AP view of the chest was obtained. COMPARISON: 09/14/2017. FINDINGS: Left subclavian pacer with leads to the right atrium and right ventricular apex. Cardiac silhouette moderately enlarged, unchanged. Persistent left basilar opacity with left pleural effusion. Mildly low lung volume on the right with possible blunting of the right costophrenic angle, which may indicate a trace effusion. No focal opacity on the right. No large pneumothorax. Degenerative changes of the thoracic spine. Upper abdomen normal. IMPRESSION: 1. No significant change in small left pleural effusion and suspected left basilar atelectasis. 2. Cardiomegaly. No evidence of pulmonary edema. Electronically signed by: Kristian Wilkinson M.D. 09/15/2017 7:33 AM Dictated Date/Time: 09/15/2017 7:31 AM
[2017-09-15] MEDS ORDERED: ASPIRIN 81 MG ECTAB PO SCH (08:00)
[2017-09-15] MEDS: CALCIUM 600MG + VIT D 400 IU TAB PO SCH ×2 (08:15→20:24)
[2017-09-15] MEDS: OMEGA-3 (PURIFIED FISH OIL) 1 GM CAP PO SCH (08:15)
[2017-09-15] MEDS: CHOLECALCIFEROL 1000 INTER.UNIT TAB PO SCH (08:15)
[2017-09-15] MEDS: TOCOPHERYL, DL-ALPHA 400 INTER.UNIT CAP PO SCH (08:15)
[2017-09-15] MEDS: PRAVASTATIN SOD 20 MG TAB PO SCH (08:15)
[2017-09-15] MEDS: MULTIVITAMIN TAB PO SCH (08:15)
[2017-09-15] MEDS: ENZALUTAMIDE 40 MG CAP PO SCH (08:16)
[2017-09-15] MEDS: PAROXETINE 30 MG TAB PO SCH (08:16)
--- NOTE | 2017-09-15 12:02 | ONCOLOGY CONSULTATION ---
DATE OF CONSULTATION: 09/15/2017 REASON FOR CONSULTATION: Pericardial effusion in a pleasant 76-year-old gentleman with castrate-resistant prostate adenocarcinoma. HISTORY OF PRESENT ILLNESS: Mr. Sherman is a pleasant 76-year-old gentleman well known to [facility], currently under Dr. Menon's care for castrate-resistant metastatic prostate cancer. Mr. Sherman was in the office to see Dr. Menon to receive treatment yesterday. Apparently, a CT scan had been done previous to the appointment for the most part confirming stable disease other than a moderate pericardial effusion, which was seen. Dr. Menon believed this was a new accumulation of fluid. The patient was hemodynamically stable and subsequently recommended to be admitted. According to Mr. Sherman, his software security consultant examined him at bedside and did not feel there was significant change in pericardial fluid as compared to previously performed echocardiogram. Mr. Sherman remains hemodynamically stable. He recently completed Xofigo. This is a newer novel radio nucleotide used for metastatic prostate cancer. This agent can result in profound myelosuppression. At present, he is receiving Xtandi, Lupron, and Xgeva as his main regimen for prostate cancer. Mr. Sherman feels well. He offers no complaints of pain or discomfort and again is hemodynamically stable. PAST MEDICAL HISTORY: Again, significant for a castrate-resistant metastatic prostate cancer, chronic anemia, congestive heart failure, hyperlipidemia, lethargy, pleural effusion, third-degree heart block, generalized weakness, pericardial effusion. MEDICATIONS PRIOR TO ADMISSION: Aspirin 81 mg p.o. daily, Calcium 600 plus vitamin D 1 tablet p.o. b.i.d., cholecalciferol 2000 units p.o. daily, Xtandi 120 mg p.o. daily, fish oil 1 capsule p.o. daily, leuprolide 30 mg IM q. 4 months, multivitamin 1 p.o. daily, paroxetine 30 mg p.o. daily, pravastatin 20 mg p.o. daily, probiotic 1 capsule p.o. daily, Xarelto 15 mg p.o. b.i.d., vitamin E 400 international units p.o. daily. ALLERGIES: OXYCODONE. SOCIAL HISTORY: The patient is , lives with his family. He is currently retired. Negative for cigarettes or alcohol. FAMILY HISTORY: Positive for prostate cancer involving his father. REVIEW OF SYSTEMS: CONSTITUTIONAL: Negative for fevers, chills, or sweats. He is not anorexic or losing weight. SKIN: No rashes or lesions. No history of dermatosis. HEENT: Denies headaches, lightheadedness, or dizziness. No visual or hearing deficits. No sinus symptoms, sore throat, or dysphagia. LYMPH: No history of lymphoproliferative disease. CARDIAC: History of pericardial effusion and CHF. He denies any chest pain or palpitations at this time. PULMONARY: Negative for COPD. No shortness of breath, dyspnea, or orthopnea. No cough or hemoptysis. GASTROINTESTINAL: Negative for abdominal pain, nausea, vomiting, diarrhea, constipation, hematochezia, or melena stools. GENITOURINARY: No hematuria, dysuria, or urinary incontinence. PSYCHIATRIC: Negative for anxiety, depression, or psychoses. ENDOCRINE: Negative for diabetes or thyroid disease. NEUROLOGIC: Negative for seizure, stroke, or migraine headache. HEMATOLOGIC: Pancytopenia attributable to Xofigo. PHYSICAL EXAMINATION: GENERAL: Very pleasant 76-year-old gentleman, well nourished, in no acute distress. VITAL SIGNS: Temperature 37.2, pulse 64, respiratory rate 20, blood pressure 107/58. SKIN: Warm, dry, noncyanotic without petechia, rash, or ecchymosis. HEENT: Head atraumatic, normocephalic. Eyes: PERRLA, EOMI. Sclerae nonicteric. No conjunctival injection. Nares patent without rhinorrhea or discharge. Throat clear. Tongue midline. Mucous membranes are moist. NECK: Supple without JVD or thyromegaly. HEART: Prominent pericardial rub heard close to the distal sternum. Regular rate and rhythm. Otherwise, no clicks or murmurs. PULMONARY: Clear to auscultation bilaterally. ABDOMEN: Soft, nontender, nondistended, without palpable hepatosplenomegaly. EXTREMITIES: No calf tenderness or swelling. No clubbing, cyanosis, or edema. NEUROLOGICALLY: The patient is grossly intact. LABORATORY DATA: WBC count 1940, hemoglobin 8.2, platelet count 172,000. Sodium 137, potassium 4.2, chloride 104, carbon dioxide 26, creatinine 0.66, BUN 11. RADIOGRAPHIC DATA: Chest x-ray reveals no significant changes, small left pleural effusion, and suspected left basilar atelectasis, cardiomegaly is also noted. IMPRESSION: 1. Pericardial effusion. 2. Small left pleural effusion. 3. Castrate-resistant metastatic prostate cancer. 4. Leukopenia/anemia attributable to previous therapy. PLAN: Mr. Sherman is a pleasant 76-year-old gentleman currently under Dr. Menon's care with castrate-resistant metastatic prostate cancer. Came to the office yesterday in anticipation of receiving treatment. Dr. Menon had reviewed recently performed CT scan, which showed evidence of pericardial effusion. Dr. Menon assumed this collection was new and recommended hospitalization. The patient's software security consultant, Dr. Parikh saw Mr. Sherman in consultation and again reviewed the CT scan as compared to echocardiogram from 08/04 including no significant change. Considering there is no evidence of hemodynamic compromise, drainage would not be necessary. The patient had several questions for me, particularly why his hemoglobin has not improved. Advised him the radioisotope, Xofigo, can result in prolonged myelosuppression. He is not terribly symptomatic and see no reason why he cannot be discharged home to follow up with both cardiology service and Dr. Menon to resume treatment for his disease. I have nothing further to add at this time. I will advise Dr. Menon of the patient's clinical progress. Thank you very much for assisting us in the care of this very pleasant gentleman. DARWIN
--- NOTE | 2017-09-15 14:11 | DIAGNOSTIC IMAGING REPORT ---
SINGLE VIEW CHEST CLINICAL HISTORY: Status post thoracentesis. FINDINGS: An AP, portable, upright chest radiograph is compared to study performed earlier the same day 09/15/2017 and correlated with chest CT dated 09/09/2017. The examination is degraded by portable technique and patient rotation. A 2-lead cardiac pacemaker is unchanged in position. The heart is enlarged and there is atherosclerotic calcification of the thoracic aorta. The pulmonary vasculature is noncongested. There are layering pleural effusions with bibasilar consolidation. The left pleural effusion appears decreased in size from earlier today. No pneumothorax is seen. The skeletal structures are osteopenic. Degenerative change is noted throughout the thoracic spine. IMPRESSION: 1. No pneumothorax is identified post procedure 2. Cardiomegaly and cardiac pacemaker. There is no radiographic evidence of congestive failure. 3. There are small pleural effusions with bibasilar consolidation. The left pleural effusion has decreased in size from earlier today. Electronically signed by: Xander Knott M.D. 09/15/2017 2:10 PM Dictated Date/Time: 09/15/2017 2:08 PM
[2017-09-15 14:41] LABS: PLEURAL FLUID TOTAL PROTEIN 3.4 g/dl
--- NOTE | 2017-09-15 16:43 | Family Medicine Progress Note ---
Progress Note Date of Service September 15, 2017. Subjective Pt evaluation today including: conversation w/ patient, physical exam, chart review, lab review, review of studies, conversation w/ technical services consultant, review of inpatient medication list Pain: denies PO Intake: npo Voiding: no voiding problems NO acute events overnight, Patient reports some SOB in exertion and fatigue. He denies chest pain, palpitation, fevers, chills, n/v, diarrhea Constitutional: No fever, No chills Respiratory: + dyspnea on exertion, No cough Cardiovascular: No chest pain, No edema, No palpitations Abdomen: No pain, No nausea, No vomiting Neurologic: No weakness, No numbness/tingling Endo: + fatigue Skin: No rash, No itch Medications Current Inpatient Medications Medications (Trade) Dose Ordered Sig/Bunny Route Start Time Stop Time Status Last Admin Dose Admin Acetaminophen (Tylenol Tab) 650 mg Q4H PRN PO 09/14/17 14:45 10/14/17 14:44 09/15/17 16:39 650 MG Polyethylene (Miralax Powder Packet) 17 gm DAILY PRN PO 09/14/17 14:45 10/14/17 14:44 Ondansetron HCl (Zofran Inj) 4 mg Q6H PRN IV 09/14/17 14:45 10/14/17 14:44 Heparin Sodium (Porcine) (Heparin Sq 5000 Unit/0.5ml) 5,000 unit Q12H SQ 09/14/17 21:00 10/14/17 14:44 Future Hold 09/14/17 20:51 5,000 UNIT Aspirin (Ecotrin Tab) 81 mg DAILY PO 09/15/17 08:00 10/15/17 08:59 Future Hold Fish Oil (Burt-3 (Purified Fish Oil) Cap) 1 gm DAILY PO 09/15/17 08:00 10/15/17 08:59 09/16/17 08:28 1 GM Multivitamins (Multivitamin Tab) 1 tab DAILY PO 09/15/17 08:00 10/15/17 08:59 09/16/17 08:28 1 TAB Pravastatin Sodium (Pravachol Tab) 20 mg DAILY PO 09/15/17 08:00 10/15/17 08:59 09/16/17 08:28 20 MG Tramadol HCl (Ultram Tab) 50 mg TID PRN PO 09/14/17 14:45 10/14/17 14:44 Triamcinolone Acetonide (Kenalog 0.5% Crm) 1 appln BID PRN EXT 09/14/17 14:45 10/14/17 14:44 av-Birvj-Lqrejfypwd Acetate (Vitamin E Cap) 400 interunit DAILY PO 09/15/17 08:00 10/15/17 08:59 09/16/17 08:28 400 INTERUNIT Calcium/Vitamin D (Caltrate Plus Tab) 1 tab BID PO 09/14/17 20:00 10/14/17 20:59 09/16/17 08:28 1 TAB Cholecalciferol (Vitamin D Tab) 2,000 inter.unit DAILY PO 09/15/17 08:00 10/15/17 08:59 09/16/17 08:28 2,000 INTER.UNIT Paroxetine HCl (pAXil) 30 mg DAILY PO 09/15/17 08:00 10/15/17 08:59 09/16/17 08:28 30 MG Piperacillin Sod/ Tazobactam Sod 4.5 gm/Dextrose 120 ml @ 30 mls/hr Q8H IV 09/15/17 22:00 09/22/17 21:59 09/16/17 06:04 30 MLS/HR Miscellaneous Information (Consult) 1 ea PRN N/A 09/15/17 17:15 10/15/17 17:14 Vancomycin HCl 1250 mg/Sodium Chloride 275 ml @ 125 mls/hr Q12H IV 09/16/17 06:00 09/23/17 05:59 09/16/17 06:04 125 MLS/HR Miscellaneous Information (Consult) 1 ea UD PRN N/A 09/15/17 17:15 10/15/17 17:14 Objective Vital Signs Date Time Temp Pulse Resp B/P (MAP) Pulse Ox O2 Delivery O2 Flow Rate FiO2 09/16/17 11:49 36.6 62 18 130/73 (92) 97 09/16/17 10:51 Room Air 09/16/17 07:26 36.8 95 18 113/72 (86) 94 Room Air 09/16/17 04:19 36.9 87 20 94/51 (65) 92 Room Air 09/16/17 02:47 37.3 09/16/17 00:10 Room Air 09/15/17 22:53 37.6 74 20 112/42 (65) 94 Room Air 09/15/17 20:40 Room Air 09/15/17 19:44 37.0 62 20 112/71 (85) 95 Room Air 09/15/17 16:16 38.9 70 20 105/55 (72) 92 Room Air 09/15/17 16:02 96 Room Air Physical Exam General Appearance: WD/WN, no apparent distress Eyes: PERRL, EOMI, sclerae normal Respiratory/Chest: no respiratory distress, no accessory muscle use Cardiovascular: regular rate, rhythm, no edema, no murmur Abdomen: normal bowel sounds, non tender, soft Extremities: no pedal edema, no calf tenderness Neurologic/Psychiatric: alert, normal mood/affect, oriented x 3 Skin: warm/dry, no rash Laboratory Results Results Past 24 Hours Test 09/15/17 13:45 09/15/17 17:38 09/16/17 05:07 Range/Units Pleural Fluid Source LEFT LUNG Pleural Fluid Color BERT Pleural Fluid Appearance CLOUDY Pleural Fluid WBC 306 /uL Pleural Fluid RBC 39972 /uL Pleural Fluid Polynuclear WBCs % 5.0 % Pleural Fluid Mononuclear WBCs % 95.0 % Pleural Fluid Total Protein 3.4 g/dl Pleural Fluid LDH 175 IU Pleural Fluid Glucose 125 mg/dl Pleural Fluid Amylase 16 U/L White Blood Count 2.23 1.69 4.8-10.8 K/uL Red Blood Count 3.26 3.12 4.7-6.1 M/uL Hemoglobin 8.2 7.7 14.0-18.0 g/dL Hematocrit 25.2 24.5 42-52 % Mean Corpuscular Volume 77.3 78.5 80-100 fL Mean Corpuscular Hemoglobin 25.2 24.7 25-34 pg Mean Corpuscular Hemoglobin Concent 32.5 31.4 32-36 g/dl Platelet Count 175 175 130-400 K/uL RDW Standard Deviation 60.4 60.1 36.4-46.3 fL RDW Coefficient of Variation 21.6 21.4 11.5-14.5 % Nucleated RBC Absolute Count (auto) 0.03 0-0 K/uL Neutrophils % (Manual) 59.6 % Lymphocytes % (Manual) 23.7 % Monocytes % (Manual) 8.8 % Eosinophils % (Manual) 3.5 % Myelocytes % 1.8 % Blast Cells % 2.6 % Nucleated Red Blood Cells % 1.4 % Neutrophils # (Manual) 1.33 1.4-6.5 K/uL Total Absolute Neutrophils 1.33 1.4-6.5 K/uL Lymphocytes # (Manual) 0.53 1.2-3.4 K/uL Total Absolute Lymphocytes 0.53 1.2-3.4 K/uL Monocytes # (Manual) 0.20 0.11-0.59 K/uL Eosinophils # (Manual) 0.08 0-0.5 K/uL Myelocytes # 0.04 0-0 K/uL Blast Cells # 0.06 0-0 K/uL Large Platelets 1+ Polychromasia 1+ Anisocytosis PRESENT PRESENT Ovalocytes 1+ 1+ Acanthocytes 1+ Neutrophils (%) (Auto) 37.3 % Lymphocytes (%) (Auto) 43.8 % Monocytes (%) (Auto) 8.3 % Eosinophils (%) (Auto) 5.3 % Basophils (%) (Auto) 0.6 % Neutrophils # (Auto) 0.63 1.4-6.5 K/uL Lymphocytes # (Auto) 0.74 1.2-3.4 K/uL Monocytes # (Auto) 0.14 0.11-0.59 K/uL Eosinophils # (Auto) 0.09 0-0.5 K/uL Basophils # (Auto) 0.01 0-0.2 K/uL Immature Granulocyte % (Auto) 4.7 % Immature Granulocyte # (Auto) 0.08 0.00-0.02 K/uL Sodium Level 137 136-145 mmol/L Potassium Level 3.9 3.5-5.1 mmol/L Chloride Level 105 98-107 mmol/L Carbon Dioxide Level 26 21-32 mmol/L Anion Gap 6.0 3-11 mmol/L Blood Urea Nitrogen 10 7-18 mg/dl Creatinine 0.67 0.60-1.40 mg/dl Est Creatinine Clear Calc Drug Dose 96.8 ml/min Estimated GFR () 109.7 Estimated GFR (Non- 94.7 BUN/Creatinine Ratio 15.7 10-20 Random Glucose 100 70-99 mg/dl Calcium Level 7.8 8.5-10.1 mg/dl Microbiology Results 09/15/17 Blood Culture, Received Pending 09/15/17 Blood Culture, Received Pending 09/15/17 Fungal Smear - Final, Resulted 09/15/17 Fungal Culture, Resulted Pending 09/15/17 Acid Fast Stain, Received Pending 09/15/17 Mycobacterial Culture, Received Pending 09/15/17 Gram Stain - Final, Resulted 09/15/17 Bacterial Culture, Resulted Pending Assessment and Plan 76 y/o male with a history of diastolic CHF, metastatic prostate cancer to thoracic spine, pancytopenia, HLD, complete heart block s/p pacemaker insertion , and anxiety/depression with hx of pleural effusion on R and L s/p thoracentesis in July 2017, now with recurrent pleural effusions and new moderate sized pericardial effusion which was seen on outpatient CT scans for cancer staging on 09/09/17 transferred from Cancer center for symptomatic pericardial effusion. Pericardial effusion, Acute on chronic diastolic heart failure CT on 09/09 showed Moderate left and small right pleural effusions with bibasilar atelectasis, Cardiomegaly with moderate sized pericardial effusion. s/p 1 mg Bumex now since he responded well to this during last admission - watch closely for hemodynamic stability in the setting of diuresis as he may be preload dependent. 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 On Arrival to bed, patient did not report worsening symptoms. Exam was unchanged and vitals were stable otherwise. Given Neutropenia, immunosuppressed state secondary to chemotherapy, Blood cultures were drawn, Patient was started on broad spectrum abx with Vanc, Zosyn pending blood cultures. Continued [facility] stay due to: multiple IV medications needed Discharge planning: home Assessment/Plan Resident Physician Supervision Note: I was present with Dr. Dumont during the history and exam. I discussed the case with the resident and agree with the findings and plan as documented in the note. Any exceptions or clarifications are listed here: Pt seen and examined at bedside following thoracentesis. Improved shortness of breath and cough following procedure, but still not at baseline. Subsequent to evaluation, episode of fever today in the setting of pancytopenia. Decreased BS b/l bases with ?rales. S1/S2 nl RRR on examination. Fever w/ pancytopenia - ?PNA w/ consolidations on CXR v. other source - broad spectrum Abx therapy, f/u BCx, UA/UCx. Hematology aware. Pleural effusion w/ CHF s/p pacemaker - CT surgery consulted - s/p thoracentesis w/ improvement. F/U effusion labs, likely transudate. Bumex daily. Pericardial effusion - Cardiology consulted - no indication for intervention at present h/o DVT - look to restart Xarelto Else as above. Resident Tracking Resident Involvement: Resident Care Provided Care Provided: Adult Hospital Medicine
[2017-09-15] MEDS ORDERED: PIPERACILL/TAZOBAC CONSULT ACTIVE PRN (17:15)
[2017-09-15] MEDS ORDERED: VANCOMYCIN CONSULT ACTIVE PRN ×2 (17:15)
[2017-09-15] MEDS ORDERED: PIPERACILL/TAZOBAC IV 4.5 GM in DEXTROSE 5% 100ML 100 ML IV SCH (18:30)
[2017-09-15 18:33] LABS: HEMATOCRIT 25.2 % (42-52); HEMOGLOBIN 8.2 g/dL (14.0-18.0); MEAN CELL VOLUME 77.3 fL (80-100); MEAN CORPUSCULAR HEMOGLOBIN 25.2 pg (25-34); MEAN CORPUSCULAR HGB CONC 32.5 g/dl (32-36); NUCLEATED RED BLOOD CELL ABS 0.03 K/uL (0-0); PLATELET COUNT 175 K/uL (130-400); RED CELL DISTRIBUTION WIDTH CV 21.6 % (11.5-14.5); RED CELL DISTRIBUTION WIDTH SD 60.4 fL (36.4-46.3); WHITE BLOOD COUNT 2.23 K/uL (4.8-10.8)
[2017-09-15] MEDS ORDERED: VANCOMYCIN IV 1,750 MG in SODIUM CHLORIDE 0.9% 500ML 500 ML IV SCH (19:00)
--- NOTE | 2017-09-15 20:29 | OPERATIVE REPORT ---
DATE OF OPERATION: 09/15/2017 PREOPERATIVE DIAGNOSIS: Enlarging left pleural effusion. POSTOPERATIVE DIAGNOSIS: Enlarging left pleural effusion. PROCEDURE PERFORMED: Right thoracentesis under ultrasound guidance. SURGEON: Dex Cash MD CO-SURGEON: KAVYA Serrano. ANESTHESIA: Local. DESCRIPTION OF PROCEDURE: The patient was seated at side of the bed. He leaned forward on the tray table. An ultrasound was used to sonya the spot at about the eighth interspace a bit lateral to the midclavicular line posteriorly. This was prepped and draped in usual sterile fashion. After appropriate timeout had been called, a 25-gauge needle was used to raise the skin wheal and anesthetize the deeper tissues. Large bore needle was used to anesthetize the deeper muscle and the pleura and then we got free flowing rust colored fluid back. A guidewire was inserted with the needle. Needle removed. A dilator was used over the guidewire and then removed to enlarge insertion tract. Triple lumen catheter was slid in over the guidewire and the guidewire removed. About 900 mL of a rust colored fluid was drained. He tolerated it quite well with some reexpansion pain, but this resolved fairly quickly. His x-ray looked much better. We sent this off to the lab and the pH was 7.51. It does not appear to be an infection. I attest to the content of the Intraoperative Record and any orders documented therein. Any exceptions are noted below. [facility]
--- NOTE | 2017-09-15 21:01 | Cardiology Follow-Up ---
Subjective Date of Service: September 15, 2017. Pt evaluation today including: conversation w/ patient, conversation w/ family , physical exam, chart review, lab review, review of studies, review of inpatient medication list, conversation w/ attending History of Present Illness He reports feeling well. He underwent a thoracentesis this afternoon. No current dyspnea. NO pain. No dizziness. Social History Smoking Status: Former Smoker History of Alcohol Use: Yes (occassional wine) Review of Systems Respiratory: + shortness of breath, + dyspnea on exertion Cardiac: + edema Per HPI Objective Vital Signs Past 12 Hours Date Time Temp Pulse Resp B/P (MAP) Pulse Ox O2 Delivery O2 Flow Rate FiO2 09/15/17 19:44 37.0 62 20 112/71 (85) 95 Room Air 09/15/17 16:16 38.9 70 20 105/55 (72) 92 Room Air 09/15/17 16:02 96 Room Air 09/15/17 11:37 37.3 64 16 115/70 (85) 96 Room Air Last Recorded Weight-Kilograms: 74.300 Intake & Output 8-Hour Column 09/15/17 09/16/17 09/16/17 16:00 00:00 08:00 Intake Total 500 ml Output Total 450 ml Balance 50 ml 24-Hour Column 09/16/17 08:00 Intake Total 500 ml Output Total 450 ml Balance 50 ml Data Laboratory Results: Last 24 Hours Test 09/15/17 00:00 09/15/17 05:31 09/15/17 13:45 09/15/17 17:38 Pleural Fluid pH 7.48 White Blood Count 1.94 K/uL 2.23 K/uL Red Blood Count 3.30 M/uL 3.26 M/uL Hemoglobin 8.2 g/dL 8.2 g/dL Hematocrit 25.5 % 25.2 % Mean Corpuscular Volume 77.3 fL 77.3 fL Mean Corpuscular Hemoglobin 24.8 pg 25.2 pg Mean Corpuscular Hemoglobin Concent 32.2 g/dl 32.5 g/dl Platelet Count 172 K/uL 175 K/uL RDW Standard Deviation 60.5 fL 60.4 fL RDW Coefficient of Variation 21.5 % 21.6 % Nucleated RBC Absolute Count (auto) 0.02 K/uL 0.03 K/uL Neutrophils % (Manual) 56.9 % 59.6 % Lymphocytes % (Manual) 24.6 % 23.7 % Monocytes % (Manual) 7.9 % 8.8 % Eosinophils % (Manual) 3.5 % 3.5 % Basophils % (Manual) 0.9 % Myelocytes % 1.8 % 1.8 % Blast Cells % 4.4 % 2.6 % Nucleated Red Blood Cells % 1.2 % 1.4 % Neutrophils # (Manual) 1.10 K/uL 1.33 K/uL Total Absolute Neutrophils 1.10 K/uL 1.33 K/uL Lymphocytes # (Manual) 0.48 K/uL 0.53 K/uL Total Absolute Lymphocytes 0.48 K/uL 0.53 K/uL Monocytes # (Manual) 0.15 K/uL 0.20 K/uL Eosinophils # (Manual) 0.07 K/uL 0.08 K/uL Basophils # (Manual) 0.02 K/uL Myelocytes # 0.03 K/uL 0.04 K/uL Blast Cells # 0.09 K/uL 0.06 K/uL Anisocytosis PRESENT PRESENT Ovalocytes 1+ 1+ Acanthocytes 1+ 1+ Sodium Level 137 mmol/L Potassium Level 4.2 mmol/L Chloride Level 104 mmol/L Carbon Dioxide Level 26 mmol/L Anion Gap 7.0 mmol/L Blood Urea Nitrogen 11 mg/dl Creatinine 0.66 mg/dl Est Creatinine Clear Calc Drug Dose 98.2 ml/min Estimated GFR () 110.4 Estimated GFR (Non- 95.2 BUN/Creatinine Ratio 17.1 Random Glucose 102 mg/dl Calcium Level 8.1 mg/dl Pleural Fluid Source LEFT LUNG Pleural Fluid Color BERT Pleural Fluid Appearance CLOUDY Pleural Fluid WBC 306 /uL Ple[place] Fluid RBC 98242 /uL Pleural Fluid Polynuclear WBCs % 5.0 % Pleural Fluid Mononuclear WBCs % 95.0 % Pleural Fluid Total Protein 3.4 g/dl Pleural Fluid LDH 175 IU Pleural Fluid Glucose 125 mg/dl Pleural Fluid Amylase 16 U/L Large Platelets 1+ Polychromasia 1+ Assessment and Plan 1. Pericardial effusion: No clinical significance currently. No sx. Will simply monitor over time. 2. Dyspnea: Multifactorial. He had a good diuresis. I think he would do well with a doily does of Bumex. Will need to monitor potassium. 3. Normally-functioning dual chamber pacemaker.
--- NOTE | 2017-09-15 21:27 | Pharmacy Progress Note ---
Pharmacy Abx Initial Consult Date of Service September 15, 2017. Pharmacy Dosing Scope Date of Consult: 09/15/17 Consultation requested by: Dr. Dumont Pharmacy is consulted to initiate IV Vancomycin/Zosyn dosing therapy, order appropriate labs and adjust drug dose/frequency. Subjective The patient is a 76 year old male admitted on September 14, 2017 at 14:43. Objective Height (Feet): 5 Height (Inches): 9.00 Weight (Kilograms): 74.300 Vital Signs (Past 12Hrs) Vital Signs Past 12 Hours Date Time Temp Pulse Resp B/P (MAP) Pulse Ox O2 Delivery O2 Flow Rate FiO2 09/15/17 19:44 37.0 62 20 112/71 (85) 95 Room Air 09/15/17 16:16 38.9 70 20 105/55 (72) 92 Room Air 09/15/17 16:02 96 Room Air 09/15/17 11:37 37.3 64 16 115/70 (85) 96 Room Air Lab Results (24Hrs) Laboratory Tests (24 Hours) Test 09/15/17 17:38 White Blood Count 2.23 K/uL (4.8-10.8) L Red Blood Count 3.26 M/uL (4.7-6.1) L Hemoglobin 8.2 g/dL (14.0-18.0) L Hematocrit 25.2 % (42-52) L Mean Corpuscular Volume 77.3 fL (80-100) L Mean Corpuscular Hemoglobin 25.2 pg (25-34) Mean Corpuscular Hemoglobin Concent 32.5 g/dl (32-36) Platelet Count 175 K/uL (130-400) Micro Results Date/Time Source Procedure Growth Status 09/15/17 17:43 Blood Blood Culture Pending Received 09/15/17 17:38 Blood Blood Culture Pending Received 09/15/17 13:45 Pleural Fluid (Thoracentesis) Left Fungal Smear Pending Received 09/15/17 13:45 Pleural Fluid (Thoracentesis) Left Fungal Culture Pending Received 09/15/17 13:45 Pleural Fluid (Thoracentesis) Left Acid Fast Stain Pending Received 09/15/17 13:45 Pleural Fluid (Thoracentesis) Left Mycobacterial Culture Pending Received 09/15/17 13:45 Pleural Fluid (Thoracentesis) Left Gram Stain - Final Resulted 09/15/17 13:45 Pleural Fluid (Thoracentesis) Left Bacterial Culture Pending Resulted Risk Factors for Resistance * Immunocompromised (chemotherapy, immunomodulators) Assessment & Plan Assessment 76 year old male admitted for possible pneumonia/fever with pancytopenia Plan Vancomycin IV * Loading dose: Vancomycin 1750mg IV x 1 dose (23.5mg/kg) * Maintenance dose: Vancomycin 1250mg IV q12h (17mg/kg) * Goal trough level for pnx/febrile neutropenia: 15-20mcg/mL * Trough level ordered for: 09/17/17 0600 dose Piperacillin/tazobactam * 4.5g bolus administered over 30 minutes, then 4.5g IV extended infusion every 8 hours for CrCl greater than 20 mL/min * Aggressive dosing selected due to critically ill status Pharmacy will continue to follow and will adjust dose/frequency as necessary. Thank you.
[2017-09-15] MEDS: PIPERACILL/TAZOBAC IV 4.5 GM in DEXTROSE 5% 100ML 100 ML IV SCH (22:10)
[2017-09-16 02:47] VITALS: TEMP 37.3
[2017-09-16 04:19] VITALS: BP 94/51; PULSE 87; TEMP 36.9; O2SAT 92
[2017-09-16 05:44] LABS: CALCIUM 7.8 mg/dl (8.5-10.1); CREATININE 0.67 mg/dl (0.60-1.40); POTASSIUM 3.9 mmol/L (3.5-5.1)
[2017-09-16] MEDS ORDERED: VANCOMYCIN IV 1,250 MG in SODIUM CHLORIDE 0.9% 250ML 250 ML IV SCH (06:00)
[2017-09-16] MEDS: PIPERACILL/TAZOBAC IV 4.5 GM in DEXTROSE 5% 100ML 100 ML IV SCH ×2 (06:04→14:03)
[2017-09-16 06:09] LABS: BASO % 0.6 %; BASO ABS # 0.01 K/uL (0-0.2); EOS % 5.3 %; EOS ABS # 0.09 K/uL (0-0.5); HEMATOCRIT 24.5 % (42-52); HEMOGLOBIN 7.7 g/dL (14.0-18.0); IG# 0.08 K/uL (0.00-0.02); LYMPH % 43.8 %; LYMPH ABS # 0.74 K/uL (1.2-3.4); MEAN CELL VOLUME 78.5 fL (80-100); MEAN CORPUSCULAR HEMOGLOBIN 24.7 pg (25-34); MEAN CORPUSCULAR HGB CONC 31.4 g/dl (32-36); MONO % 8.3 %; MONO ABS # 0.14 K/uL (0.11-0.59); NEUT % 37.3 %; NEUT ABS # 0.63 K/uL (1.4-6.5); PLATELET COUNT 175 K/uL (130-400); RED CELL DISTRIBUTION WIDTH CV 21.4 % (11.5-14.5); RED CELL DISTRIBUTION WIDTH SD 60.1 fL (36.4-46.3); WHITE BLOOD COUNT 1.69 K/uL (4.8-10.8)
--- NOTE | 2017-09-16 07:16 | DIAGNOSTIC IMAGING REPORT ---
SINGLE VIEW CHEST CLINICAL HISTORY: Pleural effusion. FINDINGS: An AP, portable, upright chest radiograph is compared to study dated 09/15/2017 and correlated with chest CT dated 09/09/2017. The examination is degraded by portable technique and patient rotation. A 2-lead cardiac pacemaker is unchanged in position. The heart is enlarged and there is atherosclerotic calcification of the thoracic aorta. The pulmonary vasculature is noncongested. Small pleural effusions persist. No pneumothorax is seen. The skeletal structures are osteopenic. Degenerative change is noted throughout the thoracic spine. IMPRESSION: 1. Cardiomegaly and cardiac pacemaker without radiographic evidence of congestive failure. 2. Small pleural effusions persist. Electronically signed by: Xander Knott M.D. 09/16/2017 7:15 AM Dictated Date/Time: 09/16/2017 7:14 AM
[2017-09-16 07:26] VITALS: BP 113/72; PULSE 95; TEMP 36.8; O2SAT 94
[2017-09-16] MEDS: OMEGA-3 (PURIFIED FISH OIL) 1 GM CAP PO SCH (08:28)
[2017-09-16] MEDS: PAROXETINE 30 MG TAB PO SCH (08:28)
[2017-09-16] MEDS: PRAVASTATIN SOD 20 MG TAB PO SCH (08:28)
[2017-09-16] MEDS: TOCOPHERYL, DL-ALPHA 400 INTER.UNIT CAP PO SCH (08:28)
[2017-09-16] MEDS: MULTIVITAMIN TAB PO SCH (08:28)
[2017-09-16] MEDS: CHOLECALCIFEROL 1000 INTER.UNIT TAB PO SCH (08:28)
[2017-09-16] MEDS: CALCIUM 600MG + VIT D 400 IU TAB PO SCH (08:28)
[2017-09-16] MEDS: ENZALUTAMIDE 40 MG CAP PO SCH (08:29)
--- NOTE | 2017-09-16 09:07 | Family Medicine Progress Note ---
Progress Note Date of Service September 16, 2017. Resident Tracking Resident Involvement: Resident Care Provided Care Provided: Adult Hospital Medicine
--- NOTE | 2017-09-16 10:04 | HEME/ONC PROGRESS NOTE ---
DATE: 09/16/2017 DIAGNOSES: 1. Pericardial effusion. 2. Left pleural effusion. 3. Castrate-resistant metastatic prostate cancer. 4. Leukopenia/anemia attributable to previous therapy. SUBJECTIVE: Visited with Daniel at bedside today. Feeling much better after left thoracentesis performed yesterday yielding 900 mL of fluid. Pathology pending at this time. The patient was originally admitted because of moderate pericardial effusion. 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 Recommendations were to continue treating him medically. Thoracentesis was performed by Dr. Cash at bedside yesterday. He tolerated it well and Daniel feels much, much better. He is requesting to go home prior to the holiday weekend. Tolerating his diet, ambulating ad kenny and moving his bowels. PHYSICAL EXAMINATION: GENERAL: Very pleasant 76-year-old gentleman, in no acute distress. VITAL SIGNS: Temperature 36.8, pulse 95, respiratory rate 18, blood pressure 113/72. SKIN: Without rash or lesion. HEENT: Oral mucosa without erythema or ulceration. HEART: Regular rate and rhythm. Pericardial rub is definitely less pronounced. LUNGS: Clear to auscultation with a few fine crackles in the left posterior base. ABDOMEN: Soft, nontender, nondistended. EXTREMITIES: No clubbing, cyanosis, or edema. NEUROLOGIC: Grossly intact. LABORATORY DATA: WBC count 1690, hemoglobin 7.7, platelet count 175,000. Chemistries 137, potassium 3.9, chloride 105, carbon dioxide 26, creatinine 0.67, BUN 10. IMPRESSION: 1. Status post left thoracentesis. 2. Left pleural effusion. 3. Pericardial effusion. 4. Castrate-resistant metastatic prostate cancer. PLAN: Daniel is a very pleasant 76-year-old gentleman of Dr. Menon'nicole who was admitted directly from the office the other day because of pericardial effusion. From cardiology standpoint, it was felt the effusion was unchanged and recommended medical management. Thoracic surgery is on consult, performed thoracentesis and drained 900 mL of rust colored fluid. Cytology is pending. From a medical oncology standpoint, the patient could be discharged today or tomorrow. I understand he spiked fever shortly after procedure and placed on empiric antibiotics. Cultures were drawn and results pending. Dr. Balaban will take over service tomorrow. I will ensure Mr. Sherman has appropriate followup with Dr. Menon upon discharge.
[2017-09-16 11:49] VITALS: BP 130/73; PULSE 62; TEMP 36.6; O2SAT 97
--- NOTE | 2017-09-16 13:55 | Cardiology Follow-Up ---
Subjective Date of Service: September 16, 2017. History of Present Illness Patient feeling well. Anxious to go home. No reported dyspnea. He has been ambulatory around the room without symptoms. No coughing. No pain. Social History Smoking Status: Former Smoker History of Alcohol Use: Yes (occassional wine) Review of Systems Respiratory: + dyspnea on exertion, No cough Cardiac: No chest pain, No edema, No palpitations Per HPI Objective Vital Signs Past 12 Hours Date Time Temp Pulse Resp B/P (MAP) Pulse Ox O2 Delivery O2 Flow Rate FiO2 09/16/17 11:49 36.6 62 18 130/73 (92) 97 09/16/17 10:51 Room Air 09/16/17 07:26 36.8 95 18 113/72 (86) 94 Room Air 09/16/17 04:19 36.9 87 20 94/51 (65) 92 Room Air 09/16/17 02:47 37.3 Last Recorded Weight-Kilograms: 73.800 Data Laboratory Results: Last 24 Hours Test 09/15/17 17:38 09/16/17 05:07 White Blood Count 2.23 K/uL 1.69 K/uL Red Blood Count 3.26 M/uL 3.12 M/uL Hemoglobin 8.2 g/dL 7.7 g/dL Hematocrit 25.2 % 24.5 % Mean Corpuscular Volume 77.3 fL 78.5 fL Mean Corpuscular Hemoglobin 25.2 pg 24.7 pg Mean Corpuscular Hemoglobin Concent 32.5 g/dl 31.4 g/dl Platelet Count 175 K/uL 175 K/uL RDW Standard Deviation 60.4 fL 60.1 fL RDW Coefficient of Variation 21.6 % 21.4 % Nucleated RBC Absolute Count (auto) 0.03 K/uL Neutrophils % (Manual) 59.6 % Lymphocytes % (Manual) 23.7 % Monocytes % (Manual) 8.8 % Eosinophils % (Manual) 3.5 % Myelocytes % 1.8 % Blast Cells % 2.6 % Nucleated Red Blood Cells % 1.4 % Neutrophils # (Manual) 1.33 K/uL Total Absolute Neutrophils 1.33 K/uL Lymphocytes # (Manual) 0.53 K/uL Total Absolute Lymphocytes 0.53 K/uL Monocytes # (Manual) 0.20 K/uL Eosinophils # (Manual) 0.08 K/uL Myelocytes # 0.04 K/uL Blast Cells # 0.06 K/uL Large Platelets 1+ Polychromasia 1+ Anisocytosis PRESENT PRESENT Ovalocytes 1+ 1+ Acanthocytes 1+ Neutrophils (%) (Auto) 37.3 % Lymphocytes (%) (Auto) 43.8 % Monocytes (%) (Auto) 8.3 % Eosinophils (%) (Auto) 5.3 % Basophils (%) (Auto) 0.6 % Neutrophils # (Auto) 0.63 K/uL Lymphocytes # (Auto) 0.74 K/uL Monocytes # (Auto) 0.14 K/uL Eosinophils # (Auto) 0.09 K/uL Basophils # (Auto) 0.01 K/uL Immature Granulocyte % (Auto) 4.7 % Immature Granulocyte # (Auto) 0.08 K/uL Sodium Level 137 mmol/L Potassium Level 3.9 mmol/L Chloride Level 105 mmol/L Carbon Dioxide Level 26 mmol/L Anion Gap 6.0 mmol/L Blood Urea Nitrogen 10 mg/dl Creatinine 0.67 mg/dl Est Creatinine Clear Calc Drug Dose 96.8 ml/min Estimated GFR () 109.7 Estimated GFR (Non- 94.7 BUN/Creatinine Ratio 15.7 Random Glucose 100 mg/dl Calcium Level 7.8 mg/dl Imaging: EKG: Telemetry reviewed: Assessment and Plan 1. Pericardial effusion: No clinical significance currently. No sx. Will simply monitor over time. 2. Dyspnea: Multifactorial. He had a good diuresis. Feeling better after his thoracentesis as well. I would suggest continuing 1 mg of Bumex daily as an outpatient. Possibly with potassium supplementation depending on his electrolytes. 3. Normally-functioning dual chamber pacemaker. Stable for discharge from a cardiology standpoint. Patient artery has an appointment to see me in the outpatient setting next week.
--- NOTE | 2017-09-16 14:15 | SURGERY PROGRESS NOTE ---
DATE: 09/16/2017 Mr. Sherman was seen today with his . He feels "much better" after his fluid was drained. There is no growth on the pleural fluid. His white count is a bit low at 1690. Hemoglobin is also 7.7. Pathology is still pending. I was quite pleased with his physical exam, he has had a bit reaccumulation in the left chest, but not much. This is a transudate. I had a long talk with the patient and his . The patient is interesting. He spiked a fever of 38.9. This is one time spike, thus far his blood cultures are still pending. I do not think this is from his chest. At any rate from my standpoint, I think the patient can be discharged, but I will leave that up to the primary care service. We will see how he looks over the weekend.
[2017-09-16 14:48] VITALS: BP 109/59; PULSE 67; TEMP 37.4; O2SAT 92
[2017-09-16] MEDS ORDERED: AMOX875T PO (15:08)
[2017-09-16] MEDS ORDERED: BUME1TAB PO (15:21)
--- NOTE | 2017-09-16 15:24 | Discharge Instructions ---
Discharge Instructions Date of Service September 16, 2017. Admission Reason for Admission: Pericardial Effusion, Pleural Effusion Discharge Discharge Diagnosis / Problem: pleural effusions, neutropenia Discharge Goals Goal(s): Decrease discomfort, Improve function, Diagnostic testing, Therapeutic intervention Activity Recommendations Activity Limitations: resume your previous activity . Instructions / Follow-Up Instructions / Follow-Up You were seen in hospital for fluid noted in the lungs and heart. The fluid in your heart is chronic and not impacting the function of your heart , as such, no acute intervention was done for this. The fluid in your lungs was removed via drainage. Doing this helped your breathing. The final cultures are pending. Dr. Cash will follow up with you in clinic to discuss final results with you. His office will call with details for an appointment. You are being discharged on 1mg of Bumex (water pill) daily to keep fluid from recurring. Please see your family doctor for lab work in 1 week to check your kidney function. While in hospital, you spiked a fever. This was concerning given your low white cell count. Initial blood cultures are negative, but you will be discharged with a course of antibiotics. Please seek medical attention if you have recurrent fevers or any new concerning symptoms. Dr. Menon will schedule follow up with you. Please resume all other home medications. Current Hospital Diet Patient's current hospital diet: AHA Diet (Heart Healthy) Discharge Diet Recommended Diet: AHA Diet (Heart Healthy) Procedures Procedures Performed: thoracocentesis Pending Studies Studies pending at discharge: yes List of pending studies: Final blood and thoracocentesis fluid cultures Medical Emergencies . Who to Call and When: Medical Emergencies: If at any time you feel your situation is an emergency, please call 911 immediately. . Non-Emergent Contact Non-Emergency issues call your: Primary Care Provider, Oncologist, Surgeon . . "Provider Documentation" section prepared by Stephanie Denton. . Resident Tracking Resident Involvement: Resident Care Provided Care Provided: Adult Hospital Medicine
--- NOTE | 2017-09-16 15:25 | Discharge Summary ---
Discharge Summary Date of Service September 16, 2017. Discharge Summary Admission Date: September 14, 2017 at 14:43 Discharge Date: September 16, 2017 Discharge Disposition: Home Principal Diagnosis: Pleural effusions, neutropenic fever Immunizations: Have You Had Influenza Vaccine: Yes History of Tetanus Vaccine?: Yes History of Pneumococcal: Yes History of Hepatitis B Vaccine: Yes Consultations: oncology, thoracic surgery Medication Reconciliation New Medications: Amoxicillin & Pot Clavulanate (Augmentin 875-125 mg) 1 Tab Tab 1 TAB PO BID, #14 TAB Bumetanide (Bumex) 1 Mg Tab 1 TAB PO DAILY for 30 Days, #30 TAB Continued Medications: Aspirin (Aspirin Ec) 81 Mg Tab 81 MG PO DAILY Calcium Carbonate-Cholecalcife (Calcium 600+D 600-800 mg-Unit) 1 Tab Tab 1 TAB PO BID Cholecalciferol (Vitamin D) 2,000 Unit Cap 2000 UNITS PO DAILY Enzalutamide (Xtandi) 40 Mg Cap 120 MG PO DAILY Fish Oil ([place]-3) 1 Ea Cap 1 CAP PO DAILY, CAP Leuprolide Acetate (Lupron Depot) 30 Mg Kit 30 MG IM UD Next dose will be given on 09/2016 per pt Multivitamin (Multivitamin) Tab 1 TAB PO DAILY, TAB Paroxetine Hcl (Paroxetine Hcl) 30 Mg Tab 30 MG PO DAILY Pravastatin (Pravachol ) 20 Mg Tab 20 MG PO DAILY, 0 Refills Probiotic Product (Probiotic) 1 Cap Cap 1 CAP PO DAILY Rivaroxaban (Xarelto) 15 Mg Tab 15 MG PO BID, TAB Tramadol (Ultram) 50 Mg Tab 50 MG PO TID PRN for Pain Triamcinolone Acet (Triamcinolone Acetonide) 45 Appln/15 Gm Cr 1 APPLN TOP BID PRN for Itching for 30 Days, #30 GM Vitamin E (E-400) 400 Unit Cap 400 UNITS PO DAILY Discharge Exam Patient well, denies acute issues. He has some pain at site of thoracocentesis but no dyspnea. He denies fevers/chills, headaches, CP, palpitations, abdominal pain, lower extremity swelling or rashes. He is tolerating diet without nausea or vomiting, ambulating without exacerbating symptoms, and voiding and stooling appropriately. He is keen for discharge. ROS is unremarkable except as noted above. Physical Exam: General Appearance: WD/WN, no apparent distress Eyes: sclerae normal ENT: hearing grossly normal, pharynx normal, + pertinent finding (sniffling , patient states secondary to allergies) Neck: supple Respiratory/Chest: normal breath sounds, no respiratory distress, no accessory muscle use Cardiovascular: regular rate, rhythm, no murmur, normal peripheral pulses Abdomen / GI: normal bowel sounds, non tender, soft Extremities: no calf tenderness, no pedal edema Neurologic/Psychiatric: alert, normal mood/affect, oriented x 3 Skin: normal color, warm/dry, no rash Hospital Course 76 y/o male with a history of diastolic CHF, metastatic prostate cancer to thoracic spine, pancytopenia, HLD, complete heart block s/p pacemaker insertion , and anxiety/depression with hx of pleural effusion on R and L s/p thoracentesis in July 2017, transferred from Cancer center with recurrent pleural effusions and new moderate sized pericardial effusion which was seen on outpatient CT scans for cancer staging on 09/09/17. Pericardial effusion - CT on 09/09 showed moderate left and small right pleural effusions with bibasilar atelectasis, Cardiomegaly with moderate sized pericardial effusion. - s/p 1 mg Bumex now since he responded well to this during last admission - watch closely for hemodynamic stability in the setting of diuresis as he may be preload dependent. - Seen by Cardiology, pericardial effusion stable from previous, no indication for pericardiocentesis Moderate bilateral pleural effusions secondary to dCHF vs malignant effusions - Thoracic surgery consulted, s/p thoracentesis 09/15 which improved dyspnea symptoms - Fluid transudate, but final cultures are pending on discharge. - Follow up with Dr. 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 Denton during the history and exam. I discussed the case with the resident and agree with the findings and plan as documented in the note. Any exceptions or clarifications are listed here: The patient feels well and desires discharge. Consultants are in agreement with discharge today. Will keep him on Augmentin as most recent cultures are only at 24 hours. I will check cultures tomorrow and advise of change in course needed based on results. Otherwise, he has appropriate outpatient follow up already arranged. Documented By: Sav Dillon Total Time Spent: Less than 30 minutes This includes examination of the patient, discharge planning, medication reconciliation, and communication with other providers. Discharge Instructions Please refer to the electronic Patient Visit Report (Discharge Instructions) for additional information. Additional Copies To Julia Terrell D.O. Resident Tracking Resident Involvement: Resident Care Provided Care Provided: Adult [facility] Medicine
[2017-09-16 15:33] VITALS: BP 109/59; PULSE 67; TEMP 37.4; O2SAT 92
[2017-09-17] MEDS ORDERED: VANCOMYCIN TROUGH SCH (05:30)
== END 2017-09-16 16:45 | disposition home or self-care (01) | DRG 314 ==
LOC: C.EDB 10:43 → C.4E 14:43 → EDBEDREQSVC 15:01 → EDBEDREQ 15:02 → CANRESERV 15:26 → ENRESERV 15:26 → EDBEDREQSVC 16:23 → CANRESERV 16:51 → ENRESERV 16:51 → EDBEDREQSVC 17:10 → ENRESERV 17:19
PROVIDERS: ADMIT Family Medicine; ATTEND Family Medicine
PROC: 0W993ZZ Drainage of Right Pleural Cavity, Percutaneous Approach (ICD-10-PCS; principal; 2017-09-15)
DX: I31.3 Pericardial effusion (noninflammatory) (principal); I50.33 Acute on chronic diastolic (congestive) heart failure; C79.49 Secondary malignant neoplasm of other parts of nervous system; D61.811 Other drug-induced pancytopenia; J90 Pleural effusion, not elsewhere classified; C61 Malignant neoplasm of prostate; E78.5 Hyperlipidemia, unspecified; Z87.891 Personal history of nicotine dependence; Z88.5 Allergy status to narcotic agent; Z86.718 Personal history of other venous thrombosis and embolism; Z79.01 Long term (current) use of anticoagulants; Z95.0 Presence of cardiac pacemaker; F41.8 Other specified anxiety disorders; Z80.42 Family history of malignant neoplasm of prostate; Z92.3 Personal history of irradiation; D70.9 Neutropenia, unspecified; Y92.019 Unspecified place in single-family (private) house as the place of occurrence of the external cause

== ENCOUNTER 2017-11-03 14:31 | Inpatient (IN) | payer OTHER, BC ==
[2017-11-03] VITALS (13 sets, daily range): BP systolic 107–127; BP diastolic 62–89; PULSE 73–84; TEMP 36.5–37.3; O2SAT 94–98; Ht 175.3 cm; Wt 75.1 kg
[~2017-11-03] VITALS: Ht 175.3 cm; Wt 75.1 kg
[~2017-11-03 14:31] MED LIST changes: +ACET-1311 PO; -ASPI81TA28 PO; -BUME1TAB PO; +Boost PO; +GUAI1SOL5 PO; -LEUP30IN3 IM; +LEVO1TAB35 PO; +LIDO5CRE13 TOP; -MISCCAP80 PO; +NITR1OIN RE; -OMEG10007 PO; +PARO10TA3 PO; +PARO20TA3 PO; -PARO30TA6 PO; +POLY3350 PO; -POTA1CAP2 PO; -TRAM-10 PO; -TRMCR515 TOP
[2017-11-03] MEDS ORDERED: [UNRECOGNIZED DRUG - OTHER] PO (15:00)
[2017-11-03] MEDS ORDERED: NOSE SPRAY (15:00)
--- NOTE | 2017-11-03 16:09 | DIAGNOSTIC IMAGING REPORT ---
SINGLE VIEW CHEST CLINICAL HISTORY: GI bleeding. FINDINGS: An AP, portable, upright chest radiograph is compared to study dated 10/30/2017. The examination is degraded by portable technique and patient rotation. A 2-lead cardiac pacemaker is unchanged in position. The heart is enlarged and there is atherosclerotic calcification of the thoracic aorta. There is pulmonary vascular congestion with evidence of interstitial edema. Small pleural effusions are noted with bibasilar consolidation. No pneumothorax is seen. The skeletal structures are osteopenic. The bony thorax is grossly intact. IMPRESSION: 1. Cardiomegaly and cardiac pacemaker. There is evidence of congestive failure with interstitial edema. 2. There are small pleural effusions with bibasilar consolidation. This likely represents atelectasis. Clinical correlation will be required. Electronically signed by: Xander Knott M.D. 11/03/2017 4:08 PM Dictated Date/Time: 11/03/2017 4:07 PM
[2017-11-03 16:18] LABS: INR 1.3 (0.9-1.1); PTT PATIENT 31.5 SECONDS (21.0-31.0)
[2017-11-03 16:23] LABS: ALBUMIN 2.3 gm/dl (3.4-5.0); ALKALINE PHOSPHATASE 86 U/L (45-117); ALT/SGPT 13 U/L (12-78); AST/SGOT 16 U/L (15-37); BLOOD UREA NITROGEN 14 mg/dl (7-18); CALCIUM 7.4 mg/dl (8.5-10.1); CARBON DIOXIDE 25 mmol/L (21-32); CKMB < 1.0 ng/ml (0.5-3.6); GLUCOSE 128 mg/dl (70-99); POTASSIUM 3.6 mmol/L (3.5-5.1); SODIUM 134 mmol/L (136-145); TOTAL PROTEIN 5.7 gm/dl (6.4-8.2)
[2017-11-03 16:37] LABS: HEMATOCRIT 20.2 % (42-52); HEMOGLOBIN 7.2 g/dL (14.0-18.0); MEAN CELL VOLUME 83.5 fL (80-100); MEAN CORPUSCULAR HEMOGLOBIN 29.8 pg (25-34); MEAN CORPUSCULAR HGB CONC 35.6 g/dl (32-36); PLATELET COUNT 4 K/uL (130-400); RED CELL DISTRIBUTION WIDTH CV 15.6 % (11.5-14.5); RED CELL DISTRIBUTION WIDTH SD 47.6 fL (36.4-46.3); WHITE BLOOD COUNT 1.97 K/uL (4.8-10.8)
[2017-11-03] MEDS ORDERED: ACETAMINOPHEN 325 MG TAB PO STA (17:32)
[2017-11-03] MEDS ORDERED: POLYETHYLENE (MIRALAX) 17 GM PACK PO PRN (17:45)
[2017-11-03] MEDS ORDERED: ZOLPIDEM TARTRATE 5 MG TAB PO PRN (17:45)
[2017-11-03] MEDS ORDERED: ONDANSETRON INJ 2 MG/ML 2 ML VIAL IV PRN (17:45)
[2017-11-03] MEDS ORDERED: MAGNESIUM HYDROXIDE SUSP 30 ML UDC PO PRN (17:45)
[2017-11-03] MEDS ORDERED: ACETAMINOPHEN 325 MG TAB PO PRN (17:45)
[2017-11-03] MEDS ORDERED: MoRPHine SULFATE 5 MG/0.25 ML UDP PO PRN (18:00)
--- NOTE | 2017-11-03 18:03 | History and Physical ---
History & Physical Date of Service Nov 03, 2017. History & Physical pancytopenia, leukemia, rectal bleeding, family looking for to set up home hospice care [place], [id number]
--- NOTE | 2017-11-03 19:07 | HISTORY & PHYSICAL EXAMINATION ---
DATE OF ADMISSION: 11/03/2017 This is a level 3 inpatient admission, 35 minutes. CHIEF COMPLAINT: Rectal bleeding. HISTORY OF PRESENT ILLNESS: The patient is a 76-year-old white male with a significant past medical history of prostate cancer, recent diagnosis of leukemia and had complained about rectal bleeding for 3 days associated with weakness. The patient's daughter and family at the bedside and they reported they not aware about the bleeding until today. Per daughter, there was rectal bleeding which was bright red per rectum with clots. The patient follows up with Dr. Agosto. Received blood transfusions on Tuesday. Hemoglobin was 8.5, which was checked yesterday. Today's hemoglobin level was 7.2 and platelet was 4. ED physician has ordered and consent to give transfusion. Per medical records in recent admission, the patient was having pancytopenia on recent admission. He was discharged on 10/31/2017 which was 3 days ago. In previous admission, he was having pancytopenia. He got 2 units of blood transfusion and 4 units of total platelet transfusion. On the day of the discharge, hemoglobin level was 7.0. Per records, planning discharge to home with home health care and transition to hospice care when he does not want to have transfused anymore. The patient is not having hearing. However, he was having some moaning, not able to have interactions; per family occasionally, has lower temperature at 37.5, denied fever and chills. Patient has very poor appetite, not eating, drinking anything, just got one Boost to him moments ago. Denied cough, sputum. Denies shortness of breath. Denied abdominal pain; however, has abdominal distention and rectal bleedings. Has recently has diarrhea. Today's diarrhea was 2-3 times a day. Denied urinary urgency, dysuria, urgency and frequencies. Other review of systems not able to obtain. PAST MEDICAL HISTORY: Like I mentioned in the above which include anemia, atrial tachycardia, CHF, dyslipidemia, lethargic, leukemia, leukopenia, pericardial effusion, pleural effusion, prostate cancer, third degree AV block, thrombocytopenia, and generalized weakness. Metastatic prostate cancer, S/P prostatectomy and radiation, leukemia, pancytopenia, dyslipidemia, left upper extremity DVT diagnosed in August 2017, recurrent pleural effusion S/P multiple thoracenteses. Anxiety and depression. PAST SURGICAL HISTORY: Include prostatectomy, inguinal hernia and repairing, pacemakers. FAMILY HISTORY: Father has prostate cancer and stroke. SOCIAL HISTORY: Former smoker, quit early in . Denied alcohol abuse disorder, denied illicit drug abuse. The patient is and lives with significant others. ALLERGIES: OXYCODONE. MEDICATIONS: Patient currently not on any home medication, only on Boost and appetite stimulator. REVIEW OF SYSTEMS: Please see HPI, otherwise 14 points organ system review were negative. PHYSICAL EXAMINATION: VITAL SIGNS: Temperature is 37.1, pulse 78, respiration rate 18, blood pressure 105 /64, pulse ox was 95% on room air. GENERAL: The patient is a white male, lethargic, chronically ill looking, moaning, decreased hearing. HEAD: Normocephalic, look pale. EYES: Pupils equal, round, responds to light. EARS: Ear was normal. NOSE: Normal. HEART: Regular rhythm. S1, S2. LUNGS: Decreased breathing sounds. There was no wheezing, rhonchi or crackles. ABDOMEN: Mildly distended. No obvious tender, GENITOURINARY AND RECTAL: Deferred. Bilateral CVA was nontender. BILATERAL LOWER EXTREMITIES: No swelling. Homans sign was negative. Calf was nontender. NEUROLOGICAL EVALUATION: Has no deficits, no facial droop, slurry speeches. LABORATORY STUDIES: Today, which include WBC 1.9, hemoglobin 7.2, platelets 4 K, PT/INR was 13/1.3. Sodium 134, potassium 3.6, BUN 14, creatinine 0.6. Calcium 7.4, total bili 1.6, direct bilirubin 0.9, AST 16, ALT 13. Cardiac enzyme, troponin 0.04. Total protein 5.7, albumin 2.3. IMAGING STUDIES: Chest x-ray: Cardiomegaly and cardiac pacemaker. There is evidence of CHF with interstitial edema and there are small pleural effusions with bibasilar consolidation likely represent atelectasis. Clinical correlation will be required. EKG was done in the Emergency Room which shows ventricular paced rhythm, abnormal EKGs. ASSESSMENT AND PLAN: A 76-year-old white male with the conditions see below: 1. Acute rectal bleeding. 2. Pancytopenia. 3. Leukopenia. 4. Significant anemia, transfusion dependent and leukemia. 5. 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 6. History of anemia. 7. Atrial tachycardia. 8. Congestive heart failure. 9. Dyslipidemia. 10. Pericardial effusion. 11. Pleural effusion. 12. A 30-degree atrioventricular block status post pacemaker. 13. Progressive weakness. 14. Metastatic prostate cancer status post prostatectomy and radiation. 15. Leukemia. 16. Left upper extremity deep venous thrombosis diagnosed in August 2017. 17. Recurrent pleural effusion status post multiple thoracenteses. 18. Anxiety. 19. Depression. PLAN: 1. Discussed with at the bedside and other family members about the patient's conditions and care plan. They fully understand the patient's complex and multiple comorbidities and is having very poor prognosis. What they want to do is transfusion now and no any other aggressive measures. They want the patient to be comfortable, in no pain; they agreed only continue some Boost from home and eat or drinking as tolerated, and okay to continue appetite stimulator from home, otherwise not to continue any other medication except for comfort methods. reports to me they are aggressively working with home hospice care service to start keyur. 2. Mild elevated troponin, possible ischemic events from anemic, just watching for now. I do not believe we need to have any further cardiac evaluations for now. Because of the patient's current conditions, I request addiction social worker consultation and palliative care consultation. The patient is on end-stage terminal disease and the best will be in the hospice care, the patient's family seems very agreeable in this aspect. Discussed with the patient's and other family member at the bedside. They agree with all of the above assessment and plan. DVT prophylaxis is contraindicated because the patient has rectal bleeding. The patient is do not resuscitation. MTDD
--- NOTE | 2017-11-03 19:40 | EMERGENCY ROOM VISIT NOTE ---
History Report prepared by Angi: Ryan Ovalle Under the Supervision of: Dr. Nick Scott D.O. First contact with patient: 15:11 Chief Complaint: RECTAL BLEEDING Stated Complaint: RECTAL BLEED Nursing Triage Summary: Patient arrived via BLS from home. Patient c/o rectal bleeding for 3 days and weakness. Patients daughter at bedside states was unaware of bleeding until today. Per daughter, bright red blood with clots. Patient has hx of prostate CA and acute leukemia. Patient sent in by Dr. Agosto. Patient received a blood transfusion on Tuesday. Hemoglobin 8.5, checked yesterday. History of Present Illness The patient is a 76 year old male who presents to the Emergency Room with complaints of rectal bleeding beginning last night. According to the family, the patient has aggressive prostate cancer and acute leukemia. He has been weak and can't stop sleeping according to the . She states his lips and face more pale than usual. He denies abdominal pain. Family report that treatment for his prostate cancer led to acute leukemia. Has been receiving blood and platelet transfusions every few days. Blood panel yesterday unremarkable per . Today bed pad was saturated with blood and clots per . Review of Systems See HPI for pertinent positives & negatives. A total of 10 systems reviewed and were otherwise negative. Past Medical & Surgical Medical Problems: (1) Anemia (2) Anemia (3) Congestive heart failure (4) Hyperlipidemia (5) Lethargy (6) pancytopenia, leukemia, rectal bleeding (7) Pleural effusion (8) Prostate cancer (9) Symptomatic anemia (10) Third degree heart block (11) Weakness Family History Cancer (prostate) FATHER Stroke Social History Smoking Status: Former Smoker Drug Use: none Marital Status: Housing Status: lives with significant other Occupation Status: retired Current/Historical Medications Scheduled [Appetite Stimulant], 1 DOSE PO UD [Nose [place]], 1 DOSE NA UD Allergies Coded Allergies: Oxycodone (Verified Adverse Reaction, Intermediate, confusion, 11/03/17) PER DR CARMICHAEL, Per his conversation with patient, reaction to Percocet was confusion, not difficulty breathing. Physical Exam Vital Signs Date Time Temp Pulse Resp B/P (MAP) Pulse Ox O2 Delivery O2 Flow Rate FiO2 11/03/17 17:35 97 Nasal Cannula 3.0 11/03/17 17:21 79 3 97 11/03/17 17:20 76 11/03/17 16:51 76 95 11/03/17 16:46 77 97 11/03/17 16:16 76 24 95 11/03/17 15:56 94 Nasal Cannula 3.0 11/03/17 15:46 74 31 95 11/03/17 14:41 119/64 11/03/17 14:35 37.1 78 18 119/64 95 Room Air Physical Exam CONSTITUTIONAL/VITAL SIGNS: Reviewed / noted above. GENERAL: Non-toxic in appearance. INTEGUMENTARY: Warm, dry, and pale. HEAD: Normocephalic. EYES: without scleral icterus or trauma. ENT/OROPHARYNX: clear and moist. LYMPHADENOPATHY/NECK: Is supple without lymphadenopathy or meningismus. RESPIRATORY: Lungs clear and equal. CARDIOVASCULAR: Regular rate and rhythm. GI/ABDOMEN: Soft and nontender. No organomegaly or pulsatile mass. No rebound or guarding. Normal bowel sounds. EXTREMITIES: Warm and well perfused. BACK: No CVA tenderness. NEUROLOGICAL: Intact without focal deficits. PSYCHIATRIC: normal affect. MUSCULOSKELETAL: Normally developed with good muscle tone. RECTAL: gross blood on rectal exam Medical Decision & Procedures ER Provider Diagnostic Interpretation: Radiology results as stated below per my review and radiologist interpretation: SINGLE VIEW CHEST CLINICAL HISTORY: GI bleeding. FINDINGS: An AP, portable, upright chest radiograph is compared to study dated 10/30/2017. The examination is degraded by portable technique and patient rotation. A 2-lead cardiac pacemaker is unchanged in position. The heart is enlarged and there is atherosclerotic calcification of the thoracic aorta. There is pulmonary vascular congestion with evidence of interstitial edema. Small pleural effusions are noted with bibasilar consolidation. No pneumothorax is seen. The skeletal structures are osteopenic. The bony thorax is grossly intact. IMPRESSION: 1. Cardiomegaly and cardiac pacemaker. There is evidence of congestive failure with interstitial edema. 2. There are small pleural effusions with bibasilar consolidation. This likely represents atelectasis. Clinical correlation will be required. Electronically signed by: Xander Knott M.D. 11/03/2017 4:08 PM Laboratory Results 11/03/17 15:40 Red Blood Count 2.42, Mean Corpuscular Volume 83.5, Mean Corpuscular Hemoglobin 29.8, Mean Corpuscular Hemoglobin Concent 35.6 11/03/17 15:40 Test 7/12/18 15:40 White Blood Count 1.97 K/uL (4.8-10.8) Red Blood Count 2.42 M/uL (4.7-6.1) Hemoglobin 7.2 g/dL (14.0-18.0) Hematocrit 20.2 % (42-52) Mean Corpuscular Volume 83.5 fL (80-100) Mean Corpuscular Hemoglobin 29.8 pg (25-34) Mean Corpuscular Hemoglobin Concent 35.6 g/dl (32-36) Platelet Count 4 K/uL (130-400) RDW Standard Deviation 47.6 fL (36.4-46.3) RDW Coefficient of Variation 15.6 % (11.5-14.5) Neutrophils % (Manual) 77.2 % Lymphocytes % (Manual) 10.5 % Monocytes % (Manual) 7.0 % Basophils % (Manual) 0.9 % (0-2) Metamyelocytes % 2.6 % Myelocytes % 0.9 % Blast Cells % 0.9 % Neutrophils # (Manual) 1.52 K/uL (1.4-6.5) Total Absolute Neutrophils 1.52 K/uL (1.4-6.5) Lymphocytes # (Manual) 0.21 K/uL (1.2-3.4) Total Absolute Lymphocytes 0.21 K/uL (1.2-3.4) Monocytes # (Manual) 0.14 K/uL (0.11-0.59) Basophils # (Manual) 0.02 K/uL (0-0.2) Metamyelocytes # 0.05 K/uL (0-0) Myelocytes # 0.02 K/uL (0-0) Blast Cells # 0.02 K/uL (0-0) Platelet Estimate SIGNIFIC DECREASED Red Blood Cell Morphology Unremarkable Prothrombin Time 13.8 SECONDS (9.0-12.0) Prothromb Time International Ratio 1.3 (0.9-1.1) Activated Partial Thromboplast Time 31.5 SECONDS (21.0-31.0) Partial Thromboplastin Ratio 1.2 Anion Gap 8.0 mmol/L (3-11) Est Creatinine Clear Calc Drug Dose 34.8 ml/min Estimated GFR () 114.8 Estimated GFR (Non- 99.1 BUN/Creatinine Ratio 22.8 (10-20) Calcium Level 7.4 mg/dl (8.5-10.1) Total Bilirubin 1.6 mg/dl (0.2-1) Direct Bilirubin 0.9 mg/dl (0-0.2) Aspartate Amino Transf (AST/SGOT) 16 U/L (15-37) Alanine Aminotransferase (ALT/SGPT) 13 U/L (12-78) Alkaline Phosphatase 86 U/L (45-117) Total Creatine Kinase 15 U/L (39-308) Creatine Kinase MB < 1.0 ng/ml (0.5-3.6) Creatine Kinase MB Ratio (0-3.0) Troponin I 0.046 ng/ml (0-0.045) Total Protein 5.7 gm/dl (6.4-8.2) Albumin 2.3 gm/dl (3.4-5.0) Laboratory results as stated above per my review. Medications Administered Medications (Trade) Dose Ordered Sig/Bunny Route Start Time Stop Time Status Last Admin Dose Admin Acetaminophen (Tylenol Tab) 650 mg NOW STAT PO 11/03/17 17:32 11/03/17 17:38 DC 11/03/17 18:11 650 MG Diphenhydramine HCl (Benadryl Cap) 25 mg ONE STAT PO 11/03/17 17:32 11/03/17 17:38 DC 11/03/17 18:11 25 MG ECG Per My Interpretation Indication: weakness Rate (beats per minute): 75 Rhythm: other (ventricular paced rhythm) Findings: no ectopy, other (no ST elevation) Comparison ECG Date: no prior available ED Course 1513: Previous medical records were reviewed. The patient was evaluated in room C1. A complete history and physical examination was performed. 1645: I spoke with Dr. Villa of the [facility]ist [facility]. The patient will be evaluated for further management and care. Medical Decision Differential includes acute coronary syndrome, myocardial infarction, CVA, TIA, anemia, infection, pneumonia, UTI, pyelonephritis, poor nutrition, dehydration, electrolyte disturbance,hypoglycemia. This is a 76-year-old male who presents to the ED with a chief complaint of rectal bleeding. The patient has a history of prostate cancer and subsequent acute leukemia. He has been getting blood transfusions regularly for the past couple of months. He is chronically anemic. He developed rectal bleeding today. He reports decreased energy and his family states that he is paler than normal. The patient's vital signs here are normal. His physical exam does reveal gross blood on rectal exam. His white blood cell count was 1.97. Hemoglobin was 7.2 and his platelet count was 4. Troponin was mildly elevated at 0.046. Space he has a paced ventricular rhythm at a rate of 75. The patient was given IV platelets. He was also order a blood transfusion although this will have to be ordered from [place] [facility]. The patient was seen by the hospitalist for further inpatient evaluation and care. Medication Reconcilliation Current Medication List: was personally reviewed by me Blood Pressure Screening Patient's blood pressure: Normal blood pressure Blood pressure disposition: Did not require urgent referral Consults Time Called: 1640 Consulting Physician: Dr. Villa - [facility] Returned Call: [phone] Villa of the [facility]. The patient will be evaluated for further management and care. Impression Primary Impression: GI bleeding Additional Impression: Anemia Critical Care I have personally spent 30 minutes of critical care time in the direct management of this patient. This includes bedside care, interpretation of diagnostic studies, and testing, discussion with consultants, patient, and family members, and other required patient management activities. This 30 minutes is in excess of all separately billable procedures. Scribe Attestation The scribe's documentation has been prepared under my direction and personally reviewed by me in its entirety. I confirm that the note above accurately reflects all work, treatment, procedures, and medical decision making performed by me. Departure Information Dispostion Being Evaluated By Hospitalist Referrals Julia Terrell D.O. (PCP) Patient Instructions [facility] Problem Qualifiers
[2017-11-04] VITALS (10 sets, daily range): BP systolic 93–125; BP diastolic 56–70; PULSE 70–88; TEMP 36.2–38; O2SAT 93–98
[2017-11-04] MEDS ORDERED: NURSING VERBAL MED ORDER ONE ×4 (01:45→12:45)
[2017-11-04] MEDS ORDERED: ACETAMINOPHEN IV 1000MG/100ML IV STA (01:56)
[2017-11-04 06:00] LABS: HEMATOCRIT 22.8 % (42-52); HEMOGLOBIN 8.1 g/dL (14.0-18.0); MEAN CELL VOLUME 83.2 fL (80-100); MEAN CORPUSCULAR HEMOGLOBIN 29.6 pg (25-34); MEAN CORPUSCULAR HGB CONC 35.5 g/dl (32-36); NUCLEATED RED BLOOD CELL ABS 0.02 K/uL (0-0); PLATELET COUNT 7 K/uL (130-400); RED CELL DISTRIBUTION WIDTH CV 14.9 % (11.5-14.5); RED CELL DISTRIBUTION WIDTH SD 45.8 fL (36.4-46.3); WHITE BLOOD COUNT 2.84 K/uL (4.8-10.8)
[2017-11-04 06:01] LABS: CALCIUM 6.8 mg/dl (8.5-10.1); CREATININE 0.56 mg/dl (0.60-1.40); PHOSPHORUS 2.5 mg/dl (2.5-4.9); POTASSIUM 3.5 mmol/L (3.5-5.1)
--- NOTE | 2017-11-04 09:29 | Clinical Documentation Query ---
RONA Horn : CLINICAL DOCUMENTATION QUERY Patient is a 76 year old male with a PMH of prostate cancer and recent diagnosis of leukemia, admitted for evaluation of rectal bleeding. Documentation includes that of "pancytopenia" in the setting of both leukemia and Xofigo/Lupron therapies. As appropriate, consider capture of this clinical information as suggested below as this impacts accurate DRG assignment. Thank you. In your clinical opinion is this patient being managed for: ( x ) (Possible) leukemia and chemotherapy induced pancytopenia ( ) Not Agree ( ) Other explanation of clinical findings (No explanation is considered a No Response) ( ) Unable to determine ( ) Need to Discuss (Phone CDS or qliq) (No discussion is considered a No Response) The medical record reflects the following clinical findings, treatment, and risk factors. Clinical Indicators: As above Treatment: Transfusion as necessary, serial hematology Risk Factors: Leukemia, antineoplastic medications Please clarify and document your clinical opinion in the progress notes and discharge summary. Terms such as "probable", "suspected", "likely", "questionable", "possible", or "still to be ruled out" are acceptable. IF IN AGREEMENT, YOU MUST DOCUMENT ABOVE DIAGNOSTIC STATEMENT IN DAILY PROGRESS NOTES AND DISCHARGE SUMMARY. This document is not part of the patient's record. Thank You, Russel Mcghee, GEMA [phone]
[2017-11-04] MEDS ORDERED: MoRPHine SULFATE 5 MG/0.25 ML UDP SL PRN (09:45)
--- NOTE | 2017-11-04 09:53 | Progress Note ---
Subjective Date of Service: Nov 04, 2017. Problem List Medical Problems: (1) Anemia Status: Acute (2) Anemia Status: Acute (3) Anemia Status: Acute (4) Atrial tachycardia Status: Acute (5) CHF (congestive heart failure) Status: Acute (6) GI bleeding Status: Acute (7) Hypokalemia Status: Acute (8) Leukemia Status: Acute (9) Leukopenia Status: Acute (10) Near syncope Status: Acute (11) Pancytopenia Status: Acute (12) SOB (shortness of breath) Status: Acute (13) Thrombocytopenia Status: Acute Objective Vital Signs Date Time Temp Pulse Resp B/P (MAP) Pulse Ox O2 Delivery O2 Flow Rate FiO2 11/04/17 07:28 36.2 88 20 109/70 (83) 94 Nasal Cannula 2.0 11/04/17 05:50 36.6 70 22 113/65 93 3.0 11/04/17 04:45 36.6 75 19 117/68 97 11/04/17 04:15 36.3 74 19 93/66 95 11/04/17 03:45 36.7 78 19 102/64 95 11/04/17 03:30 36.5 87 19 108/63 95 11/04/17 02:56 36.7 74 22 108/64 (79) 97 Nasal Cannula 3.0 11/04/17 01:15 38.0 75 22 113/56 (75) 94 Nasal Cannula 3.0 11/04/17 00:31 36.8 76 20 125/64 98 3.0 11/04/17 00:00 Nasal Cannula 3.0 11/03/17 23:33 36.7 78 20 116/73 94 3.0 11/03/17 23:00 36.5 73 20 110/65 98 11/03/17 22:30 36.6 73 20 107/66 96 3.0 11/03/17 22:15 36.8 74 20 107/67 98 11/03/17 21:58 36.7 84 18 109/62 96 3.0 11/03/17 20:45 37.0 80 20 108/69 96 3.0 11/03/17 20:00 36.8 73 20 113/68 96 3.0 11/03/17 19:30 36.7 77 20 114/68 96 3.0 11/03/17 19:20 80 20 115/63 97 11/03/17 19:06 120/89 11/03/17 19:02 115/89 11/03/17 19:01 37.3 80 23 115/89 94 3.0 11/03/17 18:56 114/73 11/03/17 18:56 37.3 79 16 114/73 97 3.0 11/03/17 18:51 77 97 11/03/17 18:44 37.2 79 16 127/62 95 3.0 11/03/17 18:42 127/62 11/03/17 18:21 79 12 95 11/03/17 17:51 75 95 11/03/17 17:35 97 Nasal Cannula 3.0 11/03/17 17:21 79 3 97 11/03/17 17:20 76 11/03/17 16:51 76 95 11/03/17 16:46 77 97 11/03/17 16:16 76 24 95 11/03/17 15:56 94 Nasal Cannula 3.0 11/03/17 15:46 74 31 95 11/03/17 14:41 119/64 11/03/17 14:35 37.1 78 18 119/64 95 Room Air Laboratory Results Last 24 Hours Test 11/03/17 15:40 11/04/17 05:27 White Blood Count 1.97 K/uL 2.84 K/uL Red Blood Count 2.42 M/uL 2.74 M/uL Hemoglobin 7.2 g/dL 8.1 g/dL Hematocrit 20.2 % 22.8 % Mean Corpuscular Volume 83.5 fL 83.2 fL Mean Corpuscular Hemoglobin 29.8 pg 29.6 pg Mean Corpuscular Hemoglobin Concent 35.6 g/dl 35.5 g/dl Platelet Count 4 K/uL 7 K/uL RDW Standard Deviation 47.6 fL 45.8 fL RDW Coefficient of Variation 15.6 % 14.9 % Neutrophils % (Manual) 77.2 % 80.5 % Lymphocytes % (Manual) 10.5 % 6.2 % Monocytes % (Manual) 7.0 % 8.8 % Basophils % (Manual) 0.9 % Metamyelocytes % 2.6 % Myelocytes % 0.9 % Blast Cells % 0.9 % 2.7 % Neutrophils # (Manual) 1.52 K/uL 2.29 K/uL Total Absolute Neutrophils 1.52 K/uL 2.29 K/uL Lymphocytes # (Manual) 0.21 K/uL 0.18 K/uL Total Absolute Lymphocytes 0.21 K/uL 0.18 K/uL Monocytes # (Manual) 0.14 K/uL 0.25 K/uL Basophils # (Manual) 0.02 K/uL Metamyelocytes # 0.05 K/uL Myelocytes # 0.02 K/uL Blast Cells # 0.02 K/uL 0.08 K/uL Platelet Estimate SIGNIFIC DECREASED SIGNIFIC DECREASED Red Blood Cell Morphology Unremarkable Prothrombin Time 13.8 SECONDS Prothromb Time International Ratio 1.3 Activated Partial Thromboplast Time 31.5 SECONDS Partial Thromboplastin Ratio 1.2 Sodium Level 134 mmol/L 134 mmol/L Potassium Level 3.6 mmol/L 3.5 mmol/L Chloride Level 101 mmol/L 103 mmol/L Carbon Dioxide Level 25 mmol/L 24 mmol/L Anion Gap 8.0 mmol/L 7.0 mmol/L Blood Urea Nitrogen 14 mg/dl 16 mg/dl Creatinine 0.60 mg/dl 0.56 mg/dl Est Creatinine Clear Calc Drug Dose 34.8 ml/min 115.8 ml/min Estimated GFR () 114.8 118.1 Estimated GFR (Non- 99.1 101.9 BUN/Creatinine Ratio 22.8 28.4 Random Glucose 128 mg/dl 117 mg/dl Calcium Level 7.4 mg/dl 6.8 mg/dl Total Bilirubin 1.6 mg/dl Direct Bilirubin 0.9 mg/dl Aspartate Amino Transf (AST/SGOT) 16 U/L Alanine Aminotransferase (ALT/SGPT) 13 U/L Alkaline Phosphatase 86 U/L Total Creatine Kinase 15 U/L Creatine Kinase MB < 1.0 ng/ml Creatine Kinase MB Ratio Troponin I 0.046 ng/ml Total Protein 5.7 gm/dl Albumin 2.3 gm/dl Nucleated RBC Absolute Count (auto) 0.02 K/uL Eosinophils % (Manual) 1.8 % Nucleated Red Blood Cells % 0.8 % Eosinophils # (Manual) 0.05 K/uL Hypogranular Neutrophils 3+ Large Platelets 1+ Phosphorus Level 2.5 mg/dl Magnesium Level 1.9 mg/dl Assessment and Plan 76-year-old white male with prostate cancer and recently diagnosed transfusion dependent leukemia presenting with rectal bleeding and pancytopenia. transfusion dependent and leukemia. 7. Atrial tachycardia. 8. Congestive heart failure. 9. Dyslipidemia. 10. Pericardial effusion. 11. Pleural effusion. 12. A 30-degree atrioventricular block status post pacemaker. 13. Progressive weakness. 14. Metastatic prostate cancer status post prostatectomy and radiation. 15. Leukemia. 16. Left upper extremity deep venous thrombosis diagnosed in August 2017. 17. Recurrent pleural effusion status post multiple thoracenteses. 18. Anxiety. 19. Depression. Dr Wahl discussed with at the bedside and other family members about the patient's conditions and care plan. They fully understand the patient's complex and multiple comorbidities and is having very poor prognosis. What they want to do is transfusion and no any other aggressive measures. They plan on working with home hospice care service and transition home as soon as it is set up Elevated troponin, supply demand mismatch type 2 Mi from anemia,transfusion is indicated DVT prophylaxis is contraindicated because the patient has rectal bleeding. The patient is do not resuscitation.
--- NOTE | 2017-11-04 10:33 | Palliative Care Consultation ---
Consultation Date of Consultation: Nov 04, 2017. Requesting Physician: Dr. Villa Attending Physician: Dr. Villa Reason for Consultation: Goals of care History of Present Illness This 76 year old male patient with PMH metastatic prostate cancer and now acute leukemia following starting Xofigo, presents to the hospital with bright red bleeding per rectum. Palliative care is consulted as patient is terminal and family is requesting hospice care. I just met with the patient on Tuesday. Patient has been receiving frequent platelet and RBC transfusions for his pancytopenia. He's had several hospital admissions from September 14, October 20, October 30. He was just released from the hospital on Tuesday 10/31 after receiving platelet transfusion. He was given RBC transfusion then as an outpatient on Tuesday, two days ago. Patient then began experiencing cesra bleeding and clots from per rectum, so he returned to the ED. Upon arrival, platelet count was 4, hgb 7.2, hct 20.2. Patient is severely weakened and deconditioned. Time between transfusions is getting less and less. On Tuesday I met with the patient , his Gema, and Dr. Agosto. Dr. Agosto explained to them that transfusions are becoming less and less effective as his disease becomes increasingly refractory-- they both verbalized understanding and stated the plan would be for home with home health and continue transfusions until patient is no longer able to tolerate. Today, I met with patient and , Gema, in room 412. Patient is tired, weak, and deconditioned. He does have his new hearing aid so he is able to participate in conversation. Patient and both confirm that they do not want any further transfusions and would like to go home with hospice care. They do not feel patient is benefitting from transfusions any more. Gema states that her friend from [place] did some research on local hospice agencies and they are requesting a referral to [facility]. supplier manager is aware. We further discussed some end of life issues as well as what they can expect in the near future. Patient does not want a hospital bed and does want litter van transport when time to go home. Past Medical/Surgical History Medical History: Anemia Atrial tachycardia Congestive heart failure Hyperlipidemia Hypokalemia Lethargy Leukopenia Pericardial effusion Pleural effusion Prostate cancer SOB (shortness of breath) Symptomatic anemia Third degree heart block Thrombocytopenia Weakness Metastatic prostate cancer s/p prostatectomy and radiation Leukemia Pancytopenia HLD Complete heart block s/p pacemaker Chronic diastolic CHF LUE DVT dx August 2017 Recurrent pleural effusions s/p multiple thoracentesis Anxiety/depression Surgical history: Prostatectomy Inguinal hernia repair Pacemaker Social History Smoking Status: Former Smoker History of Alcohol Use: Yes (rarely) Drug Use: none Marital Status: Housing Status: lives with significant other Occupation Status: retired Review of Systems Constitutional: + weakness, + fatigue, No fever, No chills ENT: + hearing loss (but now has hearing aid), No trouble swallowing Respiratory: No cough, No shortness of breath Cardiac: No chest pain, No edema Abdomen: No pain, No nausea, No vomiting Male : No problem reported Psychiatric: No depression symptoms, No anxiety Allergies Coded Allergies: Oxycodone (Verified Adverse Reaction, Intermediate, confusion, 11/03/17) PER DR CARMICHAEL, Per his conversation with patient, reaction to Percocet was confusion, not difficulty breathing. Medications Current Inpatient Medications Medications (Trade) Dose Ordered Sig/Bunny Route Start Time Stop Time Status Last Admin Dose Admin Acetaminophen (Tylenol Tab) 650 mg Q4H PRN PO 11/03/17 17:45 12/03/17 17:44 11/04/17 01:13 650 MG Magnesium Hydroxide (Milk Of Magnesia Susp) 30 ml Q6H PRN PO 11/03/17 17:45 12/03/17 17:44 Polyethylene (Miralax Powder Packet) 17 gm DAILY PRN PO 11/03/17 17:45 12/03/17 17:44 Zolpidem Tartrate (Ambien Tab) 5 mg HSZ PRN PO 11/03/17 17:45 12/03/17 17:44 Ondansetron HCl (Zofran Inj) 4 mg Q6H PRN IV 11/03/17 17:45 12/03/17 17:44 Morphine Sulfate (Roxanol Oral Soln) 5 mg Q4 PRN PO 11/03/17 18:00 11/17/17 17:59 11/04/17 08:53 5 MG Heparin Sodium (Porcine) (Heparin 10 Unit/ ml 5 ml Flush) 5 ml PRN PRN FLUSH 11/04/17 00:15 12/04/17 00:14 11/04/17 06:17 5 ML Physical Exam Date Time Temp Pulse Resp B/P (MAP) Pulse Ox O2 Delivery O2 Flow Rate FiO2 11/04/17 07:28 36.2 88 20 109/70 (83) 94 Nasal Cannula 2.0 11/04/17 05:50 36.6 70 22 113/65 93 3.0 11/04/17 04:45 36.6 75 19 117/68 97 11/04/17 04:15 36.3 74 19 93/66 95 11/04/17 03:45 36.7 78 19 102/64 95 11/04/17 03:30 36.5 87 19 108/63 95 11/04/17 02:56 36.7 74 22 108/64 (79) 97 Nasal Cannula 3.0 11/04/17 01:15 38.0 75 22 113/56 (75) 94 Nasal Cannula 3.0 11/04/17 00:31 36.8 76 20 125/64 98 3.0 11/04/17 00:00 Nasal Cannula 3.0 11/03/17 23:33 36.7 78 20 116/73 94 3.0 11/03/17 23:00 36.5 73 20 110/65 98 11/03/17 22:30 36.6 73 20 107/66 96 3.0 11/03/17 22:15 36.8 74 20 107/67 98 11/03/17 21:58 36.7 84 18 109/62 96 3.0 11/03/17 20:45 37.0 80 20 108/69 96 3.0 11/03/17 20:00 36.8 73 20 113/68 96 3.0 11/03/17 19:30 36.7 77 20 114/68 96 3.0 11/03/17 19:20 80 20 115/63 97 11/03/17 19:06 120/89 11/03/17 19:02 115/89 11/03/17 19:01 37.3 80 23 115/89 94 3.0 11/03/17 18:56 114/73 11/03/17 18:56 37.3 79 16 114/73 97 3.0 11/03/17 18:51 77 97 11/03/17 18:44 37.2 79 16 127/62 95 3.0 11/03/17 18:42 127/62 11/03/17 18:21 79 12 95 11/03/17 17:51 75 95 11/03/17 17:35 97 Nasal Cannula 3.0 11/03/17 17:21 79 3 97 11/03/17 17:20 76 11/03/17 16:51 76 95 11/03/17 16:46 77 97 11/03/17 16:16 76 24 95 11/03/17 15:56 94 Nasal Cannula 3.0 11/03/17 15:46 74 31 95 11/03/17 14:41 119/64 11/03/17 14:35 37.1 78 18 119/64 95 Room Air General Appearance: no apparent distress, + pertinent finding (deconditioned) ENT: hearing grossly normal (with hearing aids) Neck: supple, no JVD Respiratory: no respiratory distress, no accessory muscle use Cardiovascular: regular rate, rhythm, no edema, + normal peripheral pulses Abdomen: normal bowel sounds, non tender, soft Neurologic/Psychiatric: normal mood/affect, oriented x 3 Skin: + jaundice Laboratory Results Last 24 Hours Test 11/03/17 15:40 11/04/17 05:27 White Blood Count 1.97 K/uL 2.84 K/uL Red Blood Count 2.42 M/uL 2.74 M/uL Hemoglobin 7.2 g/dL 8.1 g/dL Hematocrit 20.2 % 22.8 % Mean Corpuscular Volume 83.5 fL 83.2 fL Mean Corpuscular Hemoglobin 29.8 pg 29.6 pg Mean Corpuscular Hemoglobin Concent 35.6 g/dl 35.5 g/dl Platelet Count 4 K/uL 7 K/uL RDW Standard Deviation 47.6 fL 45.8 fL RDW Coefficient of Variation 15.6 % 14.9 % Neutrophils % (Manual) 77.2 % 80.5 % Lymphocytes % (Manual) 10.5 % 6.2 % Monocytes % (Manual) 7.0 % 8.8 % Basophils % (Manual) 0.9 % Metamyelocytes % 2.6 % Myelocytes % 0.9 % Blast Cells % 0.9 % 2.7 % Neutrophils # (Manual) 1.52 K/uL 2.29 K/uL Total Absolute Neutrophils 1.52 K/uL 2.29 K/uL Lymphocytes # (Manual) 0.21 K/uL 0.18 K/uL Total Absolute Lymphocytes 0.21 K/uL 0.18 K/uL Monocytes # (Manual) 0.14 K/uL 0.25 K/uL Basophils # (Manual) 0.02 K/uL Metamyelocytes # 0.05 K/uL Myelocytes # 0.02 K/uL Blast Cells # 0.02 K/uL 0.08 K/uL Platelet Estimate SIGNIFIC DECREASED SIGNIFIC DECREASED Red Blood Cell Morphology Unremarkable Prothrombin Time 13.8 SECONDS Prothromb Time International Ratio 1.3 Activated Partial Thromboplast Time 31.5 SECONDS Partial Thromboplastin Ratio 1.2 Sodium Level 134 mmol/L 134 mmol/L Potassium Level 3.6 mmol/L 3.5 mmol/L Chloride Level 101 mmol/L 103 mmol/L Carbon Dioxide Level 25 mmol/L 24 mmol/L Anion Gap 8.0 mmol/L 7.0 mmol/L Blood Urea Nitrogen 14 mg/dl 16 mg/dl Creatinine 0.60 mg/dl 0.56 mg/dl Est Creatinine Clear Calc Drug Dose 34.8 ml/min 115.8 ml/min Estimated GFR () 114.8 118.1 Estimated GFR (Non- 99.1 101.9 BUN/Creatinine Ratio 22.8 28.4 Random Glucose 128 mg/dl 117 mg/dl Calcium Level 7.4 mg/dl 6.8 mg/dl Total Bilirubin 1.6 mg/dl Direct Bilirubin 0.9 mg/dl Aspartate Amino Transf (AST/SGOT) 16 U/L Alanine Aminotransferase (ALT/SGPT) 13 U/L Alkaline Phosphatase 86 U/L Total Creatine Kinase 15 U/L Creatine Kinase MB < 1.0 ng/ml Creatine Kinase MB Ratio Troponin I 0.046 ng/ml Total Protein 5.7 gm/dl Albumin 2.3 gm/dl Nucleated RBC Absolute Count (auto) 0.02 K/uL Eosinophils % (Manual) 1.8 % Nucleated Red Blood Cells % 0.8 % Eosinophils # (Manual) 0.05 K/uL Hypogranular Neutrophils 3+ Large Platelets 1+ Phosphorus Level 2.5 mg/dl Magnesium Level 1.9 mg/dl Assessment & Plan Palliative Performance Scale: 30 % Problem list: Weakness Rectal bleeding Pancytopenia Leukemia Prostate cancer, end-stage Goals of care Palliative care recs: -As discussed with patient and Gema, plan is to stop all transfusions and active treatment, and go home with hospice. -, Gema, requested referral to [facility]. Patient does not want a hospital bed, does want litter van transport. supplier manager aware. -Please give script for Roxanol 5mg PO/SL Q3h PRN pain or SOB, and lorazepam 1mg PO/SL Q4h PRN anxiety/agitation on discharge. -Patient denies any other symptoms at this time. Thank you kindly for this consult. Total time spent 70 minutes with >50% of time spent at bedside with patient and family discussing end of life issues, plan of care, and hospice. Coordinated care with case management and physician.
[2017-11-04] MEDS ORDERED: ATV5 SL (10:48)
[2017-11-04] MEDS ORDERED: RXNS10 PO (10:48)
--- NOTE | 2017-11-04 10:49 | Discharge Instructions ---
Discharge Instructions Date of Service Nov 04, 2017. Admission Reason for Admission: Pancytopenia, Leukemia, Rectal Bleeding Discharge Discharge Diagnosis / Problem: transfusion dependent anemia, leukemia Discharge Goals Goal(s): Diagnostic testing, Therapeutic intervention Activity Recommendations Activity Limitations: per Instructions/Follow-up section Exercise/Sports Limitations: rest today . Current Hospital Diet Patient's current hospital diet: Regular Diet Discharge Diet Recommended Diet: Regular Diet Pending Studies Studies pending at discharge: no Medical Emergencies . Who to Call and When: Medical Emergencies: If at any time you feel your situation is an emergency, please call 911 immediately. . Non-Emergent Contact Non-Emergency issues call your: Specialist (hospice pediatric acute care unit nurse) Call Non-Emergent contact if: your pain is not controlled . . "Provider Documentation" section prepared by Lasha Proctor. .
[2017-11-04] MEDS ORDERED: LORAZEPAM 2 MG/ML 1 ML VIAL ONE (10:58)
[2017-11-04] MEDS ORDERED: LORAZEPAM 2 MG/ML 1 ML VIAL IV PRN ×2 (11:00→13:00)
[2017-11-04] MEDS ORDERED: LORAZEPAM INJ 0.5 MG in SYRINGE 0.75 ML IV PRN (11:15)
[2017-11-04] MEDS ORDERED: LORAZEPAM INJ 0.5 MG in SYRINGE 0.75 ML IV ONE (12:45)
[2017-11-04] MEDS ORDERED: HYDROmorphone INJ 0.5 MG/0.5 ML SYR IV STA (12:57)
[2017-11-04] MEDS ORDERED: HYDROmorphone INJ 0.5 MG/0.5 ML SYR IV PRN ×2 (13:00)
[2017-11-04] MEDS ORDERED: LORAZEPAM INJ 1 MG in SYRINGE 0.5 ML IV PRN (16:00)
--- NOTE | 2017-11-04 17:56 | Discharge Summary ---
Discharge Summary Date of Service Nov 04, 2017. Discharge Summary Admission Date: Nov 03, 2017 at 17:45 Discharge Date: Nov 04, 2017 Discharge Disposition: Home with services Principal Diagnosis: transfusion dependents leukemia Immunizations: Have You Had Influenza Vaccine: Yes History of Tetanus Vaccine?: Yes History of Pneumococcal: Yes History of Hepatitis B Vaccine: Yes Medication Reconciliation New Medications: Lorazepam (Lorazepam) 0.5 Mg Tab 0.5-1 MG SL Q4 PRN for Anxiety, #30 TAB Morphine Sulfate (Morphine Sulfate) 10 Mg/0.5 Ml Soln 10-20 MG PO Q2H PRN for Pain, #200 ML Continued Medications: [Nose [place]] () 1 DOSE NA UD Discontinued Medications: [Appetite Stimulant] () 1 DOSE PO UD Discharge Exam Review of Systems: Constitutional: No fever, No chills Respiratory: No cough, No sputum Cardiovascular: No chest pain, No orthopnea Abdomen: No pain, No nausea, No diarrhea Psychiatric: No depression symptoms, No anxiety Physical Exam: General Appearance: + moderate distress, + thin Respiratory/Chest: + respiratory distress, + decreased breath sounds, + accessory muscle use Cardiovascular: + tachycardia, + systolic murmur Neurologic/Psychiatric: alert, oriented x 3, + depressed affect Hospital Course 76-year-old white male with prostate cancer and recently diagnosed transfusion dependent leukemia presenting with rectal bleeding and pancytopenia. transfusion dependent and leukemia. Dr Wahl discussed with at the bedside and other family members about the patient's conditions and care plan. They fully understand the patient's complex and multiple comorbidities and is having very poor prognosis. What they want to do is transfusion and no any other aggressive measures. They plan on working with home hospice care service and transition home as soon as it is set up Elevated troponin, supply demand mismatch type 2 Mi from anemia,transfusion is indicated DVT prophylaxis is contraindicated because the patient has rectal bleeding. The patient is do not resuscitation. I spent time with the family and patient, the family is comfortable with the patient going home with hospice on comfort measures, expecting his rectal bleeding to continue Total Time Spent: Greater than 30 minutes This includes examination of the patient, discharge planning, medication reconciliation, and communication with other providers. Discharge Instructions Please refer to the electronic Patient Visit Report (Discharge Instructions) for additional information.
== END 2017-11-04 16:12 | disposition hospice, home (50) | DRG 377 ==
LOC: EDBD 14:31 → C.EDC 14:34 → C.4E 17:45 → ENRESERV 17:57
PROVIDERS: ADMIT Hospitalist; ATTEND Hospitalist
DX: K62.5 Hemorrhage of anus and rectum (principal); I21.A1 Myocardial infarction type 2; D61.818 Other pancytopenia; C95.90 Leukemia, unspecified not having achieved remission; E78.5 Hyperlipidemia, unspecified; Z87.891 Personal history of nicotine dependence; Z66 Do not resuscitate; Z51.5 Encounter for palliative care; C61 Malignant neoplasm of prostate